=== PATIENT | female | born 1980 | race Caucasian/White ===

== ENCOUNTER 2019-11-06 03:43 | Emergency (ER) | payer MEDICAID, SELFPAY | END 2019-11-06 04:40 | disposition home or self-care (01) | PROVIDERS: Emergency Provider Emergency Medicine; Family Provider Family Medicine; Visit Provider Emergency Medicine | DX: M25.511 Pain in right shoulder (principal); R07.89 Other chest pain; Z91.040 Latex allergy status; Z88.5 Allergy status to narcotic agent; Z88.0 Allergy status to penicillin; F17.210 Nicotine dependence, cigarettes, uncomplicated | CPT/HCPCS: 71046; 93005; 96372; 99284; J1885 ==

== ENCOUNTER → 2019-11-06 | Outpatient (CLI) | payer MEDICAID, SELFPAY | PROVIDERS: Family Provider Family Medicine; Visit Provider Psychiatry & Neurology Psychiatry | DX: F60.3 Borderline personality disorder (principal); F15.21 Other stimulant dependence, in remission; F11.21 Opioid dependence, in remission; F44.81 Dissociative identity disorder; F25.0 Schizoaffective disorder, bipolar type; G47.419 Narcolepsy without cataplexy; F17.210 Nicotine dependence, cigarettes, uncomplicated ==

== ENCOUNTER → 2019-11-13 08:51 | Outpatient (BNVA) | payer MEDICAID, SELFPAY | PROVIDERS: Family Provider Family Medicine; PCP Family Medicine; Visit Provider Social Worker Clinical | DX: F43.12 Post-traumatic stress disorder, chronic (principal); F25.0 Schizoaffective disorder, bipolar type | CPT/HCPCS: 90834 ==

== ENCOUNTER → 2019-11-14 10:40 | Outpatient (BNVA) | payer MEDICAID, SELFPAY | PROVIDERS: Family Provider Family Medicine; PCP Family Medicine; Visit Provider Anesthesiology | DX: G89.29 Other chronic pain (principal); M54.42 Lumbago with sciatica, left side; M47.816 Spondylosis without myelopathy or radiculopathy, lumbar region; M47.819 Spondylosis without myelopathy or radiculopathy, site unspecified; M54.2 Cervicalgia; M25.511 Pain in right shoulder; F17.210 Nicotine dependence, cigarettes, uncomplicated; Z79.891 Long term (current) use of opiate analgesic | CPT/HCPCS: 99214 ==

== ENCOUNTER → 2019-11-28 08:51 | Outpatient (BNVA) | payer MEDICAID, SELFPAY | PROVIDERS: Family Provider Family Medicine; PCP Family Medicine; Visit Provider Social Worker Clinical | DX: F43.12 Post-traumatic stress disorder, chronic (principal) | CPT/HCPCS: 90834 ==

== ENCOUNTER → 2019-12-05 08:43 | Outpatient (BNVA) | payer MEDICAID, SELFPAY | PROVIDERS: Family Provider Family Medicine; PCP Family Medicine; Visit Provider Social Worker Clinical | DX: F43.12 Post-traumatic stress disorder, chronic (principal); F25.0 Schizoaffective disorder, bipolar type | CPT/HCPCS: 90834 ==

== ENCOUNTER → 2019-12-12 07:58 | Outpatient (BNVA) | payer MEDICAID, SELFPAY | PROVIDERS: Family Provider Family Medicine; PCP Family Medicine; Visit Provider Social Worker Clinical | DX: F43.12 Post-traumatic stress disorder, chronic (principal) | CPT/HCPCS: 90834 ==

== ENCOUNTER → 2019-12-26 07:47 | Outpatient (BNVA) | payer MEDICAID, SELFPAY | PROVIDERS: Family Provider Family Medicine; PCP Family Medicine; Visit Provider Social Worker Clinical | DX: F43.12 Post-traumatic stress disorder, chronic (principal); F60.3 Borderline personality disorder; F25.0 Schizoaffective disorder, bipolar type | CPT/HCPCS: 90834 ==

== ENCOUNTER → 2020-01-08 09:18 | Outpatient (BNVA) | payer MEDICAID, SELFPAY | PROVIDERS: Family Provider Family Medicine; PCP Family Medicine; Visit Provider Anesthesiology | DX: G89.29 Other chronic pain (principal); M54.42 Lumbago with sciatica, left side; M54.2 Cervicalgia; F17.210 Nicotine dependence, cigarettes, uncomplicated; Z79.891 Long term (current) use of opiate analgesic; Z71.6 Tobacco abuse counseling | CPT/HCPCS: 99214 ==

== ENCOUNTER → 2020-01-16 08:51 | Outpatient (BNVA) | payer MEDICAID, SELFPAY | PROVIDERS: Family Provider Family Medicine; PCP Family Medicine; Visit Provider Social Worker Clinical | DX: F43.12 Post-traumatic stress disorder, chronic (principal) | CPT/HCPCS: 90834 ==

== ENCOUNTER → 2020-02-01 10:11 | Outpatient (BNVA) | payer MEDICAID, SELFPAY | PROVIDERS: Family Provider Family Medicine; PCP Family Medicine; Visit Provider Social Worker Clinical | DX: F43.12 Post-traumatic stress disorder, chronic (principal) | CPT/HCPCS: 90832 ==

== ENCOUNTER → 2020-02-05 07:12 | Outpatient (BNVA) | payer MEDICAID, SELFPAY | PROVIDERS: Family Provider Family Medicine; PCP Family Medicine; Visit Provider Psychiatry & Neurology Psychiatry | DX: G47.419 Narcolepsy without cataplexy (principal); G47.33 Obstructive sleep apnea (adult) (pediatric); F25.0 Schizoaffective disorder, bipolar type; F60.3 Borderline personality disorder; F17.210 Nicotine dependence, cigarettes, uncomplicated | CPT/HCPCS: 99213 ==

== ENCOUNTER → 2020-02-07 08:40 | Outpatient (BNVA) | payer MEDICAID, SELFPAY | PROVIDERS: Family Provider Family Medicine; PCP Family Medicine; Visit Provider Social Worker Clinical | DX: F60.3 Borderline personality disorder (principal); F25.0 Schizoaffective disorder, bipolar type | CPT/HCPCS: 90834 ==

== ENCOUNTER → 2020-02-14 08:47 | Outpatient (BNVA) | payer MEDICAID, SELFPAY | PROVIDERS: Family Provider Family Medicine; PCP Family Medicine; Visit Provider Social Worker Clinical | DX: F60.3 Borderline personality disorder (principal); F25.0 Schizoaffective disorder, bipolar type | CPT/HCPCS: 90834 ==

== ENCOUNTER → 2020-02-21 08:00 | Outpatient (BNVA) | payer MEDICAID, SELFPAY | PROVIDERS: Family Provider Family Medicine; PCP Family Medicine; Visit Provider Social Worker Clinical | DX: F60.3 Borderline personality disorder (principal); F25.0 Schizoaffective disorder, bipolar type | CPT/HCPCS: 90834 ==

== ENCOUNTER → 2020-02-28 07:52 | Outpatient (BNVA) | payer MEDICAID, SELFPAY | PROVIDERS: Family Provider Family Medicine; PCP Family Medicine; Visit Provider Social Worker Clinical | DX: F60.3 Borderline personality disorder (principal); F25.0 Schizoaffective disorder, bipolar type; F43.12 Post-traumatic stress disorder, chronic | CPT/HCPCS: 90834 ==

== ENCOUNTER → 2020-03-13 08:05 | Outpatient (BNVA) | payer MEDICAID, SELFPAY | PROVIDERS: Family Provider Family Medicine; PCP Family Medicine; Visit Provider Social Worker Clinical | DX: F60.3 Borderline personality disorder (principal); F25.0 Schizoaffective disorder, bipolar type; F43.12 Post-traumatic stress disorder, chronic | CPT/HCPCS: 90834 ==

== ENCOUNTER → 2020-03-20 07:35 | Outpatient (BNVA) | payer MEDICAID, SELFPAY | PROVIDERS: Family Provider Family Medicine; PCP Family Medicine; Visit Provider Social Worker Clinical | DX: F60.3 Borderline personality disorder (principal); F25.0 Schizoaffective disorder, bipolar type; F43.12 Post-traumatic stress disorder, chronic | CPT/HCPCS: 90834 ==

== ENCOUNTER → 2020-03-27 07:48 | Outpatient (BNVA) | payer MEDICAID, SELFPAY | PROVIDERS: Family Provider Family Medicine; PCP Family Medicine; Visit Provider Social Worker Clinical | DX: F43.12 Post-traumatic stress disorder, chronic (principal); F25.0 Schizoaffective disorder, bipolar type | CPT/HCPCS: 90791 ==

== ENCOUNTER → 2020-04-03 07:52 | Outpatient (BNVA) | payer MEDICAID, SELFPAY | PROVIDERS: Family Provider Family Medicine; PCP Family Medicine; Visit Provider Social Worker Clinical | DX: F25.0 Schizoaffective disorder, bipolar type (principal); F60.3 Borderline personality disorder | CPT/HCPCS: 90834 ==

== ENCOUNTER → 2020-04-08 07:35 | Outpatient (BNVA) | payer MEDICAID, SELFPAY | PROVIDERS: Family Provider Family Medicine; PCP Family Medicine; Visit Provider Psychiatry & Neurology Psychiatry | DX: F25.0 Schizoaffective disorder, bipolar type (principal); F60.3 Borderline personality disorder; F17.210 Nicotine dependence, cigarettes, uncomplicated; G47.33 Obstructive sleep apnea (adult) (pediatric); G47.419 Narcolepsy without cataplexy | CPT/HCPCS: 99214 ==

== ENCOUNTER → 2020-04-10 07:57 | Outpatient (BNVA) | payer MEDICAID, SELFPAY | PROVIDERS: Family Provider Family Medicine; PCP Family Medicine; Visit Provider Social Worker Clinical | DX: F60.3 Borderline personality disorder (principal); F25.0 Schizoaffective disorder, bipolar type | CPT/HCPCS: 90834 ==

== ENCOUNTER → 2020-04-17 08:03 | Outpatient (BNVA) | payer MEDICAID, SELFPAY | PROVIDERS: Family Provider Family Medicine; PCP Family Medicine; Visit Provider Social Worker Clinical | DX: F25.0 Schizoaffective disorder, bipolar type (principal); F60.3 Borderline personality disorder | CPT/HCPCS: 90834 ==

== ENCOUNTER 2020-04-21 15:13 | Outpatient (CLI) | payer MEDICAID, SELFPAY ==
--- NOTE | 2020-04-21 15:00 | USCV_ITS ---
Leisa Rizo Age: 39 Gender: F : 1980 Exam Date: 04/21/2020 15:55 Ordering Phys: Leisa Toussaint DO Technologist: Marisa Boone Exam Location: [facility] [place] Indication: SWELLING HISTORY: Lower extremity swelling. PROCEDURES: Venous duplex imaging was performed in only the left lower extremity. The following venous structures were evaluated: common femoral vein, profunda vein, proximal portion of the greater saphenous vein, superficial femoral vein, and the popliteal vein. In addition, the posterior tibial and peroneal trunk were evaluated. Serial compression, augmentation maneuvers, and spectral Doppler flow evaluation were performed. FINDINGS: Normal 2-D Doppler and augmentation and compressibility throughout the lower extremity venous structures. Additional imaging through the proximal calf veins also reveals no thrombus. Limited evaluation of the greater saphenous vein is patent with no thrombus.. CONCLUSIONS No evidence of DVT in the above-mentioned identifiable veins. Dr Lorraine Brewster MD [facility] (Electronically Signed) Final Date: 21 April 2020 20:24 S
== END 2020-04-21 15:14 | disposition home or self-care (01) ==
LOC: RAD 15:15
PROVIDERS: PCP Family Medicine; Visit Provider Family Medicine
DX: M79.89 Other specified soft tissue disorders (principal)
CPT/HCPCS: 93971

== ENCOUNTER → 2020-04-24 07:54 | Outpatient (BNVA) | payer MEDICAID, SELFPAY | PROVIDERS: PCP Family Medicine; Visit Provider Social Worker Clinical | DX: F25.0 Schizoaffective disorder, bipolar type (principal); F60.3 Borderline personality disorder | CPT/HCPCS: 90834 ==

== ENCOUNTER → 2020-05-01 08:04 | Outpatient (BNVA) | payer MEDICAID, SELFPAY | PROVIDERS: PCP Family Medicine; Visit Provider Social Worker Clinical | DX: F60.3 Borderline personality disorder (principal); F25.0 Schizoaffective disorder, bipolar type | CPT/HCPCS: 90834 ==

== ENCOUNTER → 2020-05-08 07:57 | Outpatient (BNVA) | payer MEDICAID, SELFPAY | PROVIDERS: PCP Family Medicine; Visit Provider Social Worker Clinical | DX: F25.0 Schizoaffective disorder, bipolar type (principal); F60.3 Borderline personality disorder | CPT/HCPCS: 90834 ==

== ENCOUNTER → 2020-05-13 08:08 | Outpatient (BNVA) | payer MEDICAID, SELFPAY | PROVIDERS: PCP Family Medicine; Visit Provider Social Worker Clinical | DX: F25.0 Schizoaffective disorder, bipolar type (principal); F60.3 Borderline personality disorder | CPT/HCPCS: 90832 ==

== ENCOUNTER → 2020-05-16 11:30 | Outpatient (BNVA) | payer MEDICAID, SELFPAY | PROVIDERS: Family Provider Family Medicine; PCP Family Medicine; Visit Provider Nurse Practitioner | DX: G89.29 Other chronic pain (principal); M54.42 Lumbago with sciatica, left side; M54.9 Dorsalgia, unspecified; M54.2 Cervicalgia; F17.219 Nicotine dependence, cigarettes, with unspecified nicotine-induced disorders; Z79.891 Long term (current) use of opiate analgesic; Z71.6 Tobacco abuse counseling | CPT/HCPCS: 99213; 99214 ==

== ENCOUNTER → 2020-05-20 08:08 | Outpatient (BNVA) | payer MEDICAID, SELFPAY | PROVIDERS: PCP Family Medicine; Visit Provider Social Worker Clinical | DX: F60.3 Borderline personality disorder (principal); F25.0 Schizoaffective disorder, bipolar type | CPT/HCPCS: 90834 ==

== ENCOUNTER → 2020-05-28 07:43 | Outpatient (BNVA) | payer MEDICAID, SELFPAY | PROVIDERS: PCP Family Medicine; Visit Provider Social Worker Clinical | DX: F25.0 Schizoaffective disorder, bipolar type (principal); F60.3 Borderline personality disorder | CPT/HCPCS: 90834 ==

== ENCOUNTER → 2020-06-04 07:51 | Outpatient (BNVA) | payer MEDICAID, SELFPAY | PROVIDERS: PCP Family Medicine; Visit Provider Social Worker Clinical | DX: F25.0 Schizoaffective disorder, bipolar type (principal); F60.3 Borderline personality disorder | CPT/HCPCS: 90834 ==

== ENCOUNTER → 2020-06-09 08:15 | Outpatient (BNVA) | payer MEDICAID, SELFPAY | PROVIDERS: PCP Family Medicine; Visit Provider Social Worker Clinical | DX: F60.3 Borderline personality disorder (principal); F25.0 Schizoaffective disorder, bipolar type | CPT/HCPCS: 90834 ==

== ENCOUNTER → 2020-06-10 07:31 | Outpatient (BNVA) | payer MEDICAID, SELFPAY | PROVIDERS: PCP Family Medicine; Visit Provider Psychiatry & Neurology Psychiatry | DX: F25.0 Schizoaffective disorder, bipolar type (principal); F60.3 Borderline personality disorder; F17.210 Nicotine dependence, cigarettes, uncomplicated; G47.33 Obstructive sleep apnea (adult) (pediatric); G47.419 Narcolepsy without cataplexy | CPT/HCPCS: 99214 ==

== ENCOUNTER → 2020-06-18 08:18 | Outpatient (BNVA) | payer MEDICAID, SELFPAY | PROVIDERS: PCP Family Medicine; Visit Provider Social Worker Clinical | DX: F60.3 Borderline personality disorder (principal); F25.0 Schizoaffective disorder, bipolar type | CPT/HCPCS: 90834 ==

== ENCOUNTER → 2020-06-25 08:24 | Outpatient (BNVA) | payer MEDICAID, SELFPAY | PROVIDERS: PCP Family Medicine; Visit Provider Social Worker Clinical | DX: F60.3 Borderline personality disorder (principal); F25.0 Schizoaffective disorder, bipolar type | CPT/HCPCS: 90834 ==

== ENCOUNTER → 2020-07-02 08:28 | Outpatient (BNVA) | payer MEDICAID, SELFPAY | PROVIDERS: PCP Family Medicine; Visit Provider Social Worker Clinical | DX: F60.3 Borderline personality disorder (principal); F25.0 Schizoaffective disorder, bipolar type | CPT/HCPCS: 90834 ==

== ENCOUNTER → 2020-07-09 08:31 | Outpatient (BNVA) | payer MEDICAID, SELFPAY | PROVIDERS: PCP Family Medicine; Visit Provider Social Worker Clinical | DX: F25.0 Schizoaffective disorder, bipolar type (principal); F60.3 Borderline personality disorder | CPT/HCPCS: 90834 ==

== ENCOUNTER → 2020-07-16 09:07 | Outpatient (BNVA) | payer MEDICAID, SELFPAY | PROVIDERS: PCP Family Medicine; Visit Provider Social Worker Clinical | DX: F25.0 Schizoaffective disorder, bipolar type (principal); F60.3 Borderline personality disorder | CPT/HCPCS: 90834 ==

== ENCOUNTER → 2020-07-17 10:48 | Outpatient (BNVA) | payer MEDICAID, SELFPAY | PROVIDERS: PCP Family Medicine; Visit Provider Nurse Practitioner | DX: G89.29 Other chronic pain (principal); M54.42 Lumbago with sciatica, left side; M47.816 Spondylosis without myelopathy or radiculopathy, lumbar region; M47.819 Spondylosis without myelopathy or radiculopathy, site unspecified; M54.2 Cervicalgia; M54.9 Dorsalgia, unspecified; F17.210 Nicotine dependence, cigarettes, uncomplicated; Z79.891 Long term (current) use of opiate analgesic | CPT/HCPCS: 99214 ==

== ENCOUNTER → 2020-07-31 07:43 | Outpatient (BNVA) | payer MEDICAID, SELFPAY | PROVIDERS: PCP Family Medicine; Visit Provider Social Worker Clinical | DX: F25.0 Schizoaffective disorder, bipolar type (principal); F60.3 Borderline personality disorder; M54.2 Cervicalgia; M54.9 Dorsalgia, unspecified; F17.210 Nicotine dependence, cigarettes, uncomplicated; Z79.891 Long term (current) use of opiate analgesic | CPT/HCPCS: 90832; 62321; J1040 ==

== ENCOUNTER → 2020-08-07 08:13 | Outpatient (BNVA) | payer MEDICAID, SELFPAY | PROVIDERS: PCP Family Medicine; Visit Provider Social Worker Clinical | DX: F25.0 Schizoaffective disorder, bipolar type (principal); F60.3 Borderline personality disorder; F43.12 Post-traumatic stress disorder, chronic | CPT/HCPCS: 90834 ==

== ENCOUNTER → 2020-08-11 08:24 | Outpatient (BNVA) | payer MEDICAID, SELFPAY | PROVIDERS: PCP Family Medicine; Visit Provider Social Worker Clinical | DX: F25.0 Schizoaffective disorder, bipolar type (principal); F60.3 Borderline personality disorder; F43.12 Post-traumatic stress disorder, chronic | CPT/HCPCS: 90832 ==

== ENCOUNTER → 2020-08-12 07:27 | Outpatient (BNVA) | payer MEDICAID, SELFPAY | PROVIDERS: PCP Family Medicine; Visit Provider Psychiatry & Neurology Psychiatry | DX: F25.0 Schizoaffective disorder, bipolar type (principal); F60.3 Borderline personality disorder; F17.210 Nicotine dependence, cigarettes, uncomplicated; G47.33 Obstructive sleep apnea (adult) (pediatric); G47.419 Narcolepsy without cataplexy | CPT/HCPCS: 90792 ==

== ENCOUNTER → 2020-08-19 07:28 | Outpatient (BNVA) | payer MEDICAID, SELFPAY | PROVIDERS: PCP Family Medicine; Visit Provider Psychiatry & Neurology Psychiatry | DX: F25.0 Schizoaffective disorder, bipolar type (principal); F60.3 Borderline personality disorder; F17.210 Nicotine dependence, cigarettes, uncomplicated; G47.33 Obstructive sleep apnea (adult) (pediatric); G47.419 Narcolepsy without cataplexy | CPT/HCPCS: 99213 ==

== ENCOUNTER → 2020-08-21 07:47 | Outpatient (BNVA) | payer MEDICAID, SELFPAY | PROVIDERS: PCP Family Medicine; Visit Provider Social Worker Clinical | DX: F25.0 Schizoaffective disorder, bipolar type (principal); F43.12 Post-traumatic stress disorder, chronic | CPT/HCPCS: 90832 ==

== ENCOUNTER → 2020-08-28 08:14 | Outpatient (BNVA) | payer MEDICAID, SELFPAY | PROVIDERS: PCP Family Medicine; Visit Provider Social Worker Clinical | DX: F60.3 Borderline personality disorder (principal); F25.0 Schizoaffective disorder, bipolar type | CPT/HCPCS: 90832; 90834 ==

== ENCOUNTER → 2020-09-04 08:39 | Outpatient (BNVA) | payer MEDICAID, SELFPAY | PROVIDERS: PCP Family Medicine; Visit Provider Social Worker Clinical | DX: F25.0 Schizoaffective disorder, bipolar type (principal); F60.3 Borderline personality disorder | CPT/HCPCS: 90834 ==

== ENCOUNTER → 2020-09-09 08:00 | Outpatient (BNVA) | payer MEDICAID, SELFPAY | PROVIDERS: PCP Family Medicine; Visit Provider Social Worker Clinical | DX: F25.0 Schizoaffective disorder, bipolar type (principal); F60.3 Borderline personality disorder; F43.12 Post-traumatic stress disorder, chronic | CPT/HCPCS: 90834 ==

== ENCOUNTER → 2020-09-10 08:27 | Outpatient (BNVA) | payer MEDICAID, SELFPAY | PROVIDERS: PCP Family Medicine; Visit Provider Anesthesiology | DX: G89.29 Other chronic pain (principal); M47.816 Spondylosis without myelopathy or radiculopathy, lumbar region; M54.42 Lumbago with sciatica, left side; M54.41 Lumbago with sciatica, right side; M47.819 Spondylosis without myelopathy or radiculopathy, site unspecified; M54.2 Cervicalgia; M54.9 Dorsalgia, unspecified; F17.210 Nicotine dependence, cigarettes, uncomplicated; Z79.891 Long term (current) use of opiate analgesic | CPT/HCPCS: 99213; 99214 ==

== ENCOUNTER 2020-09-15 10:26 | Outpatient (CLI) | payer MEDICAID, SELFPAY ==
[2020-09-15 11:16] LABS: Blood Urea Nitrogen 9 mg/dL (6-20); Calcium 8.6 mg/dL (8.5-10.5); Carbon Dioxide 25 mmol/L (22-29); Chloride 100 mmol/L (98-107); Glomerular Filtration Rate 92.2 mL/min (90-130); Glucose 115 mg/dL (65-115); Osmolality Calculated 278 mOsm/kg (285-295); Sodium 134 mmol/L (136-145)
== END 2020-09-15 10:27 | disposition home or self-care (01) ==
LOC: LAB 10:30
PROVIDERS: PCP Family Medicine; Visit Provider Anesthesiology
DX: Z51.81 Encounter for therapeutic drug level monitoring (principal); Z79.1 Long term (current) use of non-steroidal anti-inflammatories (NSAID)
CPT/HCPCS: 36415; 80048

== ENCOUNTER → 2020-09-16 07:55 | Outpatient (BNVA) | payer MEDICAID, SELFPAY | PROVIDERS: PCP Family Medicine; Visit Provider Social Worker Clinical | DX: F25.0 Schizoaffective disorder, bipolar type (principal); F60.3 Borderline personality disorder; F43.12 Post-traumatic stress disorder, chronic | CPT/HCPCS: 90834 ==

== ENCOUNTER → 2020-09-18 08:10 | Outpatient (BNVA) | payer MEDICAID, SELFPAY | PROVIDERS: PCP Family Medicine; Visit Provider Psychiatry & Neurology Psychiatry | DX: F25.0 Schizoaffective disorder, bipolar type (principal); F60.3 Borderline personality disorder; F17.210 Nicotine dependence, cigarettes, uncomplicated; G47.33 Obstructive sleep apnea (adult) (pediatric); G47.419 Narcolepsy without cataplexy | CPT/HCPCS: 99214 ==

== ENCOUNTER → 2020-09-22 08:14 | Outpatient (BNVA) | payer MEDICAID, SELFPAY | PROVIDERS: PCP Family Medicine; Visit Provider Social Worker Clinical | DX: F60.3 Borderline personality disorder (principal); F25.0 Schizoaffective disorder, bipolar type | CPT/HCPCS: 90834 ==

== ENCOUNTER → 2020-09-25 08:22 | Outpatient (BNVA) | payer MEDICAID, SELFPAY | PROVIDERS: PCP Family Medicine; Visit Provider Psychiatry & Neurology Psychiatry | DX: F25.0 Schizoaffective disorder, bipolar type (principal); F60.3 Borderline personality disorder; F17.210 Nicotine dependence, cigarettes, uncomplicated; G47.33 Obstructive sleep apnea (adult) (pediatric); Z79.899 Other long term (current) drug therapy; G47.419 Narcolepsy without cataplexy; F41.9 Anxiety disorder, unspecified | CPT/HCPCS: 99215 ==

== ENCOUNTER → 2020-09-26 07:40 | Outpatient (BNVA) | payer MEDICAID, SELFPAY | PROVIDERS: PCP Family Medicine; Visit Provider Psychiatry & Neurology Psychiatry | DX: F25.0 Schizoaffective disorder, bipolar type (principal); Z79.899 Other long term (current) drug therapy | CPT/HCPCS: 84443 ==

== ENCOUNTER → 2020-10-06 08:12 | Outpatient (BNVA) | payer MEDICAID, SELFPAY | PROVIDERS: PCP Family Medicine; Visit Provider Social Worker Clinical | DX: F25.0 Schizoaffective disorder, bipolar type (principal); F60.3 Borderline personality disorder | CPT/HCPCS: 90834 ==

== ENCOUNTER → 2020-10-09 07:35 | Outpatient (BNVA) | payer MEDICAID, SELFPAY | PROVIDERS: PCP Family Medicine; Visit Provider Social Worker Clinical | DX: F25.0 Schizoaffective disorder, bipolar type (principal); F60.3 Borderline personality disorder; F43.12 Post-traumatic stress disorder, chronic | CPT/HCPCS: 90834 ==

== ENCOUNTER → 2020-10-13 09:21 | Outpatient (BNVA) | payer MEDICAID, SELFPAY | PROVIDERS: PCP Family Medicine; Visit Provider Psychiatry & Neurology Psychiatry | DX: F25.0 Schizoaffective disorder, bipolar type (principal); Z79.899 Other long term (current) drug therapy | CPT/HCPCS: 80178 ==

== ENCOUNTER → 2020-10-21 07:44 | Outpatient (BNVA) | payer MEDICAID, SELFPAY | PROVIDERS: PCP Family Medicine; Visit Provider Social Worker Clinical | DX: F60.3 Borderline personality disorder (principal); F25.0 Schizoaffective disorder, bipolar type | CPT/HCPCS: 90834 ==

== ENCOUNTER → 2020-10-27 07:54 | Outpatient (BNVA) | payer MEDICAID, SELFPAY | PROVIDERS: PCP Family Medicine; Visit Provider Social Worker Clinical | DX: F60.3 Borderline personality disorder (principal); F25.0 Schizoaffective disorder, bipolar type | CPT/HCPCS: 90834 ==

== ENCOUNTER → 2020-11-03 07:33 | Outpatient (BNVA) | payer MEDICAID, SELFPAY | PROVIDERS: PCP Family Medicine; Visit Provider Psychiatry & Neurology Psychiatry | DX: F25.0 Schizoaffective disorder, bipolar type (principal); F60.3 Borderline personality disorder; F17.210 Nicotine dependence, cigarettes, uncomplicated; G47.33 Obstructive sleep apnea (adult) (pediatric); G47.419 Narcolepsy without cataplexy | CPT/HCPCS: 99214 ==

== ENCOUNTER → 2020-11-06 08:41 | Outpatient (BNVA) | payer MEDICAID, SELFPAY | PROVIDERS: PCP Family Medicine; Visit Provider Nurse Practitioner | DX: M54.2 Cervicalgia (principal); M54.9 Dorsalgia, unspecified; F17.210 Nicotine dependence, cigarettes, uncomplicated; M47.819 Spondylosis without myelopathy or radiculopathy, site unspecified; M54.42 Lumbago with sciatica, left side; M47.816 Spondylosis without myelopathy or radiculopathy, lumbar region; G89.29 Other chronic pain; Z71.6 Tobacco abuse counseling; Z79.891 Long term (current) use of opiate analgesic | CPT/HCPCS: 99214 ==

== ENCOUNTER → 2020-11-10 08:15 | Outpatient (BNVA) | payer MEDICAID, SELFPAY | PROVIDERS: PCP Family Medicine; Visit Provider Social Worker Clinical | DX: F60.3 Borderline personality disorder (principal); F25.0 Schizoaffective disorder, bipolar type | CPT/HCPCS: 90834 ==

== ENCOUNTER → 2020-11-17 08:06 | Outpatient (BNVA) | payer MEDICAID, SELFPAY | PROVIDERS: PCP Family Medicine; Visit Provider Social Worker Clinical | DX: F25.0 Schizoaffective disorder, bipolar type (principal); F60.3 Borderline personality disorder; F43.12 Post-traumatic stress disorder, chronic | CPT/HCPCS: 90834 ==

== ENCOUNTER → 2020-11-24 08:37 | Outpatient (BNVA) | payer MEDICAID, SELFPAY | PROVIDERS: PCP Family Medicine; Visit Provider Social Worker Clinical | DX: F25.0 Schizoaffective disorder, bipolar type (principal); F60.3 Borderline personality disorder; F43.12 Post-traumatic stress disorder, chronic | CPT/HCPCS: 90834 ==

== ENCOUNTER → 2020-12-01 08:19 | Outpatient (BNVA) | payer MEDICAID, SELFPAY | PROVIDERS: PCP Family Medicine; Visit Provider Social Worker Clinical | DX: F60.3 Borderline personality disorder (principal); F25.0 Schizoaffective disorder, bipolar type | CPT/HCPCS: 90832 ==

== ENCOUNTER → 2020-12-03 09:06 | Outpatient (BNVA) | payer MEDICAID, SELFPAY | PROVIDERS: PCP Family Medicine; Visit Provider Psychiatry & Neurology Psychiatry | DX: F25.0 Schizoaffective disorder, bipolar type (principal); F60.3 Borderline personality disorder; F17.210 Nicotine dependence, cigarettes, uncomplicated; G47.33 Obstructive sleep apnea (adult) (pediatric); G47.419 Narcolepsy without cataplexy | CPT/HCPCS: 99214 ==

== ENCOUNTER → 2020-12-08 08:20 | Outpatient (BNVA) | payer MEDICAID, SELFPAY | PROVIDERS: PCP Family Medicine; Visit Provider Social Worker Clinical | DX: F60.3 Borderline personality disorder (principal); F25.0 Schizoaffective disorder, bipolar type | CPT/HCPCS: 90834 ==

== ENCOUNTER → 2020-12-15 07:32 | Outpatient (BNVA) | payer MEDICAID, SELFPAY | PROVIDERS: PCP Family Medicine; Visit Provider Social Worker Clinical | DX: F25.0 Schizoaffective disorder, bipolar type (principal); F60.3 Borderline personality disorder | CPT/HCPCS: 90834 ==

== ENCOUNTER → 2020-12-25 08:59 | Outpatient (BNVA) | payer MEDICAID, SELFPAY | PROVIDERS: PCP Family Medicine; Visit Provider Anesthesiology | DX: G89.29 Other chronic pain (principal); M53.3 Sacrococcygeal disorders, not elsewhere classified; M54.9 Dorsalgia, unspecified; M54.2 Cervicalgia; F17.210 Nicotine dependence, cigarettes, uncomplicated; Z79.891 Long term (current) use of opiate analgesic | CPT/HCPCS: G0260; J1040; J3490 ==

== ENCOUNTER → 2020-12-29 08:00 | Outpatient (BNVA) | payer MEDICAID, SELFPAY | PROVIDERS: PCP Family Medicine; Visit Provider Social Worker Clinical | DX: F60.3 Borderline personality disorder (principal); F25.0 Schizoaffective disorder, bipolar type | CPT/HCPCS: 90834 ==

== ENCOUNTER 2021-01-02 12:16 | Emergency (ER) | payer MEDICAID, SELFPAY ==
[2021-01-02 12:21] VITALS: BP 162/110; PULSE 93; RESP 14; TEMP 36.7; O2SAT 98; BMI 50.1
[2021-01-02 12:30] VITALS: PULSE 88; RESP 18; O2SAT 99
[2021-01-02 13:12] VITALS: BP 130/86; PULSE 90; RESP 16; O2SAT 97
--- NOTE | 2021-01-02 13:23 | W.ED.ALLEREA ---
HPI - Allergic Reaction General: Chief complaint: Allergic Reaction Stated complaint: allergic reaction Time Seen by Provider: 01/02/21 12:17 History of Present Illness: HPI narrative: 42-year-old female is emergency room complaining of discomfort in her throat. This began about 20 to 30 minutes after receiving her second Covid vaccine she denies any difficulty breathing. She not had any swelling in her face tongue or lips. Onset (ago): minute(s) Exposure: medication Associated symptoms: Reports hoarseness and itching; Deny abdominal pain, difficulty breathing, dysphagia, dizziness, facial swelling, lip swelling, nausea, rash, tongue swelling or vomiting Severity: mild Treatment prior to arrival: benadryl Review of Systems Const: Denies: fever(s), chills, body aches, change in appetite, fatigue or malaise ENMT: Reports: hoarseness Card: Denies: chest pain, edema, dyspnea on exertion or orthopnea Resp: Denies: dyspnea, productive cough or non-productive cough GI: Denies: abdominal pain, nausea, vomiting or dysphagia : Denies: flank pain, difficulty voiding, dysuria, urinary frequency or urinary urgency Skin/Breast: Denies: rash or pruritus Neuro: Denies: dizziness All/Imm: Denies: tongue swelling or facial swelling 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 Benign essential HTN Borderline personality disorder Cannabis dependence in remission Cholecystectomy planned Chronic sacroiliac joint pain Cigarette smoker Narcolepsy Obstructive sleep apnea Opioid contract exists Schizoaffective disorder, bipolar type Spondylosis without myelopathy or radiculopathy, lumbar region Surgical History History of cholecystectomy Tubal ligation status Family History Brother Hypertension CAD (coronary artery disease) Diabetes Father Hypertension Mother Hypertension CAD (coronary artery disease) Social History Smoking and tobacco status: current every day smoker cigarettes Packs smoked per day: 0.01 [ Other cigarette details: 1-2 cig day-using chantix ] Quit status (tobacco): has tried quititng Second hand smoke exposure: Yes Alcohol intake: former History of recent travel: No Current gender identity: Female Female Reproductive History: Date of last menstrual period: 12/26/20 Physical Exam Const: COMMON NORMALS: no acute distress GENERAL APPEARANCE: cooperative and comfortable ORIENTATION/CONSCIOUSNESS: Yes awake, Yes oriented to person, Yes oriented to place and Yes oriented to time HENMT: COMMON NORMALS: normocephalic, atraumatic and hearing grossly normal bilaterally HEAD & SCALP: normocephalic and atraumatic Neck/C-Spine: COMMON NORMALS: no JVD Resp: COMMON NORMALS: normal respiratory effort, No retractions, No use of accessory muscles and clear to auscultation bilaterally AUSCULTATION: clear to auscultation bilaterally Cardio: COMMON NORMALS: no JVD, regular rate, regular rhythm and No murmurs present (Cardio) RATE: regular rate RHYTHM: regular rhythm GI: COMMON NORMALS: Soft to palpation and No hepatosplenomegaly present AUSCULTATION: Yes normoactive bowel sounds PALPATION: Yes Soft to palpation, No Tenderness to palpation present (GI), No Guarding due to palpation present (GI) and Yes No hepatosplenomegaly present Extremity: COMMON NORMALS: normal to inspection, capillary refill normal, no clubbing, cyanosis or edema, no calf tenderness and no pedal edema Neuro: SENSORIUM/ORIENTATION: Yes oriented to person, Yes oriented to place and Yes oriented to time Skin: COMMON NORMALS: no rashes or lesions noted GENERAL SKIN EXAM: no rashes or lesions noted Course Vital Signs: Vital signs: Vital Signs Temperature 98.0 F 01/02/21 12:21 Pulse Rate 85 01/02/21 15:25 Respiratory Rate 16 01/02/21 15:25 Blood Pressure 142/95 01/02/21 15:25 Pulse Oximetry 98 01/02/21 15:25 MDM - Allergic Reaction MDM Narrative: Medical decision making narrative: Patient monitored for 3 hours per protocol is doing well no specific problems actually feels much better is no further symptoms no stridor no wheezing no facial swelling no swelling of the tongue or throat will discharge home follow-up as needed Discharge Plan Discharge Patient Disposition: Home Clinical Impression: Medication side effects Condition: Stable Prescriptions: No Action hydroxyzine HCl 50 mg tablet 75 mg PO BID PRN (Reason: itching) Qty: 90 RF: 11 Emgality Pen 120 mg/mL pen injector See Rx Instructions .ROUTE .COMPLEX RF: 0 cyclobenzaprine 10 mg tablet 10 mg PO TID PRN (Reason: muscle spasm) Qty: 90 RF: 1 oxycodone 15 mg tablet 15 mg PO QID PRN (Reason: pain) 30 Days Qty: 120 RF: 0 topiramate [Topamax] 25 mg tablet 100 mg PO DAILY@1999 RF: 0 pantoprazole [Protonix] 40 mg tablet,delayed release (DR/EC) 40 mg PO BID@ RF: 0 fluticasone propionate 50 mcg/actuation spray,suspension 2 spray INTRANASAL BID RF: 0 rizatriptan 10 mg tablet 10 mg PO DAILY PRN (Reason: Migraine Headache) RF: 0 Ritalin 20 mg tablet 20 mg PO TID@,, RF: 0 meloxicam 7.5 mg tablet 7.5 mg PO BID@ RF: 0 pregabalin 200 mg capsule 200 mg PO TID@, RF: 0 Chantix 1 mg tablet 1 mg PO BID@ RF: 0 Lamictal XR 200 mg tablet extended release 24hr 200 mg PO BEDTIME@1999 RF: 0 Latuda 20 mg tablet 20 mg PO BEDTIME@1999 RF: 0 Discharge Orders: Discharge ED (Routine); Ordered 01/02/21 Ordered By: Gage Bull Referrals: Leisa Toussaint DO [Primary Care Provider] - Discharge Diet: Usual diet Discharge Activity: Resume usual activity and Increase activity as tolerated Patient Instructions: Opioid Safety Activity Restrictions/Additional Instructions: Follow up with your primary care doctor as needed. Coding Level of Care Code ED Strategic Marketing Leader for Claudia Muniz
--- NOTE | 2021-01-02 13:31 | PC.NURSE ---
patient stated felt better, much easier to swallow now. no acute distress noted at this time.
[2021-01-02 15:25] VITALS: BP 142/95; PULSE 85; RESP 16; O2SAT 98
== END 2021-01-02 15:27 | disposition home or self-care (01) ==
PROVIDERS: Emergency Provider Family Medicine; PCP Family Medicine
DX: T88.7XXA Unspecified adverse effect of drug or medicament, initial encounter (principal); T50.905A Adverse effect of unspecified drugs, medicaments and biological substances, initial encounter; I10 Essential (primary) hypertension; F17.210 Nicotine dependence, cigarettes, uncomplicated
CPT/HCPCS: 99281

== ENCOUNTER → 2021-01-05 08:07 | Outpatient (BNVA) | payer MEDICAID, SELFPAY | PROVIDERS: PCP Family Medicine; Visit Provider Social Worker Clinical | DX: F60.3 Borderline personality disorder (principal); F25.0 Schizoaffective disorder, bipolar type; F43.12 Post-traumatic stress disorder, chronic | CPT/HCPCS: 90834 ==

== ENCOUNTER 2021-01-07 09:58 | Outpatient (CLI) | payer MEDICAID, SELFPAY ==
--- NOTE | 2021-01-07 10:15 | USCV_ITS ---
Leisa Rizo Age: 40 Gender: F : 1980 Exam Date: 01/07/2021 10:10 Ordering Phys: Leisa Toussaint DO Technologist: Polly Quintanilla [place] [facility] [place]: HISTORY: Intermitten swelling of Lt. Leg PROCEDURES: Left duplex Venous Insufficiency study of the Deep and Superficial systems was carried out according to normal protocol with the patient in supine positon for deep system and dependent position for the superficial system. FINDINGS: There is no evidence of LEFT deep vein thrombosis. No evidence of superficial thrombosis in the LEFT saphenous system. No evidence of reflux was noted in the LEFT deep venous system. No venous reflux noted in the LEFT greater saphenous vein. No venous reflux noted in the LEFT small saphenous vein. CONCLUSIONS No evidence of DVT in the above-mentioned identifiable veins. No significant venous reflux on the left side Dr Lorraine Brewster MD [facility] (Electronically Signed) Final Date: 08 January 2021 20:13 S
== END 2021-01-07 09:59 | disposition home or self-care (01) ==
LOC: RAD 09:59
PROVIDERS: PCP Family Medicine; Visit Provider Family Medicine
DX: M79.89 Other specified soft tissue disorders (principal)
CPT/HCPCS: 93971

== ENCOUNTER → 2021-01-08 08:02 | Outpatient (BNVA) | payer MEDICAID, SELFPAY | PROVIDERS: PCP Family Medicine; Visit Provider Social Worker Clinical | DX: F60.3 Borderline personality disorder (principal); F25.0 Schizoaffective disorder, bipolar type; F43.12 Post-traumatic stress disorder, chronic | CPT/HCPCS: 90834 ==

== ENCOUNTER → 2021-01-09 09:40 | Outpatient (BNVA) | payer MEDICAID, SELFPAY | PROVIDERS: PCP Family Medicine; Visit Provider Anesthesiology | DX: G89.29 Other chronic pain (principal); M54.2 Cervicalgia; M54.9 Dorsalgia, unspecified; H83.03 Labyrinthitis, bilateral; M25.511 Pain in right shoulder; M47.819 Spondylosis without myelopathy or radiculopathy, site unspecified; M54.42 Lumbago with sciatica, left side; M47.816 Spondylosis without myelopathy or radiculopathy, lumbar region; M53.3 Sacrococcygeal disorders, not elsewhere classified; F17.219 Nicotine dependence, cigarettes, with unspecified nicotine-induced disorders; Z79.891 Long term (current) use of opiate analgesic; Z71.6 Tobacco abuse counseling | CPT/HCPCS: 99213; 99214 ==

== ENCOUNTER → 2021-01-12 07:59 | Outpatient (BNVA) | payer MEDICAID, SELFPAY | PROVIDERS: PCP Family Medicine; Visit Provider Social Worker Clinical | DX: F25.0 Schizoaffective disorder, bipolar type (principal); F60.3 Borderline personality disorder; F43.12 Post-traumatic stress disorder, chronic | CPT/HCPCS: 90834 ==

== ENCOUNTER → 2021-01-19 07:59 | Outpatient (BNVA) | payer MEDICAID, SELFPAY | PROVIDERS: PCP Family Medicine; Visit Provider Social Worker Clinical | DX: F25.0 Schizoaffective disorder, bipolar type (principal); F60.3 Borderline personality disorder | CPT/HCPCS: 90834 ==

== ENCOUNTER → 2021-01-22 08:50 | Outpatient (BNVA) | payer MEDICAID, SELFPAY | PROVIDERS: PCP Family Medicine; Visit Provider Anesthesiology | DX: G89.29 Other chronic pain (principal); M53.3 Sacrococcygeal disorders, not elsewhere classified; F17.210 Nicotine dependence, cigarettes, uncomplicated; Z79.891 Long term (current) use of opiate analgesic | CPT/HCPCS: G0260; J1030; J3490 ==

== ENCOUNTER → 2021-01-26 08:10 | Outpatient (BNVA) | payer MEDICAID, SELFPAY | PROVIDERS: PCP Family Medicine; Visit Provider Social Worker Clinical | DX: F25.0 Schizoaffective disorder, bipolar type (principal); F60.3 Borderline personality disorder; F43.12 Post-traumatic stress disorder, chronic | CPT/HCPCS: 90834 ==

== ENCOUNTER → 2021-02-02 08:03 | Outpatient (BNVA) | payer MEDICAID, SELFPAY | PROVIDERS: PCP Family Medicine; Visit Provider Social Worker Clinical | DX: F60.3 Borderline personality disorder (principal); F25.0 Schizoaffective disorder, bipolar type; F43.12 Post-traumatic stress disorder, chronic | CPT/HCPCS: 90834 ==

== ENCOUNTER → 2021-02-04 07:19 | Outpatient (BNVA) | payer MEDICAID, SELFPAY | PROVIDERS: PCP Family Medicine; Visit Provider Psychiatry & Neurology Psychiatry | DX: F25.0 Schizoaffective disorder, bipolar type (principal); F60.3 Borderline personality disorder; F17.210 Nicotine dependence, cigarettes, uncomplicated; G47.33 Obstructive sleep apnea (adult) (pediatric); G47.419 Narcolepsy without cataplexy | CPT/HCPCS: 99214 ==

== ENCOUNTER → 2021-02-09 07:53 | Outpatient (BNVA) | payer MEDICAID, SELFPAY | PROVIDERS: PCP Family Medicine; Visit Provider Social Worker Clinical | DX: F25.0 Schizoaffective disorder, bipolar type (principal); F60.3 Borderline personality disorder; F43.12 Post-traumatic stress disorder, chronic | CPT/HCPCS: 90834 ==

== ENCOUNTER → 2021-02-17 07:49 | Outpatient (BNVA) | payer MEDICAID, SELFPAY | PROVIDERS: PCP Family Medicine; Visit Provider Social Worker Clinical | DX: F25.0 Schizoaffective disorder, bipolar type (principal); F60.3 Borderline personality disorder | CPT/HCPCS: 90834 ==

== ENCOUNTER → 2021-02-25 08:51 | Outpatient (BNVA) | payer MEDICAID, SELFPAY | PROVIDERS: PCP Family Medicine; Visit Provider Social Worker Clinical | DX: F60.3 Borderline personality disorder (principal); F25.0 Schizoaffective disorder, bipolar type; F43.12 Post-traumatic stress disorder, chronic | CPT/HCPCS: 90834; 80061; 83036 ==

== ENCOUNTER → 2021-03-03 08:19 | Outpatient (BNVA) | payer MEDICAID, SELFPAY | PROVIDERS: PCP Family Medicine; Visit Provider Social Worker Clinical | DX: F25.0 Schizoaffective disorder, bipolar type (principal); F60.3 Borderline personality disorder | CPT/HCPCS: 90834 ==

== ENCOUNTER → 2021-03-06 08:52 | Outpatient (BNVA) | payer MEDICAID, SELFPAY | PROVIDERS: PCP Family Medicine; Visit Provider Nurse Practitioner | DX: G89.29 Other chronic pain (principal); M47.816 Spondylosis without myelopathy or radiculopathy, lumbar region; M54.9 Dorsalgia, unspecified; M54.2 Cervicalgia; M25.511 Pain in right shoulder; G62.9 Polyneuropathy, unspecified; M79.89 Other specified soft tissue disorders; F17.219 Nicotine dependence, cigarettes, with unspecified nicotine-induced disorders; Z79.891 Long term (current) use of opiate analgesic; Z71.6 Tobacco abuse counseling | CPT/HCPCS: 99214 ==

== ENCOUNTER → 2021-03-12 08:54 | Outpatient (BNVA) | payer MEDICAID, SELFPAY | PROVIDERS: PCP Family Medicine; Visit Provider Social Worker Clinical | DX: F25.0 Schizoaffective disorder, bipolar type (principal); F43.12 Post-traumatic stress disorder, chronic | CPT/HCPCS: 90834 ==

== ENCOUNTER → 2021-03-19 08:33 | Outpatient (BNVA) | payer MEDICAID, SELFPAY | PROVIDERS: PCP Family Medicine; Visit Provider Social Worker Clinical | DX: F25.0 Schizoaffective disorder, bipolar type (principal); F60.3 Borderline personality disorder | CPT/HCPCS: 90834 ==

== ENCOUNTER → 2021-03-26 08:33 | Outpatient (BNVA) | payer MEDICAID, SELFPAY | PROVIDERS: PCP Family Medicine; Visit Provider Social Worker Clinical | DX: F60.3 Borderline personality disorder (principal); F25.0 Schizoaffective disorder, bipolar type; F43.12 Post-traumatic stress disorder, chronic; G89.29 Other chronic pain; M53.3 Sacrococcygeal disorders, not elsewhere classified; M54.9 Dorsalgia, unspecified; M47.816 Spondylosis without myelopathy or radiculopathy, lumbar region; M54.42 Lumbago with sciatica, left side; M54.2 Cervicalgia; M25.511 Pain in right shoulder; G62.9 Polyneuropathy, unspecified; F17.219 Nicotine dependence, cigarettes, with unspecified nicotine-induced disorders; Z79.891 Long term (current) use of opiate analgesic; Z71.6 Tobacco abuse counseling | CPT/HCPCS: 90834; 99214 ==

== ENCOUNTER → 2021-03-31 07:55 | Outpatient (BNVA) | payer MEDICAID, SELFPAY | PROVIDERS: PCP Family Medicine; Visit Provider Social Worker Clinical | DX: F60.3 Borderline personality disorder (principal); F25.0 Schizoaffective disorder, bipolar type; F43.12 Post-traumatic stress disorder, chronic | CPT/HCPCS: 90834 ==

== ENCOUNTER → 2021-04-01 07:27 | Outpatient (BNVA) | payer MEDICAID, SELFPAY | PROVIDERS: PCP Family Medicine; Visit Provider Psychiatry & Neurology Psychiatry | DX: F25.0 Schizoaffective disorder, bipolar type (principal); F60.3 Borderline personality disorder; F17.210 Nicotine dependence, cigarettes, uncomplicated; G47.33 Obstructive sleep apnea (adult) (pediatric); G47.419 Narcolepsy without cataplexy | CPT/HCPCS: 99214 ==

== ENCOUNTER → 2021-04-08 07:34 | Outpatient (BNVA) | payer MEDICAID, SELFPAY | PROVIDERS: PCP Family Medicine; Visit Provider Social Worker Clinical | DX: F60.3 Borderline personality disorder (principal); F25.0 Schizoaffective disorder, bipolar type; F43.12 Post-traumatic stress disorder, chronic | CPT/HCPCS: 90791 ==

== ENCOUNTER → 2021-04-13 08:42 | Outpatient (BNVA) | payer MEDICAID, SELFPAY | PROVIDERS: PCP Family Medicine; Visit Provider Family Medicine | DX: I10 Essential (primary) hypertension (principal); Z68.43 Body mass index [BMI] 50.0-59.9, adult; F17.211 Nicotine dependence, cigarettes, in remission | CPT/HCPCS: 80053; 80061; 82043; 85025 ==

== ENCOUNTER → 2021-04-14 16:50 | Outpatient (BNVA) | payer MEDICAID, SELFPAY | PROVIDERS: PCP Family Medicine; Visit Provider Family Medicine | DX: D50.9 Iron deficiency anemia, unspecified (principal); I10 Essential (primary) hypertension | CPT/HCPCS: 82728; 83550 ==

== ENCOUNTER → 2021-04-15 07:48 | Outpatient (BNVA) | payer MEDICAID, SELFPAY | PROVIDERS: PCP Family Medicine; Visit Provider Social Worker Clinical | DX: F60.3 Borderline personality disorder (principal); F25.0 Schizoaffective disorder, bipolar type; F43.12 Post-traumatic stress disorder, chronic | CPT/HCPCS: 90834 ==

== ENCOUNTER → 2021-04-20 08:20 | Outpatient (BNVA) | payer MEDICAID, SELFPAY | PROVIDERS: PCP Family Medicine; Visit Provider Family Medicine | DX: R76.8 Other specified abnormal immunological findings in serum (principal) | CPT/HCPCS: 80074 ==

== ENCOUNTER → 2021-04-22 07:50 | Outpatient (BNVA) | payer MEDICAID, SELFPAY | PROVIDERS: PCP Family Medicine; Visit Provider Social Worker Clinical | DX: F60.3 Borderline personality disorder (principal); F25.0 Schizoaffective disorder, bipolar type; F43.12 Post-traumatic stress disorder, chronic | CPT/HCPCS: 90834 ==

== ENCOUNTER → 2021-05-06 11:43 | Outpatient (BNVA) | payer MEDICAID, SELFPAY | PROVIDERS: PCP Family Medicine; Visit Provider Social Worker Clinical | DX: F60.3 Borderline personality disorder (principal); F25.0 Schizoaffective disorder, bipolar type; F43.12 Post-traumatic stress disorder, chronic | CPT/HCPCS: 90832 ==

== ENCOUNTER → 2021-05-13 08:12 | Outpatient (BNVA) | payer MEDICAID, SELFPAY | PROVIDERS: PCP Family Medicine; Visit Provider Social Worker Clinical | DX: F60.3 Borderline personality disorder (principal); F25.0 Schizoaffective disorder, bipolar type; F43.12 Post-traumatic stress disorder, chronic | CPT/HCPCS: 90834 ==

== ENCOUNTER → 2021-05-20 08:15 | Outpatient (BNVA) | payer MEDICAID, SELFPAY | PROVIDERS: PCP Family Medicine; Visit Provider Social Worker Clinical | DX: F60.3 Borderline personality disorder (principal); F25.0 Schizoaffective disorder, bipolar type; F43.12 Post-traumatic stress disorder, chronic | CPT/HCPCS: 90834 ==

== ENCOUNTER → 2021-05-27 08:15 | Outpatient (BNVA) | payer MEDICAID, SELFPAY | PROVIDERS: PCP Family Medicine; Visit Provider Social Worker Clinical | DX: F60.3 Borderline personality disorder (principal); F25.0 Schizoaffective disorder, bipolar type; F43.12 Post-traumatic stress disorder, chronic | CPT/HCPCS: 90834 ==

== ENCOUNTER → 2021-06-03 07:01 | Outpatient (BNVA) | payer MEDICAID, SELFPAY | PROVIDERS: PCP Family Medicine; Visit Provider Psychiatry & Neurology Psychiatry | DX: F60.3 Borderline personality disorder (principal); F17.210 Nicotine dependence, cigarettes, uncomplicated; G47.419 Narcolepsy without cataplexy; G47.33 Obstructive sleep apnea (adult) (pediatric); R05 Cough | CPT/HCPCS: 99214 ==

== ENCOUNTER → 2021-06-04 08:07 | Outpatient (BNVA) | payer MEDICAID, SELFPAY | PROVIDERS: PCP Family Medicine; Visit Provider Social Worker Clinical | DX: F60.3 Borderline personality disorder (principal); F25.0 Schizoaffective disorder, bipolar type; F43.12 Post-traumatic stress disorder, chronic | CPT/HCPCS: 90834 ==

== ENCOUNTER → 2021-06-10 08:42 | Outpatient (BNVA) | payer MEDICAID, SELFPAY | PROVIDERS: PCP Family Medicine; Visit Provider Nurse Practitioner | DX: G89.29 Other chronic pain (principal); M54.2 Cervicalgia; M25.511 Pain in right shoulder; M53.3 Sacrococcygeal disorders, not elsewhere classified; M47.816 Spondylosis without myelopathy or radiculopathy, lumbar region; H83.03 Labyrinthitis, bilateral; G62.9 Polyneuropathy, unspecified; M72.2 Plantar fascial fibromatosis; F17.210 Nicotine dependence, cigarettes, uncomplicated; Z79.891 Long term (current) use of opiate analgesic; Z71.6 Tobacco abuse counseling | CPT/HCPCS: 99214 ==

== ENCOUNTER → 2021-06-18 08:56 | Outpatient (BNVA) | payer MEDICAID, SELFPAY | PROVIDERS: PCP Family Medicine; Visit Provider Social Worker Clinical | DX: F60.3 Borderline personality disorder (principal); F25.0 Schizoaffective disorder, bipolar type; F43.12 Post-traumatic stress disorder, chronic | CPT/HCPCS: 90834 ==

== ENCOUNTER → 2021-06-24 07:57 | Outpatient (BNVA) | payer MEDICAID, SELFPAY | PROVIDERS: PCP Family Medicine; Visit Provider Social Worker Clinical | DX: F60.3 Borderline personality disorder (principal); F25.0 Schizoaffective disorder, bipolar type; F43.12 Post-traumatic stress disorder, chronic | CPT/HCPCS: 90834 ==

== ENCOUNTER → 2021-07-09 08:06 | Outpatient (BNVA) | payer MEDICAID, SELFPAY | PROVIDERS: PCP Family Medicine; Visit Provider Social Worker Clinical | DX: F60.3 Borderline personality disorder (principal); F25.0 Schizoaffective disorder, bipolar type; F43.12 Post-traumatic stress disorder, chronic | CPT/HCPCS: 90834 ==

== ENCOUNTER → 2021-07-15 08:44 | Outpatient (BNVA) | payer MEDICAID, SELFPAY | PROVIDERS: PCP Family Medicine; Visit Provider Social Worker Clinical | DX: F60.3 Borderline personality disorder (principal); F25.0 Schizoaffective disorder, bipolar type; F43.12 Post-traumatic stress disorder, chronic | CPT/HCPCS: 90834 ==

== ENCOUNTER → 2021-07-24 08:51 | Outpatient (BNVA) | payer MEDICAID, SELFPAY | PROVIDERS: PCP Family Medicine; Visit Provider Social Worker Clinical | DX: F60.3 Borderline personality disorder (principal); F25.0 Schizoaffective disorder, bipolar type; F43.12 Post-traumatic stress disorder, chronic | CPT/HCPCS: 90834 ==

== ENCOUNTER → 2021-07-27 09:18 | Outpatient (BNVA) | payer MEDICAID, SELFPAY | PROVIDERS: PCP Family Medicine; Referring Provider Nurse Practitioner; Visit Provider Podiatrist Foot & Ankle Surgery | DX: M25.572 Pain in left ankle and joints of left foot (principal); M25.571 Pain in right ankle and joints of right foot | CPT/HCPCS: 73630 ==

== ENCOUNTER → 2021-08-05 08:53 | Outpatient (BNVA) | payer MEDICAID, SELFPAY | PROVIDERS: PCP Family Medicine; Visit Provider Social Worker Clinical | DX: F60.3 Borderline personality disorder (principal); F25.0 Schizoaffective disorder, bipolar type; F43.12 Post-traumatic stress disorder, chronic | CPT/HCPCS: 90834 ==

== ENCOUNTER → 2021-08-06 08:40 | Outpatient (BNVA) | payer MEDICAID, SELFPAY | PROVIDERS: PCP Family Medicine; Visit Provider Anesthesiology | DX: G89.29 Other chronic pain (principal); M47.816 Spondylosis without myelopathy or radiculopathy, lumbar region; M47.819 Spondylosis without myelopathy or radiculopathy, site unspecified; M54.2 Cervicalgia; M53.3 Sacrococcygeal disorders, not elsewhere classified; M25.561 Pain in right knee; G62.9 Polyneuropathy, unspecified; F17.210 Nicotine dependence, cigarettes, uncomplicated; Z79.891 Long term (current) use of opiate analgesic | CPT/HCPCS: 99214 ==

== ENCOUNTER 2021-08-06 09:19 | Outpatient (CLI) | payer MEDICAID, SELFPAY ==
--- NOTE | 2021-08-06 09:22 | XR_ITS ---
WS: [id number] KNEE RIGHT TECHNIQUE: 3 views of the right knee CLINICAL INFORMATION: M25.561 - Pain in right knee COMPARISON: None. FINDINGS: Mild joint space narrowing medial joint compartment. Moderate narrowing patellofemoral articulation. Hypertrophic patella. Moderate suprapatellar effusion with soft tissue edema. No acute fractures. XR/XR knee RT 3V* [id number] IMPRESSION: 1. Mild joint space narrowing medial joint compartment. Moderate narrowing pat ellofemoral articulation. 2. Moderate suprapatellar effusion with soft tissue edema. 3. MRI could be obtained to evaluate internal derangement Kellgren-Harry Classification: grade 2 (minimal): definite osteophytes and p ossible joint space narrowing
== END 2021-08-06 09:20 | disposition home or self-care (01) ==
PROVIDERS: PCP Family Medicine; Visit Provider Anesthesiology
DX: M25.561 Pain in right knee (principal); M25.461 Effusion, right knee; R60.0 Localized edema
CPT/HCPCS: 73562

== ENCOUNTER → 2021-08-10 11:49 | Outpatient (BNVA) | payer MEDICAID, SELFPAY | PROVIDERS: PCP Family Medicine; Visit Provider Social Worker Clinical | DX: F60.3 Borderline personality disorder (principal); F25.0 Schizoaffective disorder, bipolar type; F43.12 Post-traumatic stress disorder, chronic | CPT/HCPCS: 90834 ==

== ENCOUNTER → 2021-08-19 09:15 | Outpatient (BNVA) | payer MEDICAID, SELFPAY | PROVIDERS: PCP Family Medicine; Visit Provider Social Worker Clinical | DX: F60.3 Borderline personality disorder (principal); F25.0 Schizoaffective disorder, bipolar type; F43.12 Post-traumatic stress disorder, chronic | CPT/HCPCS: 90834 ==

== ENCOUNTER → 2021-08-20 08:10 | Outpatient (BNVA) | payer MEDICAID, SELFPAY | PROVIDERS: PCP Family Medicine; Visit Provider Psychiatry & Neurology Psychiatry | DX: F25.0 Schizoaffective disorder, bipolar type (principal); F60.3 Borderline personality disorder; F17.210 Nicotine dependence, cigarettes, uncomplicated; G47.33 Obstructive sleep apnea (adult) (pediatric); G47.419 Narcolepsy without cataplexy | CPT/HCPCS: 99214 ==

== ENCOUNTER → 2021-08-27 08:02 | Outpatient (BNVA) | payer MEDICAID, SELFPAY | PROVIDERS: PCP Family Medicine; Visit Provider Anesthesiology | DX: G89.29 Other chronic pain (principal); M53.3 Sacrococcygeal disorders, not elsewhere classified; M54.2 Cervicalgia; F17.200 Nicotine dependence, unspecified, uncomplicated; Z79.891 Long term (current) use of opiate analgesic | CPT/HCPCS: G0260; J1030; J3490 ==

== ENCOUNTER → 2021-09-01 08:00 | Outpatient (BNVA) | payer MEDICAID, SELFPAY | PROVIDERS: PCP Family Medicine; Visit Provider Social Worker Clinical | DX: F60.3 Borderline personality disorder (principal); F25.0 Schizoaffective disorder, bipolar type; F43.12 Post-traumatic stress disorder, chronic | CPT/HCPCS: 90834 ==

== ENCOUNTER → 2021-09-08 08:00 | Outpatient (BNVA) | payer MEDICAID, SELFPAY | PROVIDERS: PCP Family Medicine; Visit Provider Social Worker Clinical | DX: F60.3 Borderline personality disorder (principal); F25.0 Schizoaffective disorder, bipolar type; F43.12 Post-traumatic stress disorder, chronic | CPT/HCPCS: 90834 ==

== ENCOUNTER → 2021-09-16 07:56 | Outpatient (BNVA) | payer MEDICAID, SELFPAY | PROVIDERS: PCP Family Medicine; Visit Provider Social Worker Clinical | DX: F60.3 Borderline personality disorder (principal); F25.0 Schizoaffective disorder, bipolar type; F43.12 Post-traumatic stress disorder, chronic; F41.0 Panic disorder [episodic paroxysmal anxiety] | CPT/HCPCS: 90832 ==

== ENCOUNTER → 2021-09-17 08:14 | Outpatient (BNVA) | payer MEDICAID, SELFPAY | PROVIDERS: PCP Family Medicine; Visit Provider Psychiatry & Neurology Psychiatry | DX: F25.0 Schizoaffective disorder, bipolar type (principal); F60.3 Borderline personality disorder; F17.210 Nicotine dependence, cigarettes, uncomplicated; G47.33 Obstructive sleep apnea (adult) (pediatric); G47.419 Narcolepsy without cataplexy | CPT/HCPCS: 99215 ==

== ENCOUNTER → 2021-09-23 07:59 | Outpatient (BNVA) | payer MEDICAID, SELFPAY | PROVIDERS: PCP Family Medicine; Visit Provider Social Worker Clinical | DX: F60.3 Borderline personality disorder (principal); F25.0 Schizoaffective disorder, bipolar type; F43.12 Post-traumatic stress disorder, chronic | CPT/HCPCS: 90834 ==

== ENCOUNTER → 2021-09-30 09:25 | Outpatient (BNVA) | payer MEDICAID, SELFPAY | PROVIDERS: PCP Family Medicine; Visit Provider Anesthesiology | DX: G89.29 Other chronic pain (principal); M47.816 Spondylosis without myelopathy or radiculopathy, lumbar region; M47.819 Spondylosis without myelopathy or radiculopathy, site unspecified; M25.561 Pain in right knee; M53.3 Sacrococcygeal disorders, not elsewhere classified; M54.2 Cervicalgia; G62.9 Polyneuropathy, unspecified; F17.200 Nicotine dependence, unspecified, uncomplicated; Z71.6 Tobacco abuse counseling; Z79.891 Long term (current) use of opiate analgesic | CPT/HCPCS: 99214 ==

== ENCOUNTER → 2021-10-08 10:49 | Outpatient (BNVA) | payer MEDICAID, SELFPAY | PROVIDERS: PCP Family Medicine; Visit Provider Nurse Practitioner Family | DX: Z20.822 Contact with and (suspected) exposure to COVID-19 (principal) | CPT/HCPCS: 87635 ==

== ENCOUNTER 2021-10-12 15:18 | Emergency (ER) | payer MEDICAID, SELFPAY ==
[2021-10-12 15:37] VITALS: BP 122/79; PULSE 90; RESP 16; TEMP 36.9; O2SAT 95
--- NOTE | 2021-10-12 15:59 | XRR_ITS ---
PROCEDURE INFORMATION: Exam: XR Chest Exam date and time: 10/12/2021 3:59 PM Age: 41 years old Clinical indication: Shortness of breath; Additional info: Sob/covid TECHNIQUE: Imaging protocol: XR of the chest. Views: 1 view. COMPARISON: CR Chest 2 views* [id number] 11/06/2019 4:04 AM FINDINGS: Limitations: The study is made with less than full inspiration. Lungs: There is some mild areas of patchy peripheral pulmonary opacity, right upper lobe, right lung base and left mid lung consistent with the given clinical history of COVID-19 infection. There is no pulmonary venous congestion. Pleural spaces: Unremarkable. No pleural effusion. No pneumothorax. Heart/Mediastinum: Heart is within normal limits of size. Bones/joints: Unremarkable. XR/XR chest 1V portable [id number] IMPRESSION: Mild patchy pulmonary infiltrates consistent with given clinical history of COVID-19 infection.
[2021-10-12 17:33] LABS: Basophils % 0.3 %; Eosinophils # 0.1 10^3/uL (0.0-0.8); Eosinophils % 1.6 %; Hematocrit 39.3 % (37.0-47.0); Hemoglobin 11.9 g/dL (11.5-15.3); Lymphocytes # 1.9 10^3/uL (0.8-4.8); Lymphocytes % 32.9 %; Mean Corpuscular HGB Conc 30.3 g/dL (30.0-36.0); Mean Corpuscular Hemoglobin 21.7 pg (28.0-34.0); Mean Corpuscular Volume 71.7 fl (81-99); Mean Platelet Volume 9.5 fL (7.4-10.4); Monocytes # 0.3 10^3/uL (0.2-0.9); Monocytes % 5.2 %; Neutrophils # 3.43 10^3/uL (1.8-7.7); Neutrophils % 59.7 %; Nucleated Red Blood Cells % 0 %; Platelet Count 154 10^3/cmm (130-400); Red Blood Count 5.48 10^6/uL (4.1-5.3); Red Cell Distribution Width 15.8 % (12.1-15.1); White Blood Count 5.8 10^3/uL (4.0-10.0)
[2021-10-12 17:50] LABS: Alanine Aminotransferase 18 U/L (0-33); Albumin Level 3.1 g/dL (3.5-5.2); Alkaline Phosphatase 144 IU/L (35-105); Aspartate Amino Transferase 29 U/L (0-32); Blood Urea Nitrogen 14 mg/dL (6-20); C Reactive Protein 68.1 mg/L (0.0-4.9); Calcium 7.6 mg/dL (8.5-10.5); Carbon Dioxide 19 mmol/L (22-29); Chloride 103 mmol/L (98-107); Globulin 4.4 g/dL (1.3-4.6); Glomerular Filtration Rate 68.7 mL/min (90-130); Glucose 110 mg/dL (65-115); Osmolality Calculated 281 mOsm/kg (285-295); Sodium 135 mmol/L (136-145); Total Bilirubin 0.2 mg/dL (0.15-1.2); Total Protein 7.5 g/dL (6.6-8.7)
--- NOTE | 2021-10-12 18:01 | ED_ITS ---
HPI - COVID General: Chief Complaint: COVID symptoms Stated Complaint: COVID +/SOB,CP,COUGH,DELLUSIONAL Time Seen by Provider: 10/12/21 16:50 Triage information: No fever, cough or shortness of breath . No known COVID + exposure last 14 days History of Present Illness: HPI Narrative: 41-year-old female presents emergency room complaining of cough shortness of breath. She has had weakness cough fever shortness of breath with some nausea and vomiting beginning on 10/06, 7 days ago. She did test positive for Covid in outpatient setting was referred here for monoclonal antibodies. She is not currently on any oxygen or she normally on any she is morbidly obese with a BMI of 51. Nurses notes state in the setting complaint that she is delusional however she is awake and alert not her normal baseline at the time of exam, I am familiar with the patient have seen her in the past. COVID 19 common symptoms: positive fever(s), chills, non-productive cough, dyspn ea, fatigue, body aches and nausea; negative productive cough, throat pain, nasal congestion, vomiting or diarrhea COVID 19 other sytmptoms: negative chest pain COVID Results: SARS-CoV-2 RNA (RT-PCR) Detected (NOT DETECTED) A 10/08/21 10:49 10/08/21 Review of Systems Const: Reports: fever(s), chills, body aches, change in appetite, fatigue and malaise ENMT: Denies: throat pain, ear or mastoid pain, nasal discharge or nasal congestion Card: Denies: chest pain, edema, dyspnea on exertion or orthopnea Resp: Reports: dyspnea and non-productive cough; Denies: productive cough GI: Reports: nausea; Denies: abdominal pain, vomiting, hematemesis, coffee ground emesis, diarrhea, constipation, bloating, hematochezia or melena : Denies: flank pain, difficulty voiding, dysuria, urinary frequency or urinary urgency Skin/Breast: Denies: rash or pruritus 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 Benign essential HTN Borderline personality disorder Cannabis dependence in remission Cholecystectomy planned Chronic sacroiliac joint pain Cigarette smoker Narcolepsy Obstructive sleep apnea Opioid contract exists Psychiatric care Schizoaffective disorder, bipolar type Smoker unmotivated to quit Spondylosis without myelopathy or radiculopathy, lumbar region Surgical History History of cholecystectomy Tubal ligation status Family History Brother Hypertension CAD (coronary artery disease) Diabetes Father Hypertension Mother Hypertension CAD (coronary artery disease) Social History Quit status (tobacco): has tried quititng Second hand smoke exposure: Yes Alcohol intake: former History of recent travel: No Current gender identity: Female Female Reproductive History: Date of last menstrual period: 12/26/20 Physical Exam Const: COMMON NORMALS: no acute distress GENERAL APPEARANCE: cooperative a nd comfortable ORIENTATION/CONSCIOUSNESS: Yes awake, Yes oriented to person, Yes oriented to place and Yes oriented to time HENMT: COMMON NORMALS: normocephalic, atraumatic, hearing grossly normal bilaterally, external ears normal, EAC's normal, TM's normal bilaterally, Normal nasal mucous membranes and turbinates present, moist oral mucous membranes and oropharynx normal HEAD & SCALP: normocephalic and atraumatic NOSE: Normal nasal mucous membranes and turbinates present EXTERNAL EAR: Yes external ears normal EXTERNAL AUDITORY CANAL: EAC's normal TYMPANIC MEMBRANE: TM's normal bilaterally Eye: COMMON NORMALS: Equal, round and reactive pupils present, EOMs intact bilaterally, conjunctivae normal and no scleral icterus CONJUNCTIVA: Yes conjunctivae normal PUPIL: Yes Equal, round and reactive pupils present Neck/C-Spine: COMMON NORMALS: full ROM, no lymphadenopathy, supple and no JVD Lymph: LYMPHATIC: no lymphadenopathy noted and no lymphedema noted Resp: COMMON NORMALS: normal respiratory effort, No retractions, No use of accessory muscles and clear to auscultation bilaterally AUSCULTATION: clear to auscultation bilaterally Cardio: COMMON NORMALS: no JVD, regular rate, regular rhythm and No murmurs present (Cardio) RATE: regular rate RHYTHM: regular rhythm GI: COMMON NORMALS: Soft to palpation and No hepatosplenomegaly present AUSCULTATION: Yes normoactive bowel sounds PALPATION: Yes Soft to palpation, No Tenderness to palpation present (GI), No Guarding due to palpation present (GI) and Yes No hepatosplenomegaly present Extremity: COMMON NORMALS: normal to inspection, capillary refill normal, no clubbing, cyanosis or edema, no calf tenderness and no pedal edema Neuro: SENSORIUM/ORIENTATION: Yes oriented to person, Yes oriented to place and Yes oriented to time Skin: COMMON NORMALS: no rashes or lesions noted GENERAL SKIN EXAM: no rashes or lesions noted Course Vital Signs: Vital signs: Vital Signs Temperature 98.4 F 10/12/21 15:37 Pulse Rate 88 10/12/21 18:17 Respiratory Rate 20 H 10/12/21 18:17 Blood Pressure 125/66 10/12/21 18:17 Pulse Oximetry 94 10/12/21 18:17 MDM - COVID MDM Narrative: Medical decision making narrative: Due to patient volume is really not able to give monoclonal antibodies in the emergency room we will schedule for an outpatient infusions for central scheduling. Monitor home oxygen saturations. Lab Data: Labs: Lab Results 10/12/21 10/12/21 17:28 17:28 WBC 5.8 10^3/uL 10^3/ uL (4.0-10.0) RBC 5.48 10^6/uL H 10 ^6/uL (4.1-5.3) Hgb 11.9 g/dL g/dL (11.5-15.3) Hct 39.3 % % (37.0-47.0) MCV 71.7 fl L fl (81-99) MCH 21.7 pg L pg (28.0-34.0) MCHC 30.3 g/dL g/dL (30.0-36.0) RDW 15.8 % H % (12.1-15.1) Plt Count 154 10^3/cmm 10^3 /cmm (130-400) MPV 9.5 fL fL (7.4-10.4) Neut % (Auto) 59.7 % % Lymph % (Auto) 32.9 % % [place] % (Auto) 5.2 % % Eos % (Auto) 1.6 % % Baso % (Auto) 0.3 % % Neut # (Auto) 3.43 10^3/uL 10^3 /uL (1.8-7.7) Lymph # (Auto) 1.9 10^3/uL 10^3/ uL (0.8-4.8) [place] # (Auto) 0.3 10^3/uL 10^3/ uL (0.2-0.9) Eos # (Auto) 0.1 10^3/uL 10^3/ uL (0.0-0.8) Baso # (Auto) 0.0 10^3/uL 10^3/ uL (0.0-0.1) Nucleated RBC % (a uto) 0 % % Nucleated RBCs # 0.0 /100WBC /100W BC Sodium 135 mmol/L L mmol /L (136-145) Potassium 4.3 mmol/L mmol/L (3.5-5.1) Chloride 103 mmol/L mmol/L (98-107) Carbon Dioxide 19 mmol/L L mmol/ L (22-29) Anion Gap 17.3 (5-19) BUN 14 mg/dL mg/dL (6-20) Creatinine 0.9 mg/dL mg/dL (0.5-0.9) GFR Calculation 68.7 mL/min L mL/ min (90-130) Glucose 110 mg/dL mg/dL (65-115) Calculated Osmolal ity 281 mOsm/kg L mOs m/kg (285-295) Calcium 7.6 mg/dL L mg/dL (8.5-10.5) Total Bilirubin 0.2 mg/dL mg/dL (0.15-1.2) AST 29 U/L U/L (0-32) ALT 18 U/L U/L (0-33) Alkaline Phosphata se 144 IU/L H IU/L (35-105) C-Reactive Protein 68.1 mg/L H mg/L (0.0-4.9) Total Protein 7.5 g/dL g/dL (6.6-8.7) Albumin 3.1 g/dL L g/dL (3.5-5.2) Globulin 4.4 g/dL g/dL (1.3-4.6) COVID Results: SARS-CoV-2 RNA (RT-PCR) Detected (NOT DETECTED) A 10/08/21 10:49 10/08/21 Monoclonal Antibody - ED Inclusion/Exclusion Criteria obesity (BMI >25 or 85%til for age) not requiring hospitalization, not requiring oxygen (if not chronically on oxygen) and no increase oxygen requirement (if chronically on oxygen) Patient education Emergency Use Authorization/unapproved drug status discussed with patient/family/caregiver, alternatives to this treatment discussed with patient/family/caregiver, risks and benefits of medication reviewed with patient/family/caregiver, patient/family/caregiver given opportunity for questions, which were answered and patient consents to receiving Monoclonal Antibody Treatment Plan for treatment Meets criteria for Monoclonal Antibody infusion Date of symptom(s) onset: 10/06/21 Where are the positive COVID test results, if positive?: Resulted in [facility] Ordering Monoclonal Antibody infusion for another day Discharge Plan Discharge Patient Disposition: Home Clinical Impression: COVID-19 Condition: Stable Prescriptions: No Action Emgality Pen 120 mg/mL pen injector See Rx Instructions .ROUTE .COMPLEX RF: 0 topiramate [Topamax] 25 mg tablet 100 mg PO DAILY@1999 RF: 0 pantoprazole [Protonix] 40 mg tablet,delayed release (DR/EC) 40 mg PO BID@ RF: 0 Lamictal XR 200 mg tablet extended release 24hr 200 mg PO .qhs Qty: 30 RF: 12 fluticasone propionate 50 mcg/actuation spray,suspension 2 spray INTRANASAL BID RF: 0 vitamin E 200 unit capsule 200 unit PO DAILY RF: 0 (DME) Night splint See Rx Instructions .Route .MEDSUPPLY Qty: 1 RF: 0 Latuda 20 mg tablet 20 mg PO DAILY Qty: 30 RF: 12 Chantix 1 mg tablet 1 mg PO BID Qty: 56 RF: 2 hydroxyzine HCl 50 mg tablet 75 mg PO BID Qty: 90 RF: 5 methylphenidate HCl [Ritalin] 20 mg tablet 20 mg PO TID 30 Days Qty: 90 RF: 0 gabapentin 800 mg tablet 800 mg PO DAILY Qty: 60 RF: 1 meclizine 25 mg tablet 25 mg PO BID PRN (Reason: dizziness) 30 Days Qty: 60 RF: 1 meloxicam 7.5 mg tablet 7.5 mg PO BID@ 30 Days Qty: 60 RF: 1 oxycodone 20 mg tablet 20 mg PO Q6H PRN (Reason: pain) 30 Days Qty: 120 RF: 0 oxycodone 20 mg tablet 20 mg PO Q6H PRN (Reason: pain) 30 Days Qty: 120 RF: 0 pregabalin 200 mg capsule 200 mg PO TID@04,12,20 Qty: 90 RF: 1 tizanidine 4 mg capsule 4 mg PO BID PRN (Reason: muscle spasticity) 30 Days Qty: 60 RF: 1 methylphenidate HCl [Ritalin] 20 mg tablet 20 mg PO TID 30 Days Qty: 90 RF: 0 Ritalin 20 mg tablet 20 mg PO TID 30 Days Qty: 90 RF: 0 rizatriptan 10 mg tablet 10 mg PO DAILY PRN (Reason: Migraine Headache) RF: 0 Discharge Orders: Discharge ED (Routine); Ordered 10/12/21 Ordered By: Gage Bull Other Ambulatory Orders: Request for MCA (Routine) Timeframe: 1 Day Facility: [facility] - Location: Outpatient Surgical Services Ordered By: Gage Bull Referrals: Leisa Toussaint DO [Primary Care Provider] - Discharge Diet: Usual diet Discharge Activity: Resume usual activity Patient Instructions: Opioid Safety Activity Restrictions/Additional Instructions: Case management will call to make arrangements for you to have monoclonal antibodies as an outpatient. Monitor home oxygen his sats fall below 90% while at rest return to the emergency room. Coding Level of Care Code ED Director Of Ancillary Services for Claudia Muniz
[2021-10-12 18:06] LABS: Anion Gap 17.3 (5-19); Potassium 4.3 mmol/L (3.5-5.1)
[2021-10-12 18:10] VITALS: BP 125/66; PULSE 88; RESP 20; O2SAT 94
[2021-10-12 18:17] VITALS: BP 125/66; PULSE 88; RESP 20; O2SAT 94
== END 2021-10-12 18:18 | disposition home or self-care (01) ==
PROVIDERS: Physician Assistant; Emergency Provider Family Medicine; PCP Family Medicine
DX: U07.1 COVID-19 (principal); I10 Essential (primary) hypertension; Z77.22 Contact with and (suspected) exposure to environmental tobacco smoke (acute) (chronic)
CPT/HCPCS: 71045; 80053; 85025; 86140; 99283

== ENCOUNTER 2021-10-14 12:05 | Outpatient (CLI) | payer MEDICAID, SELFPAY ==
[2021-10-14 12:12] VITALS: BP 125/86; BP 130/85; PULSE 76; PULSE 79; RESP 22; TEMP 36.5; TEMP 36.8; O2SAT 95; O2SAT 99; BMI 52.2
[2021-10-14 14:10] VITALS: BP 125/86; PULSE 76; RESP 20; TEMP 36.8; O2SAT 99
[2021-10-14 15:21] VITALS: BP 128/84; PULSE 73; RESP 19; TEMP 36.4; O2SAT 99
== END 2021-10-14 12:06 | disposition home or self-care (01) ==
PROVIDERS: PCP Family Medicine; Visit Provider Family Medicine
DX: F60.3 Borderline personality disorder (principal); F25.0 Schizoaffective disorder, bipolar type; F43.12 Post-traumatic stress disorder, chronic
CPT/HCPCS: 90832; 96365

== ENCOUNTER → 2021-10-20 10:52 | Outpatient (BNVA) | payer MEDICAID, SELFPAY | PROVIDERS: PCP Family Medicine; Visit Provider Family Medicine | DX: D50.9 Iron deficiency anemia, unspecified (principal) | CPT/HCPCS: 82728; 83550; 85025 ==

== ENCOUNTER → 2021-10-21 08:03 | Outpatient (BNVA) | payer MEDICAID, SELFPAY | PROVIDERS: PCP Family Medicine; Visit Provider Social Worker Clinical | DX: F60.3 Borderline personality disorder (principal); F25.0 Schizoaffective disorder, bipolar type; F43.12 Post-traumatic stress disorder, chronic | CPT/HCPCS: 90834 ==

== ENCOUNTER → 2021-10-29 14:47 | Outpatient (BNVA) | payer MEDICAID, SELFPAY | PROVIDERS: PCP Family Medicine; Visit Provider Social Worker Clinical | DX: F60.3 Borderline personality disorder (principal); F25.0 Schizoaffective disorder, bipolar type; F41.1 Generalized anxiety disorder | CPT/HCPCS: 90834 ==

== ENCOUNTER → 2021-11-05 09:48 | Outpatient (BNVA) | payer MEDICAID, SELFPAY | PROVIDERS: PCP Family Medicine; Visit Provider Social Worker Clinical | DX: F60.3 Borderline personality disorder (principal); F25.0 Schizoaffective disorder, bipolar type; F43.12 Post-traumatic stress disorder, chronic | CPT/HCPCS: 90834 ==

== ENCOUNTER 2021-11-09 13:52 | Emergency (ER) | payer MEDICAID, SELFPAY ==
[2021-11-09 14:40] VITALS: BP 143/88; PULSE 91; RESP 18; TEMP 36.6; O2SAT 98; BMI 51.8
[2021-11-09 16:57] LABS: Basophils % 0.5 %; Eosinophils # 0.2 10^3/uL (0.0-0.8); Eosinophils % 2.9 %; Hematocrit 40.3 % (37.0-47.0); Hemoglobin 12.4 g/dL (11.5-15.3); Lymphocytes # 2.2 10^3/uL (0.8-4.8); Lymphocytes % 35.2 %; Mean Corpuscular HGB Conc 30.8 g/dL (30.0-36.0); Mean Corpuscular Volume 71.5 fl (81-99); Mean Platelet Volume 9.1 fL (7.4-10.4); Monocytes # 0.5 10^3/uL (0.2-0.9); Monocytes % 8.6 %; Neutrophils # 3.31 10^3/uL (1.8-7.7); Neutrophils % 52.6 %; Nucleated Red Blood Cells % 0 %; Platelet Count 295 10^3/cmm (130-400); Red Blood Count 5.64 10^6/uL (4.1-5.3); Red Cell Distribution Width 16.1 % (12.1-15.1); White Blood Count 6.3 10^3/uL (4.0-10.0)
[2021-11-09 17:00] VITALS: BP 143/86; PULSE 85; RESP 16; TEMP 36.5; O2SAT 98
[2021-11-09 17:16] LABS: Anion Gap 16.3 (5-19); Blood Urea Nitrogen 7 mg/dL (6-20); Calcium 8.5 mg/dL (8.5-10.5); Carbon Dioxide 23 mmol/L (22-29); Chloride 103 mmol/L (98-107); Glomerular Filtration Rate 91.8 mL/min (90-130); Glucose 87 mg/dL (65-115); Osmolality Calculated 283 mOsm/kg (285-295); Potassium 4.3 mmol/L (3.5-5.1); Sodium 138 mmol/L (136-145)
--- NOTE | 2021-11-09 17:26 | ED_ITS ---
Documented by User: Gage Bull DO 11/12/21 15:00 HPI - Neuro Symptoms/Deficit General: Chief Complaint: Neuro Symptoms/Deficit Stated Complaint: DELAYED SPEECH/CONFUSION/R SIDE TREMORS Time Seen by Provider: 11/09/21 17:06 History of Present Illness: HPI Narrative: 41yo female presents to ER with neuro symptoms/deficits. Reports she called her neurologist in [place] who told her to go to the ER. Reports R arm tremor for around 1wk, reports it is getting worse. Reports she leans towards the left when she walks; has had no falls. Reports delayed thinking, slurred speech, difficulty concentrating, and difficulty staying awake. No history of stroke. No recent changes to meds. Onset (ago): day(s) Location: right arm and right leg Associated symptoms: Deny chest pain, malaise, nausea or vomiting Review of Systems Const: Denies: fever(s), chills, body aches, change in appetite, fatigue or malaise ENMT: Denies: throat pain, ear or mastoid pain, nasal discharge or nasal congestion Card: Denies: chest pain, edema, dyspnea on exertion or orthopnea Resp: Denies: dyspnea, productive cough or non-productive cough GI: Denies: abdominal pain, nausea, vomiting, hematemesis, coffee ground emesis, diarrhea, constipation, bloating, hematochezia or melena : Denies: flank pain, difficulty voiding, dysuria, urinary frequency or ur inary urgency Skin/Breast: Denies: rash or pruritus PFS ED PFSH: Medical History Acute bilateral low back pain with left-sided sciatica 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 Benign essential HTN Borderline personality disorder Cannabis dependence in remission Cholecystectomy planned Chronic sacroiliac joint pain Cigarette smoker Narcolepsy Obstructive sleep apnea Opioid contract exists Psychiatric care Schizoaffective disorder, bipolar type Smoker unmotivated to quit Spondylosis without myelopathy or radiculopathy, lumbar region Surgical History History of cholecystectomy Tubal ligation status Family History Brother Hypertension CAD (coronary artery disease) Diabetes Father Hypertension Mother Hypertension CAD (coronary artery disease) Social History Quit status (tobacco): has tried quititng Second hand smoke exposure: Yes Alcohol intake: former History of recent travel: No Current gender identity: Female Female Reproductive History: Date of last menstrual period: 12/26/20 NIH stroke score NIHSS: Level Of Consciousness - 1a: 0 Level Of Consciousness Questions - 1b: Both Correct Level Of Consciousness Commands - 1c: Both Correct Best Gaze - 2: Normal Visual Mcdaniels - 3: No Visual Loss Facial Palsy - 4: Normal Motor Arm Right - 5: No Drift Motor Arm Left - 5: No Drift Motor Leg Right - 6: No Drift Motor Leg Left - 6: No Drift Limb Ataxia - 7: Absent Sensory - 8: Normal Best Language - 9: No Aphasia Dysarthia - 10: Normal Extinction And Inattention - 11: 0 Score: Total Score: 0 Physical Exam Const: ORIENTATION/CONSCIOUSNESS: Yes oriented to person, Yes oriented to place and Yes oriented to time HENMT: COMMON NORMALS: normocephalic, atraumatic and hearing grossly normal bilaterally HEAD & SCALP: normocephalic and atraumatic Neck/C-Spine: COMMON NORMALS: no JVD Resp: COMMON NORMALS: normal respiratory effort, No retractions, No use of accessory muscles and clear to auscultation bilaterally AUSCULTATION: clear to auscultation bilaterally Cardio: COMMON NORMALS: no JVD, regular rate, regular rhythm and No murmurs present (Cardio) RATE: regular rate RHYTHM: regular rhythm GI: COMMON NORMALS: Soft to palpation and No hepatosplenomegaly present AUSCULTATION: Yes normoactive bowel sounds PALPATION: Yes Soft to palpation, No Tenderness to palpation present (GI), No Guarding due to palpation present (GI) and Yes No hepatosplenomegaly present Extremity: COMMON NORMALS: normal to inspection, capillary refill normal, no clubbing, cyanosis or edema, no calf tenderness and no pedal edema Neuro: SENSORIUM/ORIENTATION: Yes oriented to person, Yes oriented to place and Yes oriented to time Skin: COMMON NORMALS: no rashes or lesions noted GENERAL SKIN EXAM: no rashes or lesions noted Course Vital Signs: Vital signs: Vital Signs Temperature 98.4 F 11/09/21 20:28 Pulse Rate 87 11/09/21 20:28 Respiratory Rate 17 11/09/21 20:28 Blood Pressure 139/88 11/09/21 20:28 Pulse Oximetry 100 11/09/21 20:28 MDM - Neuro Symptoms/Deficit MDM Narrative: Medical decision making narrative: Care turned over to Dr. Ly at change of shift see his note for diagnosis and disposition. Lab Data: Labs: Lab Results 11/09/21 11/09/21 16:51 16:51 WBC 6.3 10^3/uL 10^3/ uL (4.0-10.0) RBC 5.64 10^6/uL H 10 ^6/uL (4.1-5.3) Hgb 12.4 g/dL g/dL (11.5-15.3) Hct 40.3 % % (37.0-47.0) MCV 71.5 fl L fl (81-99) MCH 22.0 pg L pg (28.0-34.0) MCHC 30.8 g/dL g/dL (30.0-36.0) RDW 16.1 % H % (12.1-15.1) Plt Count 295 10^3/cmm 10^3 /cmm (130-400) MPV 9.1 fL fL (7.4-10.4) Neut % (Auto) 52.6 % % Lymph % (Auto) 35.2 % % [place] % (Auto) 8.6 % % Eos % (Auto) 2.9 % % Baso % (Auto) 0.5 % % Neut # (Auto) 3.31 10^3/uL 10^3 /uL (1.8-7.7) Lymph # (Auto) 2.2 10^3/uL 10^3/ uL (0.8-4.8) [place] # (Auto) 0.5 10^3/uL 10^3/ uL (0.2-0.9) Eos # (Auto) 0.2 10^3/uL 10^3/ uL (0.0-0.8) Baso # (Auto) 0.0 10^3/uL 10^3/ uL (0.0-0.1) Nucleated RBC % (a uto) 0 % % Nucleated RBCs # 0.0 /100WBC /100W BC Sodium 138 mmol/L mmol/L (136-145) Potassium 4.3 mmol/L mmol/L (3.5-5.1) Chloride 103 mmol/L mmol/L (98-107) Carbon Dioxide 23 mmol/L mmol/L (22-29) Anion Gap 16.3 (5-19) BUN 7 mg/dL mg/dL (6-20) Creatinine 0.7 mg/dL mg/dL (0.5-0.9) GFR Calculation 91.8 mL/min mL/mi n (90-130) Glucose 87 mg/dL mg/dL (65-115) Calculated Osmolal ity 283 mOsm/kg L mOs m/kg (285-295) Calcium 8.5 mg/dL mg/dL (8.5-10.5) Discharge Plan Discharge Patient Disposition: Home Clinical Impression: Headache Condition: Stable Prescriptions: No Action Emgality Pen 120 mg/mL pen injector See Rx Instructions .ROUTE .COMPLEX RF: 0 topiramate [Topamax] 25 mg tablet 100 mg PO DAILY@1999 RF: 0 pantoprazole [Protonix] 40 mg tablet,delayed release (DR/EC) 40 mg PO BID@ RF: 0 Lamictal XR 200 mg tablet extended release 24hr 200 mg PO .qhs Qty: 30 RF: 12 doxycycline hyclate 100 mg tablet 100 mg PO BID Qty: 20 RF: 0 fluticasone propionate 50 mcg/actuation spray,suspension 2 spray INTRANASAL BID RF: 0 vitamin E 200 unit capsule 200 unit PO DAILY RF: 0 (DME) Night splint See Rx Instructions .Route .MEDSUPPLY Qty: 1 RF: 0 Latuda 20 mg tablet 20 mg PO DAILY Qty: 30 RF: 12 Chantix 1 mg tablet 1 mg PO BID Qty: 56 RF: 2 hydroxyzine HCl 50 mg tablet 75 mg PO BID Qty: 90 RF: 5 gabapentin 800 mg tablet 800 mg PO DAILY Qty: 60 RF: 1 meclizine 25 mg tablet 25 mg PO BID PRN (Reason: dizziness) 30 Days Qty: 60 RF: 1 meloxicam 7.5 mg tablet 7.5 mg PO BID@ 30 Days Qty: 60 RF: 1 oxycodone 20 mg tablet 20 mg PO Q6H PRN (Reason: pain) 30 Days Qty: 120 RF: 0 oxycodone 20 mg tablet 20 mg PO Q6H PRN (Reason: pain) 30 Days Qty: 120 RF: 0 pregabalin 200 mg capsule 200 mg PO TID@04,12,20 Qty: 90 RF: 1 tizanidine 4 mg capsule 4 mg PO BID PRN (Reason: muscle spasticity) 30 Days Qty: 60 RF: 1 methylphenidate HCl [Ritalin] 20 mg tablet 20 mg PO TID 30 Days Qty: 90 RF: 0 Ritalin 20 mg tablet 20 mg PO TID 30 Days Qty: 90 RF: 0 methylphenidate HCl [Ritalin] 20 mg tablet 20 mg PO TID 30 Days Qty: 90 RF: 0 rizatriptan 10 mg tablet 10 mg PO DAILY PRN (Reason: Migraine Headache) RF: 0 Discharge Orders: Discharge ED (Routine); Ordered 11/09/21 Ordered By: Lionel Carreno Referrals: Leisa Toussaint, [Primary Care Provider] - Discharge Diet: Usual diet Discharge Activity: Resume usual activity Patient Instructions: Migraine Headache (ED) Activity Restrictions/Additional Instructions: Thank you for visiting the emergency department. You were seen and evaluated for headache associated with other reported neurologic symptoms. The exact cause of the symptoms is unclear however no abnormality was identified on CT scan. You likely have mild dehydration which was treated with fluids in addition to headache which was treated. We are pleased that your symptoms resolved. This improvement leads me to believe that some of the symptoms could be related to complex migraine. Please follow-up with your primary care provider and other specialist. Return to the emergency department for worsening symptoms, speech difficulty, balance problems, weakness or numbness of any 1 part of the body, or anything else that you are concerned about and feel needs emergency department evaluation. Sign Out Sign Out Data: Patient Sign Out occurred on 11/09/21 at 18:10. Patient's care was discussed, and care was transferred from to Lionel Carreno MD. Post-Handoff Eval: Patient care handed off from Dr. Bull to me pending completion of evaluation as well as reassessment. No acute laboratory abnormalities to explain the patient's symptoms. Imaging is negative for acute intracranial process, based on exam as well as duration of symptoms I do not feel that additional advanced imaging is necessary. I treated the patient with a migraine cocktail which improved her symptoms. Headache and neurologic symptoms resolved at time of final reassessment. Patient comfortable for discharge. Discharged in satisfactory condition. 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 Benign essential HTN Borderline personality disorder Cannabis dependence in remission Cholecystectomy planned Chronic sacroiliac joint pain Cigarette smoker Narcolepsy Obstructive sleep apnea Opioid contract exists Psychiatric care Schizoaffective disorder, bipolar type Smoker unmotivated to quit Spondylosis without myelopathy or radiculopathy, lumbar region Surgical History History of cholecystectomy Tubal ligation status Family History Brother Hypertension CAD (coronary artery disease) Diabetes Father Hypertension Mother Hypertension CAD (coronary artery disease) Social History Quit status (tobacco): has tried quititng Second hand smoke exposure: Yes Alcohol intake: former History of recent travel: No Current gender identity: Female Course Vital Signs: Vital signs: Vital Signs Temperature 98.4 F 11/09/21 20:28 Pulse Rate 87 11/09/21 20:28 Respiratory Rate 17 11/09/21 20:28 Blood Pressure 139/88 11/09/21 20:28 Pulse Oximetry 100 11/09/21 20:28 MDM - Neuro Symptoms/Deficit Lab Data: Labs: Lab Results 11/09/21 11/09/21 16:51 16:51 WBC 6.3 10^3/uL 10^3/ uL (4.0-10.0) RBC 5.64 10^6/uL H 10 ^6/uL (4.1-5.3) Hgb 12.4 g/dL g/dL (11.5-15.3) Hct 40.3 % % (37.0-47.0) MCV 71.5 fl L fl (81-99) MCH 22.0 pg L pg (28.0-34.0) MCHC 30.8 g/dL g/dL (30.0-36.0) RDW 16.1 % H % (12.1-15.1) Plt Count 295 10^3/cmm 10^3 /cmm (130-400) MPV 9.1 fL fL (7.4-10.4) Neut % (Auto) 52.6 % % Lymph % (Auto) 35.2 % % [place] % (Auto) 8.6 % % Eos % (Auto) 2.9 % % Baso % (Auto) 0.5 % % Neut # (Auto) 3.31 10^3/uL 10^3 /uL (1.8-7.7) Lymph # (Auto) 2.2 10^3/uL 10^3/ uL (0.8-4.8) [place] # (Auto) 0.5 10^3/uL 10^3/ uL (0.2-0.9) Eos # (Auto) 0.2 10^3/uL 10^3/ uL (0.0-0.8) Baso # (Auto) 0.0 10^3/uL 10^3/ uL (0.0-0.1) Nucleated RBC % (a uto) 0 % % Nucleated RBCs # 0.0 /100WBC /100W BC Sodium 138 mmol/L mmol/L (136-145) Potassium 4.3 mmol/L mmol/L (3.5-5.1) Chloride 103 mmol/L mmol/L (98-107) Carbon Dioxide 23 mmol/L mmol/L (22-29) Anion Gap 16.3 (5-19) BUN 7 mg/dL mg/dL (6-20) Creatinine 0.7 mg/dL mg/dL (0.5-0.9) GFR Calculation 91.8 mL/min mL/mi n (90-130) Glucose 87 mg/dL mg/dL (65-115) Calculated Osmolal ity 283 mOsm/kg L mOs m/kg (285-295) Calcium 8.5 mg/dL mg/dL (8.5-10.5) Discharge Plan Discharge Patient Disposition: Home Clinical Impression: Headache Condition: Stable Prescriptions: No Action Emgality Pen 120 mg/mL pen injector See Rx Instructions .ROUTE .COMPLEX RF: 0 topiramate [Topamax] 25 mg tablet 100 mg PO DAILY@1999 RF: 0 pantoprazole [Protonix] 40 mg tablet,delayed release (DR/EC) 40 mg PO BID@ RF: 0 Lamictal XR 200 mg tablet extended release 24hr 200 mg PO .qhs Qty: 30 RF: 12 doxycycline hyclate 100 mg tablet 100 mg PO BID Qty: 20 RF: 0 fluticasone propionate 50 mcg/actuation spray,suspension 2 spray INTRANASAL BID RF: 0 vitamin E 200 unit capsule 200 unit PO DAILY RF: 0 (DME) Night splint See Rx Instructions .Route .MEDSUPPLY Qty: 1 RF: 0 Latuda 20 mg tablet 20 mg PO DAILY Qty: 30 RF: 12 Chantix 1 mg tablet 1 mg PO BID Qty: 56 RF: 2 hydroxyzine HCl 50 mg tablet 75 mg PO BID Qty: 90 RF: 5 gabapentin 800 mg tablet 800 mg PO DAILY Qty: 60 RF: 1 meclizine 25 mg tablet 25 mg PO BID PRN (Reason: dizziness) 30 Days Qty: 60 RF: 1 meloxicam 7.5 mg tablet 7.5 mg PO BID@ 30 Days Qty: 60 RF: 1 oxycodone 20 mg tablet 20 mg PO Q6H PRN (Reason: pain) 30 Days Qty: 120 RF: 0 oxycodone 20 mg tablet 20 mg PO Q6H PRN (Reason: pain) 30 Days Qty: 120 RF: 0 pregabalin 200 mg capsule 200 mg PO TID@,, Qty: 90 RF: 1 tizanidine 4 mg capsule 4 mg PO BID PRN (Reason: muscle spasticity) 30 Days Qty: 60 RF: 1 methylphenidate HCl [Ritalin] 20 mg tablet 20 mg PO TID 30 Days Qty: 90 RF: 0 Ritalin 20 mg tablet 20 mg PO TID 30 Days Qty: 90 RF: 0 methylphenidate HCl [Ritalin] 20 mg tablet 20 mg PO TID 30 Days Qty: 90 RF: 0 rizatriptan 10 mg tablet 10 mg PO DAILY PRN (Reason: Migraine Headache) RF: 0 Discharge Orders: Discharge ED (Routine); Ordered 11/09/21 Ordered By: Lionel Carreno Referrals: Leisa Toussaint DO [Primary Care Provider] - Discharge Diet: Usual diet Discharge Activity: Resume usual activity Patient Instructions: Migraine Headache (ED) Activity Restrictions/Additional Instructions: Thank you for visiting the emergency department. You were seen and evaluated for headache associated with other reported neurologic symptoms. The exact cause of the symptoms is unclear however no abnormality was identified on CT scan. You likely have mild dehydration which was treated with fluids in addition to headache which was treated. We are pleased that your symptoms resolved. This improvement leads me to believe that some of the symptoms could be related to complex migraine. Please follow-up with your primary care provider and other specialist. Return to the emergency department for worsening symptoms, speech difficulty, balance problems, weakness or numbness of any 1 part of the body, or anything else that you are concerned about and feel needs emergency department evaluation. Sign Out Sign Out Data: Patient Sign Out occurred on 11/09/21 at 18:10. Patient's care was discussed, and care was transferred from to Lionel Carreno MD. Post-Handoff Eval: Patient care handed off from Dr. Bull to me pending completion of evaluation as well as reassessment. No acute laboratory abnormalities to explain the patient's symptoms. Imaging is negative for acute intracranial process, based on exam as well as duration of symptoms I do not feel that additional advanced imaging is necessary. I treated the patient with a migraine cocktail which improved her symptoms. Headache and neurologic symptoms resolved at time of final reassessment. Patient comfortable for discharge. Discharged in satisfactory condition. Coding Level of Care Code ED Trust Administrative Assistant for Miguelg Fwd Exam Comprehensive
--- NOTE | 2021-11-09 17:35 | CTR_ITS ---
PROCEDURE INFORMATION: Exam: CT Head Without Contrast Exam date and time: 11/09/2021 5:35 PM Age: 41 years old Clinical indication: Weakness, extremity; Right; Additional info: R sided weakness TECHNIQUE: Imaging protocol: Computed tomography of the head without contrast. Radiation optimization: All CT scans at this facility use at least one of these dose optimization techniques: automated exposure control; mA and/or kV adjustment per patient size (includes targeted exams where dose is matched to clinical indication); or iterative reconstruction. COMPARISON: CT head wo con* [id number] 02/13/2018 1:41 PM RADIATION DOSE METRICS: Total DLP (mGy-cm): 907.67 FINDINGS: Brain: Normal. No hemorrhage. Unremarkable white matter. No mass effect. Cerebral ventricles: No ventriculomegaly. Paranasal sinuses: Visualized sinuses are unremarkable. No fluid levels. Mastoid air cells: Visualized mastoid air cells are well aerated. Bones/joints: Unremarkable. No acute fracture. Soft tissues: Right atrial trigone benign incidental lipoma again seen. CT/CT head wo con* [id number] IMPRESSION: Negative for intracranial hemorrhage or mass effect
[2021-11-09] MEDS: sodium chloride 0.9% 1,000 ML 999 ML IV (19:17)
[2021-11-09] MEDS: diphenhydrAMINE 50 mg/mL SDV 1mL 25 MG IVP (19:18)
[2021-11-09] MEDS: magnesium sulfate premix 2 GM/50 ML PIGGYBACK IV (19:18)
[2021-11-09] MEDS: metoclopramide 5 mg/mL SDV 2 mL 10 MG IVP (19:18)
[2021-11-09] MEDS: acetaminophen 500 mg Tablet 1000 MG PO (19:19)
[2021-11-09 20:28] VITALS: BP 139/88; PULSE 87; RESP 17; TEMP 36.9; O2SAT 100
== END 2021-11-09 20:29 | disposition home or self-care (01) ==
PROVIDERS: Emergency Medicine; Emergency Provider Emergency Medicine; PCP Family Medicine
DX: R51.9 Headache, unspecified (principal); I10 Essential (primary) hypertension; Z77.22 Contact with and (suspected) exposure to environmental tobacco smoke (acute) (chronic)
CPT/HCPCS: 70450; 80048; 85025; 96365; 96375; 99284; J1200; J2765; J3475; J7030

== ENCOUNTER → 2021-11-12 08:57 | Outpatient (BNVA) | payer MEDICAID, SELFPAY | PROVIDERS: PCP Family Medicine; Visit Provider Social Worker Clinical | DX: F60.3 Borderline personality disorder (principal); F25.0 Schizoaffective disorder, bipolar type; F43.12 Post-traumatic stress disorder, chronic | CPT/HCPCS: 90834 ==

== ENCOUNTER → 2021-11-19 09:09 | Outpatient (BNVA) | payer MEDICAID, SELFPAY | PROVIDERS: PCP Family Medicine; Visit Provider Social Worker Clinical | DX: F60.3 Borderline personality disorder (principal); F25.0 Schizoaffective disorder, bipolar type; F43.12 Post-traumatic stress disorder, chronic | CPT/HCPCS: 90834 ==

== ENCOUNTER → 2021-11-24 11:54 | Outpatient (BNVA) | payer MEDICAID, SELFPAY | PROVIDERS: PCP Family Medicine; Visit Provider Social Worker Clinical | DX: F60.3 Borderline personality disorder (principal); F25.0 Schizoaffective disorder, bipolar type; F43.12 Post-traumatic stress disorder, chronic | CPT/HCPCS: 90834 ==

== ENCOUNTER → 2021-12-01 08:58 | Outpatient (BNVA) | payer MEDICAID, SELFPAY | PROVIDERS: PCP Family Medicine; Visit Provider Social Worker Clinical | DX: F60.3 Borderline personality disorder (principal); F25.0 Schizoaffective disorder, bipolar type; F43.12 Post-traumatic stress disorder, chronic | CPT/HCPCS: 90834 ==

== ENCOUNTER → 2021-12-04 07:19 | Outpatient (BNVA) | payer MEDICAID, SELFPAY | PROVIDERS: PCP Family Medicine; Visit Provider Psychiatry & Neurology Psychiatry | DX: F25.0 Schizoaffective disorder, bipolar type (principal); F60.3 Borderline personality disorder; F17.210 Nicotine dependence, cigarettes, uncomplicated; G47.33 Obstructive sleep apnea (adult) (pediatric); G47.419 Narcolepsy without cataplexy; Z87.891 Personal history of nicotine dependence | CPT/HCPCS: 99214 ==

== ENCOUNTER → 2021-12-08 08:06 | Outpatient (BNVA) | payer MEDICAID, SELFPAY | PROVIDERS: PCP Family Medicine; Visit Provider Anesthesiology | DX: G89.29 Other chronic pain (principal); M53.3 Sacrococcygeal disorders, not elsewhere classified; M47.816 Spondylosis without myelopathy or radiculopathy, lumbar region; M47.819 Spondylosis without myelopathy or radiculopathy, site unspecified; M54.2 Cervicalgia; M25.511 Pain in right shoulder; G62.9 Polyneuropathy, unspecified; Z79.891 Long term (current) use of opiate analgesic; Z87.891 Personal history of nicotine dependence | CPT/HCPCS: 99214 ==

== ENCOUNTER → 2021-12-16 08:11 | Outpatient (BNVA) | payer MEDICAID, SELFPAY | PROVIDERS: PCP Family Medicine; Visit Provider Social Worker Clinical | DX: F60.3 Borderline personality disorder (principal); F25.0 Schizoaffective disorder, bipolar type; F43.12 Post-traumatic stress disorder, chronic | CPT/HCPCS: 90834 ==

== ENCOUNTER → 2021-12-23 08:21 | Outpatient (BNVA) | payer MEDICAID, SELFPAY | PROVIDERS: PCP Family Medicine; Visit Provider Social Worker Clinical | DX: F60.3 Borderline personality disorder (principal); F25.0 Schizoaffective disorder, bipolar type; F43.12 Post-traumatic stress disorder, chronic | CPT/HCPCS: 90834 ==

== ENCOUNTER → 2022-01-01 07:15 | Outpatient (BNVA) | payer MEDICAID, SELFPAY | PROVIDERS: PCP Family Medicine; Visit Provider Psychiatry & Neurology Psychiatry | DX: F25.0 Schizoaffective disorder, bipolar type (principal); F60.3 Borderline personality disorder; G47.33 Obstructive sleep apnea (adult) (pediatric); G47.419 Narcolepsy without cataplexy | CPT/HCPCS: 99215 ==

== ENCOUNTER → 2022-01-11 07:54 | Outpatient (BNVA) | payer MEDICAID, SELFPAY | PROVIDERS: PCP Family Medicine; Visit Provider Social Worker Clinical | DX: F60.3 Borderline personality disorder (principal); F25.0 Schizoaffective disorder, bipolar type; F43.12 Post-traumatic stress disorder, chronic | CPT/HCPCS: 90834 ==

== ENCOUNTER → 2022-01-21 08:52 | Outpatient (BNVA) | payer MEDICAID, SELFPAY | PROVIDERS: PCP Family Medicine; Visit Provider Social Worker Clinical | DX: F60.3 Borderline personality disorder (principal); F25.0 Schizoaffective disorder, bipolar type; F43.12 Post-traumatic stress disorder, chronic | CPT/HCPCS: 90834 ==

== ENCOUNTER → 2022-01-28 07:46 | Outpatient (BNVA) | payer MEDICAID, SELFPAY | PROVIDERS: PCP Family Medicine; Visit Provider Social Worker Clinical | DX: F60.3 Borderline personality disorder (principal); F25.0 Schizoaffective disorder, bipolar type; F43.12 Post-traumatic stress disorder, chronic | CPT/HCPCS: 90834 ==

== ENCOUNTER 2022-01-28 08:45 | Outpatient (CLI) | payer MEDICAID, SELFPAY ==
[2022-01-28 09:40] LABS: Estmated Average Glucose 103; Hemoglobin A1C 5.2 % (4.0-6.0)
== END 2022-01-28 08:46 | disposition home or self-care (01) ==
LOC: LAB 08:49
PROVIDERS: PCP Family Medicine; Visit Provider Family Medicine
DX: Z01.89 Encounter for other specified special examinations (principal)
CPT/HCPCS: 83036

== ENCOUNTER → 2022-01-29 07:31 | Outpatient (BNVA) | payer MEDICAID, SELFPAY | PROVIDERS: PCP Family Medicine; Visit Provider Psychiatry & Neurology Psychiatry | DX: F25.0 Schizoaffective disorder, bipolar type (principal); F60.3 Borderline personality disorder; G47.33 Obstructive sleep apnea (adult) (pediatric); G47.419 Narcolepsy without cataplexy; Z87.891 Personal history of nicotine dependence | CPT/HCPCS: 99214 ==

== ENCOUNTER → 2022-02-11 09:57 | Outpatient (BNVA) | payer MEDICAID, SELFPAY | PROVIDERS: PCP Family Medicine; Visit Provider Social Worker Clinical | DX: F60.3 Borderline personality disorder (principal); F25.0 Schizoaffective disorder, bipolar type; F43.12 Post-traumatic stress disorder, chronic | CPT/HCPCS: 90834 ==

== ENCOUNTER 2022-02-15 15:24 | Outpatient (CLI) | payer MEDICAID, SELFPAY ==
--- NOTE | 2022-02-15 16:00 | US_ITS ---
WS: [id number] ULTRASOUND SOFT TISSUES bilateral feet. HISTORY: To rule out Pacheco's neuroma bilaterally COMPARISON: None available. TECHNIQUE: 2-D and color Doppler imaging is submitted. Ultrasound is directed between the metatarsal heads within each feet to evaluate for possible neuroma . Ultrasound is performed between the first and second, second and third and fourth and fifth metatar blake heads. No soft tissue masses or abnormal echogenicity is noted within the intertarsal region of e ither foot. US/US soft tissue/extremity [id number] IMPRESSION: Cannot confirm Pacheco's neuroma within either foot.
== END 2022-02-15 15:25 | disposition home or self-care (01) ==
LOC: RAD 15:25
PROVIDERS: PCP Family Medicine; Visit Provider Podiatrist Foot & Ankle Surgery
DX: M77.40 Metatarsalgia, unspecified foot (principal)
CPT/HCPCS: 76882

== ENCOUNTER → 2022-02-18 10:02 | Outpatient (BNVA) | payer MEDICAID, SELFPAY | PROVIDERS: PCP Family Medicine; Visit Provider Social Worker Clinical | DX: F60.3 Borderline personality disorder (principal); F25.0 Schizoaffective disorder, bipolar type; F43.12 Post-traumatic stress disorder, chronic | CPT/HCPCS: 90834 ==

== ENCOUNTER → 2022-02-25 08:54 | Outpatient (BNVA) | payer MEDICAID, SELFPAY | PROVIDERS: PCP Family Medicine; Visit Provider Social Worker Clinical | DX: F60.3 Borderline personality disorder (principal); F25.0 Schizoaffective disorder, bipolar type; F43.12 Post-traumatic stress disorder, chronic | CPT/HCPCS: 90834 ==

== ENCOUNTER → 2022-03-04 10:34 | Outpatient (BNVA) | payer MEDICAID, SELFPAY | PROVIDERS: PCP Family Medicine; Visit Provider Social Worker Clinical | DX: F60.3 Borderline personality disorder (principal); F25.0 Schizoaffective disorder, bipolar type; F43.12 Post-traumatic stress disorder, chronic | CPT/HCPCS: 90834 ==

== ENCOUNTER → 2022-03-08 08:03 | Outpatient (BNVA) | payer MEDICAID, SELFPAY | PROVIDERS: PCP Family Medicine; Visit Provider Podiatrist Foot & Ankle Surgery | DX: M77.41 Metatarsalgia, right foot (principal); M77.42 Metatarsalgia, left foot; Z87.891 Personal history of nicotine dependence | CPT/HCPCS: 99214 ==

== ENCOUNTER → 2022-03-11 11:07 | Outpatient (BNVA) | payer MEDICAID, SELFPAY | PROVIDERS: PCP Family Medicine; Visit Provider Social Worker Clinical | DX: F60.3 Borderline personality disorder (principal); F25.0 Schizoaffective disorder, bipolar type; F43.12 Post-traumatic stress disorder, chronic | CPT/HCPCS: 90834 ==

== ENCOUNTER → 2022-03-25 09:53 | Outpatient (BNVA) | payer MEDICAID, SELFPAY | PROVIDERS: PCP Family Medicine; Visit Provider Social Worker Clinical | DX: F60.3 Borderline personality disorder (principal); F25.0 Schizoaffective disorder, bipolar type; F43.12 Post-traumatic stress disorder, chronic | CPT/HCPCS: 90834 ==

== ENCOUNTER → 2022-04-01 09:25 | Outpatient (BNVA) | payer MEDICAID, SELFPAY | PROVIDERS: PCP Family Medicine; Visit Provider Social Worker Clinical | DX: F60.3 Borderline personality disorder (principal); F25.0 Schizoaffective disorder, bipolar type; F43.12 Post-traumatic stress disorder, chronic | CPT/HCPCS: 90832 ==

== ENCOUNTER → 2022-04-08 10:52 | Outpatient (BNVA) | payer MEDICAID, SELFPAY | PROVIDERS: PCP Family Medicine; Visit Provider Social Worker Clinical | DX: F60.3 Borderline personality disorder (principal); F25.0 Schizoaffective disorder, bipolar type; F43.10 Post-traumatic stress disorder, unspecified | CPT/HCPCS: 90834 ==

== ENCOUNTER → 2022-04-13 08:02 | Outpatient (BNVA) | payer MEDICAID, SELFPAY | PROVIDERS: PCP Family Medicine; Visit Provider Social Worker Clinical | DX: F60.3 Borderline personality disorder (principal); F25.0 Schizoaffective disorder, bipolar type; F43.12 Post-traumatic stress disorder, chronic | CPT/HCPCS: 90791 ==

== ENCOUNTER → 2022-04-23 06:27 | Outpatient (BNVA) | payer MEDICAID, SELFPAY | PROVIDERS: PCP Family Medicine; Visit Provider Social Worker Clinical | DX: F60.3 Borderline personality disorder (principal); F25.0 Schizoaffective disorder, bipolar type; F43.12 Post-traumatic stress disorder, chronic | CPT/HCPCS: 90832 ==

== ENCOUNTER 2022-04-23 07:42 | Outpatient (CLI) | payer MEDICAID, SELFPAY ==
[2022-04-23 08:20] LABS: Alanine Aminotransferase 26 U/L (0-33); Albumin Level 3.9 g/dL (3.5-5.2); Alkaline Phosphatase 177 IU/L (35-105); Anion Gap 16.4 (5-19); Aspartate Amino Transferase 28 U/L (0-32); Blood Urea Nitrogen 11 mg/dL (6-20); Calcium 9.4 mg/dL (8.5-10.5); Carbon Dioxide 25 mmol/L (22-29); Chloride 101 mmol/L (98-107); Chol HDL Ratio 5.27 mg/dL (0.0-4.40); Cholesterol 137 mg/dL (0-200); Globulin 4.8 g/dL (1.3-4.6); Glomerular Filtration Rate 68.7 mL/min (90-130); Glucose 99 mg/dL (65-115); HDL Cholesterol 26 mg/dL (60-100); LDL Cholesterol Calculated 42 mg/dL (50-129); LDL HDL Ratio 1.62 RATIO (0.00-3.22); Osmolality Calculated 285 mOsm/kg (285-295); Potassium 4.4 mmol/L (3.5-5.1); Sodium 138 mmol/L (136-145); Total Bilirubin 0.3 mg/dL (0.15-1.2); Total Protein 8.7 g/dL (6.6-8.7); Triglycerides 344 mg/dL (0-150)
== END 2022-04-23 07:43 | disposition home or self-care (01) ==
LOC: LAB 07:44
PROVIDERS: PCP Family Medicine; Visit Provider Family Medicine
DX: Z13.6 Encounter for screening for cardiovascular disorders (principal); I10 Essential (primary) hypertension
CPT/HCPCS: 36415; 80053; 80061

== ENCOUNTER → 2022-04-29 10:52 | Outpatient (BNVA) | payer MEDICAID, SELFPAY | PROVIDERS: PCP Family Medicine; Visit Provider Social Worker Clinical | DX: F25.0 Schizoaffective disorder, bipolar type (principal); F43.12 Post-traumatic stress disorder, chronic; F60.3 Borderline personality disorder | CPT/HCPCS: 90834 ==

== ENCOUNTER → 2022-05-05 08:54 | Outpatient (BNVA) | payer MEDICAID, SELFPAY | PROVIDERS: PCP Family Medicine; Visit Provider Social Worker Clinical | DX: F60.3 Borderline personality disorder (principal); F25.0 Schizoaffective disorder, bipolar type; F43.12 Post-traumatic stress disorder, chronic | CPT/HCPCS: 90834 ==

== ENCOUNTER → 2022-05-06 08:38 | Outpatient (BNVA) | payer MEDICAID, SELFPAY | PROVIDERS: PCP Family Medicine; Visit Provider Psychiatry & Neurology Psychiatry | DX: F25.0 Schizoaffective disorder, bipolar type (principal); F60.3 Borderline personality disorder; G47.33 Obstructive sleep apnea (adult) (pediatric); G47.419 Narcolepsy without cataplexy; M79.673 Pain in unspecified foot; F17.200 Nicotine dependence, unspecified, uncomplicated | CPT/HCPCS: 99215 ==

== ENCOUNTER → 2022-05-12 07:59 | Outpatient (BNVA) | payer MEDICAID, SELFPAY | PROVIDERS: PCP Family Medicine; Visit Provider Podiatrist Foot & Ankle Surgery | DX: G62.9 Polyneuropathy, unspecified (principal); M77.40 Metatarsalgia, unspecified foot; M79.671 Pain in right foot; M79.672 Pain in left foot | CPT/HCPCS: 99213 ==

== ENCOUNTER → 2022-05-24 15:39 | Outpatient (BNVA) | payer MEDICAID, SELFPAY | PROVIDERS: PCP Family Medicine; Visit Provider Podiatrist Foot & Ankle Surgery | DX: M79.671 Pain in right foot (principal); M77.40 Metatarsalgia, unspecified foot; G62.9 Polyneuropathy, unspecified | CPT/HCPCS: 11104 ==

== ENCOUNTER → 2022-06-22 14:13 | Outpatient (BNVA) | payer MEDICAID, SELFPAY | PROVIDERS: PCP Family Medicine; Visit Provider Podiatrist Foot & Ankle Surgery | DX: M77.40 Metatarsalgia, unspecified foot (principal); G62.9 Polyneuropathy, unspecified | CPT/HCPCS: 99214 ==

== ENCOUNTER → 2022-09-27 08:36 | Day surgery (SDC) | payer MEDICAID, SELFPAY ==
[2022-09-27 09:17] VITALS: BP 138/88; PULSE 72; RESP 18; TEMP 36.1; O2SAT 97
== END ==
PROVIDERS: PCP Family Medicine; Visit Provider Psychiatry & Neurology Neurology
DX: G43.719 Chronic migraine without aura, intractable, without status migrainosus (principal)
CPT/HCPCS: 96365; J3032

== ENCOUNTER 2022-10-15 08:19 | Outpatient (CLI) | payer MEDICAID, SELFPAY ==
--- NOTE | 2022-10-15 08:00 | USCV_ITS ---
SallieLeisa Age: 42 Gender: F : 1980 Exam Date: 10/15/2022 08:41 Ordering Phys: Leisa Toussaint DO Technologist: CHERI Exam Location: [facility] [place] Indication: ORTHOPNEA, SHOTNESS OF BREATH BP: 130 / 82 HR: 81 Rhythm: Sinus Technical Quality: Poor because of body habitus MEASUREMENTS (Male / Female) Normal Values 2D ECHO LVOT Diameter 2.0 cm LV Ejection Fraction MOD 2C 61.0 % LV Ejection Fraction 2C AL 61.4 % LA Diameter 3.4 cm LA Width 3.7 cm LA Height 3.4 cm RA Width 2.7 cm RA Height 3.7 cm Aorta at Sinotubular Diameter 2.6 cm IVC Diameter 1.6 cm M-MODE Aortic Annulus Diameter 2.7 cm LA Ao Ratio MM 1.3 MV E Point Septal Separation 0.6 cm DOPPLER AV Peak Velocity 157.0 cm/s LVOT Peak Velocity 84.7 cm/s AV Area Cont Eq vti 1.8 cm squared AV Area Cont Eq pk 1.7 cm squared MV Peak Velocity 104.0 cm/s MV Area PHT 3.3 cm squared Mitral E to A Ratio 1.4 MV E' Velocity 53.5 cm/s Mitral E to MV E' Ratio 7.2 Mitral E to LV E' Lateral Ratio 6.2 Mitral E to LV E' Septal Ratio 8.6 TR Peak Velocity 160.3 cm/s TR Peak Gradient 10.3 mmHg TR Mean Velocity 179.4 cm/s TR Mean Gradient 13.3 mmHg TR Velocity Time Integral 50.1 cm TV Peak E Velocity 57.0 cm/s Right Atrial Pressure 3.0 mmHg Pulmonary Artery Systolic Pressu 13.3 mmHg PV Peak Velocity 108.0 cm/s RV Acceleration Time 0.1 s RV Ejection Time 0.3 s RV AcT/ET 0.4 FINDINGS Left Ventricle Normal left ventricular size, systolic function and wall thickness, with no regional wall motion abnormalities. Grade II/IV diastolic dysfunction, moderately elevated filling pressures. Left ventricular ejection fraction is estimated at 55 %. Right Ventricle Normal right ventricular size and systolic function. Normal right ventricular systolic pressure. Right Atrium The right atrium is normal in size. Left Atrium The left atrium is normal in size. Mitral Valve Structurally normal mitral valve without significant stenosis or prolapse. There is no mitral regurgitation. Aortic Valve Structurally normal aortic valve without significant sclerosis or stenosis. There is no aortic regurgitation. Tricuspid Valve Structurally normal tricuspid valve without significant stenosis or regurgitation. Pulmonary artery systolic pressure is normal. Pulmonic Valve Pulmonic valve not well visualized. Pericardium Normal pericardium without effusion. Aorta Normal ascending aorta dimension. IVC The inferior vena cava appears normal. CONCLUSIONS Normal left ventricular size, systolic function and wall thickness, with no regional wall motion abnormalities. Grade II/IV diastolic dysfunction, moderately elevated filling pressures. Left ventricular ejection fraction is estimated at 55 %. There are no prior echocardiogram studies to compare. Dr. Kemal Montgomery MD (Electronically Signed) Final Date: 15 October 2022 13:32 S
== END 2022-10-15 08:20 | disposition home or self-care (01) ==
LOC: RAD 08:20
PROVIDERS: PCP Family Medicine; Visit Provider Family Medicine
DX: R06.01 Orthopnea (principal)
CPT/HCPCS: 93306

== ENCOUNTER 2022-11-07 21:25 | Emergency (ER) | payer MEDICAID, SELFPAY ==
[2022-11-07 21:29] VITALS: BP 116/74; PULSE 86; RESP 18; TEMP 36.7; O2SAT 98; BMI 50.1
[2022-11-07 22:21] VITALS: BP 150/96; PULSE 80; RESP 18; O2SAT 96
[2022-11-07 22:24] LABS: Basophils # 0.1 10^3/uL (0.0-0.1); Basophils % 0.8 %; Eosinophils # 0.2 10^3/uL (0.0-0.8); Eosinophils % 2.1 %; Hematocrit 37.5 % (37.0-47.0); Hemoglobin 11.3 g/dL (11.5-15.3); Lymphocytes % 33.6 %; Mean Corpuscular HGB Conc 30.1 g/dL (30.0-36.0); Mean Corpuscular Hemoglobin 21.3 pg (28.0-34.0); Mean Corpuscular Volume 70.8 fl (81-99); Mean Platelet Volume 9.7 fL (7.4-10.4); Monocytes # 0.7 10^3/uL (0.2-0.9); Monocytes % 7.2 %; Neutrophils # 5.08 10^3/uL (1.8-7.7); Neutrophils % 56.2 %; Nucleated Red Blood Cells % 0 %; Platelet Count 349 10^3/cmm (130-400); Red Cell Distribution Width 17.8 % (12.1-15.1)
--- NOTE | 2022-11-07 22:31 | CTR_ITS ---
PROCEDURE INFORMATION: Exam: CT Head Without Contrast Exam date and time: 11/07/2022 10:45 PM Age: 42 years old Clinical indication: Other: Seizure TECHNIQUE: Imaging protocol: Computed tomography of the head without contrast. Radiation optimization: All CT scans at this facility use at least one of these dose optimization techniques: automated exposure control; mA and/or kV adjustment per patient size (includes targeted exams where dose is matched to clinical indication); or iterative reconstruction. COMPARISON: CT head wo con* [id number] 11/09/2021 5:57 PM RADIATION DOSE METRICS: Total DLP (mGy-cm): 1158.14 FINDINGS: Brain: No focal hemorrhage or midline shift is identified. Mild age-related changes are again noted. Cerebral ventricles: No ventriculomegaly or evidence of acute hydrocephalus. Small right LV lipoma unchanged. Paranasal sinuses: The partially assessed sinuses are grossly clear. Mastoid air cells: Visualized mastoid air cells are well aerated. Bones/joints: No displaced skull fracture is noted. Soft tissues: Unremarkable. CT/CT head wo con* [id number] IMPRESSION: No acute intracranial abnormality.
[2022-11-07 22:49] LABS: Alanine Aminotransferase 26 U/L (0-33); Albumin Level 3.4 g/dL (3.5-5.2); Alkaline Phosphatase 160 U/L (35-105); Anion Gap 11.9 (5-19); Aspartate Amino Transferase 21 U/L (0-32); Blood Urea Nitrogen 12 mg/dL (6-20); Calcium 8.8 mg/dL (8.5-10.5); Carbon Dioxide 23 mmol/L (22-29); Chloride 101 mmol/L (98-107); Globulin 4.1 g/dL (1.3-4.6); Glomerular Filtration Rate 78.3 mL/min (90-130); Glucose 89 mg/dL (65-115); Osmolality Calculated 273 mOsm/kg (285-295); Potassium 3.9 mmol/L (3.5-5.1); Sodium 132 mmol/L (136-145); Total Bilirubin 0.2 mg/dL (0.15-1.2); Total Protein 7.5 g/dL (6.6-8.7)
[2022-11-07 23:02] VITALS: BP 112/68; PULSE 77; RESP 17; O2SAT 96
--- NOTE | 2022-11-07 23:05 | W.ED.SEIZURE ---
HPI - Seizure General: Chief Complaint: Seizure Stated Complaint: seizures Time Seen by Provider: 11/07/22 21:33 Source: patient Mode of arrival: ambulatory Limitations: no limitations History of Present Illness: HPI Narrative: 42-year-old female has a long history of seizures she is on Lamictal 1 Topamax she states that today she has been having multiple seizures she denies any worsening proving factors present no postictal periods she denies any headache denies any vomiting or diarrhea. She denies any worsening improving factors. Seizure History: Yes Place: Home Associated symptoms: Deny chest pain, chills or fever(s) Review of Systems Const: Denies: fever(s), chills, body aches or change in appetite Eyes: Denies: blurry vision or eye discomfort ENMT: Denies: throat pain or dental pain Card: Denies: chest pain Resp: Denies: dyspnea GI: Denies: abdominal pain, nausea, vomiting or diarrhea : Denies: dysuria Musc: Denies: neck pain or back pain Skin/Breast: Denies: rash Neuro: Reports: seizure-like activity Psych: Denies: depression Cesario/Lymph: Denies: easy bruising All/Imm: Denies: urticaria 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 Benign essential HTN Borderline personality disorder Cannabis dependence in remission Cholecystectomy planned Chronic sacroiliac joint pain Narcolepsy Obstructive sleep apnea Opioid contract exists Psychiatric care Schizoaffective disorder, bipolar type Smoker unmotivated to quit Spondylosis without myelopathy or radiculopathy, lumbar region Surgical History History of cholecystectomy Tubal ligation status Family History Brother Hypertension CAD (coronary artery disease) Diabetes Father Hypertension Mother Hypertension CAD (coronary artery disease) Social History Smoking and tobacco status: current every day smoker cigarettes Packs smoked per day: 0.5 Years cigarettes smoked: 20 Quit status (tobacco): has tried quititng Number of times tried to quit tobacco: 10 Second hand smoke exposure: Yes Smoking risk assessment/counseling performed?: No Alcohol intake: former Year of sobriety/quit date alcohol: 2009 Desire information about alcohol rehabilitation?: No Counseling given: No Desire information about substance/drug rehabilitation?: No Counseling given: No History of recent travel: No Current gender identity: Female Female Reproductive History: Date of last menstrual period: 10/15/22 Physical Exam Const: COMMON NORMALS: no acute distress, patient oriented x3 and healthy appearing HENMT: COMMON NORMALS: normocephalic and atraumatic HEAD & SCALP: normocephalic and atraumatic Eye: COMMON NORMALS: Equal, round and reactive pupils present and EOMs intact bilaterally PUPIL: Yes Equal, round and reactive pupils present Neck/C-Spine: COMMON NORMALS: full ROM and supple Chest: COMMONS NORMALS: normal inspection of the chest and normal palpation of entire chest wall Resp: COMMON NORMALS: normal respiratory effort, No retractions, No use of accessory muscles and clear to auscultation bilaterally AUSCULTATION: clear to auscultation bilaterally Cardio: COMMON NORMALS: regular rate, regular rhythm and No murmurs present (Cardio) RATE: regular rate RHYTHM: regular rhythm GI: COMMON NORMALS: Normal to inspection, nondistended, normoactive bowel sounds present, Soft to palpation, non-tender and no masses PALPATION: Yes Soft to palpation Extremity: COMMON NORMALS: normal to inspection and full ROM Neuro: COMMON NORMALS: patient oriented x3, moves all extremities and no focal motor deficits Psych: COMMON NORMALS: mental status grossly normal, Normal thought process present and cooperative THOUGHT PROCESS: Normal thought process present Skin: COMMON NORMALS: no rashes or lesions noted and no wounds GENERAL SKIN EXAM: no rashes or lesions noted Course Vital Signs: Vital signs: Vital Signs Temperature 98.1 F 11/07/22 21:29 Pulse Rate 77 11/07/22 23:02 Respiratory Rate 17 11/07/22 23:02 Blood Pressure 112/68 11/07/22 23:02 Pulse Oximetry 96 11/07/22 23:02 Oxygen Delivery Me thod 11/07/22 22:21 MDM - Seizure MDM Narrative Medical decision making narrative: Patient presents here with seizures she does have a long seizure history head CT blood work are normal she stable for discharge she is to follow-up with her PCP and return if worsening Lab Data 11/07/22 22:15 11/07/22 22:15 Labs: Radiology Impressions Head CT 11/07/22 22:31 IMPRESSION: No acute intracranial abnormality. Laboratory Results WBC 9.0 10^3/uL (4.0-10.0) 11/07/22 22:15 RBC 5.30 10^6/uL (4.1-5.3) 11/07/22 22:15 Hgb 11.3 g/dL (11.5-15.3) L 11/07/22 22:15 Hct 37.5 % (37.0-47.0) 11/07/22 22:15 MCV 70.8 fl (81-99) L 11/07/22 22:15 MCH 21.3 pg (28.0-34.0) L 11/07/22 22:15 MCHC 30.1 g/dL (30.0-36.0) 11/07/22 22:15 RDW 17.8 % (12.1-15.1) H 11/07/22 22:15 Plt Count 349 10^3/cmm (130-400) 11/07/22 22:15 MPV 9.7 fL (7.4-10.4) 11/07/22 22:15 Neut % (Auto) 56.2 % 11/07/22 22:15 Lymph % (Auto) 33.6 % 11/07/22 22:15 [place] % (Auto) 7.2 % 11/07/22 22:15 Eos % (Auto) 2.1 % 11/07/22 22:15 Baso % (Auto) 0.8 % 11/07/22 22:15 Neut # (Auto) 5.08 10^3/uL (1.8-7.7) 11/07/22 22:15 Lymph # (Auto) 3.0 10^3/uL (0.8-4.8) 11/07/22 22:15 [place] # (Auto) 0.7 10^3/uL (0.2-0.9) 11/07/22 22:15 Eos # (Auto) 0.2 10^3/uL (0.0-0.8) 11/07/22 22:15 Baso # (Auto) 0.1 10^3/uL (0.0-0.1) 11/07/22 22:15 Nucleated RBC % (auto) 0 % 11/07/22 22:15 Nucleated RBCs # 0.0 /100WBC 11/07/22 22:15 Sodium 132 mmol/L (136-145) L 11/07/22 22:15 Potassium 3.9 mmol/L (3.5-5.1) 11/07/22 22:15 Chloride 101 mmol/L (98-107) 11/07/22 22:15 Carbon Dioxide 23 mmol/L (22-29) 11/07/22 22:15 Anion Gap 11.9 (5-19) 11/07/22 22:15 BUN 12 mg/dL (6-20) 11/07/22 22:15 Creatinine 0.8 mg/dL (0.5-0.9) 11/07/22 22:15 GFR Calculation 78.3 mL/min (90-130) L 11/07/22 22:15 Glucose 89 mg/dL (65-115) 11/07/22 22:15 Calculated Osmolality 273 mOsm/kg (285-295) L 11/07/22 22:15 Calcium 8.8 mg/dL (8.5-10.5) 11/07/22 22:15 Total Bilirubin 0.2 mg/dL (0.15-1.2) 11/07/22 22:15 AST 21 U/L (0-32) 11/07/22 22:15 ALT 26 U/L (0-33) 11/07/22 22:15 Alkaline Phosphatase 160 U/L (35-105) H 11/07/22 22:15 Total Protein 7.5 g/dL (6.6-8.7) 11/07/22 22:15 Albumin 3.4 g/dL (3.5-5.2) L 11/07/22 22:15 Globulin 4.1 g/dL (1.3-4.6) 11/07/22 22:15 Discharge Plan Discharge Patient Disposition: Home Clinical Impression: Generalized seizure Condition: Stable Prescriptions: No Action topiramate [Topamax] 25 mg tablet 100 mg PO DAILY@1999 Label Comments: Titrate 25mg for 1 week, 50mg for one week, 75mg for one week, then 100mg daily. pantoprazole [Protonix] 40 mg tablet,delayed release (DR/EC) 40 mg PO BID@, gabapentin 800 mg tablet 800 mg PO DAILY Qty: 60 1RF meloxicam 7.5 mg tablet 7.5 mg PO BID@ 30 Days Qty: 60 1RF pregabalin 200 mg capsule 200 mg PO TID 90 Days Qty: 270 1RF fluticasone propionate 50 mcg/actuation spray,suspension 2 spray INTRANASAL BID vitamin E 200 unit capsule 200 unit PO DAILY (DME) Night splint See Rx Instructions .Route .MEDSUPPLY Qty: 1 0RF Rx Instructions: As directed diclofenac sodium 1 % gel See Rx Instructions .ROUTE .COMPLEX Dose Instruction: apply ONE gram bilaterally TO FEET AT BEDTIME Rx Instructions: apply ONE gram bilaterally TO FEET AT BEDTIME PRN lamotrigine [Lamictal XR] 200 mg tablet extended release 24hr 200 mg PO .qhs Qty: 30 11RF alpha lipoic acid 600 mg tablet 600 mg PO DAILY 30 Days Qty: 30 3RF benfotiamine 150 mg capsule 300 mg PO BID 30 Days Qty: 120 3RF metoprolol tartrate 25 mg tablet 12.5 mg PO BID Qty: 30 5RF ondansetron HCl 4 mg tablet 4 mg PO Q8H PRN (Reason: Diarrhea) dicyclomine 10 mg capsule 10 mg PO QID PRN (Reason: Diarrhea) cholestyramine (with sugar) 4 gram powder in packet 4 ea PO DAILY Latuda 20 mg tablet 20 mg PO .qhs Qty: 30 11RF Rx Instructions: must administer with food (at least 350 calories) varenicline [Chantix] 1 mg tablet 1 mg PO BID Qty: 56 2RF methylphenidate HCl [Ritalin] 20 mg tablet 20 mg PO TID 30 Days Qty: 90 0RF methylphenidate HCl [Ritalin] 20 mg tablet 20 mg PO TID 30 Days Qty: 90 0RF methylphenidate HCl [Ritalin] 20 mg tablet 20 mg PO TID 30 Days Qty: 90 0RF mupirocin 2 % ointment 1 applic topical BID 7 Days Qty: 22 0RF doxycycline hyclate 100 mg tablet 100 mg PO BID 7 Days Qty: 14 0RF Vyepti 100 mg/mL solution IV furosemide [Lasix] 20 mg tablet 20 mg PO .every other day Qty: 15 0RF capsaicin [Arthritis Pain Relief(capsaic)] 0.1 % cream 1 applic topical BID Qty: 60 0RF Rx Instructions: do not wash area for at least 30 min after application semaglutide 1 mg/dose (4 mg/3 mL) pen injector 1 mg SUBCUT .weekly Qty: 3 0RF Rx Instructions: Please dispense needle tips as well 340 B - not covered by patient's insurance rizatriptan 10 mg tablet 10 mg PO DAILY PRN (Reason: Migraine Headache) Discharge Orders: Discharge ED (Routine); Ordered 11/07/22 Ordered By: Saul Ly Referrals: Leisa Toussaint DO [Primary Care Provider] - 1-3 days Discharge Diet: Advance as tolerated Discharge Activity: Resume usual activity Patient Instructions: Seizures Coding Level of Care Code 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
[2022-11-13 10:16] LABS: Lamotrigine (Lamictal) Level 1.7 mcg/mL (4.0-18.0)
== END 2022-11-07 23:54 | disposition home or self-care (01) ==
PROVIDERS: Emergency Provider Emergency Medicine; PCP Family Medicine
DX: G40.409 Other generalized epilepsy and epileptic syndromes, not intractable, without status epilepticus (principal); I10 Essential (primary) hypertension; F17.210 Nicotine dependence, cigarettes, uncomplicated
CPT/HCPCS: 70450; 80053; 80175; 85025; 99284

== ENCOUNTER 2022-12-13 11:58 | Emergency (ER) | payer MEDICAID, SELFPAY ==
[2022-12-13 12:26] VITALS: BP 107/71; PULSE 83; RESP 16; TEMP 36.6; O2SAT 98
--- NOTE | 2022-12-13 12:57 | W.ED.UPPEXIN ---
HPI - Extremity Injury (Upper) General: Chief Complaint: Fall Stated Complaint: arm/shoulder/leg pain Time Seen by Provider: 12/13/22 12:48 Source: patient Mode of arrival: ambulatory Limitations: no limitations History of Present Illness: Patient is a 42-year-old female presents to ED today for evaluation of a right shoulder injury that she sustained just prior to arrival after slipping and falling on ice. She has no other injuries or complaints at this time. She is reporting decreased range of motion of the shoulder joint secondary to discomfort. MD complaint: injury to: right and shoulder Onset (ago): hour(s) Other Extremity Injury: Right: shoulder Other injuries: none Place: home Severity: moderate Relieving factors: immobilization Exacerbating factors: movement of extremity Context: fall Associated symptoms: Reports no associated symptoms; Denies neck pain or weakness in extremities Review of Systems Card: Denies: chest pain Resp: Denies: dyspnea Musc: Reports: joint pain (R shoulder); Denies: neck pain, back pain, extremity pain, extremity swelling or joint swelling Neuro: Denies: headache(s), numbness in extremities, weakness in extremities or sensory changes 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 Benign essential HTN Borderline personality disorder Cannabis dependence in remission Cholecystectomy planned Chronic sacroiliac joint pain Narcolepsy Obstructive sleep apnea Opioid contract exists Psychiatric care Schizoaffective disorder, bipolar type Smoker unmotivated to quit Spondylosis without myelopathy or radiculopathy, lumbar region Surgical History History of cholecystectomy Tubal ligation status Family History Brother Hypertension CAD (coronary artery disease) Diabetes Father Hypertension Mother Hypertension CAD (coronary artery disease) Social History Smoking and tobacco status: current every day smoker cigarettes Packs smoked per day: 0.5 Years cigarettes smoked: 20 Quit status (tobacco): has tried quititng Number of times tried to quit tobacco: 10 Second hand smoke exposure: Yes Smoking risk assessment/counseling performed?: No Alcohol intake: former Year of sobriety/quit date alcohol: 2009 Desire information about alcohol rehabilitation?: No Counseling given: No Desire information about substance/drug rehabilitation?: No Counseling given: No History of recent travel: No Current gender identity: Female Female Reproductive History: Date of last menstrual period: 10/15/22 Physical Exam Const: COMMON NORMALS: no acute distress, patient oriented x3, no limitations and alert GENERAL APPEARANCE: cooperative NUTRITIONAL APPEARANCE: obese morbidly obese ORIENTATION/CONSCIOUSNESS: Yes awake, Yes oriented to person, Yes oriented to place and Yes oriented to time HENMT: COMMON NORMALS: normocephalic and atraumatic HEAD & SCALP: normal to inspection, normocephalic and atraumatic Neck/C-Spine: COMMON NORMALS: full ROM GENERAL: Yes normal visual inspection CERVICAL SPINE: No pain with cervical ROM, No Cervical spine tenderness and No step off deformity Chest: COMMONS NORMALS: normal inspection of the chest and normal palpation of entire chest wall Back/Pelvis: COMMON NORMALS: thoracic and lumbar spine normal to inspection, no thoracic nor lumbar tenderness and thoraco-lumbar ROM normal Extremity: COMMON NORMALS: normal to inspection and capillary refill normal GENERAL: Yes normal exam except as noted RIGHT UPPER EXTREMITY: Yes shoulder joint (anatomy hard to palpate secondary to body habitus) Right shoulder: Yes Right shoulder joint ROM exam (limited secondary to pain), Yes Right shoulder joint neurovascular exam (normal) and Yes Right shoulder joint other findings (grossly normal inspection/palpation given limitations) Neuro: ZONIA COMA SCALE: document GCS findings Zonia coma scale eye opening: Spontaneous [place] coma scale verbal response: Orientated [place] coma scale motor response: Obey commands [place] coma scale total score: 15 COMMON NORMALS: patient oriented x3, moves all extremities, no focal motor deficits, no sensory deficits noted and gait normal SENSORIUM/ORIENTATION: Yes alert, Yes oriented to person, Yes oriented to place and Yes oriented to time Skin: TRAUMA: no lacerations or abrasions Course Vital Signs: Vital signs: Vital Signs Temperature 97.9 F 12/13/22 12:26 Pulse Rate 83 12/13/22 12:26 Respiratory Rate 16 12/13/22 12:26 Blood Pressure 107/71 12/13/22 12:26 Pulse Oximetry 98 12/13/22 12:26 Oxygen Delivery Me thod 12/13/22 12:26 MDM - Extremity Injury (Upper) Medical Decision Making XR negative. Will sling for comfort and have patient follow-up with PCP. Recommend ice and anti-inflammatories in the meantime. Lab Data Radiology Impressions Shoulder X-Ray 12/13/22 13:15 IMPRESSION: Negative right shoulder Discharge Plan Discharge Patient Disposition: Home Clinical Impression: Fall from slipping on ice Qualifiers: Encounter type: initial encounter Qualified Code(s): W00.9XXA - Unspecified fall due to ice and snow, initial encounter Injury of right shoulder Qualifiers: Encounter type: initial encounter Qualified Code(s): S49.91XA - Unspecified injury of right shoulder and upper arm, initial encounter Condition: Stable Prescriptions: No Action topiramate [Topamax] 25 mg tablet 100 mg PO DAILY@1999 Label Comments: Titrate 25mg for 1 week, 50mg for one week, 75mg for one week, then 100mg daily. pantoprazole [Protonix] 40 mg tablet,delayed release (DR/EC) 40 mg PO BID@ meloxicam 7.5 mg tablet 7.5 mg PO BID@ 30 Days Qty: 60 1RF pregabalin 200 mg capsule 200 mg PO TID 90 Days Qty: 270 1RF fluticasone propionate 50 mcg/actuation spray,suspension 2 spray INTRANASAL BID (DME) Night splint See Rx Instructions .Route .MEDSUPPLY Qty: 1 0RF Rx Instructions: As directed lamotrigine [Lamictal XR] 200 mg tablet extended release 24hr 200 mg PO .qhs Qty: 30 11RF metoprolol tartrate 25 mg tablet 12.5 mg PO BID Qty: 30 5RF ondansetron HCl 4 mg tablet 4 mg PO Q8H PRN (Reason: Diarrhea) dicyclomine 10 mg capsule 10 mg PO QID PRN (Reason: Diarrhea) Latuda 20 mg tablet 20 mg PO .qhs Qty: 30 11RF Rx Instructions: must administer with food (at least 350 calories) varenicline [Chantix] 1 mg tablet 1 mg PO BID Qty: 56 2RF Vyepti 100 mg/mL solution IV methylphenidate HCl [Ritalin] 20 mg tablet 20 mg PO TID 30 Days Qty: 90 0RF methylphenidate HCl [Ritalin] 20 mg tablet 20 mg PO TID 30 Days Qty: 90 0RF methylphenidate HCl [Ritalin] 20 mg tablet 20 mg PO TID 30 Days Qty: 90 0RF furosemide [Lasix] 20 mg tablet 20 mg PO .every other day Qty: 15 0RF colestipol 1 gram tablet 2 g PO BID semaglutide 0.25 mg or 0.5 mg(2 mg/1.5 mL) pen injector 1 mg SUBCUT .weekly Qty: 3 1RF Rx Instructions: Please dispense needle tips as well Medication not covered by patient's insurance rizatriptan 10 mg tablet 10 mg PO DAILY PRN (Reason: Migraine Headache) Discharge Orders: Discharge ED (Routine); Ordered 12/13/22 Ordered By: Lina Hernandez Referrals: Leisa Toussaint DO [Primary Care Provider] - Coding Level of Care Code ED Rel[employer] Tester for Claudia Muniz
--- NOTE | 2022-12-13 13:15 | XRR_ITS ---
PROCEDURE INFORMATION: Exam: XR Right Shoulder Exam date and time: 12/13/2022 1:04 PM Age: 42 years old Clinical indication: Injury or trauma; Fall; Blunt trauma (contusions or hematomas); Shoulder; Right; Additional info: Trauma/fall TECHNIQUE: Imaging protocol: Radiologic exam of the Right shoulder. Views: 2 or more views. COMPARISON: CR XR chest 1V portable [id number] 10/12/2021 4:15 PM FINDINGS: Bones/joints: Osseous structures are intact. No fracture or malalignment. Joint surfaces are preserved. Soft tissues: Normal. XR/XR shoulder RT min 2V* [id number] IMPRESSION: Negative right shoulder
== END 2022-12-13 14:00 | disposition home or self-care (01) ==
PROVIDERS: Emergency Provider Physician Assistant; PCP Family Medicine
DX: S49.91XA Unspecified injury of right shoulder and upper arm, initial encounter (principal); W00.0XXA Fall on same level due to ice and snow, initial encounter; F17.210 Nicotine dependence, cigarettes, uncomplicated; I10 Essential (primary) hypertension
CPT/HCPCS: 73030; 99283

== ENCOUNTER 2022-12-17 08:45 | Outpatient (CLI) | payer MEDICAID, SELFPAY ==
--- NOTE | 2022-12-17 09:30 | MR_ITS ---
WS: [id number] MRI RIGHT SHOULDER HISTORY: acute pain of right shoulder COMPARISON: 02/23/2013. Shoulder radiograph 12/13/2022 TECHNIQUE: Multiplanar sequences of the shoulder joint are submitted. Small amount of fluid along the AC ligament consistent with mild sprain. No displacement of the clavi lali. Very minimal osteophyte from the distal clavicle. No subacromial impingement. No os acromion. No rmal biceps tendon. Nondisplaced fracture involving the greater tuberosity of the humeral head. There is edema surroundin g the fracture. There is also soft tissue edema surrounding the humeral head and just deep to the del toid muscle. No rotator cuff tears. There is a small amount of fluid in the rotator cuff interval whi ch is probably posttraumatic. No labral tear. MR/MR shoulder RT wo con* [id number] IMPRESSION: 1. Nondisplaced fracture greater tuberosity RIGHT humeral head. 2. Adjacent soft tissue edema surrounding the shoulder and just deep to the de ltoid muscle. 3. Minimal AC sprain. 4. No rotator cuff tear.
== END 2022-12-17 08:46 | disposition home or self-care (01) ==
PROVIDERS: PCP Family Medicine; Referring Provider Anesthesiology; Visit Provider Family Medicine
DX: S42.254A Nondisplaced fracture of greater tuberosity of right humerus, initial encounter for closed fracture (principal); R60.0 Localized edema; S43.51XA Sprain of right acromioclavicular joint, initial encounter; X58.XXXA Exposure to other specified factors, initial encounter
CPT/HCPCS: 73221

== ENCOUNTER 2022-12-20 18:30 | Emergency (ER) | payer MEDICAID, SELFPAY ==
[2022-12-20 18:34] VITALS: BP 149/103; PULSE 108; RESP 20; TEMP 36.6; O2SAT 97
--- NOTE | 2022-12-20 18:40 | ED_ITS ---
HPI - Extremity Problem General: Chief complaint: Extremity Injury, Upper Stated complaint: Fracture of femor\Pain Time Seen by Provider: 12/20/22 18:40 History of Present Illness: 42-year-old female comes in today with pain and discomfort to the right neck and right shoulder area. Patient fell last week and broke her proximal humerus. Patient is in a sling. Patient reports today she was adjusting her sling when she felt a pop in her neck and since then has had increased pain and discomfort to the neck and shoulder. Patient is very guarded with movement. Patient appears in moderate pain. Patient appears nontoxic. 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 Benign essential HTN Borderline personality disorder Cannabis dependence in remission Cholecystectomy planned Chronic sacroiliac joint pain Narcolepsy Obstructive sleep apnea Opioid contract exists Psychiatric care Schizoaffective disorder, bipolar type Smoker unmotivated to quit Spondylosis without myelopathy or radiculopathy, lumbar region Surgical History History of cholecystectomy Tubal ligation status Family History Brother Hypertension CAD (coronary artery disease) Diabetes Father Hypertension Mother Hypertension CAD (coronary artery disease) Social History Smoking and tobacco status: current every day smoker cigarettes Packs smoked per day: 0.5 Years cigarettes smoked: 20 Quit status (tobacco): has tried quititng Number of times tried to quit tobacco: 10 Second hand smoke exposure: Yes Smoking risk assessment/counseling performed?: No Alcohol intake: former Year of sobriety/quit date alcohol: 2009 Desire information about alcohol rehabilitation?: No Counseling given: No Desire information about substance/drug rehabilitation?: No Counseling given: No History of recent travel: No Current gender identity: Female Female Reproductive History: Date of last menstrual period: 10/15/22 Physical Exam Const: COMMON NORMALS: alert HENMT: COMMON NORMALS: normocephalic HEAD & SCALP: normocephalic MOUTH: Normal oral and palatal mucosa present Neck/C-Spine: CERVICAL SPINE: No Cervical spine tenderness and Yes Paracervical muscle tenderness right Resp: COMMON NORMALS: normal respiratory effort and clear to auscultation bilaterally AUSCULTATION: clear to auscultation bilaterally Cardio: COMMON NORMALS: regular rate and regular rhythm RATE: regular rate RHYTHM: regular rhythm GI: COMMON NORMALS: non-tender Back/Pelvis: COMMON NORMALS: thoracic and lumbar spine normal to inspection Extremity: RIGHT UPPER EXTREMITY: Yes upper arm (Tenderness right upper arm) Right upper arm: Yes inspection and Yes palpation Neuro: SENSORIUM/ORIENTATION: Yes alert Skin: COMMON NORMALS: turgor normal GENERAL SKIN EXAM: turgor normal Course Vital Signs: Vital signs: Vital Signs Temperature 97.9 F 12/20/22 18:34 Pulse Rate 108 H 12/20/22 18:34 Respiratory Rate 20 H 12/20/22 18:34 Blood Pressure 149/103 12/20/22 18:34 Pulse Oximetry 97 12/20/22 18:34 MDM - Extremity (Nontraumatic) Medical Decision Making Patient comes in for worsening pain to the right shoulder. Patient was found to have a nondisplaced fracture of the greater tuberosity of the right shoulder. Patient appears nontoxic. Patient has pain on the lateral part of the shoulder. Patient reports some numbness going down her arm. Respirations are even lungs are clear to auscultation patient appears in moderate to severe pain. Differential diagnosis includes not limited to displacement of the fracture, muscle spasm, nerve impingement. No cervical spine tenderness is noted. Patient has muscle tenderness in the trapezius on the right side. Mild tenderness is also noted on the right upper arm. X-ray noted no significant abnormality except for the fracture that was described in the MRI. Patient was given 30 mg of ketorolac IM and 1 hydrocodone 10 mg/325 acetaminophen tablet. Patient had significant improvement in pain and discomfort. The patient probably has had a muscle spasm secondary to poor pain control. We will go ahead and continue her on some hydrocodone recommended rest from the sling to prevent impingement of muscle and nerve. No signs of serious illness or injury. Patient has appointment to see orthopedist on Tuesday. Patient reported understanding of care plan and need for follow-up or return to the ER. Discharge Plan Discharge Patient Disposition: Home Clinical Impression: Fracture, humerus closed Qualifiers: Encounter type: subsequent encounter Humerus Location: greater tuberosity Fracture alignment: nondisplaced Laterality: right Fracture healing: with routine healing Qualified Code(s): S42.254D - Nondisplaced fracture of greater tuberosity of right humerus, subsequent encounter for fracture with routine healing Condition: Stable Prescriptions: New hydrocodone-acetaminophen 5-325 mg tablet 1 tab PO Q6H PRN (Reason: pain (scale score 7-10)) Qty: 12 0RF No Action topiramate [Topamax] 25 mg tablet 100 mg PO DAILY@1999 Label Comments: Titrate 25mg for 1 week, 50mg for one week, 75mg for one week, then 100mg daily. pantoprazole [Protonix] 40 mg tablet,delayed release (DR/EC) 40 mg PO BID@ meloxicam 7.5 mg tablet 7.5 mg PO BID@ 30 Days Qty: 60 1RF pregabalin 200 mg capsule 200 mg PO TID 90 Days Qty: 270 1RF fluticasone propionate 50 mcg/actuation spray,suspension 2 spray INTRANASAL BID (DME) Night splint See Rx Instructions .Route .MEDSUPPLY Qty: 1 0RF Rx Instructions: As directed lamotrigine [Lamictal XR] 200 mg tablet extended release 24hr 200 mg PO .qhs Qty: 30 11RF ondansetron HCl 4 mg tablet 4 mg PO Q8H PRN (Reason: Diarrhea) dicyclomine 10 mg capsule 10 mg PO QID PRN (Reason: Diarrhea) Latuda 20 mg tablet 20 mg PO .qhs Qty: 30 11RF Rx Instructions: must administer with food (at least 350 calories) Vyepti 100 mg/mL solution IV methylphenidate HCl [Ritalin] 20 mg tablet 20 mg PO TID 30 Days Qty: 90 0RF methylphenidate HCl [Ritalin] 20 mg tablet 20 mg PO TID 30 Days Qty: 90 0RF methylphenidate HCl [Ritalin] 20 mg tablet 20 mg PO TID 30 Days Qty: 90 0RF furosemide [Lasix] 20 mg tablet 20 mg PO .every other day Qty: 15 0RF colestipol 1 gram tablet 2 g PO BID semaglutide 0.25 mg or 0.5 mg(2 mg/1.5 mL) pen injector 1 mg SUBCUT .weekly Qty: 3 1RF Rx Instructions: Please dispense needle tips as well Medication not covered by patient's insurance varenicline [Chantix] 1 mg tablet 1 mg PO BID Qty: 56 2RF metoprolol tartrate 25 mg tablet See Rx Instructions .ROUTE .COMPLEX Qty: 30 5RF Dose Instruction: take one-half TABLET BY MOUTH TWICE DAILY Rx Instructions: take one-half TABLET BY MOUTH TWICE DAILY rizatriptan 10 mg tablet 10 mg PO DAILY PRN (Reason: Migraine Headache) Discharge Orders: Discharge ED (Routine); Ordered 12/20/22 Ordered By: Micheal Newman Referrals: Leisa Toussaint DO [Primary Care Provider] - Discharge Diet: Usual diet Discharge Activity: Increase activity as tolerated Activity Restrictions/Additional Instructions: Wear sling for comfort. Use ice and heat for further pain relief. Take acetaminophen and/or ibuprofen for pain. Do not use ibuprofen with other NSAIDs such as meloxicam or naproxen. Use hydrocodone for severe pain. Follow-up with primary care for further instructions. Keep appointment with orthopedist on Tuesday. Coding Level of Care Code ED Information Systems Director for Claudia Muniz
--- NOTE | 2022-12-20 18:41 | XRR_ITS ---
PROCEDURE INFORMATION: Exam: XR Right Humerus Exam date and time: 12/20/2022 6:56 PM Age: 42 years old Clinical indication: Injury or trauma; Fall; Blunt trauma (contusions or hematomas); Arm, upper; Right; Injury date: 12/13/2022; Injury details: Patient states she fell last week and that her mri showed a slight brake in the humeral head. Has appt wed with ortho TECHNIQUE: Imaging protocol: Radiologic exam of the Right humerus. Views: 2 or more views. COMPARISON: CR XR shoulder RT min 2V* [id number] 12/13/2022 1:04 PM FINDINGS: Bones/joints: No significant interval osseous healing/callus formation around the nondisplaced greater tuberosity fracture. Soft tissues: Normal. XR/[place] [id number] IMPRESSION: No significant interval osseous healing/callus formation around the nondisplaced greater tuberosity fracture.
[2022-12-20] MEDS: HYDROcodone-acetaminophen 10-325 mg Tablet 1 TAB PO (19:08)
[2022-12-20] MEDS: ketorolac 30 mg/mL INJ IM (19:10)
== END 2022-12-20 19:54 | disposition home or self-care (01) ==
PROVIDERS: Emergency Provider Nurse Practitioner Family; PCP Family Medicine
DX: S42.254A Nondisplaced fracture of greater tuberosity of right humerus, initial encounter for closed fracture (principal); I10 Essential (primary) hypertension; F17.210 Nicotine dependence, cigarettes, uncomplicated; W19.XXXA Unspecified fall, initial encounter
CPT/HCPCS: 73060; 96372; 99284; J1885

== ENCOUNTER 2022-12-22 11:36 | Outpatient (CLI) | payer MEDICAID, SELFPAY | END 2022-12-22 11:37 | disposition home or self-care (01) | LOC: SPT 11:37 | PROVIDERS: PCP Family Medicine; Visit Provider Specialist | DX: Z46.89 Encounter for fitting and adjustment of other specified devices (principal); S42.301D Unspecified fracture of shaft of humerus, right arm, subsequent encounter for fracture with routine healing; X58.XXXD Exposure to other specified factors, subsequent encounter; S42.254A Nondisplaced fracture of greater tuberosity of right humerus, initial encounter for closed fracture; W01.0XXA Fall on same level from slipping, tripping and stumbling without subsequent striking against object, initial encounter; E66.01 Morbid (severe) obesity due to excess calories; Z68.43 Body mass index [BMI] 50.0-59.9, adult | CPT/HCPCS: 24530; 97760; 99204; L3670 ==

== ENCOUNTER 2022-12-25 09:09 | Emergency (ER) | payer MEDICAID, SELFPAY ==
[2022-12-25 09:10] VITALS: BP 152/83; PULSE 77; RESP 14; TEMP 37.1; O2SAT 94; BMI 49.6
--- NOTE | 2022-12-25 09:19 | ECG_ITS ---
[facility] Test Date: 2022-12-25 Pat Name: Leisa Rizo Department: Room: Gender: Female Management Associate: : 1980 Requested By: Jorge L Guillen Order Number: [id number] Conley MD: Lorraine Brewster M.D. Measurements Intervals [place] Rate: 74 P: 48 IA: 183 QRS: 45 QRSD: 92 T: 38 QT: 380 QTc: 423 Interpretive Statements SINUS RHYTHM Compared to ECG 11/06/2019 04:03:07 No significant changes Electronically Signed On 12-25-2022 19:31:15 ORDER PROCESSING MANAGER by Lorraine Brewster M.D. [email or web address].[facility].[employer]/store/[id number]
--- NOTE | 2022-12-25 09:19 | XRR_ITS ---
PROCEDURE INFORMATION: Exam: XR Chest Exam date and time: 12/25/2022 9:32 AM Age: 42 years old Clinical indication: Pain; Other: Upper left chest and axilla on left; Additional info: Cp TECHNIQUE: Imaging protocol: Radiologic exam of the chest. Views: 1 view. COMPARISON: CR XR chest 1V portable [id number] 10/12/2021 4:15 PM FINDINGS: Lungs: Unremarkable. No consolidation. Pleural spaces: Unremarkable. No pleural effusion. No pneumothorax. Heart/Mediastinum: Unremarkable. No cardiomegaly. Bones/joints: Unremarkable. XR/XR chest 1V portable [id number] IMPRESSION: No acute findings.
--- NOTE | 2022-12-25 09:22 | W.ED.CHESTPA ---
HPI - Chest Pain General: Chief Complaint: Chest Pain Stated Complaint: CHEST PAIN Time Seen by Provider: 12/25/22 09:10 History of Present Illness: 42-year-old female with past medical history of anxiety, paroxysmal SVT narcolepsy, schizoaffective sorter, presents to the emergency department with elevated heart rate this morning. Describes elevated heart rate as maximum heart rate of 106 bpm measured on her biometric ring device. She states that she was hovering from 76-106 which was concerning to her as this normally does not persist for such a long period time. It began at 6 AM and was not accompanying with chest pain although there was a slight chest discomfort that has since resolved. She states that she was most concerned about potentially going into SVT again. Denies current chest pain, nausea, vomiting, numbness or tingling, radiation of the chest discomfort. No cardiac history, no previous stents. Previous smoker, now abstinent. Associated symptoms: Reports palpitations; Deny abdominal pain, dyspnea, fever(s) or nausea Review of Systems General: Reports: 10 or more systems reviewed and unremarkable except in HPI and below Const: Denies: fever(s) or chills Eyes: Denies: change in vision, blurry vision or blind spots ENMT: Denies: throat pain or uvular edema Card: Reports: palpitations; Denies: chest pain, pre-syncope, dyspnea on exertion, orthopnea or leg pain with exertion Resp: Denies: dyspnea or productive cough GI: Denies: abdominal pain or nausea : Denies: flank pain or difficulty voiding Musc: Denies: neck pain or back pain Skin/Breast: Denies: rash, pruritus or erythema Neuro: Denies: headache(s) or numbness in extremities Psych: Reports: anxiety Endo: Denies: polyuria or polydipsia All/Imm: Denies: throat swelling 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 Benign essential HTN Borderline personality disorder Cannabis dependence in remission Cholecystectomy planned Chronic sacroiliac joint pain Narcolepsy Obstructive sleep apnea Opioid contract exists Psychiatric care Schizoaffective disorder, bipolar type Smoker unmotivated to quit Spondylosis without myelopathy or radiculopathy, lumbar region Surgical History History of cholecystectomy Tubal ligation status Family History Brother Hypertension CAD (coronary artery disease) Diabetes Father Hypertension Mother Hypertension CAD (coronary artery disease) Social History Smoking and tobacco status: current every day smoker cigarettes Packs smoked per day: 0.5 Years cigarettes smoked: 20 Quit status (tobacco): has tried quititng Number of times tried to quit tobacco: 10 Second hand smoke exposure: Yes Smoking risk assessment/counseling performed?: No Alcohol intake: former Year of sobriety/quit date alcohol: 2009 Desire information about alcohol rehabilitation?: No Counseling given: No Desire information about substance/drug rehabilitation?: No Counseling given: No Current gender identity: Female Physical Exam Const: COMMON NORMALS: no acute distress, patient oriented x3 and alert EXAM LIMITATIONS: no altered mental status and no language barrier ORIENTATION/CONSCIOUSNESS: Yes oriented to person, Yes oriented to place and Yes oriented to time HENMT: COMMON NORMALS: normocephalic and atraumatic HEAD & SCALP: normocephalic and atraumatic THROAT: no uvular edema Eye: COMMON NORMALS: Equal, round and reactive pupils present, EOMs intact bilaterally, conjunctivae normal and no scleral icterus CONJUNCTIVA: Yes conjunctivae normal PUPIL: Yes Equal, round and reactive pupils present Neck/C-Spine: COMMON NORMALS: full ROM; negative for no JVD Chest: COMMONS NORMALS: normal inspection of the chest and normal palpation of entire chest wall CHEST: No abnormal inspection of the chest Breast/axilla inspection: Yes no chest deformity, asymmetry, normal contours, no nodules, masses, tenderness Resp: COMMON NORMALS: normal respiratory effort, No retractions, No use of accessory muscles and clear to auscultation bilaterally EFFORT & INSPECTION: Yes able to speak in complete sentences AUSCULTATION: clear to auscultation bilaterally Cardio: COMMON NORMALS: negative for no JVD and negative for regular rate RATE: abnormal rate GI: COMMON NORMALS: Normal to inspection, nondistended, normoactive bowel sounds present, Soft to palpation and non-tender PALPATION: Yes Soft to palpation Extremity: COMMON NORMALS: normal to inspection and full ROM Neuro: COMMON NORMALS: patient oriented x3, CN's II-XII intact bilaterally, moves all extremities, no focal motor deficits and no sensory deficits noted SENSORIUM/ORIENTATION: Yes alert, Yes oriented to person, Yes oriented to place and Yes oriented to time CRANIAL NERVES: Yes CN normal except as noted SPEECH: speech normal Psych: COMMON NORMALS: mental status grossly normal, Normal thought process present, cooperative, normal affect and speech normal SPEECH: Yes normal speech THOUGHT PROCESS: Normal thought process present Course Vital Signs: Vital signs: Vital Signs Temperature 98.8 F 12/25/22 09:10 Pulse Rate 69 12/25/22 11:34 Respiratory Rate 18 12/25/22 11:34 Blood Pressure 124/80 12/25/22 09:34 Pulse Oximetry 97 12/25/22 11:34 Oxygen Delivery Me thod 12/25/22 11:34 MDM - Chest Pain Medical Decision Making 42-year-old female with resolved tachycardia at home. No tachycardia in the emergency department or noted by EMS services. EKG with nonactionable rhythm, rate of 74, no ectopy, sinus, intervals within normal limits, no ischemia or ischemia equivalents, normal morphology. Given patient complaint of chest pain with normal EKG and smoking history at the age of 42 will obtain 2-hour cardiac rule out with delta troponin. No acute distress and no immediate intervention is necessary in the emergency department. Feel not consistent with other concern pathology including pulmonary pathology, electrolyte derangements, referred abdominal or back pain, urinary tract affection symptoms, others. Delta troponin is negative and patient discharged from the emergency department with precautions and advised follow-up with regular physician. Lab Data 12/25/22 09:49 12/25/22 09:49 Radiology Impressions Chest X-Ray 12/25/22 09:19 IMPRESSION: No acute findings. Laboratory Results WBC 8.6 10^3/uL (4.0-10.0) 12/25/22 09:49 RBC 5.24 10^6/uL (4.1-5.3) 12/25/22 09:49 Hgb 11.3 g/dL (11.5-15.3) L 12/25/22 09:49 Hct 37.1 % (37.0-47.0) 12/25/22 09:49 MCV 70.8 fl (81-99) L 12/25/22 09:49 MCH 21.6 pg (28.0-34.0) L 12/25/22 09:49 MCHC 30.5 g/dL (30.0-36.0) 12/25/22 09:49 RDW 17.2 % (12.1-15.1) H 12/25/22 09:49 Plt Count 350 10^3/cmm (130-400) 12/25/22 09:49 MPV 9.4 fL (7.4-10.4) 12/25/22 09:49 Neut % (Auto) 70.9 % 12/25/22 09:49 Lymph % (Auto) 20.7 % 12/25/22 09:49 [place] % (Auto) 5.4 % 12/25/22 09:49 Eos % (Auto) 2.1 % 12/25/22 09:49 Baso % (Auto) 0.5 % 12/25/22 09:49 Neut # (Auto) 6.09 10^3/uL (1.8-7.7) 12/25/22 09:49 Lymph # (Auto) 1.8 10^3/uL (0.8-4.8) 12/25/22 09:49 [place] # (Auto) 0.5 10^3/uL (0.2-0.9) 12/25/22 09:49 Eos # (Auto) 0.2 10^3/uL (0.0-0.8) 12/25/22 09:49 Baso # (Auto) 0.0 10^3/uL (0.0-0.1) 12/25/22 09:49 Nucleated RBC % (auto) 0 % 12/25/22 09:49 Nucleated RBCs # 0.0 /100WBC 12/25/22 09:49 Sodium 132 mmol/L (136-145) L 12/25/22 09:49 Potassium 3.8 mmol/L (3.5-5.1) 12/25/22 09:49 Chloride 100 mmol/L (98-107) 12/25/22 09:49 Carbon Dioxide 22 mmol/L (22-29) 12/25/22 09:49 Anion Gap 13.8 (5-19) 12/25/22 09:49 BUN 9 mg/dL (6-20) 12/25/22 09:49 Creatinine 0.8 mg/dL (0.5-0.9) 12/25/22 09:49 GFR Calculation 78.3 mL/min (90-130) L 12/25/22 09:49 Glucose 105 mg/dL (65-115) 12/25/22 09:49 Calculated Osmolality 273 mOsm/kg (285-295) L 12/25/22 09:49 Calcium 8.7 mg/dL (8.5-10.5) 12/25/22 09:49 Troponin T Baseline 6 ng/L (0-10) 12/25/22 09:49 Troponin T 120 Minute 6.00 ng/L (0-10) 12/25/22 11:52 Delta Troponin T 0 ABS# (0-10) 12/25/22 11:52 Discharge Plan Discharge Patient Disposition: Home, Self-Care w Plan Readm Clinical Impression: Heart palpitations Condition: Stable Prescriptions: No Action topiramate [Topamax] 25 mg tablet 100 mg PO DAILY@1999 Label Comments: Titrate 25mg for 1 week, 50mg for one week, 75mg for one week, then 100mg daily. pantoprazole [Protonix] 40 mg tablet,delayed release (DR/EC) 40 mg PO BID@04, pregabalin 200 mg capsule 200 mg PO TID 90 Days Qty: 270 1RF fluticasone propionate 50 mcg/actuation spray,suspension 2 spray INTRANASAL BID (DME) Night splint See Rx Instructions .Route .MEDSUPPLY Qty: 1 0RF Rx Instructions: As directed ondansetron HCl 4 mg tablet 4 mg PO Q8H PRN (Reason: Diarrhea) dicyclomine 10 mg capsule 10 mg PO QID PRN (Reason: Diarrhea) Vyepti 100 mg/mL solution 100 mg IV Q90D methylphenidate HCl [Ritalin] 20 mg tablet 20 mg PO TID 30 Days Qty: 90 0RF colestipol 1 gram tablet 2 g PO BID (DME) Shoulder immobilizer See Rx Instructions .Route .MEDSUPPLY Qty: 1 0RF Rx Instructions: As directed varenicline [Chantix] 1 mg tablet 1 mg PO BID Qty: 56 2RF tizanidine 2 mg tablet 2 mg PO TID PRN (Reason: muscle spasticity) Qty: 90 1RF meloxicam 7.5 mg tablet 7.5 mg PO BID 30 Days Qty: 60 1RF rizatriptan 10 mg tablet 10 mg PO DAILY PRN (Reason: Migraine Headache) hydroxyzine HCl 50 mg Tablet 75 mg PO BEDTIME metoprolol tartrate 25 mg tablet 12.5 mg PO BID Lamictal XR 200 mg tablet extended release 24hr 200 mg PO BEDTIME Latuda 20 mg tablet 20 mg PO BEDTIME Rx Instructions: must administer with food (at least 350 calories) semaglutide 0.25 mg or 0.5 mg(2 mg/1.5 mL) pen injector 1 mg SUBCUT Q7D Rx Instructions: On Tuesday Discharge Orders: Discharge ED (Routine); Ordered 12/25/22 Ordered By: Jorge L Guillen Referrals: Leisa Toussaint DO [Primary Care Provider] - (Return the emergency department for any worsening of your symptoms. Your evaluated in the emergency department today for chest palpitations. Your EKG was normal. Your heart enzymes are normal..) Coding Level of Care Code ED Hospital Tray Service Worker for Claudia Muniz
[2022-12-25 09:34] VITALS: BP 124/80; PULSE 77; RESP 12; O2SAT 93
[2022-12-25 10:03] LABS: Basophils % 0.5 %; Eosinophils # 0.2 10^3/uL (0.0-0.8); Eosinophils % 2.1 %; Hematocrit 37.1 % (37.0-47.0); Hemoglobin 11.3 g/dL (11.5-15.3); Lymphocytes # 1.8 10^3/uL (0.8-4.8); Lymphocytes % 20.7 %; Mean Corpuscular HGB Conc 30.5 g/dL (30.0-36.0); Mean Corpuscular Hemoglobin 21.6 pg (28.0-34.0); Mean Corpuscular Volume 70.8 fl (81-99); Mean Platelet Volume 9.4 fL (7.4-10.4); Monocytes # 0.5 10^3/uL (0.2-0.9); Monocytes % 5.4 %; Neutrophils # 6.09 10^3/uL (1.8-7.7); Neutrophils % 70.9 %; Nucleated Red Blood Cells % 0 %; Platelet Count 350 10^3/cmm (130-400); Red Blood Count 5.24 10^6/uL (4.1-5.3); Red Cell Distribution Width 17.2 % (12.1-15.1); White Blood Count 8.6 10^3/uL (4.0-10.0)
[2022-12-25 10:19] LABS: Anion Gap 13.8 (5-19); Blood Urea Nitrogen 9 mg/dL (6-20); Calcium 8.7 mg/dL (8.5-10.5); Carbon Dioxide 22 mmol/L (22-29); Chloride 100 mmol/L (98-107); Glomerular Filtration Rate 78.3 mL/min (90-130); Glucose 105 mg/dL (65-115); Osmolality Calculated 273 mOsm/kg (285-295); Potassium 3.8 mmol/L (3.5-5.1); Sodium 132 mmol/L (136-145); Troponin(5th) Baseline 6 ng/L (0-10)
[2022-12-25 10:34] VITALS: PULSE 75; RESP 16; O2SAT 95
--- NOTE | 2022-12-25 11:19 | ECG_ITS ---
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 Measurements Intervals [place] Rate: 67 P: 60 IN: 183 QRS: 57 QRSD: 96 T: 54 QT: 395 QTc: 418 Interpretive Statements SINUS RHYTHM Compared to ECG 12/25/2022 09:23:57 No significant changes Electronically Signed On 12-25-2022 19:38:53 FLAME PLANER by Lorraine Brewster M.D. [email or web address].[facility]leg[facility] Pharmaceuticalsouth [facility] regional medical centerHealthStreamuniversity hospitals [facility].[employer]/store/[id number]
[2022-12-25 11:34] VITALS: PULSE 69; RESP 18; O2SAT 97
[2022-12-25 12:37] LABS: Troponin 5 2HR Delta 0 ABS# (0-10)
[2022-12-25 13:05] VITALS: PULSE 69; RESP 18; O2SAT 97
== END 2022-12-25 13:07 | disposition home or self-care, planned readmission (81) ==
PROVIDERS: Emergency Provider General Practice; PCP Family Medicine
DX: R00.2 Palpitations (principal); F17.210 Nicotine dependence, cigarettes, uncomplicated; I10 Essential (primary) hypertension
CPT/HCPCS: 71045; 80048; 84484; 85025; 93005; 99285

== ENCOUNTER 2022-12-30 14:44 | Inpatient (IN) | payer MEDICAID, SELFPAY ==
--- NOTE | 2022-12-30 14:48 | ECG_ITS ---
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 Measurements Intervals [place] Rate: 142 P: 90 NE: 132 QRS: 69 QRSD: 93 T: 80 QT: 328 QTc: 504 Interpretive Statements SINUS TACHYCARDIA, POSSIBLE ATRIAL FLUTTER POSSIBLE ANTERIOR MYOCARDIAL INFARCTION , PROBABLY OLD [30 ms Q WAVE IN V3/V4, OR R < 0.2 mV IN V4] ABNORMAL RHYTHM ECG Compared to ECG 12/25/2022 11:55:05 Myocardial infarct finding now present Sinus rhythm no longer present Heavy baseline artifact. Need to repeat Electronically Signed On 12-30-2022 22:23:27 MANAGER RN by Lorraine Brewster M.D. [email or web address] VisionPR[facility].[email or web address]/store/[id number]
[2022-12-30 14:50] VITALS: BP 137/95; PULSE 100; RESP 16; O2SAT 99; BMI 49.0
[2022-12-30 15:28] LABS: Basophils # 0.1 10^3/uL (0.0-0.1); Basophils % 0.5 %; Eosinophils # 0.1 10^3/uL (0.0-0.8); Eosinophils % 1.2 %; Hematocrit 40.7 % (37.0-47.0); Hemoglobin 12.4 g/dL (11.5-15.3); Lymphocytes # 2.1 10^3/uL (0.8-4.8); Lymphocytes % 19.3 %; Mean Corpuscular HGB Conc 30.5 g/dL (30.0-36.0); Mean Corpuscular Hemoglobin 21.5 pg (28.0-34.0); Mean Corpuscular Volume 70.4 fl (81-99); Mean Platelet Volume 9.4 fL (7.4-10.4); Monocytes # 0.6 10^3/uL (0.2-0.9); Monocytes % 5.8 %; Neutrophils # 7.99 10^3/uL (1.8-7.7); Neutrophils % 72.8 %; Nucleated Red Blood Cells % 0 %; Platelet Count 393 10^3/cmm (130-400); Red Blood Count 5.78 10^6/uL (4.1-5.3); Red Cell Distribution Width 17.3 % (12.1-15.1)
--- NOTE | 2022-12-30 15:38 | W.ED.PSYCHS ---
HPI - Psych General: Chief Complaint: Psychiatric Symptoms Stated Complaint: SI/ ATTEMPTED OVERDOSE Time Seen by Provider: 12/30/22 14:48 Source: patient Mode of arrival: EMS History of Present Illness: 42-year-old female who presents to the emergency room with complaints of medication overdose. Patient is quick to point out she did not try to harm herself. She took several extra of her prescription medicine because she had been fighting with a family member and wanted to get them to leave her alone as she felt that by taking extra medications it would divert away from the argument. They called EMS. On arrival here she is quick to point out she is not homicidal or suicidal does not want to be admitted to the psychiatric unit. Patient states she wants to leave when advised that she be on a 96-hour hold she became quite upset and tearful stated that the we would be responsible for losing her job in her car in her apartment. complaint: suicidal ideation Relieving factors: none Exacerbating factors: none If self harm: has plan, has acted on plan and intentional overdose Review of Systems Const: Denies: fever(s), chills, body aches, change in appetite, fatigue or malaise ENMT: Denies: throat pain, ear or mastoid pain, nasal discharge or nasal congestion Card: Denies: chest pain, edema, dyspnea on exertion or orthopnea Resp: Denies: dyspnea, productive cough or non-productive cough GI: Denies: abdominal pain, nausea, vomiting, hematemesis, coffee ground emesis, diarrhea, constipation, bloating, hematochezia or melena : Denies: flank pain, difficulty voiding, dysuria, urinary frequency or urinary urgency Skin/Breast: Denies: rash or pruritus 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 Benign essential HTN Borderline personality disorder Cannabis dependence in remission Cholecystectomy planned Chronic sacroiliac joint pain Narcolepsy Obstructive sleep apnea Opioid contract exists Psychiatric care Schizoaffective disorder, bipolar type Smoker unmotivated to quit Spondylosis without myelopathy or radiculopathy, lumbar region Surgical History History of cholecystectomy Tubal ligation status Family History Brother Hypertension CAD (coronary artery disease) Diabetes Father Hypertension Mother Hypertension CAD (coronary artery disease) Social History Smoking and tobacco status: current every day smoker cigarettes Packs smoked per day: 0.5 Years cigarettes smoked: 20 Quit status (tobacco): has tried quititng Number of times tried to quit tobacco: 10 Second hand smoke exposure: Yes Smoking risk assessment/counseling performed?: No Alcohol intake: former Year of sobriety/quit date alcohol: 2009 Desire information about alcohol rehabilitation?: No Counseling given: No Desire information about substance/drug rehabilitation?: No Counseling given: No Current gender identity: Female Physical Exam Const: COMMON NORMALS: no acute distress GENERAL APPEARANCE: cooperative and comfortable ORIENTATION/CONSCIOUSNESS: Yes awake, Yes oriented to person, Yes oriented to place and Yes oriented to time HENMT: COMMON NORMALS: normocephalic, atraumatic and hearing grossly normal bilaterally HEAD & SCALP: normocephalic and atraumatic Resp: COMMON NORMALS: normal respiratory effort, No retractions, No use of accessory muscles and clear to auscultation bilaterally AUSCULTATION: clear to auscultation bilaterally Cardio: COMMON NORMALS: regular rate, regular rhythm and No murmurs present (Cardio) RATE: regular rate RHYTHM: regular rhythm GI: COMMON NORMALS: Soft to palpation and No hepatosplenomegaly present AUSCULTATION: Yes normoactive bowel sounds PALPATION: Yes Soft to palpation, No Tenderness to palpation present (GI), No Guarding due to palpation present (GI) and Yes No hepatosplenomegaly present Extremity: COMMON NORMALS: normal to inspection, capillary refill normal, no clubbing, cyanosis or edema, no calf tenderness and no pedal edema Neuro: SENSORIUM/ORIENTATION: Yes oriented to person, Yes oriented to place and Yes oriented to time Skin: COMMON NORMALS: no rashes or lesions noted GENERAL SKIN EXAM: no rashes or lesions noted Course Vital Signs: Vital signs: Vital Signs Pulse Rate 100 12/30/22 14:50 Respiratory Rate 16 12/30/22 14:50 Blood Pressure 137/95 12/30/22 14:50 Pulse Oximetry 99 12/30/22 14:50 Oxygen Delivery Me thod 12/30/22 14:50 MDM - Psych Medical Decision Making Initially patient admits to taking extra medications out of anger to manipulate the trajectory of the dispute she was having with her significant other. She told us that she had the other medications to give the impression that she was taking too much. When we told her that she would not be able to leave she became very angry somewhat manipulative she told us that it would be our fault that she lost her job in her car and a place to live. She later told me that it was a complete accident that she took the extra medicine that she did not intend to harm self or anything else it she just accidentally took too much without any other intent. Given her long history of psych her reaction to the the events here as well as reaction of her family and calling EMS I think she does need to be evaluated further discussed with Dr. Ray he agrees she will be placed on a 96-hour hold since she had threatened to leave. Lab Data 12/30/22 15:15 12/30/22 15:15 Laboratory Results WBC 11.0 10^3/uL (4.0-10.0) H 12/30/22 15:15 RBC 5.78 10^6/uL (4.1-5.3) H 12/30/22 15:15 Hgb 12.4 g/dL (11.5-15.3) 12/30/22 15:15 Hct 40.7 % (37.0-47.0) 12/30/22 15:15 MCV 70.4 fl (81-99) L 12/30/22 15:15 MCH 21.5 pg (28.0-34.0) L 12/30/22 15:15 MCHC 30.5 g/dL (30.0-36.0) 12/30/22 15:15 RDW 17.3 % (12.1-15.1) H 12/30/22 15:15 Plt Count 393 10^3/cmm (130-400) 12/30/22 15:15 MPV 9.4 fL (7.4-10.4) 12/30/22 15:15 Neut % (Auto) 72.8 % 12/30/22 15:15 Lymph % (Auto) 19.3 % 12/30/22 15:15 [place] % (Auto) 5.8 % 12/30/22 15:15 Eos % (Auto) 1.2 % 12/30/22 15:15 Baso % (Auto) 0.5 % 12/30/22 15:15 Neut # (Auto) 7.99 10^3/uL (1.8-7.7) H 12/30/22 15:15 Lymph # (Auto) 2.1 10^3/uL (0.8-4.8) 12/30/22 15:15 [place] # (Auto) 0.6 10^3/uL (0.2-0.9) 12/30/22 15:15 Eos # (Auto) 0.1 10^3/uL (0.0-0.8) 12/30/22 15:15 Baso # (Auto) 0.1 10^3/uL (0.0-0.1) 12/30/22 15:15 Nucleated RBC % (auto) 0 % 12/30/22 15:15 Nucleated RBCs # 0.0 /100WBC 12/30/22 15:15 Sodium 137 mmol/L (136-145) 12/30/22 15:15 Potassium 4.2 mmol/L (3.5-5.1) 12/30/22 15:15 Chloride 101 mmol/L (98-107) 12/30/22 15:15 Carbon Dioxide 23 mmol/L (22-29) 12/30/22 15:15 Anion Gap 17.2 (5-19) 12/30/22 15:15 BUN 14 mg/dL (6-20) 12/30/22 15:15 Creatinine 1.1 mg/dL (0.5-0.9) H 12/30/22 15:15 GFR Calculation 54.2 mL/min (90-130) L 12/30/22 15:15 Glucose 99 mg/dL (65-115) 12/30/22 15:15 Calculated Osmolality 285 mOsm/kg (285-295) 12/30/22 15:15 Calcium 8.9 mg/dL (8.5-10.5) 12/30/22 15:15 Total Bilirubin 0.2 mg/dL (0.15-1.2) 12/30/22 15:15 AST 14 U/L (0-32) 12/30/22 15:15 ALT 13 U/L (0-33) 12/30/22 15:15 Alkaline Phosphatase 154 U/L (35-105) H 12/30/22 15:15 Total Protein 8.1 g/dL (6.6-8.7) 12/30/22 15:15 Albumin 3.8 g/dL (3.5-5.2) 12/30/22 15:15 Globulin 4.3 g/dL (1.3-4.6) 12/30/22 15:15 Salicylates < 0.3 mg/dL (3-10) L 12/30/22 15:15 Acetaminophen < 5.0 ug/mL (10-30) L 12/30/22 15:15 Ethyl Alcohol < 10 mg/dL (0-10) 12/30/22 15:15 Discharge Plan Discharge Patient Disposition: Admitted As Inpatient Clinical Impression: Suicide attempt, Schizoaffective disorder, bipolar type, Borderline personality disorder Condition: Stable Prescriptions: No Action pantoprazole [Protonix] 40 mg tablet,delayed release (DR/EC) 40 mg PO BID pregabalin 200 mg capsule 200 mg PO TID 90 Days Qty: 270 1RF fluticasone propionate 50 mcg/actuation spray,suspension 2 spray INTRANASAL DAILY (DME) Night splint See Rx Instructions .Route .MEDSUPPLY Qty: 1 0RF Rx Instructions: As directed ondansetron HCl 4 mg tablet 4 mg PO Q8H PRN (Reason: Nausea And Vomiting) dicyclomine 10 mg capsule 10 mg PO QID PRN (Reason: Diarrhea) Vyepti 100 mg/mL solution 100 mg IV Q90D methylphenidate HCl [Ritalin] 20 mg tablet 20 mg PO TID 30 Days Qty: 90 0RF colestipol 1 gram tablet 2 g PO BID (DME) Shoulder immobilizer See Rx Instructions .Route .MEDSUPPLY Qty: 1 0RF Rx Instructions: As directed varenicline [Chantix] 1 mg tablet 1 mg PO BID Qty: 56 2RF tizanidine 2 mg tablet 2 mg PO TID PRN (Reason: muscle spasticity) Qty: 90 1RF meloxicam 7.5 mg tablet 7.5 mg PO BID 30 Days Qty: 60 1RF rizatriptan 10 mg tablet 10 mg PO DAILY PRN (Reason: Migraine Headache) hydroxyzine HCl 50 mg Tablet 75 mg PO BEDTIME metoprolol tartrate 25 mg tablet 12.5 mg PO BID lamotrigine [Lamictal XR] 200 mg tablet extended release 24hr 200 mg PO BEDTIME Latuda 20 mg tablet 20 mg PO BEDTIME Rx Instructions: must administer with food (at least 350 calories) semaglutide 0.25 mg or 0.5 mg(2 mg/1.5 mL) pen injector 1 mg SUBCUT Q7D Rx Instructions: On Tuesday latanoprost 0.005 % drops 1 drp ophthalmic (eye) BEDTIME topiramate 100 mg tablet 100 mg PO BEDTIME Referrals: Leisa Toussaint DO [Primary Care Provider] - Patient Instructions: Opioid Safety, Pain Management Coding Level of Care Code ED Urgent Care Physician for Claudia Muniz
--- NOTE | 2022-12-30 15:40 | PC.NURSE ---
Patient placed on a [address] Bull. Attempted to read 96 hour hold rights to patient. Patient refused to listen to rights. Patient stated that she will not be staying, if she stays here she will lose her job and car. Patient also stated that If she goes to the psych unit that will just make her worse and will set her therapy progress back 7 years. Patient told this nurse that she sees a [facility] counselor Oracio Guy every Tuesday and also follows up with Dr. Cruz. Patient also stated that she takes her meds regularly and only took two extra Ritalin on accident and it was out of anger towards her boyfriend and room mate because they were not listening to how she felt. Copy of 96 hour hold left at the bedside. Dr. Bull aware.
[2022-12-30 15:46] LABS: Alanine Aminotransferase 13 U/L (0-33); Albumin Level 3.8 g/dL (3.5-5.2); Alkaline Phosphatase 154 U/L (35-105); Anion Gap 17.2 (5-19); Aspartate Amino Transferase 14 U/L (0-32); Blood Urea Nitrogen 14 mg/dL (6-20); Calcium 8.9 mg/dL (8.5-10.5); Carbon Dioxide 23 mmol/L (22-29); Chloride 101 mmol/L (98-107); Globulin 4.3 g/dL (1.3-4.6); Glomerular Filtration Rate 54.2 mL/min (90-130); Glucose 99 mg/dL (65-115); Osmolality Calculated 285 mOsm/kg (285-295); Potassium 4.2 mmol/L (3.5-5.1); Sodium 137 mmol/L (136-145); Total Bilirubin 0.2 mg/dL (0.15-1.2); Total Protein 8.1 g/dL (6.6-8.7)
[2022-12-30 15:47] LABS: Acetaminophen < 5.0 ug/mL (10-30); Alcohol Level < 10 mg/dL (0-10); Salicylate < 0.3 mg/dL (3-10)
--- NOTE | 2022-12-30 15:52 | PC.PHAR ---
pt states her boyfriend takes care of her medications-pts boyfriend allyson valencia verified pts meds-states the pt has been taking a migraine cocktail that the er taught her how to make the boyfriend states he is unsure what was in it states she takes prn-
[2022-12-30 16:57] LABS: Add Urine Microscopic? NO; Charge for UA Resulting for Rev
[2022-12-30 17:05] LABS: Bilirubin Urine 1+ (Negative); Blood Urine Neg (Negative); Glucose Urine UA Norm (Normal); Ketones Urine Negative (Negative); Leukocyte Esterase Urine Negative (Negative); Nitrate Urine Negative (Negative); Protein Urine Neg (Negative); Specific Gravity, Urine 1.025 (1.005-1.030); Urine Appearance Clear (CLEAR); Urine Color Amber (Yellow); Urobilinogen Urine Neg (Negative); pH Urine 5 (5-7)
[2022-12-30 17:45] LABS: Amphetamines Screen Urine Negative (Negative); Barbiturates Screen Urine Negative (Negative); Benzodiazepines Screen Urine Negative (Negative); Cocaine Screen Urine Negative (Negative); Opiate Screen Urine Negative (Negative); PCP Screen Urine Negative (Negative); THC Screen Urine Positive (Negative)
[2022-12-30 18:11] VITALS: BP 158/99; PULSE 108; RESP 20; TEMP 36.7; O2SAT 97
--- NOTE | 2022-12-30 18:23 | PC.NURSE ---
42 y/o female brought to ED by EMS for SI/ ATTEMPTED OVERDOSE. Presents to the emergency room with complaints of medication overdose. Patient is quick to point out she did not try to harm herself. She took several extra of her prescription RITALIN 20MG BY MISTAKE; she stated she had been fighting with boyfriend and friend who lives with them.and wanted to get them to leave her alone as she felt that by taking extra medications it would divert away from the argument. They called EMS. On arrival here she is quick to point out she is not homicidal or suicidal does not want to be admitted to the psychiatric unit. Patient states she wants to leave when advised that she be on a 96-hour hold she became quite upset and tearful stated that the we would be responsible for losing her job in her car in her apartment. PATIENT ON A 96 HR HOLD. ORIENTATED TO FACILITY AND UNIT.
[2022-12-30] MEDS: acetaminophen 325 mg Tablet 650 MG PO (20:42)
[2022-12-30 22:00] VITALS: BP 140/104; PULSE 104; RESP 19; TEMP 36.4; O2SAT 95
[2022-12-30] MEDS: topiramate 100 mg Tablet PO (22:28)
[2022-12-30] MEDS: lamoTRIgine 100 mg Tablet PO (22:28)
[2022-12-30] MEDS: metoprolol tartrate 25 mg Tablet 12.5 MG PO (22:28)
[2022-12-30] MEDS: hyDROXYzine 25 mg Capsule 75 MG PO (22:28)
[2022-12-30] MEDS: lurasidone 20 mg Tablet PO (22:28)
[2022-12-30] MEDS: pregabalin 100 mg Capsule 200 MG PO (22:37)
[2022-12-30] MEDS: pantoprazole DR 40 mg Tablet PO (22:39)
[2022-12-30] MEDS: latanoprost 0.005% Op Soln 2.5 mL Btl 1 DROP EYE-RIGHT (22:46)
[2022-12-31] MEDS: acetaminophen 325 mg Tablet 650 MG PO (05:08)
--- NOTE | 2022-12-31 06:51 | PC.NURSE ---
at shift change pt was anxious, irritable, tearful, stating she was leave tonight it was a misunderstanding explained to her she would not be leaving tonight and would talk to the MD tomorrow. PRN given, pt calmed down. Pt has CPAP and family brought to facility last night. on a 1:1 at night per protocol. Pt also has an immobilzer for right shoulder, MD aware, pt education provider to notify staff if needs to remove for any reason. pt states she only removes when showering and changing clothes. She will notify staff when needs to remove. She only removes right wrist to move for a few moment then reattaches to immobilzer. All pt questions answered.
[2022-12-31] MEDS: methylphenidate 10 mg Tablet 20 MG PO ×2 (09:04→14:33)
[2022-12-31] MEDS: pregabalin 100 mg Capsule 200 MG PO ×3 (09:04→21:10)
[2022-12-31] MEDS: metoprolol tartrate 25 mg Tablet 12.5 MG PO ×2 (09:09→21:10)
[2022-12-31] MEDS: dicyclomine 10 mg Capsule PO (09:09)
[2022-12-31] MEDS: meloxicam 7.5 mg tablet PO ×2 (09:10→21:09)
[2022-12-31] MEDS: loperamide 2 mg Capsule PO (09:38)
[2022-12-31] MEDS: fluticasone nasal spray 16gm Btl 2 SPRAY INTRANASAL (09:42)
[2022-12-31] MEDS: lamoTRIgine 100 mg Tablet PO ×2 (10:32→21:10)
[2022-12-31] MEDS: pantoprazole DR 40 mg Tablet PO ×2 (10:33→21:10)
[2022-12-31 14:00] VITALS: BP 149/85; PULSE 80; RESP 18; TEMP 37.3; O2SAT 96
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
[2022-12-31 21:09] VITALS: BP 134/87; PULSE 80; RESP 17; TEMP 36.9; O2SAT 96
[2022-12-31] MEDS: hyDROXYzine 25 mg Capsule 75 MG PO (21:09)
[2022-12-31] MEDS: topiramate 100 mg Tablet PO (21:10)
[2022-12-31] MEDS: lurasidone 20 mg Tablet PO (21:11)
[2022-12-31] MEDS: latanoprost 0.005% Op Soln 2.5 mL Btl 1 DROP EYE-RIGHT (21:17)
[2023-01-01] MEDS: acetaminophen 325 mg Tablet 650 MG PO (02:45)
[2023-01-01] MEDS: tizanidine 4 mg Tablet 2 MG PO ×2 (02:45→08:41)
[2023-01-01 06:00] VITALS: BP 142/97; PULSE 77; RESP 18; TEMP 36.6; O2SAT 98
[2023-01-01] MEDS: methylphenidate 10 mg Tablet 20 MG PO ×2 (08:40→14:36)
[2023-01-01] MEDS: fluticasone nasal spray 16gm Btl 2 SPRAY INTRANASAL (08:40)
[2023-01-01] MEDS: pregabalin 100 mg Capsule 200 MG PO ×2 (08:41→14:36)
[2023-01-01] MEDS: meloxicam 7.5 mg tablet PO (08:41)
[2023-01-01] MEDS: pantoprazole DR 40 mg Tablet PO (08:41)
[2023-01-01] MEDS: metoprolol tartrate 25 mg Tablet 12.5 MG PO (08:42)
[2023-01-01] MEDS: dicyclomine 10 mg Capsule PO (08:42)
[2023-01-01] MEDS: loperamide 2 mg Capsule PO ×2 (08:43→14:36)
[2023-01-01] MEDS: lamoTRIgine 100 mg Tablet PO (10:04)
[2023-01-01 14:00] VITALS: BP 137/93; PULSE 86; RESP 18; TEMP 36.8; O2SAT 100
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
[2023-01-01 16:00] VITALS: BP 137/93; PULSE 86; RESP 18; TEMP 36.8; O2SAT 100
== END 2023-01-01 16:25 | disposition home or self-care (01) | DRG 885 ==
LOC: ER 17:02 → NP 22:32
PROVIDERS: Admitting Provider Psychiatry & Neurology Psychiatry; Emergency Provider Family Medicine; PCP Family Medicine; Visit Provider Psychiatry & Neurology Psychiatry
DX: F25.0 Schizoaffective disorder, bipolar type (principal); Z68.42 Body mass index [BMI] 45.0-49.9, adult; F40.10 Social phobia, unspecified; G47.419 Narcolepsy without cataplexy; F43.10 Post-traumatic stress disorder, unspecified; Z81.8 Family history of other mental and behavioral disorders; I10 Essential (primary) hypertension; F60.3 Borderline personality disorder; G47.33 Obstructive sleep apnea (adult) (pediatric); F17.210 Nicotine dependence, cigarettes, uncomplicated; E66.01 Morbid (severe) obesity due to excess calories; Z63.0 Problems in relationship with spouse or partner
CPT/HCPCS: 36415; 80053; 80306; 80307; 81003; 85025; 93005; 97150; 97165; 99239; 99285

== ENCOUNTER → 2023-01-06 08:47 | Day surgery (SDC) | payer MEDICAID, SELFPAY ==
[2023-01-06 10:15] VITALS: BP 118/85; PULSE 74; RESP 18; TEMP 36.1; O2SAT 74
== END ==
PROVIDERS: PCP Family Medicine; Visit Provider Psychiatry & Neurology Neurology
DX: G43.719 Chronic migraine without aura, intractable, without status migrainosus (principal)
CPT/HCPCS: 96365; J3032

== ENCOUNTER 2023-01-17 19:54 | Emergency (ER) | payer MEDICAID, SELFPAY ==
[2023-01-17 20:12] VITALS: BP 142/101; PULSE 107; RESP 18; TEMP 36.6; O2SAT 95
--- NOTE | 2023-01-17 21:18 | ED_ITS ---
HPI - Seizure General: Chief Complaint: Seizure Stated Complaint: repeat seizure; migraine Time Seen by Provider: 01/17/23 21:01 History of Present Illness: HPI Narrative: Ms. Rizo is a 42-year-old lady with complex past medical history including psychiatric disorder, narcolepsy, reported history of seizures presenting to the emergency department for seizure episode. She reports increased stress and headache which is on the right side of her head and radiates to the left. She just started on medication for narcolepsy and reportedly had 3 seizures this evening. She normally has 1-2 seizures over with a varying morphology. Additionally this is slightly different from her typical headaches as far as location goes. No other specific changes in health, exacerbating, or alleviating factors identified. 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 Benign essential HTN Borderline personality disorder Cannabis dependence in remission Cholecystectomy planned Chronic sacroiliac joint pain Narcolepsy Obstructive sleep apnea Opioid contract exists Psychiatric care Schizoaffective disorder, bipolar type Smoker unmotivated to quit Spondylosis without myelopathy or radiculopathy, lumbar region Surgical History History of cholecystectomy Tubal ligation status Family History Brother Hypertension CAD (coronary artery disease) Diabetes Father Hypertension Mother Hypertension CAD (coronary artery disease) Social History Smoking and tobacco status: current every day smoker cigarettes Packs smoked per day: 0.5 Years cigarettes smoked: 20 Quit status (tobacco): has tried quititng Number of times tried to quit tobacco: 10 Second hand smoke exposure: Yes Smoking risk assessment/counseling performed?: No Alcohol intake: former Year of sobriety/quit date alcohol: 2010 Desire information about alcohol rehabilitation?: No Counseling given: No Desire information about substance/drug rehabilitation?: No Counseling given: No Current gender identity: Female Physical Exam Const: COMMON NORMALS: patient oriented x3 and alert GENERAL APPEARANCE: cooperative and well developed HENMT: COMMON NORMALS: normocephalic and atraumatic HEAD & SCALP: normocephalic and atraumatic Eye: COMMON NORMALS: conjunctivae normal CONJUNCTIVA: Yes conjunctivae normal SCLERA: sclerae normal Neck/C-Spine: COMMON NORMALS: supple and no meningeal signs GENERAL: Yes trachea midline Resp: COMMON NORMALS: clear to auscultation bilaterally EFFORT & INSPECTION: Yes able to speak in complete sentences AUSCULTATION: clear to auscultation bilaterally Cardio: COMMON NORMALS: regular rate and regular rhythm RATE: regular rate RHYTHM: regular rhythm GI: COMMON NORMALS: Soft to palpation PALPATION: Yes Soft to palpation and No Tenderness to palpation present (GI) Extremity: NARRATIVE EXTREMITY EXAM: Right upper extremity in sling mildly limiting neurologic exam. GENERAL: Yes normal exam except as noted and No edema Neuro: COMMON NORMALS: patient oriented x3, CN's II-XII intact bilaterally and moves all extremities SENSORIUM/ORIENTATION: Yes alert and No Orientation impaired MENINGEAL SIGNS: Yes no meningeal signs Psych: COMMON NORMALS: mental status grossly normal and Normal thought process present THOUGHT PROCESS: Normal thought process present Course Vital Signs: Vital signs: Vital Signs Temperature 96.7 F L 01/17/23 21:41 Pulse Rate 73 01/18/23 00:30 Respiratory Rate 16 01/18/23 00:30 Blood Pressure 123/96 01/18/23 00:30 Pulse Oximetry 93 01/18/23 00:30 Oxygen Delivery Me thod 01/18/23 00:30 MDM - Seizure MDM Narrative Medical decision making narrative: 42-year-old lady with complex past medical history presenting to the emergency department for seizure and migraine. She has a history of seizures and follows with neurology in [place]. She also has a history of migraines. Reports these are different than her baseline. She has had increased stress and medication change however reports otherwise been compliant with medication regimen. Nonfocal neurologic exam. Labs with mild leukocytosis and hemoconcentration compared to prior. No sign ificant metabolic derangement. Prolactin level is below normal. Hematuria noted without other evidence of urinary tract infection. CT head demonstrates no acute intracranial pathology. Patient feels significantly improved with migraine cocktail and IV fluids. She desires discharge. Most likely etiology of patient's symptoms is multifactorial though may be related to underlying headache and seizure disorder. Plan to follow-up with outpatient setting. Reinforced seizure precautions. The results of ED evaluation were discussed with the patient including prescriptions and/or symptomatic cares (if applicable) including appropriate and responsible use, followup plan, and return precautions. The patient verbalized understanding and felt safe for discharge. Medical Records Attestation: I reviewed the patient's medical records. Lab Data Attestation: I reviewed the patient's lab results. 01/17/23 21:32 01/17/23 21:32 Labs: Radiology Impressions Head CT 01/17/23 21:54 IMPRESSION: No acute intracranial abnormality. Laboratory Results WBC 12.8 10^3/uL (4.0-10.0) H 01/17/23 21: RBC 6.18 10^6/uL (4.1-5.3) H 01/17/23 21: Hgb 13.1 g/dL (11.5-15.3) 01/17/23 21: Hct 43.0 % (37.0-47.0) 01/17/23 21: MCV 69.6 fl (81-99) L 01/17/23 21: MCH 21.2 pg (28.0-34.0) L 01/17/23 21: MCHC 30.5 g/dL (30.0-36.0) 01/17/23: RDW 17.1 % (12.1-15.1) H 01/17/23 21: Plt Count 404 10^3/cmm (130-400) H 01/17/23 21: MPV 9.3 fL (7.4-10.4) 01/17/23 21: Neut % (Auto) 78.7 % 01/17/23: Lymph % (Auto) 14.7 % 01/17/23 21: [place] % (Auto) 5.1 % 01/17/23 21: Eos % (Auto) 0.8 % 01/17/23: Baso % (Auto) 0.5 % 03/13/23 21:32 Neut # (Auto) 10.03 10^3/uL (1.8-7.7) H 01/17/23 21:32 Lymph # (Auto) 1.9 10^3/uL (0.8-4.8) 01/17/23 21:32 [place] # (Auto) 0.7 10^3/uL (0.2-0.9) 01/17/23 21:32 Eos # (Auto) 0.1 10^3/uL (0.0-0.8) 01/17/23 21:32 Baso # (Auto) 0.1 10^3/uL (0.0-0.1) 01/17/23 21:32 Nucleated RBC % (auto) 0 % 01/17/23 21: Nucleated RBCs # 0.0 /100WBC 01/17/23 21:32 Sodium 139 mmol/L (136-145) 01/17/23 21:32 Potassium 4.0 mmol/L (3.5-5.1) 01/17/23 21:32 Chloride 103 mmol/L (98-107) 01/17/23 21:32 Carbon Dioxide 23 mmol/L (22-29) 01/17/23 21:32 Anion Gap 17.0 (5-19) 01/17/23 21:32 BUN 12 mg/dL (6-20) 01/17/23 21:32 Creatinine 0.9 mg/dL (0.5-0.9) 01/17/23 21:32 GFR Calculation 68.3 mL/min (90-130) L 01/17/23 21:32 Glucose 99 mg/dL (65-115) 01/17/23 21:32 POC Glucose 109 mg/dL (70-110) 01/17/23 21:55 Calculated Osmolality 288 mOsm/kg (285-295) 01/17/23 21:32 Calcium 9.1 mg/dL (8.5-10.5) 01/17/23 21:32 Total Bilirubin 0.4 mg/dL (0.15-1.2) 01/17/23 21:32 AST 16 U/L (0-32) 01/17/23 21:32 ALT 21 U/L (0-33) 01/17/23 21:32 Alkaline Phosphatase 198 U/L (35-105) H 01/17/23 21: Total Protein 8.3 g/dL (6.6-8.7) 01/17/23 21: Albumin 3.9 g/dL (3.5-5.2) 01/17/23 21: Globulin 4.4 g/dL (1.3-4.6) 01/17/23 21: TSH 1.24 uIU/mL (0.27-4.20) 01/17/23: Prolactin 3.27 ng/mL (4.8-23.3) L 01/17/23 21: HCG, Qual Negative (Negative) 01/17/23 21: Urine Color Yellow (Yellow) 01/17/23 21: Urine Appearance Clear (CLEAR) 01/17/23 21: Urine pH 5 (5-7) 01/17/23 21: Ur Specific [place] 1.020 (1.005-1.030) 01/17/23 21: Urine Protein Neg (Negative) 01/17/23: Urine Glucose (UA) Norm (Normal) 01/17/23 21: Urine Ketones Negative (Negative) 01/17/23 21: Urine Blood 3+ (Negative) H 01/17/23 21: Urine Nitrate Negative (Negative) 01/17/23 21: Urine Bilirubin Neg (Negative) 01/17/23 21: Urine Urobilinogen Norm mg/dL (Negative) 01/17/23 21: Ur Leukocyte Esterase Negative (Negative) 01/17/23 21: Urine RBC 0-4 /hpf (0-2) H 01/17/23 21: Urine WBC 0-4 /hpf (0-5) H 01/17/23 21: Ur Squamous Epith Cells 0-4 /hpf (0-5) H 01/17/23 21: Amorphous Sediment Not Reportable 01/17/23 21: Urine Bacteria Trace /hpf (NONE) 01/17/23 21: Urine Mucus Trace /hpf 01/17/23 21: Discharge Plan Discharge Patient Disposition: Home Clinical Impression: Generalized seizure, Migraine Condition: Stable Prescriptions: No Action pantoprazole [Protonix] 40 mg tablet,delayed release (DR/EC) 40 mg PO BID pregabalin 200 mg capsule 200 mg PO TID 90 Days Qty: 270 1RF fluticasone propionate 50 mcg/actuation spray,suspension 2 spray INTRANASAL DAILY (DME) Night splint See Rx Instructions .Route .MEDSUPPLY Qty: 1 0RF Rx Instructions: As directed Victoza 3-Kamaljit 0.6 mg/0.1 mL (18 mg/3 mL) pen injector 1.2 mg SUBCUT DAILY Qty: 9 0RF Rx Instructions: Please dispense needle tips as well tizanidine 2 mg tablet 2 mg PO TID PRN (Reason: muscle spasticity) Qty: 90 1RF ondansetron HCl 4 mg tablet 4 mg PO Q8H PRN (Reason: Nausea And Vomiting) dicyclomine 10 mg capsule 10 mg PO QID PRN (Reason: Diarrhea) Vyepti 100 mg/mL solution 300 mg IV Q90D colestipol 1 gram tablet 2 g PO BID (DME) Shoulder immobilizer See Rx Instructions .Route .MEDSUPPLY Qty: 1 0RF Rx Instructions: As directed hydroxyzine HCl 50 mg tablet 75 mg PO BEDTIME Qty: 45 5RF varenicline [Chantix] 1 mg tablet 1 mg PO BID Qty: 56 2RF meloxicam 7.5 mg tablet 7.5 mg PO BID 30 Days Qty: 60 1RF methylphenidate HCl [Ritalin] 20 mg tablet 20 mg PO TID 30 Days Qty: 90 0RF Ozempic 0.25 mg or 0.5 mg(2 mg/1.5 mL) pen injector See Rx Instructions .ROUTE .COMPLEX Qty: 3 1RF Dose Instruction: inject 1mg (0.8ml) SUBCUTANEOUSLY every week Rx Instructions: inject 1mg (0.8ml) SUBCUTANEOUSLY every week rizatriptan 10 mg tablet 10 mg PO DAILY PRN (Reason: Migraine Headache) metoprolol tartrate 25 mg tablet 12.5 mg PO BID lamotrigine [Lamictal XR] 200 mg tablet extended release 24hr 200 mg PO BEDTIME Latuda 20 mg tablet 20 mg PO BEDTIME Rx Instructions: must administer with food (at least 350 calories) latanoprost 0.005 % drops 1 drp ophthalmic (eye) BEDTIME topiramate 100 mg tablet 100 mg PO BEDTIME Discharge Orders: Discharge ED (Routine); Ordered 01/18/23 Ordered By: Lionel Carreno Referrals: Leisa Toussaint DO [Primary Care Provider] - Discharge Diet: Usual diet Discharge Activity: Limit activity as instructed Patient Instructions: Acute Headache (ED), Recurrent Seizures in Adults (ED) Activity Restrictions/Additional Instructions: Thank you for visiting the emergency department. You were seen and evaluated for migraine and seizure. The exact cause your symptoms is unclear though likely related to underlying headache disorder and seizure disorder. Please contact your neurologist in the morning. Please follow all seizure precautions. Return to the emergency department for anything that you are concerned about and feel needs emergency department evaluation. Coding Level of Care Code ED Supervisor Facepiece Line for Claudia Muniz
[2023-01-17 21:41] VITALS: BP 127/96; PULSE 98; RESP 16; TEMP 35.9; O2SAT 95
[2023-01-17 21:49] LABS: Basophils # 0.1 10^3/uL (0.0-0.1); Basophils % 0.5 %; Eosinophils # 0.1 10^3/uL (0.0-0.8); Eosinophils % 0.8 %; Hemoglobin 13.1 g/dL (11.5-15.3); Lymphocytes # 1.9 10^3/uL (0.8-4.8); Lymphocytes % 14.7 %; Mean Corpuscular HGB Conc 30.5 g/dL (30.0-36.0); Mean Corpuscular Hemoglobin 21.2 pg (28.0-34.0); Mean Corpuscular Volume 69.6 fl (81-99); Mean Platelet Volume 9.3 fL (7.4-10.4); Monocytes # 0.7 10^3/uL (0.2-0.9); Monocytes % 5.1 %; Neutrophils # 10.03 10^3/uL (1.8-7.7); Neutrophils % 78.7 %; Nucleated Red Blood Cells % 0 %; Platelet Count 404 10^3/cmm (130-400); Red Blood Count 6.18 10^6/uL (4.1-5.3); Red Cell Distribution Width 17.1 % (12.1-15.1); White Blood Count 12.8 10^3/uL (4.0-10.0)
[2023-01-17 21:52] LABS: HCG Qualitative Urine. Negative (Negative)
[2023-01-17] MEDS: metoclopramide 5 mg/mL SDV 2 mL 10 MG IVP (21:52)
[2023-01-17] MEDS: sodium chloride 0.9% 1,000 ML 999 ML IV (21:52)
[2023-01-17] MEDS: diphenhydrAMINE 50 mg/mL SDV 1mL 12.5 MG IVP (21:53)
[2023-01-17] MEDS: ketorolac 30 mg/mL INJ 15 MG IVP (21:53)
--- NOTE | 2023-01-17 21:54 | CTR_ITS ---
PROCEDURE INFORMATION: Exam: CT Head Without Contrast Exam date and time: 01/17/2023 10:05 PM Age: 42 years old Clinical indication: Pain; Headache not specified; Additional info: Change in headache, seizures TECHNIQUE: Imaging protocol: Computed tomography of the head without contrast. Radiation optimization: All CT scans at this facility use at least one of these dose optimization techniques: automated exposure control; mA and/or kV adjustment per patient size (includes targeted exams where dose is matched to clinical indication); or iterative reconstruction. REPORTING DATA: Count of CT and Cardiac NM exams in prior 12 months: This patient has received [address] and 0 known cardiac nuclear medicine studies in the 12 months prior to the current study. COMPARISON: CT head wo con* [id number] 11/07/2022 10:45 PM RADIATION DOSE METRICS: Total DLP (mGy-cm): 1050.78 FINDINGS: Brain: Again seen is a tiny lipoma in the posterior right Bon[place] plexus region, measuring about 4-5 mm, unchanged. Normal otherwise. No hemorrhage. Unremarkable white matter. No mass effect. Cerebral ventricles: No ventriculomegaly. Paranasal sinuses: Visualized sinuses are unremarkable. No fluid levels. Mastoid air cells: Visualized mastoid air cells are well aerated. Bones/joints: Unremarkable. No acute fracture. Soft tissues: Unremarkable. CT/CT head wo con* [id number] IMPRESSION: No acute intracranial abnormality.
[2023-01-17 22:06] LABS: Glucose Point of Care 109 mg/dL (70-110)
[2023-01-17 22:28] LABS: Alanine Aminotransferase 21 U/L (0-33); Albumin Level 3.9 g/dL (3.5-5.2); Alkaline Phosphatase 198 U/L (35-105); Aspartate Amino Transferase 16 U/L (0-32); Blood Urea Nitrogen 12 mg/dL (6-20); Calcium 9.1 mg/dL (8.5-10.5); Carbon Dioxide 23 mmol/L (22-29); Chloride 103 mmol/L (98-107); Globulin 4.4 g/dL (1.3-4.6); Glomerular Filtration Rate 68.3 mL/min (90-130); Glucose 99 mg/dL (65-115); Osmolality Calculated 288 mOsm/kg (285-295); Sodium 139 mmol/L (136-145); Thyroid Stimulating Hormone 1.24 uIU/mL (0.27-4.20); Total Bilirubin 0.4 mg/dL (0.15-1.2); Total Protein 8.3 g/dL (6.6-8.7)
[2023-01-17 22:30] VITALS: BP 122/83; PULSE 90; RESP 16; O2SAT 94
[2023-01-17 23:12] VITALS: BP 128/84; PULSE 80; RESP 16; O2SAT 97
[2023-01-17 23:13] LABS: Prolactin 3.27 ng/mL (4.8-23.3)
[2023-01-17 23:45] LABS: Urine Appearance Clear (CLEAR); Urine Color Yellow (Yellow)
[2023-01-17 23:46] LABS: Add Urine Microscopic? YES; Bilirubin Urine Neg (Negative); Blood Urine 3+ (Negative); Glucose Urine UA Norm (Normal); Ketones Urine Negative (Negative); Leukocyte Esterase Urine Negative (Negative); Nitrate Urine Negative (Negative); Protein Urine Neg (Negative); Urobilinogen Urine Norm (Negative); pH Urine 5 (5-7)
[2023-01-17 23:51] LABS: Bacteria Urine TRACE /hpf; Mucus Urine TRACE /hpf; RBC Urine 0-4 /hpf (0-2); Squamous Epithelial Cell Urine 0-4 /hpf (0-5); WBC Urine 0-4 /hpf (0-5)
[2023-01-17 23:58] VITALS: BP 124/86; PULSE 73; RESP 16; O2SAT 91
[2023-01-18 00:30] VITALS: BP 123/96; PULSE 73; RESP 16; O2SAT 93
--- NOTE | 2023-01-18 09:31 | DCPLANNER ---
Addendum entered by Cecile Montano 02/15/23 07:52: Patient had an MRI scheduled - patient did attend appointment Addendum entered by Cecile Montano 01/25/23 09:23: Patient has an MRI head scheduled for February at 11:45. Original Note: plant floor automation manager had message to schedule an outpatient MRI head for patient. plant floor automation manager faxed signed order to centralized scheduling, who will call patient with appointment information.
== END 2023-01-18 00:50 | disposition home or self-care (01) ==
PROVIDERS: Emergency Provider Emergency Medicine; PCP Family Medicine
DX: G43.909 Migraine, unspecified, not intractable, without status migrainosus (principal); G40.89 Other seizures; I10 Essential (primary) hypertension; F17.210 Nicotine dependence, cigarettes, uncomplicated
CPT/HCPCS: 36416; 70450; 80053; 81001; 81025; 82962; 84146; 84443; 85025; 96361; 96374; 96375; 99285; J1200; J1885; J2765; J7030

== ENCOUNTER → 2023-01-19 09:48 | Outpatient (BNVA) | payer MEDICAID, SELFPAY | PROVIDERS: PCP Family Medicine; Visit Provider Nurse Practitioner Family | DX: S42.254D Nondisplaced fracture of greater tuberosity of right humerus, subsequent encounter for fracture with routine healing (principal); W18.39XD Other fall on same level, subsequent encounter | CPT/HCPCS: 73060; 99213 ==

== ENCOUNTER 2023-02-10 10:40 | Outpatient (CLI) | payer MEDICAID, SELFPAY ==
--- NOTE | 2023-02-10 10:53 | MR_ITS ---
WS: [id number] MRI HEAD WITHOUT CONTRAST TECHNIQUE: Sagittal T1, axial T2, axial FLAIR axial diffusion weighted images. CLINICAL INFORMATION: HEADACHE/MIGRAINE, SEIZURE COMPARISON: None. FINDINGS: Exam was interrupted due to seizure. Some images degraded by patient motion. Seizure lasted approximately 1 minute before resolving. Vital signs stable post seizure. Patient transferred to the emergency room for further assessment and medi cation evaluation. No evidence of restricted diffusion to suggest acute ischemia. Ventricular system and basal cisterns are patent. Normal matias-white differentiation. Suggestion of minimal periventricular white matter danielle nges can be seen with migraine headaches. Some images degraded by patient motion. Temporal lobes and hippocampal formations appear normal where visualized. Normal posterior fossa. Normal vascular flow voids at the skull base. No extra-axial fluid collection s. Mild mucosal thickening in the ethmoid air cells. No other suspicious findings. MR/MR head wo con* [id number] IMPRESSION: Limited examination due to seizure. Some images degraded by motion. 1. No evidence of restricted diffusion to suggest acute ischemia. 2. Minimal suggestion of periventricular white matter changes can be seen with migraine headaches. Otherwise no suspicious intracranial signal abnormalities considering motion. 3. Temporal lobes and hippocampal formations appear normal. 4. Paranasal sinuses and mastoid air cells are well aerated. 5. No other suspicious findings.
== END 2023-02-10 10:41 | disposition home or self-care (01) ==
LOC: RAD 10:42
PROVIDERS: PCP Family Medicine; Visit Provider Emergency Medicine
DX: R56.9 Unspecified convulsions (principal); G43.909 Migraine, unspecified, not intractable, without status migrainosus
CPT/HCPCS: 70551

== ENCOUNTER 2023-02-10 11:55 | Emergency (ER) | payer MEDICAID, SELFPAY ==
[2023-02-10 12:04] VITALS: BP 121/82; PULSE 75; RESP 16; TEMP 36.3; O2SAT 99
--- NOTE | 2023-02-10 12:10 | ED_ITS ---
HPI - Seizure General: Chief Complaint: Seizure Stated Complaint: seizers brought from mri Time Seen by Provider: 02/10/23 12:10 History of Present Illness: HPI Narrative: Ms. Rizo is a 42-year-old lady with complex past medical history including psychiatric and reported seizure disorder presenting to the emergency department for seizure episode. She was getting a MRI which was ordered for the outpatient setting when she had a seizure. Typically she has an aura however sometimes she does not and did not have one with this event. She had approximately 1 minute of shaking episode, no reported trauma, she currently feels back to baseline. She is actually had improvement in her seizures in the context of decreased stress level. No other specific changes in health, exacerbating, or alleviating factors identified. 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 Benign essential HTN Borderline personality disorder Cannabis dependence in remission Cholecystectomy planned Chronic sacroiliac joint pain Narcolepsy Obstructive sleep apnea Opioid contract exists Psychiatric care Schizoaffective disorder, bipolar type Smoker unmotivated to quit Spondylosis without myelopathy or radiculopathy, lumbar region Surgical History History of cholecystectomy Tubal ligation status Family History Brother Hypertension CAD (coronary artery disease) Diabetes Father Hypertension Mother Hypertension CAD (coronary artery disease) Social History Smoking and tobacco status: current every day smoker cigarettes Packs smoked per day: 0.5 Years cigarettes smoked: 20 Quit status (tobacco): has tried quititng Number of times tried to quit tobacco: 10 Second hand smoke exposure: Yes Smoking risk assessment/counseling performed?: No Alcohol intake: former Year of sobriety/quit date alcohol: 2009 Desire information about alcohol rehabilitation?: No Counseling given: No Desire information about substance/drug rehabilitation?: No Counseling given: No Current gender identity: Female Physical Exam Const: COMMON NORMALS: alert GENERAL APPEARANCE: cooperative and well developed HENMT: COMMON NORMALS: normocephalic and atraumatic HEAD & SCALP: normocephalic and atraumatic Eye: COMMON NORMALS: conjunctivae normal CONJUNCTIVA: Yes conjunctivae normal SCLERA: sclerae normal Neck/C-Spine: COMMON NORMALS: supple GENERAL: Yes trachea midline Resp: COMMON NORMALS: clear to auscultation bilaterally EFFORT & INSPECTION: Yes able to speak in complete sentences AUSCULTATION: clear to auscultation bilaterally Cardio: COMMON NORMALS: regular rate and regular rhythm RATE: regular rate RHYTHM: regular rhythm GI: COMMON NORMALS: Soft to palpation PALPATION: Yes Soft to palpation and No Tenderness to palpation present (GI) Extremity: GENERAL: Yes normal exam except as noted and No edema Neuro: COMMON NORMALS: moves all extremities SENSORIUM/ORIENTATION: Yes alert and No Orientation impaired Psych: COMMON NORMALS: mental status grossly normal and Normal thought process present THOUGHT PROCESS: Normal thought process present Course Vital Signs: Vital signs: Vital Signs Temperature 97.4 F L 02/10/23 12:04 Pulse Rate 71 02/10/23 13:07 Respiratory Rate 16 02/10/23 12:04 Blood Pressure 131/93 02/10/23 13:07 Pulse Oximetry 98 02/10/23 13:07 Oxygen Delivery Me thod Room Air 02/10/23 13:07 MDM - Seizure MDM Narrative Medical decision making narrative: 42-year-old lady with history of seizure presenting due to seizure that occurred during outpatient MRI. Exam as above, patient is returned to baseline and there are no focal neurologic deficits. EKG notable for sinus rhythm with normal axis and intervals, no STEMI. Recent prior laboratory studies reviewed. Patient denies recent baseline changes in health. Glucose is normal. MRI results reviewed. Given MRI sensitivity and specificity I do not believe that repeat CT imaging or other types of neuroimaging is required at this time. Plan to continue outpatient management. Seizure precautions reviewed discussed. The results of ED evaluation were discussed with the patient including prescriptions and/or symptomatic cares (if applicable) including appropriate and responsible use, followup plan, and return precautions. The patient verbalized understanding and felt safe for discharge. Medical Records Attestation: I reviewed the patient's medical records. Lab Data Attestation: I reviewed the patient's lab results. Labs: Laboratory Results POC Glucose 83 mg/dL (70-110) 02/10/23 12:34 Discharge Plan Discharge Patient Disposition: Home Clinical Impression: Generalized seizure Condition: Stable Prescriptions: No Action pantoprazole [Protonix] 40 mg tablet,delayed release (DR/EC) 40 mg PO BID pregabalin 200 mg capsule 200 mg PO TID 90 Days Qty: 270 1RF fluticasone propionate 50 mcg/actuation spray,suspension 2 spray INTRANASAL DAILY (DME) Night splint See Rx Instructions .Route .MEDSUPPLY Qty: 1 0RF Rx Instructions: As directed tizanidine 2 mg tablet 2 mg PO TID PRN (Reason: muscle spasticity) Qty: 90 1RF varenicline [Chantix] 1 mg tablet 1 mg PO BID Qty: 56 2RF methylphenidate HCl [Ritalin] 20 mg tablet 20 mg PO TID ondansetron HCl 4 mg tablet 4 mg PO Q8H PRN (Reason: Nausea And Vomiting) dicyclomine 10 mg capsule 10 mg PO QID PRN (Reason: Diarrhea) Vyepti 100 mg/mL solution 300 mg IV Q90D colestipol 1 gram tablet 2 g PO BID hydroxyzine HCl 50 mg tablet 75 mg PO BEDTIME Qty: 45 5RF Victoza 3-Kamaljit 0.6 mg/0.1 mL (18 mg/3 mL) pen injector 1.8 mg SUBCUT DAILY Qty: 9 0RF Rx Instructions: Please dispense needle tips as well meloxicam 7.5 mg tablet See Rx Instructions .ROUTE .COMPLEX Qty: 60 1RF Dose Instruction: TAKE 1 TABLET BY MOUTH TWICE DAILY Rx Instructions: TAKE 1 TABLET BY MOUTH TWICE DAILY rizatriptan 10 mg tablet 10 mg PO DAILY PRN (Reason: Migraine Headache) metoprolol tartrate 25 mg tablet 12.5 mg PO BID lamotrigine [Lamictal XR] 200 mg tablet extended release 24hr 200 mg PO BEDTIME Latuda 20 mg tablet 20 mg PO BEDTIME Rx Instructions: must administer with food (at least 350 calories) latanoprost 0.005 % drops 1 drp ophthalmic (eye) BEDTIME topiramate 100 mg tablet 100 mg PO BEDTIME Discharge Orders: Discharge ED (Routine); Ordered 02/10/23 Ordered By: Lionel Carreno Referrals: Leisa Toussaint DO [Primary Care Provider] - Discharge Diet: Usual diet Discharge Activity: Limit activity as instructed Patient Instructions: Recurrent Seizures in Adults (ED) Activity Restrictions/Additional Instructions: Thank you for visiting the emergency department. You were seen and evaluated for seizure-like episode. The exact cause of your symptoms is unclear though may be related to underlying seizure disorder or other cause. Please contact your neurologist. Please follow-up with your primary care provider. Please follow all standard seizure precautions previously given. Return to the emergency department for anything that you are concerned about and feel needs emergency department evaluation. Coding Level of Care Code ED Advertising Copywriter for Claudia Muniz
--- NOTE | 2023-02-10 12:23 | ECG_ITS ---
[facility] Test Date: 2023-02-10 Pat Name: Leisa Rizo Department: Room: Gender: Female Forensic Toxicologist: : 1980 Requested By: Lionel Carreno Order Number: [id number] Conley MD: Liam Jin M.D. Measurements Intervals [place] Rate: 75 P: 115 KS: 161 QRS: 114 QRSD: 96 T: 60 QT: 387 QTc: 434 Interpretive Statements SINUS RHYTHM LEFT POSTERIOR FASCICULAR BLOCK [QRS AXIS > 109, INFERIOR Q] NONSPECIFIC T-WAVE ABNORMALITY Compared to ECG 12/30/2022 15:07:19 Left posterior fascicular block now present T-wave abnormality now present Myocardial infarct finding no longer present Electronically Signed On 02-10-2023 16:32:31 CDT by Liam Jin M.D. [id number]
[2023-02-10 12:39] LABS: Glucose Point of Care 83 mg/dL (70-110)
[2023-02-10 13:07] VITALS: BP 131/93; PULSE 71; O2SAT 98
== END 2023-02-10 13:10 | disposition home or self-care (01) ==
PROVIDERS: Emergency Provider Emergency Medicine; PCP Family Medicine
DX: G40.89 Other seizures (principal); I10 Essential (primary) hypertension; F17.210 Nicotine dependence, cigarettes, uncomplicated
CPT/HCPCS: 36416; 82962; 93005; 99284

== ENCOUNTER → 2023-02-22 09:02 | Outpatient (BNVA) | payer MEDICAID, SELFPAY | PROVIDERS: PCP Family Medicine; Visit Provider Nurse Practitioner Family | DX: S42.254D Nondisplaced fracture of greater tuberosity of right humerus, subsequent encounter for fracture with routine healing (principal); W01.0XXD Fall on same level from slipping, tripping and stumbling without subsequent striking against object, subsequent encounter; M25.511 Pain in right shoulder | CPT/HCPCS: 73030; 99214 ==

== ENCOUNTER 2023-03-03 12:18 | Outpatient (CLI) | payer MEDICAID, SELFPAY ==
--- NOTE | 2023-03-03 12:27 | MR_ITS ---
WS: [id number] MRI BRAIN WITHOUT CONTRAST HISTORY: HEADACHE/MIGRAINE/SEIZURE COMPARISON: 02/10/2023 TECHNIQUE: Diffusion imaging, multiplanar T1, T2 and FLAIR imaging obtained. No evidence for acute infarct or hemorrhage. [place]-white matter differentiation is normal. No signific ant white matter disease identified on today's examination. No remote or acute infarcts are volume loss. Ventricles and extra-axial spaces are normal. No inferior displacement of cerebellar tonsils. The sella turcica and pituitary gland are unremarkabl e. Dural venous sinuses and united [place] demonstrate no abnormality on this unenhanced studies. Paranasal sinuses: Clear. Mastoid air cells: Normal. Calvarium and scalp: Intact. MR/MR head wo con* [id number] IMPRESSION: 1. Unremarkable noncontrast MRI brain. 2. No significant white matter lesions are identified.
== END 2023-03-03 12:19 | disposition home or self-care (01) ==
PROVIDERS: PCP Family Medicine; Visit Provider Emergency Medicine
DX: G43.909 Migraine, unspecified, not intractable, without status migrainosus (principal); R56.9 Unspecified convulsions
CPT/HCPCS: 70551

== ENCOUNTER → 2023-03-10 10:18 | Outpatient (BNVA) | payer MEDICAID, SELFPAY | PROVIDERS: PCP Family Medicine; Visit Provider Podiatrist Foot & Ankle Surgery | DX: L60.3 Nail dystrophy (principal) | CPT/HCPCS: 99213 ==

== ENCOUNTER → 2023-03-29 08:49 | Outpatient (BNVA) | payer MEDICAID, SELFPAY | PROVIDERS: PCP Family Medicine; Visit Provider Nurse Practitioner Family | DX: S42.254D Nondisplaced fracture of greater tuberosity of right humerus, subsequent encounter for fracture with routine healing (principal); X58.XXXD Exposure to other specified factors, subsequent encounter; M67.911 Unspecified disorder of synovium and tendon, right shoulder | CPT/HCPCS: 73030; 99213 ==

== ENCOUNTER 2023-04-15 08:52 | Oncology outpatient (recurring) (ONCR) | payer MEDICAID, SELFPAY ==
[2023-04-15] MEDS: sodium chloride 0.9% 250 ML 100 ML IV (09:48)
[2023-04-15] MEDS: eptinezumab-jjmr 300 MG in sodium chloride 0.9% (100 ml) 100 ML 206 MG IV (10:09)
[2023-04-15 13:42] VITALS: BP 99/68; PULSE 74; TEMP 36.1; O2SAT 100
== END 2023-05-06 23:59 | disposition home or self-care (01) ==
PROVIDERS: PCP Family Medicine; Visit Provider Psychiatry & Neurology Neurology
DX: G43.719 Chronic migraine without aura, intractable, without status migrainosus (principal)
CPT/HCPCS: 96365; J3032; J7050

== ENCOUNTER → 2023-05-24 14:50 | Outpatient (BNVA) | payer MEDICAID, SELFPAY | PROVIDERS: PCP Family Medicine; Visit Provider Nurse Practitioner Family | DX: S42.254D Nondisplaced fracture of greater tuberosity of right humerus, subsequent encounter for fracture with routine healing; X58.XXXD Exposure to other specified factors, subsequent encounter; M54.12 Radiculopathy, cervical region | CPT/HCPCS: 73030; 99213 ==

== ENCOUNTER → 2023-06-23 07:53 | Outpatient (BNVA) | payer MEDICAID, SELFPAY | PROVIDERS: PCP Family Medicine; Visit Provider Podiatrist Foot & Ankle Surgery | DX: L60.3 Nail dystrophy (principal) | CPT/HCPCS: 99213 ==

== ENCOUNTER 2023-07-08 07:58 | Oncology outpatient (recurring) (ONCR) | payer MEDICAID, SELFPAY ==
[2023-07-08 09:15] VITALS: BP 131/69; PULSE 73; RESP 18; TEMP 36.1; O2SAT 99
[2023-07-08] MEDS: eptinezumab-jjmr 300 MG in sodium chloride 0.9% (100 ml) 100 ML 206 MG IV (10:07)
[2023-07-08] MEDS: sodium chloride 0.9% 250 ML 75 ML IV (10:08)
[2023-07-08 10:41] VITALS: BP 130/68; PULSE 68; RESP 17; TEMP 36.1; O2SAT 100
== END 2023-08-06 23:59 | disposition home or self-care (01) ==
PROVIDERS: PCP Family Medicine; Visit Provider Psychiatry & Neurology Neurology
DX: S42.251A Displaced fracture of greater tuberosity of right humerus, initial encounter for closed fracture (principal); X58.XXXA Exposure to other specified factors, initial encounter
CPT/HCPCS: 96413; J3032; J7050

== ENCOUNTER → 2023-09-15 17:49 | Outpatient (BNVA) | payer MEDICAID, SELFPAY | PROVIDERS: PCP Family Medicine; Visit Provider Nurse Practitioner Family | DX: R05.9 Cough, unspecified (principal); R21 Rash and other nonspecific skin eruption; J40 Bronchitis, not specified as acute or chronic | CPT/HCPCS: 87426 ==

== ENCOUNTER 2023-09-22 10:44 | Outpatient (CLI) | payer MEDICAID, SELFPAY ==
--- NOTE | 2023-09-22 10:47 | MM_ITS ---
WS: [id number] SCREENING DIGITAL TOMOSYNTHESIS MAMMOGRAM WITH CAD HISTORY: SCREENING COMPARISON: 09/27/2019 Bilateral CC and MLO with tomosynthesis views submitted. Synthetic mammography reviewed. Computer aid ed detection analyzed. Breast composition: The breasts are almost entirely fatty. No suspicious masses, microcalcifications or architectural distortion. IMPRESSION: MM/[place] [id number] BI-RADS: 1-Negative FOLLOW UP: 1 Year Follow-up
== END 2023-09-22 10:45 | disposition home or self-care (01) ==
LOC: RAD 10:44
PROVIDERS: PCP Family Medicine; Visit Provider Family Medicine
DX: Z12.31 Encounter for screening mammogram for malignant neoplasm of breast (principal)
CPT/HCPCS: 77063; 77067

== ENCOUNTER 2023-09-28 12:47 | Oncology outpatient (recurring) (ONCR) | payer MEDICAID, SELFPAY ==
[2023-09-28 13:32] VITALS: BP 114/75; PULSE 74; RESP 18; TEMP 35.6; O2SAT 96
[2023-09-28] MEDS: sodium chloride 0.9% 250 ML 75 ML IV (13:43)
[2023-09-28] MEDS: eptinezumab-jjmr 300 MG in sodium chloride 0.9% (100 ml) 100 ML 206 MG IV (14:05)
[2023-09-28 14:45] VITALS: BP 121/68; PULSE 74; RESP 18; TEMP 36.6; O2SAT 98
== END 2023-10-06 23:59 | disposition home or self-care (01) ==
PROVIDERS: PCP Family Medicine; Visit Provider Psychiatry & Neurology Neurology
DX: S42.251A Displaced fracture of greater tuberosity of right humerus, initial encounter for closed fracture (principal); X58.XXXA Exposure to other specified factors, initial encounter
CPT/HCPCS: 96413; J3032; J7050

== ENCOUNTER → 2023-11-22 09:07 | Outpatient (BNVA) | payer MEDICAID, SELFPAY | PROVIDERS: PCP Family Medicine; Visit Provider Nurse Practitioner Family | DX: L97.812 Non-pressure chronic ulcer of other part of right lower leg with fat layer exposed (principal) | CPT/HCPCS: 11042; 99213; A6219 ==

== ENCOUNTER → 2023-11-29 07:54 | Outpatient (BNVA) | payer MEDICAID, SELFPAY | PROVIDERS: PCP Family Medicine; Visit Provider Nurse Practitioner Family | DX: L97.811 Non-pressure chronic ulcer of other part of right lower leg limited to breakdown of skin (principal) | CPT/HCPCS: 97597 ==

== ENCOUNTER → 2023-12-06 07:57 | Outpatient (BNVA) | payer MEDICAID, SELFPAY | PROVIDERS: PCP Family Medicine; Visit Provider Nurse Practitioner Family | DX: L97.812 Non-pressure chronic ulcer of other part of right lower leg with fat layer exposed (principal) | CPT/HCPCS: 11042; A6219 ==

== ENCOUNTER 2023-12-08 10:23 | Emergency (ER) | payer MEDICAID, SELFPAY ==
--- NOTE | 2023-12-08 10:24 | XR_ITS ---
WS: [id number] Portable AP upright chest, 12/08/2023 Clinical Data: cp Comparison: Portable chest, 12/25/2022 Findings: No nodules, masses or effusions are seen. The heart is normal. The pulmonary vascularity is not increased. No pneumonia or pneumothorax is seen. Impression: Negative chest.
--- NOTE | 2023-12-08 10:27 | ECG_ITS ---
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 Measurements Intervals [place] Rate: 85 P: 49 MD: 156 QRS: 42 QRSD: 97 T: 14 QT: 368 QTc: 440 Interpretive Statements SINUS RHYTHM Compared to ECG 02/10/2023 12:31:44 Left posterior fascicular block no longer present T-wave abnormality no longer present Electronically Signed On 12-08-2023 16:02:47 COIL FINISHER by Liam Jin M.D. [email or web address] [email or web address] Software, an EchoStar Corporationohiohealth berger hospital.[employer]/store/NU/[id number] f
[2023-12-08 10:29] VITALS: BP 150/82; PULSE 89; RESP 18; TEMP 36.7; O2SAT 99; BMI 54.1
--- NOTE | 2023-12-08 10:32 | ECG_ITS ---
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 Measurements Intervals [place] Rate: 85 P: 49 VT: 156 QRS: 42 QRSD: 97 T: 14 QT: 368 QTc: 440 Interpretive Statements SINUS RHYTHM Compared to ECG 02/10/2023 12:31:44 Left posterior fascicular block no longer present T-wave abnormality no longer present Electronically Signed On 12-08-2023 16:02:50 PASTRY FINISHER by Liam Jin M.D. [email or web address] [email or web address] grove centerMediSwipeadams county regional medical center.M-DISC/store/NU/[id number] f
[2023-12-08 11:14] LABS: Basophils # 0.1 10^3/uL (0.0-0.1); Basophils % 0.7 %; Eosinophils # 0.3 10^3/uL (0.0-0.8); Eosinophils % 3.9 %; Hematocrit 35.5 % (36-47); Mean Corpuscular HGB Conc 29.6 g/dL (30-55); Mean Corpuscular Hemoglobin 20.9 pg (27-33); Mean Corpuscular Volume 70.6 fl (85-98); Mean Platelet Volume 10.1 fL (7.4-10.4); Monocytes # 0.6 10^3/uL (0.2-0.9); Monocytes % 8.6 %; Neutrophils # 3.98 10^3/uL (1.8-7.7); Neutrophils % 57.4 %; Nucleated Red Blood Cells % 0 %; Platelet Count 211 10^3/cmm (157-399); Red Blood Count 5.03 10^6/uL (3.85-5.65); Red Cell Distribution Width 17.4 % (12.1-15.1); White Blood Count 6.94 10^3/uL (3.29-11.43)
--- NOTE | 2023-12-08 11:18 | W.ED.CHESTPA ---
HPI - Chest Pain General: Chief Complaint: Chest Pain Stated Complaint: chest pains Time Seen by Provider: 12/08/23 11:07 Source: patient Mode of arrival: ambulatory Limitations: no limitations History of Present Illness: 43-year-old female states that over the last day she been chest pain shortness of breath along with some generalized weakness. States she has diffuse pain has been constant. She denies any vomiting or diarrhea. She does see wound care for some chronic leg wounds she states she has had some slight swelling in her legs. 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 Benign essential HTN Borderline personality disorder Cannabis dependence in remission Cholecystectomy planned Chronic sacroiliac joint pain Narcolepsy Obstructive sleep apnea Opioid contract exists Psychiatric care Schizoaffective disorder, bipolar type Smoker unmotivated to quit Spondylosis without myelopathy or radiculopathy, lumbar region Surgical History History of cholecystectomy Tubal ligation status Family History Brother Hypertension CAD (coronary artery disease) Diabetes Father Hypertension Mother Hypertension CAD (coronary artery disease) Social History Smoking and tobacco/nicotine status: current every day tobacco/nicotine user cigarettes Packs smoked per day: 0.5 Years cigarettes smoked: 20 Quit status (tobacco/nicotine): has tried quititng Number of times tried to quit tobacco: 10 Second hand smoke exposure: Yes Alcohol intake: former Year of sobriety/quit date alcohol: 2009 Substance/Drug Use: former Date of last use: 2015 Current gender identity: Female Physical Exam Const: COMMON NORMALS: no acute distress, patient oriented x3 and healthy appearing HENMT: COMMON NORMALS: normocephalic and atraumatic HEAD & SCALP: normocephalic and atraumatic Neck/C-Spine: COMMON NORMALS: full ROM and supple Chest: COMMONS NORMALS: normal inspection of the chest and normal palpation of entire chest wall Resp: COMMON NORMALS: normal respiratory effort, No retractions, No use of accessory muscles and clear to auscultation bilaterally AUSCULTATION: clear to auscultation bilaterally Cardio: COMMON NORMALS: regular rate, regular rhythm and No murmurs present (Cardio) RATE: regular rate RHYTHM: regular rhythm GI: COMMON NORMALS: Normal to inspection, nondistended, normoactive bowel sounds present, Soft to palpation, non-tender and no masses PALPATION: Yes Soft to palpation Extremity: COMMON NORMALS: full ROM NARRATIVE EXTREMITY EXAM: Swelling noted to bilateral legs Neuro: COMMON NORMALS: patient oriented x3, moves all extremities and no focal motor deficits Psych: COMMON NORMALS: mental status grossly normal, Normal thought process present and cooperative THOUGHT PROCESS: Normal thought process present Skin: COMMON NORMALS: no rashes or lesions noted and no wounds GENERAL SKIN EXAM: no rashes or lesions noted Course Vital Signs: Vital signs: Vital Signs Temperature 98.0 F 12/08/23 10:29 Pulse Rate 84 12/08/23 13:00 Respiratory Rate 16 12/08/23 11:24 Blood Pressure 112/62 12/08/23 13:00 Pulse Oximetry 97 12/08/23 13:00 Oxygen Delivery Me thod Room Air 12/08/23 13:00 MDM - Chest Pain Medical Decision Making Patient presents for chest pain and dyspnea has since resolved she is well-appearing here D-dimer is negative initial repeat troponin is normal as well she has no signs of acute coronary syndrome she feels improved she is stable for discharge she is to follow-up with wound care for her chronic leg wounds she has no signs of acute infection here. Medical Records I reviewed the patient's medical records. Lab Data I reviewed the patient's lab results. 12/08/23 10:56 12/08/23 10:56 Laboratory Results WBC 6.94 10^3/uL (3.29-11.43) 12/08/23 10:56 RBC 5.03 10^6/uL (3.85-5.65) 12/08/23 10:56 Hgb 10.50 g/dL (11.27-16.99) L 12/08/23 10:56 Hct 35.5 % (36-47) L 12/08/23 10:56 MCV 70.6 fl (85-98) L 12/08/23 10:56 MCH 20.9 pg (27-33) L 12/08/23 10:56 MCHC 29.6 g/dL (30-55) L 12/08/23 10:56 RDW 17.4 % (12.1-15.1) H 12/08/23 10:56 Plt Count 211 10^3/cmm (157-399) 12/08/23 10:56 MPV 10.1 fL (7.4-10.4) 12/08/23 10:56 Neut % (Auto) 57.4 % 12/08/23 10:56 Lymph % (Auto) 29.0 % 12/08/23 10:56 [place] % (Auto) 8.6 % 12/08/23 10:56 Eos % (Auto) 3.9 % 12/08/23 10:56 Baso % (Auto) 0.7 % 12/08/23 10:56 Neut # (Auto) 3.98 10^3/uL (1.8-7.7) 12/08/23 10:56 Lymph # (Auto) 2.0 10^3/uL (0.8-4.8) 12/08/23 10:56 [place] # (Auto) 0.6 10^3/uL (0.2-0.9) 12/08/23 10:56 Eos # (Auto) 0.3 10^3/uL (0.0-0.8) 12/08/23 10:56 Baso # (Auto) 0.1 10^3/uL (0.0-0.1) 12/08/23 10:56 Nucleated RBC % (auto) 0 % 12/08/23 10:56 Nucleated RBCs # 0.0 /100WBC 12/08/23 10:56 PT 13.50 SECONDS (12.1-14.9) 12/08/23 10:56 INR 1.00 (0.8-1.2) 12/08/23 10:56 D-Dimer 0.29 ug/mLFEU (0-0.59) 12/08/23 10:56 Sodium 136 mmol/L (136-145) 12/08/23 10:56 Potassium 4.2 mmol/L (3.5-5.1) 12/08/23 10:56 Chloride 103 mmol/L (98-107) 12/08/23 10:56 Carbon Dioxide 24 mmol/L (22-29) 12/08/23 10:56 Anion Gap 13.2 (5-19) 12/08/23 10:56 BUN 10 mg/dL (6-20) 12/08/23 10:56 Creatinine 0.8 mg/dL (0.5-0.9) 12/08/23 10:56 GFR Calculation 77.9 mL/min (90-130) L 12/08/23 10:56 Glucose 102 mg/dL (65-115) 12/08/23 10:56 Calculated Osmolality 281 mOsm/kg (285-295) L 12/08/23 10:56 Calcium 8.9 mg/dL (8.5-10.5) 12/08/23 10:56 Total Bilirubin 0.3 mg/dL (0.15-1.2) 12/08/23 10:56 AST 15 U/L (0-32) 12/08/23 10:56 ALT 16 U/L (0-33) 12/08/23 10:56 Alkaline Phosphatase 147 U/L (35-105) H 12/08/23 10:56 Troponin T Baseline < 6 ng/L (0-10) 12/08/23 10:56 Troponin T 120 Minute 6.00 ng/L (0-10) 12/08/23 13:00 Delta Troponin T 0.44704 ABS# (0-10) 12/08/23 13:00 NT-Pro-B Natriuret Pep 46 pg/mL (0-125) 12/08/23 10:56 Total Protein 6.7 g/dL (6.6-8.7) 12/08/23 10:56 Albumin 3.4 g/dL (3.5-5.2) L 12/08/23 10:56 Globulin 3.3 g/dL (1.3-4.6) 12/08/23 10:56 Lipase 17 U/L (13-60) 12/08/23 10:56 Influenza Type A Ag Negative (Negative) 12/08/23 11:16 Influenza Type B Ag Negative (Negative) 12/08/23 11:16 SARS-CoV-2 Ag (Rapid) negative (Negative) 12/08/23 11:16 All radiology interpretation(s) finalized by discharge EKG Data EKG 1: I personally reviewed and interpreted this EKG as follows: EKG interpretation date: 12/08/23 EKG interpretation time: 10:27 Interpretation: nsr hr [address] or t wave abnormalities qrs 97 qtc 411 EKG 2: I personally reviewed and interpreted this EKG as follows: EKG interpretation date: 12/08/23 EKG interpretation time: 12:46 Interpretation: nsr hr [address] or t wave abnormalities qrs 93 qtc 417 Discharge Plan Discharge Patient Disposition: Home Clinical Impression: Chest pain Condition: Stable Prescriptions: No Action pantoprazole [Protonix] 40 mg tablet,delayed release (DR/EC) 40 mg PO BID pregabalin 200 mg capsule 200 mg PO TID 90 Days Qty: 270 1RF fluticasone propionate 50 mcg/actuation spray,suspension 2 spray INTRANASAL DAILY (DME) Night splint See Rx Instructions .Route .MEDSUPPLY Qty: 1 0RF Rx Instructions: As directed lamotrigine [Lamictal XR] 200 mg tablet extended release 24hr 200 mg PO BEDTIME Qty: 30 11RF hydroxyzine HCl 50 mg tablet 75 mg PO BEDTIME Qty: 45 11RF Latuda 20 mg tablet 20 mg PO BEDTIME Qty: 30 11RF Rx Instructions: must administer with food (at least 350 calories) Trulicity 0.75 mg/0.5 mL pen injector SUBCUT methylphenidate HCl [Ritalin] 20 mg tablet 20 mg PO .1 pm methylphenidate HCl 20 mg tablet extended release 40 mg PO DAILY ondansetron HCl 4 mg tablet 4 mg PO Q8H PRN (Reason: Nausea And Vomiting) dicyclomine 10 mg capsule 10 mg PO QID PRN (Reason: Diarrhea) Vyepti 100 mg/mL solution 300 mg IV Q90D colestipol 1 gram tablet 2 g PO BID metoclopramide HCl [Reglan] 5 mg tablet 5 mg PO DAILY triamcinolone acetonide 0.1 % lotion 1 applic topical BID Qty: 60 3RF albuterol sulfate [Ventolin HFA] 90 mcg/actuation HFA aerosol inhaler 1 inh inhalation Q6H Qty: 8.5 0RF (DME) Pen needles See Rx Instructions .Route .MEDSUPPLY Qty: 1 1RF Rx Instructions: As directed with Victoza naloxone [Narcan] 4 mg/actuation spray,non-aerosol 4 mg intranasal Q2M PRN (Reason: opioid overdose) Qty: 2 0RF Rx Instructions: spray 1 dose into ONE nostril; alternate nostrils w each dose until help arrives tizanidine 2 mg tablet See Rx Instructions .ROUTE .COMPLEX Qty: 90 1RF Dose Instruction: TAKE 1 TABLET BY MOUTH THREE TIMES DAILY NEEDED FOR MUSCLE SPASTICITY Rx Instructions: TAKE 1 TABLET BY MOUTH THREE TIMES DAILY NEEDED FOR MUSCLE SPASTICITY varenicline 1 mg tablet See Rx Instructions .ROUTE .COMPLEX Qty: 56 2RF Dose Instruction: TAKE 1 TABLET BY MOUTH TWICE DAILY Rx Instructions: TAKE 1 TABLET BY MOUTH TWICE DAILY meloxicam 7.5 mg tablet See Rx Instructions .ROUTE .COMPLEX Qty: 60 0RF Dose Instruction: TAKE 1 TABLET BY MOUTH TWICE DAILY Rx Instructions: TAKE 1 TABLET BY MOUTH TWICE DAILY metoprolol tartrate 25 mg tablet See Rx Instructions .ROUTE .COMPLEX Qty: 60 0RF Dose Instruction: TAKE ONE TABLET BY MOUTH TWICE DAILY Rx Instructions: TAKE ONE TABLET BY MOUTH TWICE DAILY rizatriptan 10 mg tablet 10 mg PO DAILY PRN (Reason: Migraine Headache) latanoprost 0.005 % drops 1 drp ophthalmic (eye) BEDTIME topiramate 100 mg tablet 100 mg PO BEDTIME Discharge Orders: Discharge ED (Routine); Ordered 12/08/23 Ordered By: Saul Ly Referrals: Marcelle Wagner DO [Primary Care Provider] - 1-3 days Discharge Diet: Advance as tolerated Discharge Activity: Resume usual activity Patient Instructions: Chest Pain (ED) Coding Level of Care Code ED Intermodal Owner Operator Truck Driver for Claudia Muniz
[2023-12-08 11:24] VITALS: RESP 16
[2023-12-08 11:24] LABS: Troponin(5th) Baseline < 6 ng/L (0-10)
[2023-12-08] MEDS: HYDROmorphone 1 mg/mL INJ 1 mL 0.5 MG IVP (11:24)
[2023-12-08] MEDS: ondansetron 2 mg/ML SDV 2 mL 4 MG IVP (11:25)
[2023-12-08 11:34] VITALS: BP 119/66; PULSE 83; O2SAT 98
[2023-12-08 11:38] LABS: Alanine Aminotransferase 16 U/L (0-33); Albumin Level 3.4 g/dL (3.5-5.2); Alkaline Phosphatase 147 U/L (35-105); Anion Gap 13.2 (5-19); Aspartate Amino Transferase 15 U/L (0-32); Blood Urea Nitrogen 10 mg/dL (6-20); Calcium 8.9 mg/dL (8.5-10.5); Carbon Dioxide 24 mmol/L (22-29); Chloride 103 mmol/L (98-107); Globulin 3.3 g/dL (1.3-4.6); Glomerular Filtration Rate 77.9 mL/min (90-130); Glucose 102 mg/dL (65-115); Lipase 17 U/L (13-60); Osmolality Calculated 281 mOsm/kg (285-295); Potassium 4.2 mmol/L (3.5-5.1); Sodium 136 mmol/L (136-145); Total Bilirubin 0.3 mg/dL (0.15-1.2); Total Protein 6.7 g/dL (6.6-8.7)
[2023-12-08 11:49] LABS: Slide Review Slide Review Perform
[2023-12-08 12:00] VITALS: BP 108/65; PULSE 85; O2SAT 100
[2023-12-08 12:09] LABS: SARS Covid-2 Antigen negative (Negative)
[2023-12-08 12:13] LABS: Influenza A by IFA Negative (Negative); Influenza B by IFA Negative (Negative)
[2023-12-08 12:22] LABS: NT Pro B Type Natriuretic Pept 46 pg/mL (0-125)
--- NOTE | 2023-12-08 12:24 | ECG_ITS ---
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 Measurements Intervals [place] Rate: 85 P: 28 IA: 154 QRS: 36 QRSD: 93 T: 16 QT: 375 QTc: 446 Interpretive Statements SINUS RHYTHM Compared to ECG 12/08/2023 10:27:52 No significant changes Electronically Signed On 12-10-2023 23:30:24 FLEECER by Liam Jin M.D. [id number]
[2023-12-08 13:00] VITALS: BP 112/62; PULSE 84; O2SAT 97
[2023-12-08 13:21] LABS: D Dimer 0.29 ug/mLFEU (0-0.59)
[2023-12-08 13:25] LABS: Troponin 5 2HR Delta 0.00001 ABS# (0-10)
[2023-12-08 13:45] VITALS: BP 123/71; PULSE 82; O2SAT 100
== END 2023-12-08 13:46 | disposition home or self-care (01) ==
PROVIDERS: Emergency Provider Emergency Medicine; PCP Family Medicine
DX: R07.9 Chest pain, unspecified (principal); Z79.85 Long-term (current) use of injectable non-insulin antidiabetic drugs; Z11.52 Encounter for screening for COVID-19; F17.210 Nicotine dependence, cigarettes, uncomplicated; I10 Essential (primary) hypertension
CPT/HCPCS: 36415; 71045; 80053; 83690; 83880; 84484; 85025; 85378; 85610; 87426; 87804; 93005; 96374; 96375; 99285; J1170; J2405

== ENCOUNTER 2023-12-12 14:30 | Outpatient (CLI) | payer MEDICAID, SELFPAY ==
--- NOTE | 2023-12-12 15:45 | USCV_ITS ---
Leisa Rizo Age: 43 Gender: F : 1980 Exam Date: 12/12/2023 14:44 Ordering Phys: Nevin Alston NP Technologist: CT Exam Location: [facility]_ Indication: REDNESS,SWELLING LEFT PROCEDURES: Venous duplex imaging was performed in only the left lower extremity. On the left side, the common femoral, superficial femoral, profunda femoral, popliteal, posterior tibial, greater saphenous veins, and the peroneal trunk were identified and interrogated in the standard fashion. FINDINGS: Normal 2-D Doppler and augmentation and compressibility throughout the lower extremity venous structures. Additional imaging through the proximal calf veins also reveals no thrombus. Limited evaluation of the greater saphenous vein is patent with no thrombus. CONCLUSIONS No DVT left lower extremity. Dr. Yvonne Rodriguez DO (Electronically Signed) Final Date: 13 December 2023 07:29 S
[2023-12-12 16:54] LABS: Alanine Aminotransferase 10 U/L (0-33); Albumin Level 3.5 g/dL (3.5-5.2); Alkaline Phosphatase 131 U/L (35-105); Anion Gap 15.1 (5-19); Aspartate Amino Transferase 14 U/L (0-32); Blood Urea Nitrogen 10 mg/dL (6-20); Calcium 8.9 mg/dL (8.5-10.5); Carbon Dioxide 23 mmol/L (22-29); Chloride 105 mmol/L (98-107); Globulin 3.8 g/dL (1.3-4.6); Glucose 85 mg/dL (65-115); Osmolality Calculated 286 mOsm/kg (285-295); Potassium 4.1 mmol/L (3.5-5.1); Sodium 139 mmol/L (136-145); Total Bilirubin 0.2 mg/dL (0.15-1.2); Total Protein 7.3 g/dL (6.6-8.7)
[2023-12-12 16:57] LABS: Basophils % 0.6 %; Eosinophils # 0.2 10^3/uL (0.0-0.8); Eosinophils % 2.6 %; Hematocrit 35.7 % (36-47); Lymphocytes # 1.6 10^3/uL (0.8-4.8); Lymphocytes % 21.5 %; Mean Corpuscular Hemoglobin 21.4 pg (27-33); Mean Corpuscular Volume 71.5 fl (85-98); Mean Platelet Volume 9.4 fL (7.4-10.4); Monocytes # 0.6 10^3/uL (0.2-0.9); Monocytes % 7.6 %; Neutrophils # 4.87 10^3/uL (1.8-7.7); Neutrophils % 67.1 %; Nucleated Red Blood Cells % 0 %; Platelet Count 293 10^3/cmm (157-399); Red Blood Count 4.99 10^6/uL (3.85-5.65); Red Cell Distribution Width 17.8 % (12.1-15.1); White Blood Count 7.25 10^3/uL (3.29-11.43)
== END 2023-12-12 14:31 | disposition home or self-care (01) ==
LOC: RAD 14:30
PROVIDERS: PCP Family Medicine; Visit Provider Nurse Practitioner Family
DX: L03.116 Cellulitis of left lower limb; M79.605 Pain in left leg; M79.89 Other specified soft tissue disorders; I96 Gangrene, not elsewhere classified; L97.812 Non-pressure chronic ulcer of other part of right lower leg with fat layer exposed; L97.822 Non-pressure chronic ulcer of other part of left lower leg with fat layer exposed
CPT/HCPCS: 11042; 36415; 80053; 85025; 87070; 87077; 87176; 87186; 87205; 93971; 99212

== ENCOUNTER → 2023-12-19 08:27 | Outpatient (BNVA) | payer MEDICAID, SELFPAY | PROVIDERS: PCP Family Medicine; Visit Provider Nurse Practitioner Family | DX: I96 Gangrene, not elsewhere classified (principal); L97.812 Non-pressure chronic ulcer of other part of right lower leg with fat layer exposed; L97.822 Non-pressure chronic ulcer of other part of left lower leg with fat layer exposed | CPT/HCPCS: 11042 ==

== ENCOUNTER 2023-12-22 13:37 | Oncology outpatient (recurring) (ONCR) | payer MEDICAID, SELFPAY ==
[2023-12-22 14:08] VITALS: BP 103/68; PULSE 80; RESP 18; TEMP 36.3; O2SAT 96
[2023-12-22] MEDS: eptinezumab-jjmr 300 MG in sodium chloride 0.9% (100 ml) 100 ML 206 MG IV (14:16)
[2023-12-22 14:56] VITALS: BP 128/77; PULSE 83; RESP 18; TEMP 36.6; O2SAT 98
== END 2024-01-05 23:59 | disposition home or self-care (01) ==
LOC: ONCMED 13:37
PROVIDERS: PCP Family Medicine; Visit Provider Psychiatry & Neurology Neurology
DX: S42.251A Displaced fracture of greater tuberosity of right humerus, initial encounter for closed fracture (principal); X58.XXXA Exposure to other specified factors, initial encounter
CPT/HCPCS: 96413; J3032

== ENCOUNTER → 2023-12-26 08:36 | Outpatient (BNVA) | payer MEDICAID, SELFPAY | PROVIDERS: PCP Family Medicine; Visit Provider Nurse Practitioner Family | DX: L97.812 Non-pressure chronic ulcer of other part of right lower leg with fat layer exposed (principal); L97.822 Non-pressure chronic ulcer of other part of left lower leg with fat layer exposed | CPT/HCPCS: 11042 ==

== ENCOUNTER → 2024-01-02 08:22 | Outpatient (BNVA) | payer MEDICAID, SELFPAY | PROVIDERS: PCP Family Medicine; Visit Provider Nurse Practitioner Family | DX: I96 Gangrene, not elsewhere classified (principal); L97.812 Non-pressure chronic ulcer of other part of right lower leg with fat layer exposed; L97.822 Non-pressure chronic ulcer of other part of left lower leg with fat layer exposed | CPT/HCPCS: 11042 ==

== ENCOUNTER → 2024-01-09 09:13 | Outpatient (BNVA) | payer MEDICAID, SELFPAY | PROVIDERS: PCP Family Medicine; Visit Provider Nurse Practitioner Family | DX: I96 Gangrene, not elsewhere classified (principal); L97.812 Non-pressure chronic ulcer of other part of right lower leg with fat layer exposed; L97.822 Non-pressure chronic ulcer of other part of left lower leg with fat layer exposed | CPT/HCPCS: 11042 ==

== ENCOUNTER → 2024-01-16 09:44 | Outpatient (BNVA) | payer MEDICAID, SELFPAY | PROVIDERS: PCP Family Medicine; Visit Provider Nurse Practitioner Family | DX: I96 Gangrene, not elsewhere classified (principal); L97.811 Non-pressure chronic ulcer of other part of right lower leg limited to breakdown of skin; L97.821 Non-pressure chronic ulcer of other part of left lower leg limited to breakdown of skin | CPT/HCPCS: 97597 ==

== ENCOUNTER → 2024-01-23 08:58 | Outpatient (BNVA) | payer MEDICAID, SELFPAY | PROVIDERS: PCP Family Medicine; Visit Provider Nurse Practitioner Family | DX: I96 Gangrene, not elsewhere classified (principal); L97.821 Non-pressure chronic ulcer of other part of left lower leg limited to breakdown of skin; Z09 Encounter for follow-up examination after completed treatment for conditions other than malignant neoplasm | CPT/HCPCS: 97597 ==

== ENCOUNTER 2024-01-26 08:09 | Outpatient (CLI) | payer MEDICAID, SELFPAY ==
--- NOTE | 2024-01-26 08:16 | XR_ITS ---
WS: [id number] Right hip, AP and frog-leg views, 01/26/2024 Clinical Data: R HIP JOINT PAIN Comparison: None. Findings: No fractures or dislocations are seen. The right hip shows no erosion, sclerosis, narrowing or fragme ntation of the right femoral head. The soft tissues are not remarkable. The adjacent pelvis is normal . Impression: Negative right hip. Tonnis classification: grade 0: normal radiographs
== END 2024-01-26 08:10 | disposition home or self-care (01) ==
LOC: RAD 08:10
PROVIDERS: PCP Family Medicine; Visit Provider Family Medicine
DX: M25.551 Pain in right hip (principal)
CPT/HCPCS: 73502

== ENCOUNTER → 2024-01-30 09:12 | Outpatient (BNVA) | payer MEDICAID, SELFPAY | PROVIDERS: PCP Family Medicine; Visit Provider Nurse Practitioner Family | DX: Z09 Encounter for follow-up examination after completed treatment for conditions other than malignant neoplasm (principal); Z87.2 Personal history of diseases of the skin and subcutaneous tissue | CPT/HCPCS: 99212 ==

== ENCOUNTER 2024-04-05 10:19 | Oncology outpatient (recurring) (ONCR) | payer MEDICAID, SELFPAY ==
[2024-04-05] MEDS: eptinezumab-jjmr 300 MG in sodium chloride 0.9% (100 ml) 100 ML 206 MG IV (11:43)
[2024-04-05 12:18] VITALS: BP 135/74; PULSE 96; RESP 18; TEMP 36.1; O2SAT 96
== END 2024-04-06 23:59 | disposition home or self-care (01) ==
PROVIDERS: PCP Family Medicine; Visit Provider Internal Medicine Medical Oncology
DX: S42.251A Displaced fracture of greater tuberosity of right humerus, initial encounter for closed fracture (principal); X58.XXXA Exposure to other specified factors, initial encounter; G43.719 Chronic migraine without aura, intractable, without status migrainosus; Z79.899 Other long term (current) drug therapy
CPT/HCPCS: 96413; J3032

== ENCOUNTER → 2024-07-05 11:26 | Outpatient (BNVA) | payer MEDICAID, SELFPAY | PROVIDERS: PCP Family Medicine; Referring Provider Family Medicine; Visit Provider Internal Medicine | DX: R68.89 Other general symptoms and signs (principal); E66.01 Morbid (severe) obesity due to excess calories; Z68.44 Body mass index [BMI] 60.0-69.9, adult; Z79.85 Long-term (current) use of injectable non-insulin antidiabetic drugs | CPT/HCPCS: 36415; 84305; 84443; 99204 ==

== ENCOUNTER 2024-07-06 08:30 | Oncology outpatient (recurring) (ONCR) | payer MEDICAID, SELFPAY ==
--- NOTE | 2024-06-28 08:45 | PC.NURSE ---
patient in for infusion, orders are and patient appt canceled. patient to be rescheduled once new orders in from provider. patient verbalized understanding.
[2024-07-06 09:09] VITALS: BP 144/80; PULSE 81; RESP 16; TEMP 36.6; O2SAT 98
[2024-07-06] MEDS: eptinezumab-jjmr 300 MG in sodium chloride 0.9% (100 ml) 100 ML 206 MG IV (09:33)
[2024-07-06 10:19] VITALS: BP 140/80; PULSE 80; RESP 16; TEMP 36.9; O2SAT 99
== END 2024-07-07 23:59 | disposition home or self-care (01) ==
PROVIDERS: PCP Family Medicine; Visit Provider Internal Medicine Medical Oncology
DX: S42.251A Displaced fracture of greater tuberosity of right humerus, initial encounter for closed fracture (principal); X58.XXXA Exposure to other specified factors, initial encounter; Z79.899 Other long term (current) drug therapy
CPT/HCPCS: 96413; A4222; J3032

== ENCOUNTER 2024-07-11 16:30 | Outpatient (CLI) | payer MEDICAID, SELFPAY ==
[2024-07-11 17:35] LABS: Urine Creatinine 71 mg/dL (28-217)
[2024-07-11 17:57] LABS: Creatinine 24 Hour Urine 1789.2 mg/dL (601-1689); Total Volume Urine 2520 ml
== END 2024-07-11 16:31 | disposition home or self-care (01) ==
LOC: LAB 16:31
PROVIDERS: PCP Family Medicine; Visit Provider Internal Medicine
DX: E66.01 Morbid (severe) obesity due to excess calories (principal); R68.89 Other general symptoms and signs; Z68.43 Body mass index [BMI] 50.0-59.9, adult
CPT/HCPCS: 82530; 82570

== ENCOUNTER → 2024-07-19 11:17 | Outpatient (BNVA) | payer MEDICAID, SELFPAY | PROVIDERS: PCP Family Medicine; Visit Provider Internal Medicine | DX: E11.9 Type 2 diabetes mellitus without complications (principal); R68.89 Other general symptoms and signs; E66.9 Obesity, unspecified; Z68.44 Body mass index [BMI] 60.0-69.9, adult; Z79.84 Long term (current) use of oral hypoglycemic drugs | CPT/HCPCS: 99214 ==

== ENCOUNTER 2024-08-18 22:22 | Emergency (ER) | payer MEDICAID, SELFPAY ==
[2024-08-07 15:12] VITALS: BP 112/76; BMI 62.0
[2024-08-18 22:37] VITALS: BP 142/92; PULSE 103; RESP 17; TEMP 36.5; O2SAT 92; BMI 59.5
== END 2024-08-18 22:53 | disposition left against medical advice (07) ==
LOC: ER 22:26
PROVIDERS: Emergency Provider Family Medicine; PCP Family Medicine
DX: Z53.21 Procedure and treatment not carried out due to patient leaving prior to being seen by health care provider (principal)

== ENCOUNTER 2024-09-05 19:19 | Emergency (ER) | payer MEDICAID, SELFPAY ==
[2024-08-07 15:12] VITALS: BP 112/76; BMI 62.0
[2024-09-05 19:20] VITALS: BP 181/108; PULSE 88; RESP 18; TEMP 36.4; O2SAT 95; BMI 60.2
[2024-09-05 19:30] VITALS: BP 154/120; PULSE 90; RESP 16; O2SAT 100
--- NOTE | 2024-09-05 19:47 | ECG_ITS ---
[facility]24[facility]05 Pat Name: Leisa Benjamin Department: Room: Gender: Female Travel Money Advisor: : 1980 Requested By: Debora Isaac Order Number: [id number] Jarvis MD: Kathy Babcock M.D. Measurements Intervals [place] Rate: 90 P: 63 ID: [id number] QRS: 47 QRSD: 90 T: 42 QT: 357 QTc: 439 Interpretive Statements SINUS RHYTHM POSSIBLE LEFT ATRIAL ENLARGEMENT [-0.1mV P-WAVE IN V1/V2] No previous ECG available for comparison Electronically Signed On 09-06-2024 12:11:59 CDT by Kathy Babcock M.D. [id number]
[2024-09-05 20:05] LABS: Bilirubin Urine Negative (Negative); Blood Urine Negative (Negative); Glucose Urine UA 2+ (Normal); Ketones Urine Negative (Negative); Leukocyte Esterase Urine Negative (Negative); Nitrate Urine Negative (Negative); Protein Urine Negative (Negative); Specific Gravity, Urine 1.019 (1.005-1.030); Urine Appearance Clear (CLEAR); Urine Color Yellow (Yellow); pH Urine 7.5 (5-7)
[2024-09-05 20:14] LABS: Basophils % 0.4 %; Eosinophils # 0.6 10^3/uL (0.0-0.8); Eosinophils % 6.4 %; Hematocrit 35.9 % (36-47); Lymphocytes # 2.2 10^3/uL (0.8-4.8); Lymphocytes % 23.4 %; Mean Corpuscular HGB Conc 30.1 g/dL (30-55); Mean Corpuscular Volume 73.3 fl (85-98); Monocytes # 0.8 10^3/uL (0.2-0.9); Neutrophils # 5.77 10^3/uL (1.8-7.7); Neutrophils % 61.2 %; Nucleated Red Blood Cells % 0 %; Platelet Count 308 10^3/cmm (157-399); Red Cell Distribution Width 18.3 % (12.1-15.1); White Blood Count 9.43 10^3/uL (3.29-11.43)
[2024-09-05 20:15] LABS: Squamous Epithelial Cell Urine 0-4 /hpf (0-5)
[2024-09-05 20:30] VITALS: BP 121/81; PULSE 96; O2SAT 98
[2024-09-05 20:32] LABS: Alanine Aminotransferase 23 U/L (0-33); Albumin Level 3.6 g/dL (3.5-5.2); Alkaline Phosphatase 137 U/L (35-105); Aspartate Amino Transferase 20 U/L (0-32); Blood Urea Nitrogen 12 mg/dL (6-20); Calcium 8.2 mg/dL (8.5-10.5); Carbon Dioxide 25 mmol/L (22-29); Chloride 104 mmol/L (98-107); Creatinine Clr Calc Pharmacy 133.1044; Globulin 2.8 g/dL (1.3-4.6); Glomerular Filtration Rate 67.7 mL/min (90-130); Glucose 109 mg/dL (65-115); Osmolality Calculated 290 mOsm/kg (285-295); Sodium 140 mmol/L (136-145); Total Bilirubin 0.2 mg/dL (0.15-1.2); Total Protein 6.4 g/dL (6.6-8.7)
[2024-09-05 20:35] LABS: Troponin(5th) Baseline 10 ng/L (0-10)
--- NOTE | 2024-09-05 20:53 | ED_ITS ---
HPI - Headache 2 General: Chief Complaint: Headache Stated Complaint: HTN, Headache Time Seen by Provider: 09/05/24 19:22 History of Present Illness: 44-year-old female who presents emergenc y room with headache by ambulance. She says she had a headache all day and checked her blood pressure and it was low and her heart rate was kind of fast. She then checked it later and it was high. She said her heart rates been bouncing around and she has a history of SVT. So she called ambulance. No chest pain. No shortness of breath. No altered mental status. No focal motor deficits. No nausea or vomiting. Related Data Home Medications Medication Instructions Recorded Confirmed fluticasone propionate 50 2 spray intranasal DAILY 11/14/19 08/03/24 mcg/actuation nasal spray,suspension rizatriptan 10 mg tablet 10 mg PO DAILY PRN Migraine 01/02/21 08/03/24 Headache dicyclomine 10 mg capsule 10 mg PO QID PRN Diarrhea 06/17/22 08/03/24 ondansetron HCl 4 mg tablet 4 mg PO Q8H PRN Nausea And Vomiting 06/17/22 08/03/24 eptinezumab-jjmr 100 mg/mL 300 mg IV Q90D 09/27/22 08/03/24 intravenous solution (Vyepti) colestipol 1 gram tablet 2 g PO BID 12/10/22 08/03/24 latanoprost 0.005 % eye drops 1 drp ophthalmic (eye) BEDTIME 12/30/22 08/03/24 topiramate 100 mg tablet 100 mg PO BEDTIME 12/30/22 08/03/24 methylphenidate HCl 20 mg tablet 20 mg PO .1 pm 10/28/23 08/03/24 (Ritalin) methylphenidate HCl 20 mg 40 mg PO DAILY 10/28/23 08/03/24 tablet,extended release losartan 25 mg tablet 12.5 mg PO DAILY 01/20/24 08/03/24 dulaglutide 0.75 mg/0.5 mL 1.5 mg SUBCUT 04/27/24 08/03/24 subcutaneous pen injector (Trulicity) metoclopramide HCl 5 mg tablet 5 mg PO QID 04/27/24 08/03/24 (Reglan) pantoprazole 40 mg tablet,delayed 40 mg PO DAILY 04/27/24 08/03/24 release (Protonix) Previous Rx's Medication Instructions Recorded Night splint #1 ea 09/07/21 pregabalin 200 mg capsule 200 mg PO TID 90 days #270 caps 01/25/22 naloxone 4 mg/actuation nasal 4 mg intranasal Q2M PRN opioid 05/20/23 spray (Narcan) overdose #2 ea triamcinolone acetonide 0.1 % 1 applic topical BID #60 mL 06/23/23 lotion tizanidine 2 mg tablet See Rx Instructions .Route 08/30/23 .COMPLEX #90 tabs albuterol sulfate 90 mcg/actuation 1 inh inhalation Q6H #8.5 grams 09/15/23 aerosol inhaler (Ventolin HFA) meloxicam 7.5 mg tablet See Rx Instructions .Route 12/27/23 .COMPLEX #60 tabs metoprolol tartrate 25 mg tablet See Rx Instructions .Route 12/27/23 .COMPLEX #60 tabs prednisone 20 mg tablet 60 mg (3 x 20 mg) PO DAILY 5 days 03/18/24 #15 tabs varenicline 1 mg tablet See Rx Instructions .Route 03/21/24 .COMPLEX #56 tabs hydroxyzine HCl 50 mg tablet See Rx Instructions .Route 04/23/24 .COMPLEX #45 tabs lamotrigine 200 mg tablet,extended See Rx Instructions .Route 04/26/24 release 24 hr .COMPLEX #30 tabs lurasidone 20 mg tablet See Rx Instructions .Route 04/26/24 .COMPLEX #30 tabs empagliflozin 25 mg tablet 25 mg PO DAILY #90 tabs 07/19/24 (Jardiance) Allergies Allergy/AdvReac Type Severity Reaction Status Date / Time fentanyl Allergy Severe ANAPHYLAXIS Verified 08/18/24 22:41 guaifenesin [From Mucinex] Allergy Severe ANAPHYLAXIS Verified 08/18/24 22:41 tramadol Allergy Severe SEIZURE Verified 08/18/24 22:41 adhesive Allergy Intermediate RASH Verified 08/18/24 22:41 amoxicillin Allergy Intermediate RASH Verified 08/18/24 22:41 azithromycin Allergy Intermediate RASH Verified 08/18/24 22:41 cariprazine [From Vraylar] Allergy Intermediate HIVES Verified 08/18/24 22:41 latex Allergy Intermediate HIVES Verified 08/18/24 22:41 methocarbamol Allergy Intermediate HIVES Verified 08/18/24 22:41 metronidazole [From Flagyl] Allergy Intermediate VOMITING Verified 08/18/24 22:41 morphine Allergy Intermediate VOMITING Verified 08/18/24 22:41 solriamfetol [From Sunosi] Allergy Intermediate ADR-Seizure Verified 08/18/24 22:41 sulfamethoxazole Allergy Intermediate ALGY-Hives Verified 08/18/24 22:41 [From Bactrim] sumatriptan Allergy Intermediate RASH Verified 08/18/24 22:41 trimethoprim [From Bactrim] Allergy Intermediate ALGY-Hives Verified 08/18/24 22:41 zolpidem [From Ambien] Allergy Intermediate RASH Verified 08/18/24 22:41 Alpha-Gal Allergy ADR-Gastrointestinal Verified 08/18/24 22:41 (Lqsqdoesd-Mcxrc-4,3-Gala Upset oxycodone Allergy Unknown Verified 08/18/24 22:41 Review of Systems 2 Narrative: Constitutional symptoms: Negative except as documented in HPI. Skin symptoms: Negative except as documented in HPI. Eye symptoms: Negative except as documented in HPI. ENMT symptoms: Negative except as documented in HPI. Respiratory symptoms: Negative except as documented in HPI. Cardiovascular symptoms: Negative except as documented in HPI. Gastrointestinal symptoms: Negative except as documented in HPI. Genitourinary symptoms: Negative except as documented in HPI. Musculoskeletal symptoms: Negative except as documented in HPI. Neurologic symptoms: Negative except as documented in HPI. Psychiatric symptoms: Negative except as documented in HPI. Endocrine symptoms: Negative except as documented in HPI. 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 Acute bilateral low back pain with left-sided sciatica Spondylosis without myelopathy or radiculopathy, lumbar region Cholecystectomy planned Surgical History History of cholecystectomy Tubal ligation status Family History Brother Hypertension CAD (coronary artery disease) Diabetes Father Hypertension Mother Hypertension CAD (coronary artery disease) Social History Smoking and tobacco/nicotine status: never used tobacco/nicotine Quit status (tobacco/nicotine): has tried quititng Number of times tried to quit tobacco: 10 Second hand smoke exposure: Yes Alcohol intake: former Year of sobriety/quit date alcohol: 2009 Substance/Drug Use: former Date of last use: 2015 Current gender identity: Female Physical Exam 2 Narrative: EXAM NARRATIVE: General: Alert, no acute distress. Skin: Warm, dry. Head: Normocephalic, atraumatic. Neck: Supple, trachea midline. Eye: Extraocular movements are intact. Ears, nose, mouth and throat: mucosa moist. Cardiovascular: Regular, Normal peripheral perfusion. Respiratory: Lungs are clear to auscultation, respirations are non-labored, breath sounds are equal, Symmetrical chest wall expansion. Gastrointestinal: Soft, Nontender, Non distended Musculoskeletal: Normal ROM, no deformity. Neurological: Alert and oriented, No focal neurological deficit observed. Psychiatric: Cooperative, appropriate mood & affect. Course 2 Vital Signs: Vital signs: Vital Signs Temperature 97.5 F L 09/05/24 19:20 Pulse Rate 96 09/05/24 20:30 Respiratory Rate 16 09/05/24 19:30 Blood Pressure 121/81 09/05/24 20:30 Pulse Oximetry 98 09/05/24 20:30 Oxygen Delivery Me thod Room Air 09/05/24 20:30 MDM - Headache Medical Decision Making Medical decision making: Differential diagnosis including but not limited to and based on the above HPI, review of systems and physical exam: Patient presents with hypertension: Essential hypertension. Stroke. acute coronary syndrome. kidney failure. congestive heart failure. anxiety Orders placed to evaluate differential diagnosis based on the above differential, HPI and physical exam EKG: Time 194. Rate 90. Normal sinus rhythm, No ST-T changes, no ectopy, normal CO & QRS intervals, This was reviewed and interpreted by myself the ER physician at 1950. Lab Review: Laboratory results were reviewed and interpreted by myself the emergency room physician. Lab work is unremarkable. I reviewed the patient's medical record. Reexamination: Patient remained stable. No increased work of breathing. No altered mental status. No focal motor deficits. Assessment and plan: Hypertension Headache Possible anxiety ?P.o. Ativan in the emergency room - Discharged home - Discussed plan with patient. Answered any questions. - Evaluation and treatment of this problem were appropriate in the emergency setting. Lab Data 09/05/24 19:50 09/05/24 19:50 Laboratory Results WBC 9.43 10^3/uL (3.29-11.43) 09/05/24 19:50 RBC 4.90 10^6/uL (3.85-5.65) 09/05/24 19:50 Hgb 10.80 g/dL (11.27-16.99) L 09/05/24 19:50 Hct 35.9 % (36-47) L 09/05/24 19:50 MCV 73.3 fl (85-98) L 09/05/24 19:50 MCH 22.0 pg (27-33) L 09/05/24 19:50 MCHC 30.1 g/dL (30-55) 09/05/24 19:50 RDW 18.3 % (12.1-15.1) H 09/05/24 19:50 Plt Count 308 10^3/cmm (157-399) 09/05/24 19:50 MPV 9.0 fL (7.4-10.4) 09/05/24 19:50 Neut % (Auto) 61.2 % 09/05/24 19:50 Lymph % (Auto) 23.4 % 09/05/24 19:50 [place] % (Auto) 8.0 % 09/05/24 19:50 Eos % (Auto) 6.4 % 09/05/24 19:50 Baso % (Auto) 0.4 % 09/05/24 19:50 Neut # (Auto) 5.77 10^3/uL (1.8-7.7) 09/05/24 19:50 Lymph # (Auto) 2.2 10^3/uL (0.8-4.8) 09/05/24 19:50 [place] # (Auto) 0.8 10^3/uL (0.2-0.9) 09/05/24 19:50 Eos # (Auto) 0.6 10^3/uL (0.0-0.8) 09/05/24 19:50 Baso # (Auto) 0.0 10^3/uL (0.0-0.1) 09/05/24 19:50 Nucleated RBC % (auto) 0 % 09/05/24 19:50 Nucleated RBCs # 0.0 /100WBC 09/05/24 19:50 Sodium 140 mmol/L (136-145) 09/05/24 19:50 Potassium 4.0 mmol/L (3.5-5.1) 09/05/24 19:50 Chloride 104 mmol/L (98-107) 09/05/24 19:50 Carbon Dioxide 25 mmol/L (22-29) 09/05/24 19:50 Anion Gap 15.0 (5-19) 09/05/24 19:50 BUN 12 mg/dL (6-20) 09/05/24 19:50 Creatinine 0.9 mg/dL (0.5-0.9) 09/05/24 19:50 GFR Calculation 67.7 mL/min (90-130) L 09/05/24 19:50 Glucose 109 mg/dL (65-115) 09/05/24 19:50 Calculated Osmolality 290 mOsm/kg (285-295) 09/05/24 19:50 Calcium 8.2 mg/dL (8.5-10.5) L 09/05/24 19:50 Total Bilirubin 0.2 mg/dL (0.15-1.2) 09/05/24 19:50 AST 20 U/L (0-32) 09/05/24 19:50 ALT 23 U/L (0-33) 09/05/24 19:50 Alkaline Phosphatase 137 U/L (35-105) H 09/05/24 19:50 Troponin T Baseline 10 ng/L (0-10) 09/05/24 19:50 Total Protein 6.4 g/dL (6.6-8.7) L 09/05/24 19:50 Albumin 3.6 g/dL (3.5-5.2) 09/05/24 19:50 Globulin 2.8 g/dL (1.3-4.6) 09/05/24 19:50 Urine Color Yellow (Yellow) 09/05/24 19:45 Urine Appearance Clear (CLEAR) 09/05/24 19:45 Urine pH 7.5 (5-7) 09/05/24 19:45 Ur Specific [place] 1.019 (1.005-1.030) 09/05/24 19:45 Urine Protein Negative (Negative) 09/05/24 19:45 Urine Glucose (UA) 2+ (Normal) H 09/05/24 19:45 Urine Ketones Negative (Negative) 09/05/24 19:45 Urine Blood Negative (Negative) 09/05/24 19:45 Urine Nitrate Negative (Negative) 09/05/24 19:45 Urine Bilirubin Negative (Negative) 09/05/24 19:45 Urine Urobilinogen 1.0 mg/dL (Negative) 09/05/24 19:45 Ur Leukocyte Esterase Negative (Negative) 09/05/24 19:45 Urine RBC None /hpf (0-2) 09/05/24 19:45 Urine WBC None /hpf (0-5) 09/05/24 19:45 Ur Squamous Epith Cells 0-4 /hpf (0-5) H 09/05/24 19:45 Amorphous Sediment Not Reportable 09/05/24 19:45 Urine Bacteria None /hpf (NONE) 09/05/24 19:45 No radiology studies performed this visit Discharge Plan Discharge Patient Disposition: Home Clinical Impression: Headache, Hypertension Condition: Stable Prescriptions: No Action pantoprazole [Protonix] 40 mg tablet,delayed release (DR/EC) 40 mg PO DAILY pregabalin 200 mg capsule 200 mg PO TID 90 Days Qty: 270 1RF fluticasone propionate 50 mcg/actuation spray,suspension 2 spray INTRANASAL DAILY (DME) Night splint See Rx Instructions .Route .MEDSUPPLY Qty: 1 0RF Rx Instructions: As directed methylphenidate HCl [Ritalin] 20 mg tablet 20 mg PO .1 pm methylphenidate HCl 20 mg tablet extended release 40 mg PO DAILY Trulicity 0.75 mg/0.5 mL pen injector 1.5 mg SUBCUT losartan 25 mg tablet 12.5 mg PO DAILY prednisone 20 mg tablet 60 mg PO DAILY 5 Days Qty: 15 0RF ondansetron HCl 4 mg tablet 4 mg PO Q8H PRN (Reason: Nausea And Vomiting) dicyclomine 10 mg capsule 10 mg PO QID PRN (Reason: Diarrhea) Vyepti 100 mg/mL solution 300 mg IV Q90D colestipol 1 gram tablet 2 g PO BID metoclopramide HCl [Reglan] 5 mg tablet 5 mg PO QID triamcinolone acetonide 0.1 % lotion 1 applic topical BID Qty: 60 3RF albuterol sulfate [Ventolin HFA] 90 mcg/actuation HFA aerosol inhaler 1 inh inhalation Q6H Qty: 8.5 0RF Jardiance 25 mg tablet 25 mg PO DAILY Qty: 90 1RF naloxone [Narcan] 4 mg/actuation spray,non-aerosol 4 mg intranasal Q2M PRN (Reason: opioid overdose) Qty: 2 0RF Rx Instructions: spray 1 dose into ONE nostril; alternate nostrils w each dose until help arrives tizanidine 2 mg tablet See Rx Instructions .ROUTE .COMPLEX Qty: 90 1RF Dose Instruction: TAKE 1 TABLET BY MOUTH THREE TIMES DAILY NEEDED FOR MUSCLE SPASTICITY Rx Instructions: TAKE 1 TABLET BY MOUTH THREE TIMES DAILY NEEDED FOR MUSCLE SPASTICITY metoprolol tartrate 25 mg tablet See Rx Instructions .ROUTE .COMPLEX Qty: 60 0RF Dose Instruction: TAKE ONE TABLET BY MOUTH TWICE DAILY Rx Instructions: TAKE ONE TABLET BY MOUTH TWICE DAILY meloxicam 7.5 mg tablet See Rx Instructions .ROUTE .COMPLEX Qty: 60 0RF Dose Instruction: TAKE 1 TABLET BY MOUTH TWICE DAILY Rx Instructions: TAKE 1 TABLET BY MOUTH TWICE DAILY varenicline 1 mg tablet See Rx Instructions .ROUTE .COMPLEX Qty: 56 5RF Dose Instruction: TAKE 1 TABLET BY MOUTH TWICE DAILY Rx Instructions: TAKE 1 TABLET BY MOUTH TWICE DAILY hydroxyzine HCl 50 mg tablet See Rx Instructions .ROUTE .COMPLEX Qty: 45 11RF Dose Instruction: TAKE 1 & 1/2 TABLETS BY MOUTH AT BEDTIME Rx Instructions: TAKE 1 & 1/2 TABLETS BY MOUTH AT BEDTIME lurasidone 20 mg tablet See Rx Instructions .ROUTE .COMPLEX Qty: 30 11RF Dose Instruction: TAKE 1 TABLET BY MOUTH AT BEDTIME. MUST TAKE WITH FOOD AT LEAST 350 CALORIES Rx Instructions: TAKE 1 TABLET BY MOUTH AT BEDTIME. MUST TAKE WITH FOOD AT LEAST 350 CALORIES lamotrigine 200 mg tablet extended release 24hr See Rx Instructions .ROUTE .COMPLEX Qty: 30 11RF Dose Instruction: TAKE 1 TABLET BY MOUTH AT BEDTIME Rx Instructions: TAKE 1 TABLET BY MOUTH AT BEDTIME rizatriptan 10 mg tablet 10 mg PO DAILY PRN (Reason: Migraine Headache) latanoprost 0.005 % drops 1 drp ophthalmic (eye) BEDTIME topiramate 100 mg tablet 100 mg PO BEDTIME Discharge Orders: Discharge ED (Routine); Ordered 09/05/24 Ordered By: Debora Curiel Referrals: Marcelle Wagner DO [Primary Care Provider] - Discharge Diet: Usual diet Discharge Activity: Increase activity as tolerated Patient Instructions: Acute Headache (ED), Opioid Safety, Pain Management Activity Restrictions/Additional Instructions: Thank you for choosing [facility] for your healthcare needs today. Please realize this is an emergency room and that we are providing you with a medical screening exam and this may not be complete and all inclusive of all the testing and or work up that you may need to determine your ailment or severity of your illness. You have been screened and evaluated and felt safe for discharge. Health conditions do change or evolve sometimes and as such it is important that you follow up with your Primary Doctor to be re checked, 3-5 days is a general good time frame for follow up. You are always welcome to return to the ED for re assessment if your symptoms are worsening or you have new concerns Coding Level of Care Code ED Assistant Sales Director for Claudia Muniz
[2024-09-05] MEDS: LORazepam 1 mg Tablet PO (20:55)
[2024-09-05 21:03] VITALS: BP 125/78; PULSE 90; O2SAT 99
== END 2024-09-05 21:05 | disposition home or self-care (01) ==
PROVIDERS: Emergency Provider Emergency Medicine; PCP Family Medicine
DX: R51.9 Headache, unspecified (principal); I10 Essential (primary) hypertension; Z79.85 Long-term (current) use of injectable non-insulin antidiabetic drugs; Z72.0 Tobacco use
CPT/HCPCS: 36415; 80053; 81001; 84484; 85025; 93005; 99284

== ENCOUNTER → 2024-09-20 08:17 | Outpatient (BNVA) | payer MEDICAID, SELFPAY ==
[2024-08-07 15:12] VITALS: BP 112/76; BMI 62.0
== END ==
PROVIDERS: PCP Family Medicine; Visit Provider Internal Medicine Cardiovascular Disease
DX: R00.2 Palpitations (principal); I49.1 Atrial premature depolarization; I49.3 Ventricular premature depolarization
CPT/HCPCS: 93225

== ENCOUNTER 2024-09-28 08:35 | Oncology outpatient (recurring) (ONCR) | payer MEDICAID, SELFPAY ==
[2024-08-07 15:12] VITALS: BP 112/76; BMI 62.0
[2024-09-28 08:45] VITALS: BP 145/85; PULSE 89; RESP 18; TEMP 36.6; O2SAT 97
[2024-09-28] MEDS: eptinezumab-jjmr 300 MG in sodium chloride 0.9% (100 ml) 100 ML 206 MG IV (09:06)
[2024-09-28 09:40] VITALS: BP 129/85; PULSE 84; RESP 17; TEMP 36.6; O2SAT 97
== END 2024-10-06 23:59 | disposition home or self-care (01) ==
PROVIDERS: PCP Family Medicine; Visit Provider Internal Medicine Medical Oncology
DX: S42.251A Displaced fracture of greater tuberosity of right humerus, initial encounter for closed fracture (principal); X58.XXXA Exposure to other specified factors, initial encounter; Z79.899 Other long term (current) drug therapy
CPT/HCPCS: 96413; J3032

== ENCOUNTER 2024-10-24 08:05 | Outpatient (CLI) | payer MEDICAID, SELFPAY ==
[2024-08-07 15:12] VITALS: BP 112/76; BMI 62.0
[2024-10-24 09:24] LABS: Creatinine Urine, Random 109 mg/dL (28-217); Microalbum Creatinine Ratio Ur 9 mg/dL (0-20); Microalbumin Random Urine 1 ug/dL (0-20)
[2024-10-24 09:24] LABS: Free T4 Free Thyroxine 1.11 ng/dL (0.82-1.77)
== END 2024-10-24 08:06 | disposition home or self-care (01) ==
LOC: LAB 08:06
PROVIDERS: PCP Family Medicine; Visit Provider Internal Medicine
DX: E11.9 Type 2 diabetes mellitus without complications (principal); R68.89 Other general symptoms and signs; E66.01 Morbid (severe) obesity due to excess calories; Z68.43 Body mass index [BMI] 50.0-59.9, adult
CPT/HCPCS: 36415; 82044; 84439

== ENCOUNTER 2024-11-06 18:02 | Emergency (ER) | payer MEDICAID, SELFPAY ==
[2024-08-07 15:12] VITALS: BP 112/76; BMI 62.0
[2024-11-06 18:04] VITALS: BP 149/81; PULSE 91; RESP 17; TEMP 36.6; O2SAT 98
[2024-11-06 18:17] VITALS: BP 149/81; PULSE 82; RESP 16; O2SAT 95
--- NOTE | 2024-11-06 18:22 | CTR_ITS ---
PROCEDURE INFORMATION: Exam: CT Head Without Contrast Exam date and time: 11/06/2024 6:33 PM Age: 44 years old Clinical indication: Weakness, facial; Additional info: Facial paralysis unable to speak TECHNIQUE: Imaging protocol: Computed tomography of the head without contrast. Radiation optimization: All CT scans at this facility use at least one of these dose optimization techniques: automated exposure control; mA and/or kV adjustment per patient size (includes targeted exams where dose is matched to clinical indication); or iterative reconstruction. COMPARISON: MR head wo con* [id number] 03/03/2023 12:58 PM RADIATION DOSE METRICS: Total DLP (mGy-cm): 1047.68 FINDINGS: Brain: Normal. No hemorrhage. Unremarkable white matter. No mass effect or acute infarct. Cerebral ventricles: No ventriculomegaly. No midline shift. Paranasal sinuses: Visualized sinuses are unremarkable. No fluid levels. Mastoid air cells: Visualized mastoid air cells are well aerated. Bones: Unremarkable. No acute fracture. Soft tissues: Unremarkable. CT/CT head wo con* [id number] IMPRESSION: No acute intracranial abnormality.
--- NOTE | 2024-11-06 18:23 | ECG_ITS ---
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 Measurements Intervals [place] Rate: 79 P: 56 NM: 152 QRS: 61 QRSD: 93 T: 56 QT: 382 QTc: 440 Interpretive Statements SINUS RHYTHM Compared to ECG 09/05/2024 19:47:40 No significant changes Electronically Signed On 11-08-2024 12:31:51 AGRICULTURAL LENDER by Liam Jin M.D. [id number]
--- NOTE | 2024-11-06 18:31 | ED_ITS ---
HPI - Neuro Symptoms/Deficit 2 General: Chief Complaint: Neuro Symptoms/Deficit Stated Complaint: Facial Paralysis Time Seen by Provider: 11/06/24 18:21 History of Present Illness: Patient presents to the ER with complaints of facial paralysis and oral numbness. Patient will not open her eyes or open her mouth. Patient uses a pen and ink pen to communicate even with her eyes closed. Patient is ambulatory up to the cot in her stretcher. EMS stated this patient's said this has been going on for several days. She does have a history of atypical migraines. Upon physical exam she can open her eyes a little bit does not appear to have any local focal neurologic deficits. Does have an extensive migraine and psychiatric history. Related Data Home Medications Medication Instructions Recorded Confirmed fluticasone propionate 50 2 spray intranasal DAILY 11/14/19 10/26/24 mcg/actuation nasal spray,suspension rizatriptan 10 mg tablet 10 mg PO DAILY PRN Migraine 01/02/21 10/26/24 Headache dicyclomine 10 mg capsule 10 mg PO QID PRN Diarrhea 06/17/22 10/26/24 ondansetron HCl 4 mg tablet 4 mg PO Q8H PRN Nausea And Vomiting 06/17/22 10/26/24 eptinezumab-jjmr 100 mg/mL 300 mg IV Q90D 09/27/22 10/26/24 intravenous solution (Vyepti) colestipol 1 gram tablet 2 g PO BID 12/10/22 10/26/24 latanoprost 0.005 % eye drops 1 drp ophthalmic (eye) BEDTIME 12/30/22 10/26/24 topiramate 100 mg tablet 100 mg PO BEDTIME 12/30/22 10/26/24 methylphenidate HCl 20 mg tablet 20 mg PO .1 pm 10/28/23 10/26/24 (Ritalin) methylphenidate HCl 20 mg 40 mg PO DAILY 10/28/23 10/26/24 tablet,extended release losartan 25 mg tablet 12.5 mg PO DAILY 01/20/24 10/26/24 dulaglutide 0.75 mg/0.5 mL 1.5 mg SUBCUT 04/27/24 10/26/24 subcutaneous pen injector (Trulicity) metoclopramide HCl 5 mg tablet 5 mg PO QID 04/27/24 10/26/24 (Reglan) pantoprazole 40 mg tablet,delayed 40 mg PO DAILY 04/27/24 10/26/24 release (Protonix) Previous Rx's Medication Instructions Recorded Night splint #1 ea 09/07/21 pregabalin 200 mg capsule 200 mg PO TID 90 days #270 caps 01/25/22 naloxone 4 mg/actuation nasal 4 mg intranasal Q2M PRN opioid 05/20/23 spray (Narcan) overdose #2 ea triamcinolone acetonide 0.1 % 1 applic topical BID #60 mL 06/23/23 lotion tizanidine 2 mg tablet See Rx Instructions .Route 08/30/23 .COMPLEX #90 tabs albuterol sulfate 90 mcg/actuation 1 inh inhalation Q6H #8.5 grams 09/15/23 aerosol inhaler (Ventolin HFA) meloxicam 7.5 mg tablet See Rx Instructions .Route 12/27/23 .COMPLEX #60 tabs metoprolol tartrate 25 mg tablet See Rx Instructions .Route 12/27/23 .COMPLEX #60 tabs prednisone 20 mg tablet 60 mg (3 x 20 mg) PO DAILY 5 days 03/18/24 #15 tabs hydroxyzine HCl 50 mg tablet See Rx Instructions .Route 04/23/24 .COMPLEX #45 tabs lamotrigine 200 mg tablet,extended See Rx Instructions .Route 04/26/24 release 24 hr .COMPLEX #30 tabs lurasidone 20 mg tablet See Rx Instructions .Route 04/26/24 .COMPLEX #30 tabs empagliflozin 25 mg tablet 25 mg PO DAILY #90 tabs 07/19/24 (Jardiance) varenicline 1 mg tablet See Rx Instructions .Route 09/20/24 .COMPLEX #56 tabs Allergies Allergy/AdvReac Type Severity Reaction Status Date / Time fentanyl Allergy Severe ANAPHYLAXIS Verified 10/26/24 09:19 guaifenesin [From Mucinex] Allergy Severe ANAPHYLAXIS Verified 10/26/24 09:19 tramadol Allergy Severe SEIZURE Verified 10/26/24 09:19 adhesive Allergy Intermediate RASH Verified 10/26/24 09:19 amoxicillin Allergy Intermediate RASH Verified 10/26/24 09:19 azithromycin Allergy Intermediate RASH Verified 10/26/24 09:19 cariprazine [From Vraylar] Allergy Intermediate HIVES Verified 10/26/24 09:19 latex Allergy Intermediate HIVES Verified 10/26/24 09:19 methocarbamol Allergy Intermediate HIVES Verified 10/26/24 09:19 metronidazole [From Flagyl] Allergy Intermediate VOMITING Verified 10/26/24 09:19 morphine Allergy Intermediate VOMITING Verified 10/26/24 09:19 solriamfetol [From Sunosi] Allergy Intermediate ADR-Seizure Verified 10/26/24 09:19 sulfamethoxazole Allergy Intermediate ALGY-Hives Verified 10/26/24 09:19 [From Bactrim] sumatriptan Allergy Intermediate RASH Verified 10/26/24 09:19 trimethoprim [From Bactrim] Allergy Intermediate ALGY-Hives Verified 10/26/24 09:19 zolpidem [From Ambien] Allergy Intermediate RASH Verified 10/26/24 09:19 Alpha-Gal Allergy ADR-Gastrointestinal Verified 10/26/24 09:19 (Gzljtzvll-Qbdgb-5,3-Gala Upset oxycodone Allergy Unknown Verified 10/26/24 09:19 Review of Systems 2 General: Reports: 10 or more systems reviewed and unremarkable except in HPI and below 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 Acute bilateral low back pain with left-sided sciatica Spondylosis without myelopathy or radiculopathy, lumbar region Cholecystectomy planned Surgical History History of cholecystectomy Tubal ligation status Family History Brother Hypertension CAD (coronary artery disease) Diabetes Father Hypertension Mother Hypertension CAD (coronary artery disease) Social History Smoking and tobacco/nicotine status: never used tobacco/nicotine Quit status (tobacco/nicotine): has tried quititng Number of times tried to quit tobacco: 10 Second hand smoke exposure: Yes Alcohol intake: former Year of sobriety/quit date alcohol: 2009 Substance/Drug Use: former Date of last use: 2015 Current gender identity: Female Physical Exam 2 Const: COMMON NORMALS: no acute distress, average body habitus, patient oriented x3, no limitations, healthy appearing, alert and well nourished HENMT: COMMON NORMALS: normocephalic, atraumatic, hearing grossly normal bilaterally, external ears normal and Normal external nose present HEAD & SCALP: normocephalic and atraumatic NOSE: Normal external nose present E XTERNAL EAR: Yes external ears normal Eye: OTHER: Refuses to open her eyes Neck/C-Spine: COMMON NORMALS: full ROM, no lymphadenopathy, no meningeal signs, no JVD and Thyroid normal THYROID: Thyroid normal Chest: COMMONS NORMALS: normal inspection of the chest and normal palpation of entire chest wall Resp: COMMON NORMALS: normal respiratory effort, No retractions, No use of accessory muscles and clear to auscultation bilaterally AUSCULTATION: clear to auscultation bilaterally Cardio: COMMON NORMALS: no JVD, regular rate, regular rhythm, S1 normal heart sound present, S2 normal heart sound present, No gallops present (Cardio), No clicks present (Cardio), No murmurs present (Cardio) and No rub (Cardio) R ATE: regular rate RHYTHM: regular rhythm HEART SOUNDS: S1 normal heart sound present and S2 normal heart sound present GI: COMMON NORMALS: Normal to inspection, nondistended, normoactive bowel sounds present, Soft to palpation, non-tender, No hepatosplenomegaly present and no masses PALPATION: Yes Soft to palpation and Yes No hepatosplenomegaly present Neuro: COMMON NORMALS: patient oriented x3 SENSORIUM/ORIENTATION: Yes alert MENINGEAL SIGNS: Yes no meningeal signs OTHER: Refuses to open eyes mouth or speak Course 2 Vital Signs: Vital signs: Vital Signs Temperature 97.9 F 11/06/24 18:04 Pulse Rate 82 11/06/24 18:17 Respiratory Rate 18 11/06/24 20:42 Blood Pressure 149/81 11/06/24 18:17 Pulse Oximetry 97 11/06/24 20:42 Oxygen Delivery Me thod Room Air 11/06/24 20:42 MDM - Neuro Symptoms/Deficit Medical Decision Making Awaiting for lab work and CT to come back. Patient was able to start moving her eyebrows and eyes she was able to move her mouth and have simple syllables come out. 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 Leisa Treviño in [place] for this. Patient be discharged home. Medical Records I reviewed the patient's medical records. Lab Data I reviewed the patient's lab results. 11/06/24 19:11 11/06/24 19:[address] 11/06/24 18:22 IMPRESSION: No acute intracranial abnormality. Laboratory Results WBC 10.59 10^3/uL (3.29-11.43) 11/06/24 19:11 RBC 5.36 10^6/uL (3.85-5.65) 11/06/24 19:11 Hgb 12.00 g/dL (11.27-16.99) 11/06/24 19:11 Hct 39.7 % (36-47) 11/06/24 19:11 MCV 74.1 fl (85-98) L 11/06/24 19:11 MCH 22.4 pg (27-33) L 11/06/24 19:11 MCHC 30.2 g/dL (30-55) 11/06/24 19:11 RDW 21.0 % (12.1-15.1) H 11/06/24 19:11 Plt Count 280 10^3/cmm (157-399) 11/06/24 19:11 MPV 8.8 fL (7.4-10.4) 11/06/24 19:11 Neut % (Auto) 70.3 % 11/06/24 19:11 Lymph % (Auto) 19.5 % 11/06/24 19:11 [place] % (Auto) 7.0 % 11/06/24 19:11 Eos % (Auto) 2.4 % 11/06/24 19:11 Baso % (Auto) 0.5 % 11/06/24 19:11 Neut # (Auto) 7.45 10^3/uL (1.8-7.7) 11/06/24 19:11 Lymph # (Auto) 2.1 10^3/uL (0.8-4.8) 11/06/24 19:11 [place] # (Auto) 0.7 10^3/uL (0.2-0.9) 11/06/24 19:11 Eos # (Auto) 0.3 10^3/uL (0.0-0.8) 11/06/24 19:11 Baso # (Auto) 0.1 10^3/uL (0.0-0.1) 11/06/24 19:11 Nucleated RBC % (auto) 0 % 11/06/24 19:11 Nucleated RBCs # 0.0 /100WBC 11/06/24 19:11 PT 12.50 SECONDS (12.1-14.9) 11/06/24 19:11 INR 0.90 (0.8-1.2) 11/06/24 19:11 Sodium 137 mmol/L (136-145) 11/06/24 19:11 Potassium 3.9 mmol/L (3.5-5.1) 11/06/24 19:11 Chloride 102 mmol/L (98-107) 11/06/24 19:11 Carbon Dioxide 24 mmol/L (22-29) 11/06/24 19:11 Anion Gap 14.9 (5-19) 11/06/24 19:11 BUN 17 mg/dL (6-20) 11/06/24 19:11 Creatinine 0.9 mg/dL (0.5-0.9) 11/06/24 19:11 GFR Calculation 67.7 mL/min (90-130) L 11/06/24 19:11 Glucose 88 mg/dL (65-115) 11/06/24 19:11 Calculated Osmolality 285 mOsm/kg (285-295) 11/06/24 19:11 Calcium 8.8 mg/dL (8.5-10.5) 11/06/24 19:11 Magnesium 2.0 mg/dL (1.7-2.3) 11/06/24 19:11 Total Bilirubin 0.3 mg/dL (0.15-1.2) 11/06/24 19:11 AST 17 U/L (0-32) 11/06/24 19:11 ALT 20 U/L (0-33) 11/06/24 19:11 Alkaline Phosphatase 143 U/L (35-105) H 11/06/24 19:11 Troponin T Baseline 10 ng/L (0-10) 11/06/24 19:11 Troponin T 120 Minute 8.85 ng/L (0-10) 11/06/24 21:10 C-Reactive Protein 44.7 mg/L (0.0-4.9) H 11/06/24 19:11 Total Protein 6.7 g/dL (6.6-8.7) 11/06/24 19:11 Albumin 3.6 g/dL (3.5-5.2) 11/06/24 19:11 Globulin 3.1 g/dL (1.3-4.6) 11/06/24 19:11 Urine Color Yellow (Yellow) 11/06/24 20:36 Urine Appearance Clear (CLEAR) 11/06/24 20:36 Urine pH 5.0 (5-7) 11/06/24 20:36 Ur Specific [place] 1.022 (1.005-1.030) 11/06/24 20:36 Urine Protein Negative (Negative) 11/06/24 20:36 Urine Glucose (UA) 3+ (Normal) H 11/06/24 20:36 Urine Ketones Negative (Negative) 11/06/24 20:36 Urine Blood Negative (Negative) 11/06/24 20:36 Urine Nitrate Negative (Negative) 11/06/24 20:36 Urine Bilirubin Negative (Negative) 11/06/24 20:36 Urine Urobilinogen 0.2 mg/dL (Negative) 11/06/24 20:36 Ur Leukocyte Esterase Negative (Negative) 11/06/24 20:36 Urine RBC 0-2 /hpf (0-2) 11/06/24 20:36 Urine WBC 0-5 /hpf (0-5) 11/06/24 20:36 Ur Squamous Epith Cells 0-5 /hpf (0-5) 11/06/24 20:36 Amorphous Sediment Not Reportable 11/06/24 20:36 Urine Bacteria Trace /hpf (NONE) 11/06/24 20:36 Hyaline Casts 2.46 /lpf 11/06/24 20:36 Urine Opiates Screen Negative ng/mL (Negative) 11/06/24 20:36 Ur Barbiturates Screen Negative ng/mL (Negative) 11/06/24 20:36 Ur Phencyclidine Scrn Negative ng/mL (Negative) 11/06/24 20:36 Ur Amphetamines Screen Positive ng/mL (Negative) H 11/06/24 20:36 U Benzodiazepines Scrn Negative ng/mL (Negative) 11/06/24 20:36 Urine Cocaine Screen Negative ng/mL (Negative) 11/06/24 20:36 U Marijuana (THC) Screen Negative ng/mL (Negative) 11/06/24 20:36 Ethyl Alcohol < 10 mg/dL (0-10) 11/06/24 19:11 All radiology interpretation(s) finalized by discharge Discharge Plan Discharge Patient Disposition: Home Clinical Impression: Narcolepsy and cataplexy Condition: Stable Prescriptions: No Action pantoprazole [Protonix] 40 mg tablet,delayed release (DR/EC) 40 mg PO DAILY pregabalin 200 mg capsule 200 mg PO TID 90 Days Qty: 270 1RF fluticasone propionate 50 mcg/actuation spray,suspension 2 spray INTRANASAL DAILY (DME) Night splint See Rx Instructions .Route .MEDSUPPLY Qty: 1 0RF Rx Instructions: As directed methylphenidate HCl [Ritalin] 20 mg tablet 20 mg PO .1 pm methylphenidate HCl 20 mg tablet extended release 40 mg PO DAILY Trulicity 0.75 mg/0.5 mL pen injector 1.5 mg SUBCUT losartan 25 mg tablet 12.5 mg PO DAILY prednisone 20 mg tablet 60 mg PO DAILY 5 Days Qty: 15 0RF ondansetron HCl 4 mg tablet 4 mg PO Q8H PRN (Reason: Nausea And Vomiting) dicyclomine 10 mg capsule 10 mg PO QID PRN (Reason: Diarrhea) Vyepti 100 mg/mL solution 300 mg IV Q90D colestipol 1 gram tablet 2 g PO BID metoclopramide HCl [Reglan] 5 mg tablet 5 mg PO QID triamcinolone acetonide 0.1 % lotion 1 applic topical BID Qty: 60 3RF albuterol sulfate [Ventolin HFA] 90 mcg/actuation HFA aerosol inhaler 1 inh inhalation Q6H Qty: 8.5 0RF Jardiance 25 mg tablet 25 mg PO DAILY Qty: 90 1RF naloxone [Narcan] 4 mg/actuation spray,non-aerosol 4 mg intranasal Q2M PRN (Reason: opioid overdose) Qty: 2 0RF Rx Instructions: spray 1 dose into ONE nostril; alternate nostrils w each dose until help arrives tizanidine 2 mg tablet See Rx Instructions .ROUTE .COMPLEX Qty: 90 1RF Dose Instruction: TAKE 1 TABLET BY MOUTH THREE TIMES DAILY NEEDED FOR MUSCLE SPASTICITY Rx Instructions: TAKE 1 TABLET BY MOUTH THREE TIMES DAILY NEEDED FOR MUSCLE SPASTICITY metoprolol tartrate 25 mg tablet See Rx Instructions .ROUTE .COMPLEX Qty: 60 0RF Dose Instruction: TAKE ONE TABLET BY MOUTH TWICE DAILY Rx Instructions: TAKE ONE TABLET BY MOUTH TWICE DAILY meloxicam 7.5 mg tablet See Rx Instructions .ROUTE .COMPLEX Qty: 60 0RF Dose Instruction: TAKE 1 TABLET BY MOUTH TWICE DAILY Rx Instructions: TAKE 1 TABLET BY MOUTH TWICE DAILY hydroxyzine HCl 50 mg tablet See Rx Instructions .ROUTE .COMPLEX Qty: 45 11RF Dose Instruction: TAKE 1 & 1/2 TABLETS BY MOUTH AT BEDTIME Rx Instructions: TAKE 1 & 1/2 TABLETS BY MOUTH AT BEDTIME lurasidone 20 mg tablet See Rx Instructions .ROUTE .COMPLEX Qty: 30 11RF Dose Instruction: TAKE 1 TABLET BY MOUTH AT BEDTIME. MUST TAKE WITH FOOD AT LEAST 350 CALORIES Rx Instructions: TAKE 1 TABLET BY MOUTH AT BEDTIME. MUST TAKE WITH FOOD AT LEAST 350 CALORIES lamotrigine 200 mg tablet extended release 24hr See Rx Instructions .ROUTE .COMPLEX Qty: 30 11RF Dose Instruction: TAKE 1 TABLET BY MOUTH AT BEDTIME Rx Instructions: TAKE 1 TABLET BY MOUTH AT BEDTIME varenicline 1 mg tablet See Rx Instructions .ROUTE .COMPLEX Qty: 56 5RF Dose Instruction: TAKE 1 TABLET BY MOUTH TWICE DAILY Rx Instructions: TAKE 1 TABLET BY MOUTH TWICE DAILY rizatriptan 10 mg tablet 10 mg PO DAILY PRN (Reason: Migraine Headache) latanoprost 0.005 % drops 1 drp ophthalmic (eye) BEDTIME topiramate 100 mg tablet 100 mg PO BEDTIME Discharge Orders: Discharge ED (Routine); Ordered 11/06/24 Ordered By: Joaquín Hernandez Referrals: Marcelle Wagner DO [Primary Care Provider] - Patient Instructions: Narcolepsy (DC) Activity Restrictions/Additional Instructions: Your In ER did not show any acute cause of your condition. Your condition is improving. We do believe is probably related to your narcolepsy and cataplexy. Please follow-up with Dr. Treviño in [place] for further evaluation and treatment. Coding Level of Care Code ED Breakfast Hostess for Claudia Muniz
[2024-11-06 19:21] LABS: Basophils # 0.1 10^3/uL (0.0-0.1); Basophils % 0.5 %; Eosinophils # 0.3 10^3/uL (0.0-0.8); Eosinophils % 2.4 %; Hematocrit 39.7 % (36-47); Lymphocytes # 2.1 10^3/uL (0.8-4.8); Lymphocytes % 19.5 %; Mean Corpuscular HGB Conc 30.2 g/dL (30-55); Mean Corpuscular Hemoglobin 22.4 pg (27-33); Mean Corpuscular Volume 74.1 fl (85-98); Mean Platelet Volume 8.8 fL (7.4-10.4); Monocytes # 0.7 10^3/uL (0.2-0.9); Neutrophils # 7.45 10^3/uL (1.8-7.7); Neutrophils % 70.3 %; Nucleated Red Blood Cells % 0 %; Platelet Count 280 10^3/cmm (157-399); Red Blood Count 5.36 10^6/uL (3.85-5.65); White Blood Count 10.59 10^3/uL (3.29-11.43)
[2024-11-06 19:38] LABS: Troponin(5th) Baseline 10 ng/L (0-10)
[2024-11-06 19:48] LABS: Alanine Aminotransferase 20 U/L (0-33); Albumin Level 3.6 g/dL (3.5-5.2); Alkaline Phosphatase 143 U/L (35-105); Anion Gap 14.9 (5-19); Aspartate Amino Transferase 17 U/L (0-32); Blood Urea Nitrogen 17 mg/dL (6-20); C Reactive Protein 44.7 mg/L (0.0-4.9); Calcium 8.8 mg/dL (8.5-10.5); Carbon Dioxide 24 mmol/L (22-29); Chloride 102 mmol/L (98-107); Globulin 3.1 g/dL (1.3-4.6); Glomerular Filtration Rate 67.7 mL/min (90-130); Glucose 88 mg/dL (65-115); Osmolality Calculated 285 mOsm/kg (285-295); Potassium 3.9 mmol/L (3.5-5.1); Sodium 137 mmol/L (136-145); Total Bilirubin 0.3 mg/dL (0.15-1.2); Total Protein 6.7 g/dL (6.6-8.7)
[2024-11-06 19:59] LABS: Alcohol Level < 10 mg/dL (0-10)
[2024-11-06 20:42] VITALS: RESP 18; O2SAT 97
[2024-11-06 20:48] LABS: Bilirubin Urine Negative (Negative); Blood Urine Negative (Negative); Glucose Urine UA 3+ (Normal); Ketones Urine Negative (Negative); Leukocyte Esterase Urine Negative (Negative); Nitrate Urine Negative (Negative); Protein Urine Negative (Negative); Specific Gravity, Urine 1.022 (1.005-1.030); Urine Appearance Clear (CLEAR); Urine Color Yellow (Yellow); Urobilinogen Urine 0.2 mg/dL (Negative)
[2024-11-06 20:53] LABS: Add Urine Microscopic? YES; Bacteria Urine Trace /hpf; Hyaline Casts Urine 2.46 /lpf; RBC Urine 0-2 /hpf (0-2); Squamous Epithelial Cell Urine 0-5 /hpf (0-5); WBC Urine 0-5 /hpf (0-5)
[2024-11-06 20:55] LABS: Amphetamines Screen Urine Positive (Negative); Barbiturates Screen Urine Negative (Negative); Benzodiazepines Screen Urine Negative (Negative); Cocaine Screen Urine Negative (Negative); Opiate Screen Urine Negative (Negative); PCP Screen Urine Negative (Negative); THC Screen Urine Negative (Negative)
[2024-11-06 21:35] LABS: Troponin 5 2HR 8.85 ng/L (0-10)
[2024-11-06 21:39] LABS: Troponin 5 2HR Delta -1.15 ABS# (0-10)
[2024-11-06 21:56] VITALS: BP 141/71; PULSE 81; RESP 18; O2SAT 98
== END 2024-11-06 21:57 | disposition home or self-care (01) ==
PROVIDERS: Emergency Provider Emergency Medicine; PCP Family Medicine
DX: G47.411 Narcolepsy with cataplexy (principal); I10 Essential (primary) hypertension
CPT/HCPCS: 36415; 70450; 80053; 80306; 80307; 81001; 83735; 84484; 85025; 85610; 86140; 93005; 99284

== ENCOUNTER 2024-12-21 07:45 | Oncology outpatient (recurring) (ONCR) | payer MEDICAID, SELFPAY ==
[2024-08-07 15:12] VITALS: BP 112/76; BMI 62.0
[2024-12-21] MEDS: eptinezumab-jjmr 300 MG in sodium chloride 0.9% (100 ml) 100 ML 206 MG IV (09:20)
[2024-12-21 10:06] VITALS: BP 136/81; PULSE 82; RESP 16; TEMP 37; O2SAT 99
== END 2025-01-04 23:59 | disposition home or self-care (01) ==
PROVIDERS: PCP Family Medicine; Visit Provider Internal Medicine
DX: S42.251A Displaced fracture of greater tuberosity of right humerus, initial encounter for closed fracture (principal); X58.XXXA Exposure to other specified factors, initial encounter
CPT/HCPCS: 96413; A4222; J3032

== ENCOUNTER → 2025-01-17 07:45 | Outpatient (BNVA) | payer MEDICAID, SELFPAY ==
[2024-08-07 15:12] VITALS: BP 112/76; BMI 62.0
== END ==
PROVIDERS: PCP Family Medicine; Visit Provider Podiatrist Foot & Ankle Surgery
DX: E11.69 Type 2 diabetes mellitus with other specified complication (principal); L60.0 Ingrowing nail
CPT/HCPCS: 99213

== ENCOUNTER → 2025-01-30 09:44 | Outpatient (BNVA) | payer MEDICAID, SELFPAY ==
[2024-08-07 15:12] VITALS: BP 112/76; BMI 62.0
== END ==
PROVIDERS: PCP Family Medicine; Visit Provider Nurse Practitioner Family
DX: L21.8 Other seborrheic dermatitis (principal); L30.8 Other specified dermatitis; K13.0 Diseases of lips; L81.0 Postinflammatory hyperpigmentation; L85.8 Other specified epidermal thickening; D23.61 Other benign neoplasm of skin of right upper limb, including shoulder; D23.62 Other benign neoplasm of skin of left upper limb, including shoulder
CPT/HCPCS: 99204

== ENCOUNTER → 2025-02-17 10:32 | Outpatient (BNVA) | payer MEDICAID, SELFPAY ==
[2024-08-07 15:12] VITALS: BP 112/76; BMI 62.0
== END ==
PROVIDERS: PCP Family Medicine; Visit Provider Registered Nurse Neonatal Intensive Care
DX: S99.912A Unspecified injury of left ankle, initial encounter (principal); X58.XXXA Exposure to other specified factors, initial encounter
CPT/HCPCS: 73610

== ENCOUNTER → 2025-02-20 07:18 | Outpatient (BNVA) | payer MEDICAID, SELFPAY ==
[2024-08-07 15:12] VITALS: BP 112/76; BMI 62.0
== END ==
PROVIDERS: PCP Family Medicine; Visit Provider Podiatrist Foot & Ankle Surgery
DX: E11.69 Type 2 diabetes mellitus with other specified complication (principal); S93.492A Sprain of other ligament of left ankle, initial encounter; X58.XXXA Exposure to other specified factors, initial encounter
CPT/HCPCS: 99214

== ENCOUNTER → 2025-03-13 07:12 | Outpatient (BNVA) | payer MEDICAID, SELFPAY ==
[2024-08-07 15:12] VITALS: BP 112/76; BMI 62.0
== END ==
PROVIDERS: PCP Family Medicine; Visit Provider Podiatrist Foot & Ankle Surgery
DX: E11.69 Type 2 diabetes mellitus with other specified complication (principal); S93.492D Sprain of other ligament of left ankle, subsequent encounter; X58.XXXD Exposure to other specified factors, subsequent encounter
CPT/HCPCS: 99213

== ENCOUNTER 2025-04-19 15:01 | Outpatient (CLI) | payer MEDICAID, SELFPAY ==
[2024-08-07 15:12] VITALS: BP 112/76; BMI 62.0
--- NOTE | 2025-04-19 15:07 | US_ITS ---
WS: [id number] US transvaginal [id number] HISTORY: R SIDE OVARIAN CYST COMPARISON: None available. Uterus: 7.8 cm x 5.6 cm x 3.7 cm. Normal size anteverted uterus. No fibroid or mass. Endometrium: 1.8 cm. Thickened endometrium. No mass identified or increased vascularity. Neither ovary is identified. Large amount of peristalsing GI tract content within the pelvis. No free fluid in the cul-de-sac. US/US transvaginal [id number] IMPRESSION: 1. Slightly thickened, hyperechoic endometrium. May be due to endometrial hype rplasia. 2. Neither ovary identified.
== END 2025-04-19 15:02 | disposition home or self-care (01) ==
PROVIDERS: PCP Family Medicine; Visit Provider Family Medicine
DX: N83.291 Other ovarian cyst, right side (principal); R93.89 Abnormal findings on diagnostic imaging of other specified body structures
CPT/HCPCS: 76830

== ENCOUNTER → 2025-04-23 08:22 | Outpatient (BNVA) | payer MEDICAID, SELFPAY ==
[2024-08-07 15:12] VITALS: BP 112/76; BMI 62.0
== END ==
PROVIDERS: PCP Family Medicine; Visit Provider Internal Medicine
DX: E11.69 Type 2 diabetes mellitus with other specified complication (principal); E66.9 Obesity, unspecified; R68.89 Other general symptoms and signs
CPT/HCPCS: 99214

== ENCOUNTER 2025-04-26 10:28 | Outpatient (CLI) | payer MEDICAID, SELFPAY ==
[2024-08-07 15:12] VITALS: BP 112/76; BMI 62.0
--- NOTE | 2025-04-26 | MM_ITS ---
WS: [id number] BILATERAL 3D TOMOSYNTHESIS DIGITAL SCREENING MAMMOGRAM WITH CAD CLINICAL INFORMATION: ANNUAL SCREENING HISTORY: Screening mammogram. No current complaints. COMPARISON: 2022 TECHNIQUE: Bilateral CC and MLO views. FINDINGS: Fatty-replaced breasts bilaterally. No suspicious focal mass, asymmetry, calcifications, or architectural distortion. No evidence of malignancy. MM/MM scr BI tomosynthesis [id number] IMPRESSION: DENSITY: The breasts are almost entirely fatty. BI-RADS: 1 - Negative. FOLLOW UP: 1 Year Follow-up Recommend return to annual screening mammography.
== END 2025-04-26 10:29 | disposition home or self-care (01) ==
LOC: RAD 10:29
PROVIDERS: PCP Family Medicine; Visit Provider Family Medicine
DX: Z12.31 Encounter for screening mammogram for malignant neoplasm of breast (principal)
CPT/HCPCS: 77063; 77067

== ENCOUNTER → 2025-04-29 09:11 | Outpatient (BNVA) | payer MEDICAID, SELFPAY ==
[2024-08-07 15:12] VITALS: BP 112/76; BMI 62.0
== END ==
PROVIDERS: PCP Family Medicine; Visit Provider Student in an Organized Health Care Education/Training Program
DX: Z12.11 Encounter for screening for malignant neoplasm of colon (principal)
CPT/HCPCS: 99024; 99204

== ENCOUNTER 2025-05-28 07:57 | Day surgery (SDC) | payer MEDICAID, SELFPAY ==
[2024-08-07 15:12] VITALS: BP 112/76; BMI 62.0
[2025-05-28 08:21] VITALS: BP 140/90; PULSE 99; RESP 18; TEMP 36.2; O2SAT 95; BMI 57.9
--- NOTE | 2025-05-28 08:49 | ANES.PREANE2 ---
Pre-Anesthetic Assessment Height/Weight: Height 1.7 m Weight 167.829 kg Temp Pulse Resp BP Pulse Ox O2 Del Method 97.1 F L 99 18 140/90 95 Room Air 05/28/25 08:21 05/28/25 08:21 05/28/25 08:21 05/28/25 08:21 05/28/25 08:21 05/28/25 08:21 Operation Date: 05/28/25 09:15 Proposed Procedures p Colonoscopy 20748 G0121 Z12.11(Not Applicable) - Melchor Boggs MD Familial anesthetic complications: NONE Was Beta Reba taken within 24 hours: N/A Was Clonidine taken within 24 hours: N/A Last intake: Intake Last Liquid Date 05/27/25 Last Liquid Time 20:30 Last Solid Date 05/26/25 Last Solid Time 12:00 Social No alcohol and No tobacco Exam alert, oriented x 3, clear to auscultation bilaterally and regular rate & rhythm Airway Mallampati: Class IV Dentition: other (none) Pulmonary Sleep Apnea CV/HEM Arrythmia (SVT), Congestive Heart Failure (diastolic) and Hypertension Metabolic Diabetes Mellitus and Morbid Obesity Anesthetic Plan ASA status: 4 Anesthesia: MAC Risk of > 500 ml blood loss (7ml/kg in children): No Medications/Allergies Home Medications ?Medication ?Instructions ?Recorded ?Confirmed ?Last Taken ?Type fluticasone propionate 50 2 spray intranasal DAILY 11/14/19 05/28/25 1 Week Ago History mcg/actuation nasal ~05/21/25 spray,suspension rizatriptan 10 mg tablet 10 mg PO DAILY PRN Migraine 01/02/21 05/28/25 2 Months Ago History Headache ~03/28/25 Night splint #1 ea 09/07/21 05/16/25 01/06/23 Rx pregabalin 200 mg capsule 200 mg PO TID 90 days #270 caps 01/25/22 05/22/25 05/27/25 Rx dicyclomine 10 mg capsule 10 mg PO QID PRN Diarrhea 06/17/22 05/22/25 01/06/23 History ondansetron HCl 4 mg tablet 4 mg PO Q8H PRN Nausea And Vomiting 06/17/22 05/28/25 2 Months Ago History ~03/28/25 colestipol 1 gram tablet 2 g PO BID PRN Abdominal Discomfort 12/10/22 05/28/25 01/06/23 History latanoprost 0.005 % eye drops 1 drp ophthalmic (eye) BEDTIME 12/30/22 05/22/25 05/27/25 History topiramate 100 mg tablet 100 mg PO BEDTIME 12/30/22 05/22/25 05/27/25 History naloxone 4 mg/actuation nasal 4 mg intranasal Q2M PRN opioid 05/20/23 05/22/25 Unknown Rx spray (Narcan) overdose #2 ea triamcinolone acetonide 0.1 % 1 applic topical BID #60 mL 06/23/23 05/28/25 2 Months Ago Rx lotion ~03/28/25 tizanidine 2 mg tablet See Rx Instructions .Route 08/30/23 05/22/25 05/27/25 Rx .COMPLEX #90 tabs albuterol sulfate 90 mcg/actuation 1 inh inhalation Q6H #8.5 grams 09/15/23 05/22/25 05/17/25 07:00 Rx aerosol inhaler (Ventolin HFA) methylphenidate HCl 20 mg tablet 20 mg PO .1 pm 10/28/23 05/22/25 05/27/25 History (Ritalin) methylphenidate HCl 20 mg 40 mg PO DAILY 10/28/23 05/22/25 05/27/25 History tablet,extended release meloxicam 7.5 mg tablet See Rx Instructions .Route 12/27/23 05/22/25 05/27/25 Rx .COMPLEX #60 tabs metoprolol tartrate 25 mg tablet See Rx Instructions .Route 12/27/23 05/22/25 05/27/25 Rx .COMPLEX #60 tabs dulaglutide 0.75 mg/0.5 mL 1.5 mg SUBCUT 04/27/24 05/16/25 05/11/25 19:00 History subcutaneous pen injector (Trulicity) metoclopramide HCl 5 mg tablet 5 mg PO QID 04/27/24 05/22/25 05/27/25 History (Reglan) pantoprazole 40 mg tablet,delayed 40 mg PO DAILY 04/27/24 05/22/25 05/27/25 History release (Protonix) mupirocin 2 % topical ointment 1 applic topical TID #15 grams 01/17/25 05/28/25 2 Months Ago Rx ~03/28/25 losartan 25 mg tablet 25 mg PO DAILY 01/18/25 05/22/25 05/27/25 History lurasidone 40 mg tablet (Latuda) 40 mg PO DAILY #30 tabs 02/14/25 05/22/25 05/27/25 Rx ascorbate calcium (vitamin C) 500 500 mg PO DAILY 03/14/25 05/22/25 05/27/25 History mg tablet biotin 5 mg tablet 5 mg PO DAILY 03/14/25 05/22/25 05/27/25 History cholecalciferol (vitamin D3) 10 10 mcg PO DAILY 03/14/25 05/22/25 05/27/25 History mcg (400 unit) capsule hydroxyzine HCl 50 mg tablet See Rx Instructions .Route 03/14/25 05/22/25 05/27/25 Rx .COMPLEX #45 tabs lamotrigine 200 mg tablet,extended See Rx Instructions .Route 03/14/25 05/22/25 05/27/25 Rx release 24 hr .COMPLEX #30 tabs atogepant 60 mg tablet (Qulipta) 60 mg PO DAILY 04/29/25 05/28/25 05/27/25 History doxycycline hyclate 100 mg tablet 100 mg PO BID PRN spasms 05/28/25 05/22/25 Unknown History varenicline tartrate 1 mg tablet See Rx Instructions .Route .COMPLEX 05/28/25 05/22/25 05/27/25 History (Chantix) Allergies Allergy/AdvReac Type Severity Reaction Status Date / Time fentanyl Allergy Severe ANAPHYLAXIS Verified 05/22/25 10:09 guaifenesin (From Mucinex) Allergy Severe ANAPHYLAXIS Verified 05/22/25 10:09 tramadol Allergy Severe SEIZURE Verified 05/22/25 10:09 adhesive Allergy Intermediate RASH Verified 05/22/25 10:09 amoxicillin Allergy Intermediate RASH Verified 05/22/25 10:09 azithromycin Allergy Intermediate RASH Verified 05/22/25 10:09 cariprazine (From Vraylar) Allergy Intermediate HIVES Verified 05/22/25 10:09 latex Allergy Intermediate HIVES Verified 05/22/25 10:09 methocarbamol Allergy Intermediate HIVES Verified 05/22/25 10:09 metronidazole (From Flagyl) Allergy Intermediate VOMITING Verified 05/22/25 10:09 morphine Allergy Intermediate VOMITING Verified 05/22/25 10:09 solriamfetol (From Sunosi) Allergy Intermediate ADR-Seizure Verified 05/22/25 10:09 sulfamethoxazole (From Allergy Intermediate ALGY-Hives Verified 05/22/25 10:09 Bactrim) sumatriptan Allergy Intermediate RASH Verified 05/22/25 10:09 trimethoprim (From Bactrim) Allergy Intermediate ALGY-Hives Verified 05/22/25 10:09 zolpidem (From Ambien) Allergy Intermediate RASH Verified 05/22/25 10:09 Alpha-Gal Allergy ADR-Gastrointestinal Verified 05/22/25 10:09 (Dmzkcgucb-Wifgb-0,3-Gala Upset oxycodone Allergy ALGY-Swell Verified 05/22/25 10:09 Lip/Tongue/Throat Current Medications Generic Name Dose Route Start Last Admin Trade Name Freq PRN Reason Stop Dose Admin Sodium Chloride 1,000 mls @ 15 mls/hr 05/28/25 07:59 05/28/25 08:39 Sodium Chloride 0.9% IV 05/29/25 07:58 15 mls/hr .Q24H PRN Administration COLONOSCOPY FLUIDS PFSH Anesthesia Medical History (Updated 05/16/25 @ 09:00 by Agus Ingram DO) Smoker unmotivated to quit Psychiatric care Chronic sacroiliac joint pain Opioid contract exists Narcolepsy Obstructive sleep apnea Amphetamine addiction Cannabis dependence in remission Borderline personality disorder Schizoaffective disorder, bipolar type Benign essential HTN 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 Acute bilateral low back pain with left-sided sciatica Spondylosis without myelopathy or radiculopathy, lumbar region Cholecystectomy planned Surgical History History of cholecystectomy Tubal ligation status Family History Brother Hypertension CAD (coronary artery disease) Diabetes Father Hypertension Mother Hypertension CAD (coronary artery disease) Cancer liver and lungs Social History Smoking and tobacco/nicotine status: former use of tobacco/nicotine Quit status (tobacco/nicotine): has tried quititng Number of times tried to quit tobacco: 10 Second hand smoke exposure: Yes Alcohol intake: former Year of sobriety/quit date alcohol: 2009 Substance/Drug Use: former Date of last use: 2015 Current gender identity: Female Data Anesthesia Cardiac Studies: Echocardiogram 10/15/22 Holter Monitor 09/20/24
--- NOTE | 2025-05-28 09:34 | W.PM.OPSUD ---
Surgery/Procedure H&P Update DATE OF PROCEDURE: May 28, 2025 DATE H&P PERFORMED: 04/29/25 H&P UPDATE INFORMATION: I have reviewed H&P completed within last 30 days, I have examined patient prior to procedure and No changes to prior documentation PLANNED PROCEDURE: Operation Date: 05/28/25 09:15 Proposed Procedures p Colonoscopy 56841 G0121 Z12.11(Not Applicable) - Melchor Boggs MD
[2025-05-28 09:57] VITALS: BP 113/83; PULSE 95; RESP 16; TEMP 36.2; O2SAT 95
[2025-05-28 10:09] VITALS: BP 140/91; PULSE 94; RESP 16; TEMP 36.2; O2SAT 98
--- NOTE | 2025-05-28 16:03 | ANE.PACU2 ---
Inpatient post-anesthesia follow up: Airway intact: Yes Vital signs: Temperature 97.1 F Pulse Rate 94 Respiratory Rate 16 Blood Pressure 140/91 Pulse Oximetry 98 Oxygen Delivery Me thod Room Air Oxygen Flow Rate Fraction of Inspir ed Oxygen Hydration adequate: Yes Nausea and vomiting: No Pain level: 1 Mental status: Baseline
== END 2025-05-28 10:37 | disposition home or self-care (01) ==
PROVIDERS: PCP Family Medicine; Visit Provider Student in an Organized Health Care Education/Training Program
PROC: 0DJD8ZZ Inspection of Lower Intestinal Tract, Via Natural or Artificial Opening Endoscopic (ICD-10-PCS; CPT 45378; principal; 2025-05-28 09:15)
DX: Z12.11 Encounter for screening for malignant neoplasm of colon (principal); K62.1 Rectal polyp; E11.9 Type 2 diabetes mellitus without complications; I11.0 Hypertensive heart disease with heart failure; I50.32 Chronic diastolic (congestive) heart failure; E66.01 Morbid (severe) obesity due to excess calories; G47.33 Obstructive sleep apnea (adult) (pediatric); Z68.43 Body mass index [BMI] 50.0-59.9, adult; Z79.899 Other long term (current) drug therapy; Z79.85 Long-term (current) use of injectable non-insulin antidiabetic drugs; Z88.8 Allergy status to other drugs, medicaments and biological substances; Z88.5 Allergy status to narcotic agent; Z88.2 Allergy status to sulfonamides; Z87.891 Personal history of nicotine dependence
CPT/HCPCS: 36416; 45380; 82962; 88305; J2250; J7030

== ENCOUNTER → 2025-06-13 09:06 | Outpatient (BNVA) | payer MEDICAID, SELFPAY ==
[2024-08-07 15:12] VITALS: BP 112/76; BMI 62.0
== END ==
PROVIDERS: PCP Family Medicine; Visit Provider Student in an Organized Health Care Education/Training Program
DX: Z09 Encounter for follow-up examination after completed treatment for conditions other than malignant neoplasm (principal)
CPT/HCPCS: 99213

== ENCOUNTER → 2025-06-25 09:31 | Outpatient (BNVA) | payer MEDICAID, SELFPAY ==
[2024-08-07 15:12] VITALS: BP 112/76; BMI 62.0
== END ==
PROVIDERS: PCP Family Medicine; Visit Provider Internal Medicine
DX: E11.69 Type 2 diabetes mellitus with other specified complication (principal); R68.89 Other general symptoms and signs; E66.9 Obesity, unspecified
CPT/HCPCS: 99214

== ENCOUNTER 2025-07-23 10:30 | Day surgery (SDC) | payer MEDICAID, SELFPAY ==
[2024-08-07 15:12] VITALS: BP 112/76; BMI 62.0
[2025-07-23] VITALS (10 sets, daily range): BP systolic 104–154; BP diastolic 68–112; PULSE 71–107; RESP 16–18; TEMP 36.2–36.3; O2SAT 90–100; BMI 53.8
--- NOTE | 2025-07-23 05:18 | W.PM.OPSFHP ---
Same Day Surgery H&P Indication for Procedure/HPI DATE OF PROCEDURE: July 23, 2025 CHIEF COMPLAINT/INDICATIONFOR SURGICAL PROCEDURE: abnormal uterine bleeding PREOP DIAGNOSIS: abnormal uterine bleeding PLANNED PROCEDURE: Operation Date: 07/23/25 13:50 Proposed Procedures p Hysteroscopy w/ Endometrial Sampling [id number] R93.89(Not Applicable) - Rock Esquivel MD s POSSIBLE Endometrial Poylpectomy(Not Applicable) - Rock Esquivel MD Medications/Allergies* Home Medications ?Medication ?Instructions ?Recorded ?Confirmed ?Type fluticasone propionate 50 2 spray intranasal PRN PRN Allergy 11/14/19 07/22/25 History mcg/actuation nasal Symptoms spray,suspension rizatriptan 10 mg tablet 10 mg PO DAILY PRN Migraine 01/02/21 07/22/25 History Headache dicyclomine 10 mg capsule 10 mg PO QID PRN Diarrhea 06/17/22 07/22/25 History ondansetron HCl 4 mg tablet 4 mg PO Q8H PRN Nausea And Vomiting 06/17/22 07/22/25 History colestipol 1 gram tablet 2 g PO BID PRN Abdominal Discomfort 12/10/22 07/22/25 History latanoprost 0.005 % eye drops 1 drp ophthalmic (eye) BEDTIME 12/30/22 07/22/25 History topiramate 100 mg tablet 100 mg PO BEDTIME 12/30/22 07/22/25 History methylphenidate HCl 20 mg tablet 20 mg PO .1 pm 10/28/23 07/22/25 History (Ritalin) methylphenidate HCl 20 mg 40 mg PO DAILY 10/28/23 07/22/25 History tablet,extended release dulaglutide 0.75 mg/0.5 mL 1.5 mg SUBCUT 04/27/24 06/25/25 History subcutaneous pen injector (Trulicity) metoclopramide HCl 5 mg tablet 10 mg PO BID 04/27/24 07/22/25 History (Reglan) pantoprazole 40 mg tablet,delayed 40 mg PO DAILY 04/27/24 07/22/25 History release (Protonix) losartan 25 mg tablet 25 mg PO DAILY 01/18/25 07/22/25 History ascorbate calcium (vitamin C) 500 500 mg PO DAILY 03/14/25 07/22/25 History mg tablet biotin 5 mg tablet 5 mg PO DAILY 03/14/25 07/22/25 History cholecalciferol (vitamin D3) 10 10 mcg PO DAILY 03/14/25 07/22/25 History mcg (400 unit) capsule atogepant 60 mg tablet (Qulipta) 60 mg PO DAILY 04/29/25 07/22/25 History doxycycline hyclate 100 mg tablet 100 mg PO BID PRN spasms 05/28/25 07/22/25 History varenicline tartrate 1 mg tablet 1 mg PO DAILY 05/28/25 07/22/25 History (Chantix) albuterol sulfate 90 mcg/actuation 2 inh inhalation Q6H PRN Allergy 07/22/25 07/22/25 History aerosol inhaler (Ventolin HFA) Symptoms dulaglutide 1.5 mg/0.5 mL 1 SUBCUT 07/22/25 History subcutaneous pen injector (Trulicity) hydroxyzine HCl 50 mg tablet 75 mg PO DAILY 07/22/25 History lamotrigine 200 mg tablet,extended 200 mg PO DAILY 07/22/25 07/22/25 History release 24 hr meloxicam 7.5 mg tablet 7.5 mg PO TID 07/22/25 07/22/25 History metoprolol tartrate 25 mg tablet 25 mg PO BID 07/22/25 07/22/25 History tizanidine 2 mg tablet 2 mg PO TID 07/22/25 07/22/25 History triamcinolone acetonide 0.1 % 1 applic topical BID PRN Dry Skin 07/22/25 07/22/25 History lotion Allergies/Adverse Reactions Allergy/AdvReac Type Severity Reaction Status Date / Time fentanyl Allergy Severe ANAPHYLAXIS Verified 07/22/25 13:19 guaifenesin (From Mucinex) Allergy Severe ANAPHYLAXIS Verified 07/22/25 13:19 tramadol Allergy Severe SEIZURE Verified 07/22/25 13:19 adhesive Allergy Intermediate RASH Verified 07/22/25 13:19 amoxicillin Allergy Intermediate RASH Verified 07/22/25 13:19 azithromycin Allergy Intermediate RASH Verified 07/22/25 13:19 cariprazine (From Vraylar) Allergy Intermediate HIVES Verified 07/22/25 13:19 latex Allergy Intermediate HIVES Verified 07/22/25 13:19 methocarbamol Allergy Intermediate HIVES Verified 07/22/25 13:19 metronidazole (From Flagyl) Allergy Intermediate VOMITING Verified 07/22/25 13:19 morphine Allergy Intermediate VOMITING Verified 07/22/25 13:19 solriamfetol (From Sunosi) Allergy Intermediate ADR-Seizure Verified 07/22/25 13:19 sulfamethoxazole (From Allergy Intermediate ALGY-Hives Verified 07/22/25 13:19 Bactrim) sumatriptan Allergy Intermediate RASH Verified 07/22/25 13:19 trimethoprim (From Bactrim) Allergy Intermediate ALGY-Hives Verified 07/22/25 13:19 zolpidem (From Ambien) Allergy Intermediate RASH Verified 07/22/25 13:19 Alpha-Gal Allergy ADR-Gastrointestinal Verified 07/22/25 13:19 (Mdziljram-Tewns-5,3-Gala Upset oxycodone Allergy ALGY-Swell Verified 07/22/25 13:19 Lip/Tongue/Throat Pertinent History/Comorbid Conditions* Medical History (Updated 07/07/25 @ 02:27 by Rock Esquivel MD) Smoker unmotivated to quit Psychiatric care Chronic sacroiliac joint pain Opioid contract exists Narcolepsy Obstructive sleep apnea Amphetamine addiction Cannabis dependence in remission Borderline personality disorder Schizoaffective disorder, bipolar type Benign essential HTN 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 Acute bilateral low back pain with left-sided sciatica Spondylosis without myelopathy or radiculopathy, lumbar region Cholecystectomy planned Surgical History (Updated 11/15/19 @ 15:11 by Leisa Toussaint DO) History of cholecystectomy Tubal ligation status Family History (Updated 04/29/25 @ 09:19 by Aida Andrade) Diabetes Brother CAD (coronary artery disease) Brother Mother Cancer Mother liver and lungs Hypertension Brother Father Mother Social History Smoking and tobacco/nicotine status: former use of tobacco/nicotine (01/2023) Quit status (tobacco/nicotine): has tried quititng Number of times tried to quit tobacco: 10 Second hand smoke exposure: Yes Alcohol intake: former Year of sobriety/quit date alcohol: 2009 Substance/Drug Use: former Date of last use: 2015 Current gender identity: Female Pertinent Exam Findings alert, oriented x 3, clear to auscultation bilaterally and regular rate & rhythm Recommendations Surgery/Procedure today Coding Level of Care Code Acute Code for Chg Fwd
--- NOTE | 2025-07-23 12:26 | ANES.PREANE2 ---
Pre-Anesthetic Assessment Height/Weight: Height 1.7 m Weight 156.036 kg Temp Pulse Resp BP Pulse Ox O2 Del Method 97.2 F L 71 16 104/68 94 Room Air 07/23/25 11:02 07/23/25 11:02 07/23/25 11:02 07/23/25 11:02 07/23/25 11:02 07/23/25 11:02 Preop Diagnosis: abnormal uterine bleeding Operation Date: 07/23/25 13:50 Proposed Procedures p Hysteroscopy w/ Endometrial Sampling 38488 [id number] R93.89(Not Applicable) - Rock Esquivel MD s POSSIBLE Endometrial Poylpectomy(Not Applicable) - Rock Esquivel MD Familial anesthetic complications: None Was Beta Reba taken within 24 hours: Yes Was Clonidine taken within 24 hours: N/A Last intake: Intake Last Liquid Date 07/22/25 Last Liquid Time 23:30 Last Solid Date 07/22/25 Last Solid Time 23:30 Social Tobacco and No alcohol former smoker Exam alert, oriented x 3, clear to auscultation bilaterally and regular rate & rhythm Airway Mallampati: Class IV Dentition: other (none) Pulmonary Sleep Apnea CV/HEM Arrythmia (SVT on metroprolol), Congestive Heart Failure and Hypertension Metabolic Morbid Obesity Neuropsych Seizure (episodes where she skips time - states her neurologist is aware) Anesthetic Plan ASA status: 3 Anesthesia: General Risk of > 500 ml blood loss (7ml/kg in children): No Medications/Allergies Home Medications ?Medication ?Instructions ?Recorded ?Confirmed ?Last Taken ?Type fluticasone propionate 50 2 spray intranasal PRN PRN Allergy 11/14/19 07/22/25 1 Week Ago History mcg/actuation nasal Symptoms ~05/21/25 spray,suspension rizatriptan 10 mg tablet 10 mg PO DAILY PRN Migraine 01/02/21 07/22/25 2 Months Ago History Headache ~03/28/25 Night splint #1 ea 09/07/21 06/25/25 01/06/23 Rx pregabalin 200 mg capsule 200 mg PO TID 90 days #270 caps 01/25/22 07/22/25 07/23/25 Rx dicyclomine 10 mg capsule 10 mg PO QID PRN Diarrhea 06/17/22 07/22/25 01/06/23 History ondansetron HCl 4 mg tablet 4 mg PO Q8H PRN Nausea And Vomiting 06/17/22 07/22/25 06/24/25 History colestipol 1 gram tablet 2 g PO BID PRN Abdominal Discomfort 12/10/22 07/22/25 01/06/23 History latanoprost 0.005 % eye drops 1 drp ophthalmic (eye) BEDTIME 12/30/22 07/22/25 07/22/25 History topiramate 100 mg tablet 100 mg PO BEDTIME 12/30/22 07/22/25 07/21/25 History naloxone 4 mg/actuation nasal 4 mg intranasal Q2M PRN opioid 05/20/23 07/22/25 Unknown Rx spray (Narcan) overdose #2 ea methylphenidate HCl 20 mg tablet 20 mg PO .1 pm 10/28/23 07/22/25 07/22/25 History (Ritalin) methylphenidate HCl 20 mg 40 mg PO DAILY 10/28/23 07/22/25 07/23/25 History tablet,extended release dulaglutide 0.75 mg/0.5 mL 1.5 mg SUBCUT .WEEKLY 04/27/24 07/23/25 07/15/25 History subcutaneous pen injector (Trulicity) metoclopramide HCl 5 mg tablet 10 mg PO BID 04/27/24 07/22/25 07/23/25 History (Reglan) pantoprazole 40 mg tablet,delayed 40 mg PO DAILY 04/27/24 07/22/25 07/23/25 History release (Protonix) losartan 25 mg tablet 25 mg PO DAILY 01/18/25 07/22/25 07/21/25 History lurasidone 40 mg tablet (Latuda) 40 mg PO DAILY #30 tabs 02/14/25 07/22/25 07/21/25 Rx ascorbate calcium (vitamin C) 500 500 mg PO DAILY 03/14/25 07/22/25 07/21/25 History mg tablet biotin 5 mg tablet 5 mg PO DAILY 03/14/25 07/22/25 07/21/25 History cholecalciferol (vitamin D3) 10 10 mcg PO DAILY 03/14/25 07/22/25 07/21/25 History mcg (400 unit) capsule atogepant 60 mg tablet (Qulipta) 60 mg PO DAILY 04/29/25 07/22/25 07/23/25 History doxycycline hyclate 100 mg tablet 100 mg PO BID PRN spasms 05/28/25 07/22/25 Unknown History varenicline tartrate 1 mg tablet 1 mg PO DAILY 05/28/25 07/22/25 07/22/25 History (Chantix) empagliflozin 25 mg tablet 25 mg PO DAILY #90 tabs 06/25/25 07/22/25 07/16/25 Rx (Jardiance) albuterol sulfate 90 mcg/actuation 2 inh inhalation Q6H PRN Allergy 07/22/25 07/22/25 07/21/25 History aerosol inhaler (Ventolin HFA) Symptoms hydroxyzine HCl 50 mg tablet 75 mg PO DAILY 07/22/25 07/23/25 07/22/25 History lamotrigine 200 mg tablet,extended 200 mg PO DAILY 07/22/25 07/22/25 07/21/25 History release 24 hr meloxicam 7.5 mg tablet 7.5 mg PO TID 07/22/25 07/22/25 07/22/25 History metoprolol tartrate 25 mg tablet 25 mg PO BID 07/22/25 07/22/25 07/23/25 History tizanidine 2 mg tablet 2 mg PO TID 07/22/25 07/22/25 07/22/25 History triamcinolone acetonide 0.1 % 1 applic topical BID PRN Dry Skin 07/22/25 07/22/25 Unknown History lotion Allergies Allergy/AdvReac Type Severity Reaction Status Date / Time fentanyl Allergy Severe ANAPHYLAXIS Verified 07/22/25 13:19 guaifenesin (From Mucinex) Allergy Severe ANAPHYLAXIS Verified 07/22/25 13:19 tramadol Allergy Severe SEIZURE Verified 07/22/25 13:19 adhesive Allergy Intermediate RASH Verified 07/22/25 13:19 amoxicillin Allergy Intermediate RASH Verified 07/22/25 13:19 azithromycin Allergy Intermediate RASH Verified 07/22/25 13:19 cariprazine (From Vraylar) Allergy Intermediate HIVES Verified 07/22/25 13:19 latex Allergy Intermediate HIVES Verified 07/22/25 13:19 methocarbamol Allergy Intermediate HIVES Verified 07/22/25 13:19 metronidazole (From Flagyl) Allergy Intermediate VOMITING Verified 07/22/25 13:19 morphine Allergy Intermediate VOMITING Verified 07/22/25 13:19 solriamfetol (From Sunosi) Allergy Intermediate ADR-Seizure Verified 07/22/25 13:19 sulfamethoxazole (From Allergy Intermediate ALGY-Hives Verified 07/22/25 13:19 Bactrim) sumatriptan Allergy Intermediate RASH Verified 07/22/25 13:19 trimethoprim (From Bactrim) Allergy Intermediate ALGY-Hives Verified 07/22/25 13:19 zolpidem (From Ambien) Allergy Intermediate RASH Verified 07/22/25 13:19 Alpha-Gal Allergy ADR-Gastrointestinal Verified 07/22/25 13:19 (Cixxtloko-Ypcdd-2,3-Gala Upset oxycodone Allergy ALGY-Swell Verified 07/22/25 13:19 Lip/Tongue/Throat Current Medications Generic Name Dose Route Start Last Admin Trade Name Freq PRN Reason Stop Dose Admin Sodium Chloride 1,000 mls @ 30 mls/hr 07/23/25 11:00 07/23/25 11:30 Sodium Chloride 0.9% IV 07/24/25 10:59 30 mls/hr .Q24H KRISTINE Administration PFSH Anesthesia Medical History (Updated 07/07/25 @ 02:27 by Rock Esquivel MD) Smoker unmotivated to quit Psychiatric care Chronic sacroiliac joint pain Opioid contract exists Narcolepsy Obstructive sleep apnea Amphetamine addiction Cannabis dependence in remission Borderline personality disorder Schizoaffective disorder, bipolar type Benign essential HTN 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 Acute bilateral low back pain with left-sided sciatica Spondylosis without myelopathy or radiculopathy, lumbar region Cholecystectomy planned Surgical History History of cholecystectomy Tubal ligation status Family History Brother Hypertension CAD (coronary artery disease) Diabetes Father Hypertension Mother Hypertension CAD (coronary artery disease) Cancer liver and lungs Social History Smoking and tobacco/nicotine status: former use of tobacco/nicotine (01/2023) Quit status (tobacco/nicotine): has tried quititng Number of times tried to quit tobacco: 10 Second hand smoke exposure: Yes Alcohol intake: former Year of sobriety/quit date alcohol: 2009 Substance/Drug Use: former Date of last use: 2015 Current gender identity: Female Female Reproductive History Date of last menstrual period: 01/05/23 Data Anesthesia Cardiac Studies: Echocardiogram 10/15/22 Holter Monitor 09/20/24
--- NOTE | 2025-07-23 12:26 | W.PM.OPSUD ---
Surgery/Procedure H&P Update DATE OF PROCEDURE: July 23, 2025 DATE H&P PERFORMED: 07/23/25 H&P UPDATE INFORMATION: I have reviewed H&P completed within last 30 days, I have examined patient prior to procedure and No changes to prior documentation PREOP DIAGNOSIS: abnormal uterine bleeding PLANNED PROCEDURE: Operation Date: 07/23/25 13:50 Proposed Procedures p Hysteroscopy w/ Endometrial Sampling [id number] R93.89(Not Applicable) - Rock Esquivel MD s POSSIBLE Endometrial Poylpectomy(Not Applicable) - Rock Esquivel MD
[2025-07-23] MEDS: fentaNYL 50 mcg/mL INJ 2mL 100 MCG (14:00)
--- NOTE | 2025-07-23 14:05 | P.OP_ITS ---
Operative Report Date of procedure: July 23, 2025 Pre-op diagnosis: abnormal uterine bleeding Post-op diagnosis: same Post-op findings: cervix very high up in vaginal canal unable to insert hysteroscope beyond the cervix uterus sounded to 8 cm small amount of endometrial tissue Procedure done: attempted hysteroscopy curettage of uterus Implants: none Specimens removed/disposition: endometrial curettings Surgeon: Rock Esquivel MD Anesthesia: General Estimated blood loss (mL): 0 Complications: none Findings: see above Condition: stable Disposition: PACU Brief History: 44 y.o. with abnormal uterine bleeding Procedure: Patient was taken to the operating room. Anesthesia was induced. Patient was placed in dorsolithotomy position, prepped and draped for hysteroscopy. A bivalve speculum was placed in the vagina. The cervix was noted to be high up in the vaginal canal. The anterior lip of the cervix was grasped with a sharp- toothed tenaculum. The cervix was serially dilated with Hegar dilators. A hysteroscope was attempted to be place, however, due to patient's body habitus and high cervical position, the hysteroscope could not be placed into the endometrial cavity. The hysteroscope was removed. Endometrial curettage was done with a sharp curette. Endometrial tissue was sent to pathology. The sh hugo-toothed tenaculum was removed. There was no bleeding from the endometrial cavity or cervix. The patient was then placed supine and awakened and taken to the PACU. Postop condition: stable EBL: none Sponge and instruments counts were normal x 2 Complications: none
--- NOTE | 2025-07-23 15:40 | ANE.PACU2 ---
Inpatient post-anesthesia follow up: Airway intact: Yes Vital signs: Temperature 97.4 F Pulse Rate 79 Respiratory Rate 18 Blood Pressure 135/75 Pulse Oximetry 95 Oxygen Delivery Me thod Room Air Oxygen Flow Rate 8 Fraction of Inspir ed Oxygen Hydration adequate: Yes Nausea and vomiting: No Pain level: 1 Mental status: Baseline
== END 2025-07-23 15:43 | disposition home or self-care (01) ==
PROVIDERS: PCP Family Medicine; Visit Provider Obstetrics & Gynecology
PROC: 0UJD8ZZ Inspection of Uterus and Cervix, Via Natural or Artificial Opening Endoscopic (ICD-10-PCS; CPT 58555; principal; 2025-07-23 13:40)
DX: N93.9 Abnormal uterine and vaginal bleeding, unspecified (principal); G47.419 Narcolepsy without cataplexy; G47.33 Obstructive sleep apnea (adult) (pediatric); F12.90 Cannabis use, unspecified, uncomplicated; F15.90 Other stimulant use, unspecified, uncomplicated; Z91.014 Allergy to mammalian meats; Z87.891 Personal history of nicotine dependence; K21.9 Gastro-esophageal reflux disease without esophagitis; I50.9 Heart failure, unspecified; I11.0 Hypertensive heart disease with heart failure; E66.01 Morbid (severe) obesity due to excess calories; Z68.43 Body mass index [BMI] 50.0-59.9, adult; R56.9 Unspecified convulsions; Z53.8 Procedure and treatment not carried out for other reasons
CPT/HCPCS: 58558; 36416; 82962; 88305; J1100; J1885; J2250; J2405; J3010; J3490; J7030; J9999

== ENCOUNTER 2025-08-08 16:47 | Emergency (ER) | payer MEDICAID, SELFPAY ==
[2024-08-07 15:12] VITALS: BP 112/76; BMI 62.0
--- OUTSIDE RECORDS SUMMARY | 2024-09-01 04:00 | XMS_ITS ---
Author Organization [facility] Address [address] [place] [address] Care Team Providers Care Threading Machine Tender Name Role Phone Krystlejeannette Ras Primary Care Provider Unavailabl e Migration, Provider Unavailable Unavailable REASON FOR VISIT [facility] Encounters Encounter Location Date Provider Diagnosis Migrated_Facility [...] THREE TIMES DAILY 08/29/2023 09/28/2023 *Reorder from [facility] for eRx and Interaction Alerts* tiZANidine HCl 2 MG Tablet TAKE 1 TABLET BY MOUTH THREE TIMES DAILY NEEDED FOR MUSCLE SPASTICITY Oral 09/02/2023 10/02/2023 Latanoprost 0.005 % Solution INSTILL 1 DROP IN BOTH EYES AT BEDTIME Ophthalmic 08/29/2023 09/23/2023 Progress Notes * Isla LINmikeDOB:[birth year] (44 yo F)Acc No.[id number]:09/01/2024 Patient: Leisa VILLAREAL :1980 A ge:44 Y S ex:Female Address:[address], [place], [address] * Refills Stop Latanoprost Solution, 0.005 %, [...]
--- OUTSIDE RECORDS SUMMARY | 2024-09-02 04:00 | XMS_ITS ---
Author Organization [facility] Address [address] [place] [address] Care Team Providers Care Python Engineer Name Role Phone Ras Echevarria Primary Care [...] Medispan for eRX* Active [facility]oprazole [facility]* Active Latuda *Pick strength-f orm from [facility] for eRX* Active benfotiamine 150mg *Reorder from [facility] for eRx and Interaction Alerts* Active Topiramate *Pick strength-f orm from [facility] for eRX* Active lamoTRIgine *Pick strength-f orm from [facility] for eRX* Active Vyepti 300mg Injection *[facility]* Active Lumigan *[facility]* Active hydrOXYzine Pamoate *Pick streng [...] 0 09/02/2024 Provider Migration Plan Of Treatment No Information Progress Notes * Leisa RIZODOB:[birth year] (44 yo F)Acc No.[id number]:09/02/2024 Patient: Leisa VILLAREAL :1980 A ge:44 Y S ex:Female Address:[address] [address] Subjective: * Chief Complaints: * E MR-Mo [...]
--- OUTSIDE RECORDS SUMMARY | 2025-08-04 18:33 | XMS_ITS | Encounter Summary ---
Author Organization [facility] Address [address] [place] [address] Care Team Providers Care Mule Tender Name Role Phone Marcelle Wagner Primary Care Provider [phone] Reason for Visit * Reason Comments Fall Hip Pain Tailbone Pain Foot Pain Encounter Details Date Type Department Care Team (Late st Contact Info) Description 08/04/2025 6:33 PM CDT - 08/04/2025 10:09 PM CDT Emergency [facility] Emergency Medicine [address] [place] [phone] Sumaya Mike MD [address] [place] [phone] Tremayne Lucero MD [address] [place] [address] [place] [address] Contusion of back, unspecified laterality, initial encounter (Primary Dx) Discharge Disposition: Home or Self Care Social History Tobacco Use Types Packs/Day Years Used Date Smoking Tobacco: Former Cigarettes Q uit: 02/24/2022 Passive Smoke Exposure: Current Smokeless Tobacco: Never Comments:Quit smoking: smoke s half a pack to a pack a day. Alcohol Use Standard Drinks/Week Comments No 0 (1 standard drink = 0.6 oz pur e alcohol) Feeling Safe Answer Date Recorded Are you in a relationship wi th someone who hurts you emotionally and/or physically? No 08/04/2025 Comments No Sex and Gender Information Value Date Recorded Sex Assigned at Not on file Legal Sex Female 7:47 AM EMERGENCY ROOM REGISTERED NURSE Gender Identity Female 09/18/2024 7:21 PM EMERGENCY ROOM REGISTERED NURSE Sexual Orientation Not on file documented as of this encounter Last Filed Vital Signs Vital Sign Reading Time Taken Comments Blood Pressure 138/78 08/04/2025 10:00 PM CDT Pulse 82 08/04/2025 10:00 PM CDT Temperature 36.2 C (97.1 F) 08/04/2025 6:40 PM CDT Respiratory Rate 16 08/04/2025 10:00 PM CDT Oxygen Saturation 94% 08/04/2025 10:00 PM CDT Inhaled Oxygen Concentration - - Weight 156 kg (344 lb) 08/04/2025 6:40 PM CDT Height 170.2 cm (5' 7 ) 08/04/2025 6:40 PM CDT Body Mass Index 53.88 08/04/2025 6:40 PM CDT documented in this encounter Discharge Instructions * Attachments The following attachments cannot be sent through Care Everywhere. * Contusion (Togolese) * Hydrocodone Combination Products (Togolese) documented in this encounter Medications at Time of Discharge pantoprazole (PROTONIX) 40 mg Tablet, Delayed Release (E.C.)Indication s:Gastroesophage al reflux disease without esophagitis TAKE ONE TABLET BY MOUTH TWICE DAILY before meals 60 Tablet 5 08/05/2025 HYDROcodone-ibup rofen (VICOPROFEN) 7.5-200 mg TabletIndication s:Contusion of back, unspecified laterality, initial encounter Take 1 Tablet by mouth every 4 hours as needed for Pain. Max Daily Amount: 6 Tablets 15 Tablet 08/04/2025 metoclopramide HCl (REGLAN) 5 mg tablet TAKE 1 TABLET BY MOUTH FOUR TIMES DAILY before meals and AT BEDTIME 120 Tablet 3 06/10/2025 Trulicity 1.5 mg/0.5 mL injection Inject 1.5 mg by subcutaneous injection every 7 days. 02/18/2025 Qulipta 60 mg Tablet Take 1 Tablet by mouth daily. 03/11/2025 clobetasoL (TEMOVATE) 0.05 % Cream Apply to affected area see administration instructions. 01/30/2025 doxycycline hyclate (VIBRAMYCIN) 100 mg tablet Take 1 Tablet by mouth 2 times daily. 02/06/2025 ketoconazole (NIZORAL) 2 % Shampoo Apply to affected area Continuous as needed. 01/30/2025 latanoprost (XALATAN) 0.005 % solution Administer 1 Drop in both eyes daily at bedtime. 02/18/2025 losartan (COZAAR) 25 mg tablet Take 1 Tablet by mouth daily. 02/18/2025 mupirocin (BACTROBAN) 2 % Ointment Apply to affected area 3 times daily as needed. 01/17/2025 prazosin (MINIPRESS) 2 mg capsule Take 2 mg by mouth 1 time daily as needed. 02/18/2025 lamoTRIgine (LaMICtal XR) 200 mg Extended Release 24 hour tablet Take 200 mg by mouth daily at bedtime. 02/18/2025 lurasidone (LATUDA) 40 mg Tablet tablet Take 40 mg by mouth daily with supper. 02/14/2025 methylphenidate HCl (METADATE ER) 20 mg Extended Release tablet Take 40 mg by mouth daily in the morning. 02/18/2025 pregabalin (LYRICA) 200 mg Capsule Take 1 Capsule by mouth 3 times daily. 02/18/2025 rizatriptan (MAXALT) 10 mg Tablet Take 10 mg by mouth every 2 hours as needed. 02/18/2025 ferrous sulfate 325 mg (65 mg iron) tablet Take 1 Tablet (325 mg) by mouth daily. 90 Tablet 3 09/24/2024 Jardiance 25 mg tablet Take 1 Tablet by mouth daily. 08/24/2024 dicyclomine (BENTYL) 10 mg capsule TAKE ONE CAPSULE BY MOUTH FOUR TIMES DAILY NEEDED FOR ABDOMINAL SPASMS 90 Capsule 1 06/14/2023 hydrOXYzine HCL (ATARAX) 50 mg tablet Take 75 mg by mouth daily at bedtime. tiZANidine (ZANAFLEX) 2 mg Tablet Take 2 mg by mouth 3 times daily. bimatoprost 0.03 % eye drops 1 Drop daily at bedtime. metoprolol tartrate (LOPRESSOR) 25 mg tablet take one-half TABLET BY MOUTH TWICE DAILY 11/30/2022 topiramate (TOPAMAX) 100 mg tablet TK 1 T PO D. STARTING WK 4 AND ON 100 MG D 10/06/2020 meloxicam (MOBIC) 7.5 mg tablet Take 7.5 mg by mouth 2 times daily. 09/23/2020 varenicline (CHANTIX) 1 mg Tablet Take 1 mg by mouth 2 times daily. 09/23/2020 fluticasone propionate (FLONASE) 50 mcg/spray [place], Suspension nasal inhaler Administer 2 Sprays in each nostril 2 times daily. 04/05/2019 methylphenidate HCl (RITALIN) 20 mg tablet Take 20 mg by mouth 3 times daily. 10/28/2016 pantoprazole (PROTONIX) 40 mg Tablet, Delayed Release (E.C.)Indication s:Gastroesophage al reflux disease without esophagitis TAKE ONE TABLET BY MOUTH TWICE DAILY before meals 60 Tablet 5 02/11/2025 08/05/20 documented as of this encounter ED Notes * Celena Wells RN - 08/04/2025 7:02 PM CDT Patient presents to the emergency department via private vehicle for fall and tailbone pain, foot pain, back pain. Patient states she fell Tuesday off of two concrete steps. States she has pain to hertailbone, left foot, and back pain that radiates around to her left abdomen. She does note she had a procedure on her endometrium a few days ago. Patient denies hitting her head. States she is not anticoagulated. Vitals signs as documented. * Tremayne Lucero MD - 08/04/2025 6:19 PM CDT 08/04/25 7:00 PM HISTORY OF PRESENT ILLNESS History of Present Illness This is a patient with a history of advanced peripheral neuropathy, type 2 diabetes, seizure disorder, supraventricular tachycardia (SVT), hypertension, and gastroparesis presenting with a fall. The patient experienced a fall on 08/01/2025, landing on her left side after descending 2 concrete steps. She reports increased pain in her tailbone, hip, and back. Initially, she did not seek medical attention as the pain was minimal and felt like soreness. She has been managing the pain with Tylenol and ibuprofen, along with rest. She describes the pain as deep tissue bruising. She also reportspain during urination and bowel movements. She did not hit her head or lose consciousness during the fall. This is her third fall on the same side of her body in the past 1.5 years. She has ordered an immobility cane for support. She sought initial care at a walk-in clinic where she was advised to v isit the ER due to concerns about uterine perforation following her recent surgery. The patient has advanced peripheral neuropathy and lacks sensation on the outside of her feet. The patient has type 2 diabetes, with a current A1c level of 5.8. However, she is experiencing low blood sugar levels. She is currently on Jardiance and Trulicity for diabetes management. The patient has gastroparesis, likely related to her diabetes. The patient has a seizure disorder and is on medication for it. She has been experiencing jerking and twitching movements, which could be related to her neuropathy. Her last seizure was a few months ago. The patient has supraventricular tachycardia (SVT) and is on metoprolol for it. The patient has hypertension and is on losartan for it. The patient underwent endometrial surgery on 07/23/2025 and has been experiencing increased bleeding since then. PAST MEDICAL HISTORY REVIEWED MEDICAL: Patient has a past medical history of Arthritis, Bipolar 1 disorder (CMS/HCC), Bursitis, Cervical cancer (CMS/HCC) (2009), DDD (degenerative disc disease), lumbar, Diabetes mellitus (CMS/HCC), GERD (gastroesophageal reflux disease), Headache, Hepatic fibrosis, hepatitis C, Injury of back, Injury ofneck, Latex sensitivity, Major depression, Melanoma of skin (CMS/HCC), Narcolepsy, Obstructive sleep apnea, Panic disorder, Schizo affective schizophrenia (CMS/HCC), Seizure disorder (CMS/HCC), Social anxiety disorder, and Substance abuse (CMS/[facility]). SURGICAL: Patient has a past surgical history that includes pr gastroesophag reflx test w/cath ph [facility](N/A, 11/18/2020); pr esophagogastroduodenoscopy transoral diagnostic (N/A, 04/07/2018); cholecystectomy (2003); cervix surgery (N/A, 2009); pr esophageal motility study w/interp&rpt (N/A, 11/18/2020); pr esophagogastroduodenoscopy transoral diagnostic (N/A, 11/27/2020); tubal ligation (Bilateral, 2009); and colonoscopy (N/A, 12/13/2022). ALLERGIES Amoxicillin, Azithromycin, Cariprazine, Flagyl (as hcl), Guaifenesin, Metronidazole, Tramadol, Methocarbamol, Nickel, Adhesive, Latex, Morphine, Oxycodone, Sulfamethoxazole-trimethoprim, Sumatriptan,and Zolpidem PHYSICAL EXAM INITIAL VS BP: (!) 141/97 (08/04/251839), Heart Rate: 97 bpm (08/04/251839), Resp: 16 (08/04/251839), Pulse: 83 (08/04/251999), Temp: 97.1 ??F (36.2 ??C) (08/04/251839), Temp src: Temporal (08/04/251839),SpO2: 95 % (08/04/251839), Height: 5' 7 (170.2 cm) (08/04/251839), Weight: (!) 156 kg (344 lb) (08/04/251839), BMI (Calculated): (!) 53.85 (08/04/251839) No LMP recorded. Blood pressure 138/78, pulse 82, temperature 97.1 ??F (36.2 ??C), temperature source Temporal, resp. rate 16, height 5' 7 (1.702 m), weight (!) 156 kg (344 lb), SpO2 94%. Physical Exam Vitals and nursing note reviewed. Constitutional: General: She is in acute distress. Appearance: Normal appearance. She is obese. She is ill-appearing. HENT: Head: Normocephalic. Mouth/Throat: Mouth: Mucous membranes are moist. Eyes: Extraocular Movements: Extraocular movements intact. Pupils: Pupils are equal, round, and reactive to light. Cardiovascular: Rate and Rhythm: Normal rate and regular rhythm. Pulses: Normal pulses. Heart sounds: Normal heart sounds. Pulmonary: Effort: Pulmonary effort is normal. No respiratory distress. Breath sounds: Normal breath sounds. Chest: Chest wall: No tenderness. Abdominal: Palpations: Abdomen is soft. Tenderness: There is abdominal tenderness (suprapubic tenderness.). There is left CVA tenderness. There is no right CVA tenderness, guarding or rebound. Musculoskeletal: General: Tenderness (over the lumbar, sacral and coccigeal areas without any swelling or ecchymosis. no erythema or rash.) present. Cervical back: Normal range of motion and neck supple. No tenderness. Comments: Tenderness over the left foot lateral aspect with mild swelling. Unable to bare weight. Lymphadenopathy: Cervical: No cervical adenopathy. Skin: General: Skin is warm and dry. Capillary Refill: Capillary refill takes less than 2 seconds. Coloration: Skin is not pale. Findings: Bruising present. No erythema or rash. Neurological: General: No focal deficit present. Mental Status: She is alert and oriented to person, place, and time. Mental status is at baseline. Cranial Nerves: No cranial nerve deficit. Sensory: No sensory deficit. Gait: Gait abnormal (due to pain). Psychiatric: Mood and Affect: Mood normal. Behavior: Behavior normal. DIAGNOSTICS LAB: CBC WITH DIFFERENTIAL - Abnormal Result Value WBC 10.8 (*) RBC 5.27 (*) HEMOGLOBIN 13.7 HEMATOCRIT 41.0 MCV 77.8 (*) MCH 26.0 MCHC 33.4 RDW 15.6 (*) RDW-STDEV 42.6 PLATELETS 314 MPV 9.1 (*) NEUTROPHILS 69 LYMPHOCYTES 22 MONOCYTES 5 EOSINOPHILS 2 BASOPHILS 1 IMMATURE GRANULOCYTES 0 NEUTROPHIL ABSOLUTE 7.46 (*) LYMPHOCYTE ABSOLUTE 2.40 MONOCYTE ABSOLUTE 0.57 (*) EOSINOPHIL ABSOLUTE 0.25 BASOPHILS ABSOLUTE 0.05 IMMATURE GRANULOCYTES ABSOLUTE 0.04 COMPREHENSIVE METABOLIC PANEL - Abnormal SODIUM 141 POTASSIUM 4.1 CHLORIDE 103 CO2 25 CALCIUM 9.2 BUN 14 CREATININE 1.17 (*) GLUCOSE 113 (*) TOTAL PROTEIN 7.4 ALBUMIN 3.7 BILIRUBIN TOTAL 0.3 ALKALINE PHOSPHATASE 168 (*) AST 21 ALT 30 GFR 59 (*) ANION GAP 13 C-REACTIVE PROTEIN - Abnormal CRP 52.5 (*) LIPASE - Normal LIPASE 24 BRAIN NATRIURETIC PEPTIDE, BNP OR PROBNP - Normal PROBNP, N TERMINAL <36 RADIOLOGY: CT ABDOMEN PELVIS W CONTRAST Radiologist Impression IMPRESSION: No evidence of an acute intra-abdominal abnormality. Interval mild splenomegaly. Persistent hepatomegaly with mild hepatic steatosis. Moderate constipation. XR FOOT 3+ VW LEFT Radiologist Impression IMPRESSION: Negative for an acute bony abnormality. . EKG: Results Laboratory Studies A1c is 5.8. PROCEDURES Procedures MEDICAL DECISION MAKING AND PLAN OF CARE Medical Decision Making Initial Assessment: Fell on Tuesday, landing on left side. Injured tailbone, hip, and back. Increased pain in these areas, pain during urination and bowel movements. Differential Diagnosis: - Peripheral neuropathy: Contributing to balance issues. Jerking and twitching symptoms. - Fracture: X-ray of foot to be obtained. - Internal injury: CT scan of abdomen and pelvis to ensure health of kidney, back, pelvis, and bladder. - Uterine perforation: Recent surgery on 07/23/2025. Increased bleeding. Pain during urination and bowel movements. ED Course: - X-ray of foot obtained. - CT scan of abdomen and pelvis obtained. Final Assessment: Fell on Tuesday, landing on left side. Injured tailbone, hip, and back. Increased pain in these areas, new onset vaginal bleeding, hematuria reported, left flank pain, and pain during urination and bowel movements. X-ray of foot and CT scan of abdomen and pelvis obtained. Clinical Impression: - Fall-related injury - Peripheral neuropathy - Type II diabetes mellitus - Seizure disorder - Supraventricular tachycardia (SVT) - Hypertension - Gastroparesis Care of the patient has been transferred to the night team at 7pm. I assumed care of this patient at shift change. CT, x-rays and labs were pending. Patient fell and injured her back. She has developed some bruising over her back. She has also noticed some vaginal bleeding and recently had surgery on her uterus. CBC and CMP were normal. Lipase normal. BNP normal. CRP 52.5. X-rays of the left foot were negative. CT scan of the abdomen pelvis with contrast was read by the radiologist as nothing acute. Patient was given injection of Dilaudid for her pain in the emergency department. She was discharged in stable condition with a prescription for Vicoprofen. Recommended she follow-up with her primary care provider in 1 week for recheck. Amount and/or Complexity of Data Reviewed Labs: ordered. Radiology: ordered. Risk Prescription drug management. Clinical Scoring & Consults Medications Administered During the ED Stay from 08/04/2025 1820 to 08/05/20252000 Date/Time Order Dose Route Action 08/04/20252041 CDT iopamidoL (ISOVUE-300) 61% injection (single-use vial) 100 mL 100 mL IV Contrast Given 08/04/20252114 CDT HYDROmorphone (PF) (DILAUDID) injection 0.5 mg 0.5 mg IV Given 08/04/20252114 CDT ondansetron (ZOFRAN) 4 mg/2 mL injection 4 mg 4 mg IV Given Discharge Medication List as of 08/04/2025 9:58 PM START taking these medications Details HYDROcodone-ibuprofen (VICOPROFEN) 7.5-200 mg Tablet Take 1 Tablet by mouth every 4 hours as neededfor Pain. Max Daily Amount: 6 Tablets, Disp-15 Tablet, R-0 CONTINUE these medications which have NOT CHANGED Details Trulicity 1.5 mg/0.5 mL injection Inject 1.5 mg by subcutaneous injection every 7 days., NAKIA Qulipta 60 mg Tablet Take 1 Tablet by mouth daily., NAKIA doxycycline hyclate (VIBRAMYCIN) 100 mg tablet Take 1 Tablet by mouth 2 times daily. ketoconazole (NIZORAL) 2 % Shampoo Apply to affected area Continuous as needed. latanoprost (XALATAN) 0.005 % solution Administer 1 Drop in both eyes daily at bedtime. losartan (COZAAR) 25 mg tablet Take 1 Tablet by mouth daily. lamoTRIgine (LaMICtal XR) 200 mg Extended Release 24 hour tablet Take 200 mg by mouth daily at bedtime. lurasidone (LATUDA) 40 mg Tablet tablet Take 40 mg by mouth daily with supper. methylphenidate HCl (METADATE ER) 20 mg Extended Release tablet Take 40 mg by mouth daily in the morning. pregabalin (LYRICA) 200 mg Capsule Take 1 Capsule by mouth 3 times daily. rizatriptan (MAXALT) 10 mg Tablet Take 10 mg by mouth every 2 hours as needed. pantoprazole (PROTONIX) 40 mg Tablet, Delayed Release (E.C.) TAKE ONE TABLET BY MOUTH TWICE DAILY before mealsThis prescription was filled on 01/17/2025. Any refills authorized will be placed on file.Disp-60 Tablet, R-5 ferrous sulfate 325 mg (65 mg iron) tablet Take 1 Tablet (325 mg) by mouth daily., Disp-90 Tablet, R-3 Jardiance 25 mg tablet Take 1 Tablet by mouth daily., NAKIA dicyclomine (BENTYL) 10 mg capsule TAKE ONE CAPSULE BY MOUTH FOUR TIMES DAILY NEEDED FOR ABDOMINAL SPASMSThis prescription was filled on 05/27/2023. Any refills authorized will be placed on file.Disp-90 Capsule, R-1 hydrOXYzine HCL (ATARAX) 50 mg tablet Take 75 mg by mouth daily at bedtime. tiZANidine (ZANAFLEX) 2 mg Tablet Take 2 mg by mouth 3 times daily. metoprolol tartrate (LOPRESSOR) 25 mg tablet take one-half TABLET BY MOUTH TWICE DAILY topiramate (TOPAMAX) 100 mg tablet TK 1 T PO D. STARTING WK 4 AND ON 100 MG D meloxicam (MOBIC) 7.5 mg tablet Take 7.5 mg by mouth 2 times daily. varenicline (CHANTIX) 1 mg Tablet Take 1 mg by mouth 2 times daily. fluticasone propionate (FLONASE) 50 mcg/spray [place], Suspension nasal inhaler Administer 2 Sprays in each nostril 2 times daily. methylphenidate HCl (RITALIN) 20 mg tablet Take 20 mg by mouth 3 times daily. metoclopramide HCl (REGLAN) 5 mg tablet TAKE 1 TABLET BY MOUTH FOUR TIMES DAILY before meals and ATBEDTIMEThis prescription was filled on 05/15/2025. Any refills authorized will be placed on file.Disp-120 Tablet, R-3 clobetasoL (TEMOVATE) 0.05 % Cream Apply to affected area see administration instructions. mupirocin (BACTROBAN) 2 % Ointment Apply to affected area 3 times daily as needed. prazosin (MINIPRESS) 2 mg capsule Take 2 mg by mouth 1 time daily as needed. bimatoprost 0.03 % eye drops 1 Drop daily at bedtime. STOP taking these medications eptinezumab-jjmr (Vyepti) 100 mg/mL Solution Comments: Reason for Stopping: LAST VS BP: 138/78 (08/04/252199), Heart Rate: 83 bpm (08/04/252199), Resp: 16 (08/04/252199), Pulse: 82(08/04/252199), Temp: 97.1 ??F (36.2 ??C) (08/04/251839), Temp src: Temporal (08/04/251839), SpO2: 94 % (09/28/25 2200) CLINICAL IMPRESSION Diagnosis Diagnosis Comment Added By Time Added Contusion of back, unspecified laterality, initial encounter [S20.229A] Tremayne Lucero MD 08/04/2025 9:50 PM DISPOSITION, EDUCATION AND MEDICATION RECONCILIATION Medications reconciled. See after visit summary for patient education on discharged patients. ED Disposition ED Disposition Discharge Condition Stable User Tremayne Lucero MD Date/Time Sun Aug 04, 2025 9:50 PM Comment -- documented in this encounter Plan of Treatment Upcoming Encounters Date Type Department Care Team (Late st Contact Info) Description 10/07/2025 10:00 AM EMERGENCY ROOM REGISTERED NURSE Office Visit [facility] [place] [address] [place] [address] Faye Dhillon NP [address] [facility] [address] [place] [address] documented as of this encounter Procedures Procedure Name Priority Date/Time Associated Diagnosis Comments CT ABDOMEN PELVIS W CONTRAST Stat 08/04/2025 8:42 PM CDT XR FOOT 3+ VW LEFT Stat 08/04/2025 7: 49 PM CDT CBC WITH DIFFERENTIAL Stat 08/04/2025 7:45 PM CDT C-REACTIVE PROTEIN Stat 08/04/2025 7: 45 PM CDT BRAIN NATRIURETIC PEPTIDE, BNP OR PROBNP Stat 08/04/2025 7:45 PM CDT LIPASE Stat 08/04/2025 7:45 PM CDT COMPREHENSIVE METABOLIC PANEL Stat 08/04/2025 7:45 PM CDT documented in this encounter Results * CT ABDOMEN PELVIS W CONTRAST (08/04/2025 8:42 PM CDT) Anatomical Region Laterality Modality Abdomen Computed Tomogra phy 08/04/2025 8:19 PM CDT Impressions 08/04/2025 9:21 PM CDT IMPRESSION: No evidence of an acute intra-abdominal abnormality. Interval mild splenomegaly. Persistent hepatomegaly with mild hepatic steatosis. Moderate constipation. Narrative 08/04/2025 9:21 PM CDT EXAM: CT ABDOMEN PELVIS W CONTRAST DATE/TIME OF EXAM: 08/04/2025 8:42 PM REASON FOR EXAM: pelvic pain, back pain, recent uterine surgery and now bleeding and having hematuria. DIAGNOSIS: See Reason for Exam COMPARISON: CT of the abdomen and pelvis with contrast 03/28/2025 TECHNIQUE: Multiple contiguous axial CT images were obtained of the abdomen and pelvis after administration of intravenous contrast. Supplemental 2D reformatted images were generated and reviewed as needed. FINDINGS: Lower chest: No acute findings. Liver: Stable hepatomegaly. Diffuse hepatic steatosis. No focal hepatic lesion Gallbladder and Bile ducts: Cholecystectomy. No biliary dilatation Spleen: Mild splenomegaly Pancreas: Diffuse fatty infiltration Adrenals: Normal. Kidneys, ureters, and urinary bladder: Kidneys are normal in size. No acute findings; no hydronephrosis. Urinary bladder is normal. Bowel: No evidence of a small bowel obstruction or acute abnormality. Moderate stool burden throughout the colon. Normal appendix. Peritoneum/retroperitoneum: No ascites. No enlarged retroperitoneal lymph nodes. Vascular: No abdominal aortic aneurysm. Reproductive: No suspicious pelvic masses. Small right adnexa cyst measuring 2.1 x 1.5 cm and 2.2 x 2.2 cm. Bone and soft tissues: No suspicious bony lesions. Procedure Note Marcial Esparza MD - 08/04/2025 EXAM: CT ABDOMEN PELVIS W CONTRAST DATE/TIME OF EXAM: 08/04/2025 8:42 PM REASON FOR EXAM: pelvic pain, back pain, recent uterine surgery and now bleeding and having hematuria. DIAGNOSIS: See Reason for Exam COMPARISON: CT of the abdomen and pelvis with contrast 03/28/2025 TECHNIQUE: Multiple contiguous axial CT images were obtained of the abdomen and pelvis after administration of intravenous contrast. Supplemental 2D reformatted images were generated and reviewed as needed. FINDINGS: Lower chest: No acute findings. Liver: Stable hepatomegaly. Diffuse hepatic steatosis. No focal hepatic lesion Gallbladder and Bile ducts: Cholecystectomy. No biliary dilatation Spleen: Mild splenomegaly Pancreas: Diffuse fatty infiltration Adrenals: Normal. Kidneys, ureters, and urinary bladder: Kidneys are normal in size. No acute findings; no hydronephrosis. Urinary bladder is normal. Bowel: No evidence of a small bowel obstruction or acute abnormality. Moderate stool burden throughout the colon. Normal appendix. Peritoneum/retroperitoneum: No ascites. No enlarged retroperitoneal lymph nodes. Vascular: No abdominal aortic aneurysm. Reproductive: No suspicious pelvic masses. Small right adnexa cyst measuring 2.1 x 1.5 cm and 2.2 x 2.2 cm. Bone and soft tissues: No suspicious bony lesions. IMPRESSION: No evidence of an acute intra-abdominal abnormality. Interval mild splenomegaly. Persistent hepatomegaly with mild hepatic steatosis. Moderate constipation. Sumaya Mike MD CT ORDERABLES Final Result * XR FOOT 3+ VW LEFT (08/04/2025 7:49 PM CDT) Anatomical Region Laterality Modality Ankle / Foot Computed Radiogr aphy 08/04/2025 7:50 PM CDT Impressions 08/04/2025 8:25 PM CDT IMPRESSION: Negative for an acute bony abnormality. . Narrative 08/04/2025 8:25 PM CDT EXAM: XR FOOT 3+ VW LEFT DATE/TIME OF EXAM: 08/04/2025 7:49 PM REASON FOR EXAM: Fall, Pain DIAGNOSIS: See Reason for Exam COMPARISON: None FINDINGS: No radiographic evidence of an acute fracture, dislocation, or suspicious osseous lesion. No significant arthrosis; joint spaces are preserved. Soft tissues are grossly unremarkable. No suspicious radiodense foreign bodies identified. Procedure Note Marcial Esparza MD - 08/04/2025 EXAM: XR FOOT 3+ VW LEFT DATE/TIME OF EXAM: 08/04/2025 7:49 PM REASON FOR EXAM: Fall, Pain DIAGNOSIS: See Reason for Exam COMPARISON: None FINDINGS: No radiographic evidence of an acute fracture, dislocation, or suspicious osseous lesion. No significant arthrosis; joint spaces are preserved. Soft tissues are grossly unremarkable. No suspicious radiodense foreign bodies identified. IMPRESSION: Negative for an acute bony abnormality. . Result Farzana Mike MD DIAGNOSTIC IMAGING ORDERABLES F inal Result * (ABNORMAL) C-REACTIVE PROTEIN (08/04/2025 7:45 PM CDT) CRP 52.5(H) <5.0 mg/L 08/04/2025 8:21 PM CDT [facility] Blood BLOOD SPECIMEN / Unknown Collection / Unknown 08/04/2025 7:45 PM CDT 08/04/2025 7:52 PM CDT Result Farzana Mike MD CHEMISTRY ORDERABLES Final Resu lt Performing Organization Address [facility]/ZIP Co de Phone Number [facility] CLIA # [id number] [address] [place] [phone] * BRAIN NATRIURETIC PEPTIDE, BNP OR PROBNP (08/04/2025 7:45 PM CDT) PROBNP, N TERMINAL <36 0 - 125 pg/mL 08/04/2025 8:21 PM CDT [facility] Comment: INTERPRETIVE COMMENT based on diagnosis: Diagnostic NT pro-BNP cutoffs for Heart Failure in the absence of renal failure is suggested for the following ranges <75 years: <125 pg/mL >=75 years: <450 pg/mL Exclusionary rule out cut-point for Acute Decompensated Heart Failure(ADHF) All ages: <300 pg/mL Diagnostic NT pro-BNP cutoffs for Acute Decompensated Heart Failure(ADHF) in the absence of renal failure is suggested for the following ages <50 years: > 450 pg/mL 50-75 years: > 900 pg/mL >75 years: >1800 pg/mL Blood BLOOD SPECIMEN / Unknown Collection / Unknown 08/04/2025 7:45 PM CDT 08/04/2025 7:52 PM CDT us Sumaya Mike MD CHEMISTRY ORDERABLES Final Resu lt Performing Organization Address City/[facility]/ZIP Co de Phone Number [facility] CLIA # [id number] [address] [place] [phone] * LIPASE (08/04/2025 7:45 PM CDT) Pathologist [facility] LIPASE 24 13 - 60 U/L 08/04/2025 8:21 PM [facility] Blood BLOOD SPECIMEN / Unknown Collection / Unknown 08/04/2025 7:45 PM CDT 08/04/2025 7:52 PM CDT us Sumaya Mike MD CHEMISTRY ORDERABLES Final Resu lt [facility] CLIA # [id number] [address] [place] [phone] * (ABNORMAL) COMPREHENSIVE METABOLIC PANEL (08/04/2025 7:45 PM CDT) [facility] SODIUM 141 136 - 145 mmol/L 08/04/2025 8:21 PM [facility] POTASSIUM 4.1 3.5 - 5.1 mmol/L 08/04/2025 8:21 PM [facility] CHLORIDE 103 98 - 107 mmol/L 08/04/2025 8:21 PM [facility] CO2 25 22 - 29 mmol/L 08/04/2025 8:21 PM [facility] CALCIUM 9.2 8.6 - 10.0 mg/dL 08/04/2025 8:21 PM [facility] BUN 14 6 - 20 mg/dL 08/04/2025 8:21 PM [facility] CREATININE 1.17(H) 0.51 - 0.95 mg/dL 08/04/2025 8:21 PM [facility] GLUCOSE 113(H) 74 - 99 mg/dL 08/04/2025 8:21 PM [facility] TOTAL PROTEIN 7.4 6.6 - 8.7 g/dL 08/04/2025 8:21 PM [facility] ALBUMIN 3.7 3.5 - 5.2 g/dL 08/04/2025 8:21 PM [facility] BILIRUBIN TOTAL 0.3 0.0 - 1.2 mg/dL 08/04/2025 8:21 PM [facility] ALKALINE PHOSPHATASE 168(H) 35 - 104 U/L 08/04/2025 8:21 PM [facility] AST 21 0 - 35 U/L 08/04/2025 8:21 PM [facility] ALT 30 0 - 35 U/L 08/04/2025 8:21 PM [facility] GFR 59(L) >=60 mL/min/1.7 3 sq meter 08/04/2025 8:21 PM [facility] Comment:eGFR calculated with 2020 CKD-EPI equation. Vegetarian diet, extremely high or low muscle mass, and may affect results. Cystatin C with Glomerular Filtration Rate is a suitable alternative for these patients. ANION GAP 13 5 - 20 mmol/L 08/04/2025 8:21 PM [facility] Blood BLOOD SPECIMEN / Unknown Collection / Unknown 08/04/2025 7:45 PM CDT 08/04/2025 7:52 PM CDT us Sumaya Mike MD CHEMISTRY ORDERABLES Final Resu lt [facility] CLIA # [id number] [address] [place] [phone] * (ABNORMAL) CBC WITH DIFFERENTIAL (08/04/2025 7:45 PM CDT) WBC 10.8(H) 4.0 - 10.0 K/uL 08/04/2025 7:55 PM [facility] RBC 5.27(H) 3.93 - 5.22 M/uL 08/04/2025 7:55 PM [facility] HEMOGLOBIN 13.7 11.2 - 15.7 g/dL 08/04/2025 7:55 PM [facility] HEMATOCRIT 41.0 34.1 - 44.9 % 08/04/2025 7:55 PM [facility] MCV 77.8(L) 79.4 - 94.8 fL 08/04/2025 7:55 PM [facility] MCH 26.0 25.6 - 32.2 pg 08/04/2025 7:55 PM [facility] MCHC 33.4 32.2 - 35.5 g/dL 08/04/2025 7:55 PM [facility] RDW 15.6(H) 11.0 - 14.5 % 08/04/2025 7:55 PM [facility] RDW-STDEV 42.6 36.9 - 56.9 fL 08/04/2025 7:55 PM [facility] PLATELETS 314 163 - 337 K/uL 08/04/2025 7:55 PM [facility] MPV 9.1(L) 10.0 - 14.8 fL 08/04/2025 7:55 PM [facility] NEUTROPHILS 69 34 - 71 % 08/04/2025 7:55 PM [facility] LYMPHOCYTES 22 19 - 52 % 08/04/2025 7:55 PM [facility] MONOCYTES 5 5 - 13 % 08/04/2025 7:55 PM [facility] EOSINOPHILS 2 1 - 6 % 08/04/2025 7:55 PM [facility] BASOPHILS 1 0 - 1 % 08/04/2025 7:55 PM [facility] IMMATURE GRANULOCYTES 0 % 08/04/2025 7:55 PM [facility] NEUTROPHIL ABSOLUTE 7.46(H) 1.56 - 6.13 K/uL 08/04/2025 7:55 PM [facility] LYMPHOCYTE ABSOLUTE 2.40 1.20 - 3.40 K/uL 08/04/2025 7:55 PM [facility] MONOCYTE ABSOLUTE 0.57(H) 0.24 - 0.36 K/uL 08/04/2025 7:55 PM [facility] EOSINOPHIL ABSOLUTE 0.25 0.04 - 0.36 K/uL 08/04/2025 7:55 PM CDT [facility] BASOPHILS ABSOLUTE 0.05 0.01 - 0.08 K/uL 08/04/2025 7:55 PM CDT [facility] IMMATURE GRANULOCYTES ABSOLUTE 0.04 K/uL 08/04/2025 7:55 PM CDT [facility] Blood BLOOD SPECIMEN / Unknown Collection / Unknown 08/04/2025 7:45 PM CDT 08/04/2025 7:52 PM CDT us Sumaya Mike MD HEMATOLOGY ORDERABLES Final Res ult [facility] CLIA # [id number] [address] [place] [phone] documented in this encounter Visit Diagnoses Diagnosis Contusion of back, unspecified laterality, initial encounter- Primary documented in this encounter Administered Medications Inactive Administered Medications - up to 3 most recent administrations Medication Order MAR Action Action Date Dose Rate Site HYDROmorphone (PF) (DILAUDID) injection 0.5 mg 0.5 mg, IV, ONE TIME ONLY, 1 dose, On 08/04/25 at 2114, Routine Given 08/04/2025 9:15 PM CDT 0.5 mg iopamidoL (ISOVUE-300) 61% injection (single-use vial) 100 mL 100 mL, IV, INTRA-PROCEDURE ONCE, 1 dose, Starting on Tue08/04/25 at 2040, Until Tue08/04/25 at 2041, Routine Contrast Given 08/04/2025 8:42 PM CDT 100 mL ondansetron (ZOFRAN) 4 mg/2 mL injection 4 mg 4 mg, IV, ONE TIME ONLY, 1 dose, On 08/04/25 at 2114, Stat Given 08/04/2025 9:15 PM CDT 4 mg sodium chloride flush injection 10 mL 10 mL, IV, EVERY 12 HOURS (BlD), First dose on 08/04/25 at 2100, Until Discontinued, Routine sodium chloride flush injection 10 mL 10 mL, IV, SEE ADMIN INSTRUCTIONS, Starting on Tue08/04/25 at 1859, Until 08/05/25 at 0009, Routine documented in this encounter Active and Recently Administered Medications Times are shown in CDT. Scheduled Medication Order 08/02/2025 08/03/2025 08/04/2025 HYDROmorphone (PF) (DILAUDID) injection 0.5 mg (COMPLETED) 0.5 mg, IV, ONE TIME ONLY, 1 dose, On 08/04/25 at 2114, Routine 2114 (Given - Provid er: Berta Salcido RN) iopamidoL (ISOVUE-300) 61% injection (single-use vial) 100 mL (COMPLETED) 100 mL, IV, INTRA-PROCEDURE ONCE, 1 dose, Starting on 08/04/25 at 2040, Until Tue08/04/25 at 2041, Routine 2041 (Contrast Given - Provider: Sagar Rea, RT) ondansetron (ZOFRAN) 4 mg/2 mL injection 4 mg (COMPLETED) 4 mg, IV, ONE TIME ONLY, 1 dose, On 08/04/25 at 2114, Stat 2114 (Given - Provid er: Berta Salcido RN) sodium chloride flush injection 10 mL 10 mL, IV, EVERY 12 HOURS (BlD), First dose on 08/04/25 at 2100, Until Discontinued, Routine 2099 (Due) sodium chloride flush injection 10 mL 10 mL, IV, SEE ADMIN INSTRUCTIONS, Starting on 08/04/25 at 1859, Until 08/05/25 at 0009, Routine documented in this encounter Care Teams Mule Tender Relationship Specialty Start Date End Date Marcelle Wagner DO [address] [place] [phone] PCP - General Family Practice 09/19/23 documented as of this encounter
[2025-08-08 16:50] VITALS: BP 153/84; PULSE 93; RESP 18; TEMP 36.5; O2SAT 94
--- OUTSIDE RECORDS SUMMARY | 2025-08-08 16:58 | XMS_ITS | Encounter Summary ---
Author Organization [facility] Address 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 Gender Identity Female 09/18/2024 7:21 PM SAP ARCHITECT Sexual Orientation Not on file documented as of this encounter Plan of Treatment Upcoming Encounters Date Type Department Care Team (Late st Contact Info) Description 10/07/2025 10:00 AM SAP ARCHITECT Office Visit [facility] Gastroenterology- [place] [address] [place] [address] Faye Dhillon NP [address] [facility] [address] [place] [address] documented as of this encounter Visit Diagnoses Not on filedocumented in this encounter Care Teams Subacute Nurse Relationship Specialty Start Date End Date Marcelle Wagner DO [address] [place] [phone] PCP - General Family Practice 09/19/23 documented as of this encounter
--- OUTSIDE RECORDS SUMMARY | 2025-08-08 16:58 | XMS_ITS | Encounter Summary ---
Author Organization [facility] Address 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 Gastroenterology- [place] [address] [facility] [address] [place] [address] Faye Dhillon NP [address] [facility] [address] [place] [address] documented as of this encounter Visit Diagnoses Not on filedocumented in this encounter Care Teams Desk Attendant Relationship Specialty Start Date End Date Marcelle Wagner DO [address] [place] [phone] PCP - General Family Practice 09/19/23 documented as of this encounter
--- OUTSIDE RECORDS SUMMARY | 2025-08-08 16:58 | XMS_ITS | Encounter Summary ---
Author Organization [facility] Address 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 Gastroenterology- [place] [address] [facility] [address] [place] [address] Faye Dhillon NP [address] [facility] [address] [place] [address] documented as of this encounter Visit Diagnoses Not on filedocumented in this encounter Care Teams Epic Professional Relationship Specialty Start Date End Date Marcelle Wagner DO [address] [place] [phone] PCP - General Family Practice 09/19/23 documented as of this encounter
--- OUTSIDE RECORDS SUMMARY | 2025-08-08 16:58 | XMS_ITS | Encounter Summary ---
Author Organization [facility] Address [address] 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 [facility] [address] [place] [address] Faye Dhillon NP [address] [facility] [address] [place] [address] documented as of this encounter Visit Diagnoses Not on filedocumented in this encounter Care Teams Traffic Circuit Engineer Relationship Specialty Start Date End Date Marcelle Wagner DO [address] [place] [phone] PCP - General Family Practice 09/19/23 documented as of this encounter
--- OUTSIDE RECORDS SUMMARY | 2025-08-08 16:59 | XMS_ITS | Encounter Summary ---
Author Organization [facility] Address [address] [place] [address] Care Team Providers Care Solution Spec Name Role Phone Marcelle Wagner Primary Care Provider +1- [phone] Reason for Visit * Reason Comments Med Refill Encounter Details Date Type Department Care Team (Late st Contact Info) Description 08/03/2025 Refill [facility] 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 [facility] [address] [place] [address] Faye Dhillon NP [address] [facility] [address] [place] [address] documented as of this encounter Visit Diagnoses Diagnosis Gastroesophageal reflux disease without esophagitis Esophageal reflux documented in this encounter Care Teams Solution Spec Relationship Specialty Start Date End Date Marcelle Wagner DO [address] [place] [phone] PCP - General Family Practice 09/19/23 documented as of this encounter
--- OUTSIDE RECORDS SUMMARY | 2025-08-08 16:59 | XMS_ITS | Clinical Summary ---
Author Organization [facility] Address [address] [place]: Epic Prelude ADT [place] [address] Care Team Providers Care Pad Machine Operator Name Role Phone Marcelle Wagner Primary Care Provider [phone] Allergies Active Allergy Reactions Criticality Noted Date Comments Adhesive Rash Low Amoxicillin Anaphylaxis High 10/28/2016 Azithromycin Hives High 10/28/2016 Cariprazine Fever,Delirium High 09/23/2020 VRAYLAR Flagyl (As Hcl) Hives High Guaifenesin Anaphylaxis High Latex Rash Low Methocarbamol Unknown 12/26/2022 Metronidazole Hives,Nausea and Vomiting High 10/28/2016 Morphine Nausea and Vomiting Low 11/07/2014 Nickel Other (See Comments) 09/23/2020 Turns my skin green and irritates it. Oxycodone Swelling Low 12/13/2022 Legs Sulfamethoxazole-Trime thoprim Rash Low 04/04/2018 Sumatriptan Rash Low Tramadol Seizure High 04/04/2018 Zolpidem Hallucination Low Medications fluticasone propionate (FLONASE) 50 mcg/spray [place], Suspension nasal inhaler Administer 2 Sprays in each nostril 2 times daily. Active meloxicam (MOBIC) 7.5 mg tablet Take 7.5 mg by mouth 2 times daily. Active varenicline (CHANTIX) 1 mg Tablet Take 1 mg by mouth 2 times daily. Active topiramate (TOPAMAX) 100 mg tablet TK 1 T PO D. STARTING WK 4 AND ON 100 MG D Active methylphenidat e HCl (RITALIN) 20 mg tablet Take 20 mg by mouth 3 times daily. Active metoprolol tartrate (LOPRESSOR) 25 mg tablet take one-half TABLET BY MOUTH TWICE DAILY Active bimatoprost 0.03 % eye drops 1 Drop daily at bedtime. Active hydrOXYzine HCL (ATARAX) 50 mg tablet Take 75 mg by mouth daily at bedtime. Active tiZANidine (ZANAFLEX) 2 mg Tablet Take 2 mg by mouth 3 times daily. Active dicyclomine (BENTYL) 10 mg capsule TAKE ONE CAPSULE BY MOUTH FOUR TIMES DAILY NEEDED FOR ABDOMINAL SPASMS 90 Capsule 1 Active Jardiance 25 mg tablet Take 1 Tablet by mouth daily. Active ferrous sulfate 325 mg (65 mg iron) tablet Take 1 Tablet (325 mg) by mouth daily. 90 Tablet 3 Active Trulicity 1.5 mg/0.5 mL injection Inject 1.5 mg by subcutaneous injection every 7 days. Active Qulipta 60 mg Tablet Take 1 Tablet by mouth daily. Active clobetasoL (TEMOVATE) 0.05 % Cream Apply to affected area see administration instructions. Active doxycycline hyclate (VIBRAMYCIN) 100 mg tablet Take 1 Tablet by mouth 2 times daily. Active ketoconazole (NIZORAL) 2 % Shampoo Apply to affected area Continuous as needed. Active latanoprost (XALATAN) 0.005 % solution Administer 1 Drop in both eyes daily at bedtime. Active losartan (COZAAR) 25 mg tablet Take 1 Tablet by mouth daily. Active mupirocin (BACTROBAN) 2 % Ointment Apply to affected area 3 times daily as needed. Active prazosin (MINIPRESS) 2 mg capsule Take 2 mg by mouth 1 time daily as needed. Active lamoTRIgine (LaMICtal XR) 200 mg Extended Release 24 hour tablet Take 200 mg by mouth daily at bedtime. Active lurasidone (LATUDA) 40 mg Tablet tablet Take 40 mg by mouth daily with supper. Active methylphenidat e HCl (METADATE ER) 20 mg Extended Release tablet Take 40 mg by mouth daily in the morning. Active pregabalin (LYRICA) 200 mg Capsule Take 1 Capsule by mouth 3 times daily. Active rizatriptan (MAXALT) 10 mg Tablet Take 10 mg by mouth every 2 hours as needed. Active metoclopramide HCl (REGLAN) 5 mg tablet TAKE 1 TABLET BY MOUTH FOUR TIMES DAILY before meals and AT BEDTIME 120 Tablet 3 Active pantoprazole (PROTONIX) 40 mg Tablet, Delayed Release (E.C.)Indicati ons:Gastroesop hageal reflux disease without esophagitis TAKE ONE TABLET BY MOUTH TWICE DAILY before meals 60 Tablet 5 025 Active HYDROcodone-ib uprofen (VICOPROFEN) 7.5-200 mg TabletIndicati ons:Contusion of back, unspecified laterality, initial encounter Take 1 Tablet by mouth every 4 hours as needed for Pain. Max Daily Amount: 6 Tablets 15 Tablet 025 Active pantoprazole (PROTONIX) 40 mg Tablet, Delayed Release (E.C.)Indicati ons:Gastroesop hageal reflux disease without esophagitis TAKE ONE TABLET BY MOUTH TWICE DAILY before meals 60 Tablet 5 025 2024 Discontinued Active Problems Problem Noted Date Diagnosed Date Gastroparesis 02/23/2023 Collagenous colitis 02/23/2023 Gastroesophageal reflux disease without esophagi tis 06/05/2018 Liver fibrosis 11/24/2016 Overview (03/05/2021): 11/23/16 F2-F3 by elastography Tobacco use 10/28/2016 Spells 06/24/2014 Narcolepsy - self report 06/24/2014 PTSD (post-traumatic stress disorder) - self rep ort 06/24/2014 Bursitis of right shoulder - self report 014 Sleep apnea 06/24/2014 Schizoaffective disorder - self report 4 Right arm cellulitis 06/24/2014 Obesity 06/24/2014 Encounters Date Type Department Care Team Description 08/06/2025 External Device Data [facility] Provider, Abstract 08/06/2025 External Device Data [facility] Provider, Abstract 08/06/2025 External Device Data [facility] Provider, Abstract 08/04/2025 6:33 PM CDT - 08/04/2025 10:09 PM CDT Emergency [facility] Emergency Medicine [address] [place] [address] Sumaya Mike MD Sindlinger, Tremayne Carrera MD Contusion of back, unspecified laterality, initial encounter (Primary Dx) Discharge Disposition: Home or Self Care 08/04/2025 Travel 08/03/[address] [address] Ray Leong, DO Gastroesophageal reflux disease without esophagitis 07/09/2025 External Device Data [facility] Provider, Abstract 06/25/2025 External Device Data [facility] Provider, Abstract 06/12/2025 External Device Data [facility] Provider, Abstract 06/09/[address] [address] Faye Dhillon NP 05/22/2025 External Device Data [facility] Provider, Abstract 05/21/2025 External Device Data [facility] Provider, Abstract from Last 3 Months Immunizations Immunization Administration Dates Next Due (M-M-R II/PRIORIX)(12 MO UP) MEASLES, MUMPS AND RUBELLA VIRUS VACCINE, 0.5 ML IM/SUBCUT 02/06/1999,12/02/1980 (TDVAX)(7 YRS UP) TETANUS AN D DIPHTHERIA TOXOIDS, ADSORBED (2 LF OF TETANUS TOXOID AND 2 LF OF DIPHTHERIA TOXOID), 0.5ML (PF), IM 08/09/1991 Dt Dtp Dtap Vaccine 03/03/1981, 0,01/01/1980,1978 IPV/OPV 08/09/1991, 1,01/01/1980,1978 Family History Medical History Relation Name Comments Colon Cancer Neg Hx Social History Tobacco Use Types Packs/Day Years Used Date Smoking Tobacco: Former Cigarettes Q uit: 02/24/2022 Passive Smoke Exposure: Current Smokeless Tobacco: Never Tobacco Cessation:Counseling Given: No Comments:Quit smoking: smokes half a pack to a pack a [...] on file Legal Sex Female 7:47 AM HOME CARE ADMINISTRATOR Gender Identity Female 09/18/2024 7:21 PM HOME CARE ADMINISTRATOR Sexual Orientation Not on file Last Filed Vital Signs Vital Sign Reading [...] Mass Index 53.88 08/04/2025 6:40 PM CDT Plan of Treatment Upcoming Encounters Date Type Department Care Team (Late st Contact Info) Description 10/07/2025 10:00 AM HOME CARE ADMINISTRATOR Office Visit [facility] Gastroenterology- [place] [address] [place] [address] Faye Dhillon NP [address] [place] [address] Health Maintenance Due Date Last Done Comments Pre-Diabetes and Diabetes Screening 1980 DTAP/TDAP/TD VACCINES (6 - Tdap) 08/10/1991 08/09/1991, 03/03/1981, 03/04/1980, Additional history exists HEPATITIS B VACCINES (1 of 3 - 19+ 3-dose series) 1998 HPV/Cotest (21-29) 2000 HPV VACCINES (1 - 3-dose SCD M series) 2006 CERVICAL CANCER SCREENING 2009 HPV/Cotest (30-65) 2009 PAP SMEAR 2009 BREAST CANCER SCREENING 2019 FIT-DNA Q 3 years 2024 FIT/FOBT Q 1 year 2024 Flex Sig/CT Colonography Q 5 years 2024 INFLUENZA VACCINE (#1) 2025 , 09/20/2022, 11/21/2021 COVID-19 Vaccine (3 - 2024-2 6 season) 2025 01/02/2021, 12/05/2020 COLORECTAL SCREENING 12/13/2032 12/13/2022, 12/13/19 23 Colorectal Cancer Screening 12/13/2032 Procedures Procedure Name Priority Date/Time Associated Diagnosis Comments CT ABDOMEN PELVIS W CONTRAST Stat 08/04/2025 8:42 PM CDT XR FOOT 3+ VW LEFT Stat 08/04/2025 7: 49 PM CDT C-REACTIVE PROTEIN Stat 08/04/2025 7: 45 PM CDT BRAIN NATRIURETIC PEPTIDE, BNP OR PROBNP Stat 08/04/2025 7:45 PM CDT LIPASE Stat 08/04/2025 7:45 PM CDT COMPREHENSIVE METABOLIC PANEL Stat 08/04/2025 7:45 PM CDT CBC WITH DIFFERENTIAL Stat 08/04/2025 7:45 PM CDT COLONOSCOPY REPORT 12/13/2022 8: 19 AM HOME CARE ADMINISTRATOR from Last 3 Months or Most Recently Relevant to Health Maintenance Results * CT ABDOMEN PELVIS W CONTRAST [...] Negative for an acute bony abnormality. . us Sumaya Mike MD DIAGNOSTIC IMAGING ORDERABLES F inal Result * (ABNORMAL) CBC WITH DIFFERENTIAL (08/04/2025 7:45 PM CDT) WBC 10.8(H) 4.0 - 10.0 K/uL 08/04/2025 7:55 PM [facility] RBC 5.27(H) 3.93 - 5.22 M/uL 08/04/2025 7:55 PM [facility] HEMOGLOBIN 13.7 11.2 - 15.7 g/dL 08/04/2025 7:55 PM [facility] HEMATOCRIT 41.0 34.1 - 44.9 % 08/04/2025 7:55 PM [facility] MCV 77.8(L) 79.4 - 94.8 fL 08/04/2025 7:55 PM [facility] MCH 26.0 25.6 - 32.2 pg 08/04/2025 7:55 PM [facility] MCHC 33.4 32.2 - 35.5 g/dL 08/04/2025 7:55 PM [facility] RDW 15.6(H) 11.0 - 14.5 % 08/04/2025 7:55 PM [facility] RDW-STDEV 42.6 36.9 - 56.9 fL 08/04/2025 7:55 PM [facility] PLATELETS 314 163 - 337 K/uL 08/04/2025 7:55 PM [facility] MPV 9.1(L) 10.0 - 14.8 fL 08/04/2025 7:55 PM [facility] NEUTROPHILS 69 34 - 71 % 08/04/2025 7:55 PM [facility] LYMPHOCYTES 22 19 - 52 % 08/04/2025 7:55 PM [facility] MONOCYTES 5 5 - 13 % 08/04/2025 7:[address] [facility] EOSINOPHILS 2 1 - 6 % 08/04/2025 7:55 PM CDT [facility] BASOPHILS 1 0 - 1 % 08/04/2025 7:55 PM CDT [facility] IMMATURE GRANULOCYTES 0 % 08/04/2025 7:55 PM CDT [facility] NEUTROPHIL ABSOLUTE 7.46(H) 1.56 - 6.13 K/uL 08/04/2025 7:55 PM T [facility] LYMPHOCYTE ABSOLUTE 2.40 1.20 - 3.40 K/uL 08/04/2025 7:55 PM CDT [facility] MONOCYTE ABSOLUTE 0.57(H) 0.24 - 0.36 K/uL 08/04/2025 7:55 PM T [facility] EOSINOPHIL ABSOLUTE 0.25 0.04 - 0.36 K/uL 08/04/2025 7:55 PM T [facility] BASOPHILS ABSOLUTE 0.05 0.01 - 0.08 K/uL 08/04/2025 7:55 PM CDT [facility] IMMATURE GRANULOCYTES ABSOLUTE 0.04 K/uL 08/04/2025 7:55 PM T [facility] Blood BLOOD SPECIMEN / Unknown Collection / Unknown 08/04/2025 7:45 PM CDT 08/04/2025 7:52 PM CDT us Sumaya Mike MD HEMATOLOGY ORDERABLES Final Res ult [facility] # [id number] [address] [place] [id number] * (ABNORMAL) C-REACTIVE PROTEIN (08/04/2025 7:45 PM CDT) CRP 52.5(H) <5.0 mg/L 08/04/2025 8:21 PM CDT [facility] Blood BLOOD SPECIMEN / Unknown Collection / Unknown 08/04/2025 7:45 PM CDT 08/04/2025 7:52 PM CDT us Sumaya Mike MD CHEMISTRY ORDERABLES Final Resu lt Performing Organization Address City/[facility]/ZIP Co de Phone Number [facility] CLIA # [id number] [address] [place] [id number] * BRAIN NATRIURETIC PEPTIDE, BNP OR PROBNP (08/04/2025 7:45 PM CDT) PROBNP, N TERMINAL <36 0 - 125 pg/mL 08/04/2025 8:21 PM CDT [facility] Comment: INTERPRETIVE COMMENT based on diagnosis: Diagnostic [...] ORDERABLES Final Resu lt Performing Organization Address [facility]/ZIP Co de Phone Number [facility] CLIA # [id number] [address] [place] [phone] * LIPASE (08/04/2025 7:45 PM CDT) LIPASE 24 13 - 60 U/L 08/04/2025 8:21 PM CDT [facility] Blood BLOOD SPECIMEN / Unknown Collection / Unknown 08/04/2025 7:45 PM CDT 08/04/2025 7:52 PM CDT us Sumaya Mike MD CHEMISTRY ORDERABLES Final Resu lt [facility] CLIA # [id number] [address] [place] [id number] * (ABNORMAL) COMPREHENSIVE METABOLIC PANEL (08/04/2025 7:45 PM CDT) SODIUM 141 136 - 145 mmol/L 08/04/2025 8:21 PM [facility] POTASSIUM 4.1 3.5 - 5.1 mmol/L 08/04/2025 8:21 PM [facility] CHLORIDE 103 98 - 107 mmol/L 08/04/2025 8:21 PM [facility] CO2 25 22 - 29 mmol/L 08/04/2025 8:21 PM [facility] CALCIUM 9.2 8.6 - 10.0 mg/dL 08/04/2025 8:21 PM [facility] BUN 14 6 - 20 mg/dL 08/04/2025 8:21 PM [facility] CREATININE 1.17(H) 0.51 - 0.95 mg/dL 08/04/2025 8:21 PM [facility] GLUCOSE 113(H) 74 - 99 mg/dL 08/04/2025 8:21 PM [facility] TOTAL PROTEIN 7.4 6.6 - 8.7 g/dL 08/04/2025 8:21 PM [facility] ALBUMIN 3.7 3.5 - 5.2 g/dL 08/04/2025 8:21 PM [facility] BILIRUBIN TOTAL 0.3 0.0 - 1.2 mg/dL 08/04/2025 8:21 PM [facility] ALKALINE PHOSPHATASE 168(H) 35 - 104 U/L 08/04/2025 8:21 PM [facility] AST 21 0 - 35 U/L 08/04/2025 8:21 PM [facility] ALT 30 0 - 35 U/L 08/04/2025 8:21 PM [facility] GFR 59(L) >=60 mL/min/1.7 3 sq meter 08/04/2025 8:21 PM CDT [facility] Comment:eGFR calculated with 2020 CKD-EPI equation. Vegetarian diet, extremely high or low muscle mass, and may affect results. Cystatin C with Glomerular Filtration Rate is a suitable alternative for these patients. ANION GAP 13 5 - 20 mmol/L 08/04/2025 8:21 PM CDT [facility] Blood BLOOD SPECIMEN / Unknown Collection / Unknown 08/04/2025 7:45 PM CDT 08/04/2025 7:52 PM CDT us Sumaya Mike MD CHEMISTRY ORDERABLES Final Resu lt [facility] CLIA # [id number] [address] [place] [id number] * COLONOSCOPY REPORT (12/13/2022 8:19 AM HOME CARE ADMINISTRATOR) Narrative Procedure Note Ray Leong DO - 12/13/2022 8:18 AM CST [facility] GI Patient Name: Leisa Rizo Procedure Date: 12/13/2022 Date of : 1980 Admit Type: Outpatient Age: 42 Attending MD: Ray Leong MD, Procedure: Colonoscopy Indications: Chronic diarrhea Providers: Ray Leong MD Referring MD: Leisa Toussaint DO Medicines: Propofol per Anesthesia Complications: No immediate complications. Procedure: After I obtained informed consent, the scope was passed under direct vision. Throughout the procedure, the patient's blood pressure, pulse, and oxygen saturations were monitored continuously. The Colonoscope was introduced through the anus and advanced to the cecum, identified by appendiceal orifice and ileocecal valve. The colonoscopy was performed without difficulty. The patient tolerated the procedure well. The quality of the bowel preparation was good. Estimated Blood Loss: Estimated blood loss was minimal. Findings: The terminal ileum appeared normal. The colon (entire examined portion) appeared normal. Biopsies for histology were taken with a cold forceps from the right colon and left colon for evaluation of microscopic colitis. Impression: - The examined portion of the ileum was normal. - The entire examined colon is normal. Biopsied. Recommendation: - Patient has a contact number available for emergencies. The signs and symptoms of potential delayed complications were discussed with the patient. Return to normal activities tomorrow. Written discharge instructions were provided to the patient. - Resume previous diet. - Continue present medications. - Repeat colonoscopy date to be determined after pending pathology results are reviewed for surveillance. Ray Leong MD 12/13/2022 8:18:41 AM Number of Addenda: 0 Note Initiated On: 12/13/2022 7:59 AM Scope Withdrawal Time 0 hours 5 minutes 45 seconds Scope In: 8:05:22 AM Scope Out: 8:15:17 AM [address] [place], [place] Ray Leong DO GI PROCEDURE ORDERABLES Final Result from Last 3 Months or Most Recently Relevant to Health Maintenance Insurance [place]ICA[place] Advance Directives For more information, please contact: [phone] Documents on File Type Date Recorded Patient Photographic Supervisor Expl anation Advance Directive POA 12/28/2022 11:24 AM Advance Directive POA * Full Code (Latest Code Status on File) Date Activated Date Inactivated Comments 12/13/2022 7:53 AM 12/13/2022 10:52 AM Care Teams Pad Machine Operator Relationship Specialty Start Date End Date Marcelle Wagner DO [address] [place] [address] PCP - General Family Practice 09/19/23
--- OUTSIDE RECORDS SUMMARY | 2025-08-08 16:59 | XMS_ITS | Patient Health Record ---
Author Organization [facility] Address [address] [place] [address] Care Team Providers Care Lapel Padder Name Role Phone Ras Echevarria Primary Care Provider Unavailabl e Migration, Provider Unavailable Unavailable Allergies Allergen (clinical drug ingredient) Drug/Non Drug Allergy documented on EMR Reaction Allergy Type Onset Date Status azithromycin Azithromycin Hives Drug Allergy A ctive [...] Active morphine Morphine vomitting Drug Allergy Active Substance with sulfonamide structure and antibacterial mechanism of action (substance) Sulfa Antibiotics Hives Drug Allergy Active tramadol Tramadol seizures Drug Allergy Active zolpidem Zolpidem Hives Drug Allergy Active Reason For Referral No Information Medications Medication SIG (Take, Route, Frequency, Duration) Notes Start Date End Date Status lamoTRIgine *[facility]* Active Ritalin *[facility]* Active Vyepti 300mg Injection *[facility] for [facility] and Interaction Alerts* Active Lumigan *[facility] strength-f [facility]m [facility] for [facility]* Active pantoprazole *[facility] and Interaction Alerts* Active Latuda *Pick strength-f [facility]m from [facility] for [facility]* Active benfotiamine 150mg *[facility] and Interaction Alerts* Active hydrOXYzine Pamoate *Pick streng th-form from [facility] for eRX* Active Chantix *Pick strength-f orm from [facility] for eRX* Active Topiramate *[facility]* Active Social History Social History [...] Diagnosis Migrated_Facility 0 0 09/02/2024 Provider Migration Migrated_Facility 0 0 09/01/2024 Provider Migration Plan Of Treatment No Information Medical (General) History Surgical History Surgery Date(Month/Year) Gallbladder surgery Since 2003 Tubal ligation Since 2009
--- NOTE | 2025-08-08 18:11 | XRR_ITS ---
PROCEDURE INFORMATION: Exam: XR Chest Exam date and time: 08/08/2025 7:14 PM Age: 44 years old Clinical indication: Other: Weakness TECHNIQUE: Imaging protocol: Radiologic exam of the chest. Views: 1 view. COMPARISON: CR XR chest 1V portable [id number] 12/08/2023 10:38 AM FINDINGS: Lungs: No pulmonary consolidation. Pleural spaces: No pleural effusion or pneumothorax. Heart/Mediastinum: Heart size is within normal limits. Bones/joints: No acute osseous abnormalities are seen. XR/XR chest 1V portable [id number] IMPRESSION: No acute cardiopulmonary disease.
[2025-08-08 19:05] LABS: Hematocrit 39.3 % (36-47); Hemoglobin 12.50 g/dL (11.27-16.99); Mean Corpuscular HGB Conc 31.8 g/dL (30-55); Mean Corpuscular Hemoglobin 26.8 pg (27-33); Mean Corpuscular Volume 84.2 fl (85-98); Nucleated Red Blood Cells % 0 %; Platelet Count 270 10^3/cmm (157-399); Red Blood Count 4.67 10^6/uL (3.85-5.65); White Blood Count 9.43 10^3/uL (3.29-11.43)
[2025-08-08 19:31] LABS: Alanine Aminotransferase 16 U/L (0-33); Albumin Level 3.5 g/dL (3.5-5.2); Alkaline Phosphatase 132 U/L (35-105); Anion Gap 13.9 (5-19); Aspartate Amino Transferase 12 U/L (0-32); Blood Urea Nitrogen 13 mg/dL (6-20); Calcium 8.8 mg/dL (8.5-10.5); Carbon Dioxide 28 mmol/L (22-29); Chloride 103 mmol/L (98-107); Globulin 3.5 g/dL (1.3-4.6); Glucose 100 mg/dL (65-115); Osmolality Calculated 292 mOsm/kg (285-295); Potassium 3.9 mmol/L (3.5-5.1); Sodium 141 mmol/L (136-145); Total Protein 7.0 g/dL (6.6-8.7)
[2025-08-08 19:36] LABS: Lactic Sepsis W/Reflex 1.4 mmol/L (0.5-2.2)
[2025-08-08 19:49] VITALS: BP 144/74; PULSE 85; RESP 20; O2SAT 98
--- NOTE | 2025-08-08 19:58 | W.ED.DIZZY ---
HPI - Dizziness General: Chief Complaint: Dizziness Stated Complaint: Dizzy Low BP Shacky Time Seen by Provider: 08/08/25 18:12 History of Present Illness: HPI Narrative: 44-year-old female with a recent diagnosis of endometriosis, recent fall with imaging done at [place] that was negative, obesity, chronic pain syndrome on opiate therapy, borderline personality disorder, schizoaffective disorder, hypertension who presents to the emergency room with weakness and near syncope. She says her blood pressure is low at home. She says has been fluctuating since she had the fall recently. Related Data Home Medications ?Medication ?Instructions ?Recorded ?Confirmed fluticasone propionate 50 2 spray intranasal PRN PRN Allergy 11/14/19 08/07/25 mcg/actuation nasal Symptoms spray,suspension rizatriptan 10 mg tablet 10 mg PO DAILY PRN Migraine 01/02/21 08/07/25 Headache dicyclomine 10 mg capsule 10 mg PO QID PRN Diarrhea 06/17/22 08/07/25 ondansetron HCl 4 mg tablet 4 mg PO Q8H PRN Nausea And Vomiting 06/17/22 08/07/25 colestipol 1 gram tablet 2 g PO BID PRN Abdominal Discomfort 12/10/22 08/07/25 latanoprost 0.005 % eye drops 1 drp ophthalmic (eye) BEDTIME 12/30/22 08/07/25 topiramate 100 mg tablet 100 mg PO BEDTIME 12/30/22 08/07/25 methylphenidate HCl 20 mg tablet 20 mg PO .1 pm 10/28/23 08/07/25 (Ritalin) methylphenidate HCl 20 mg 40 mg PO DAILY 10/28/23 08/07/25 tablet,extended release dulaglutide 0.75 mg/0.5 mL 1.5 mg SUBCUT .WEEKLY 04/27/24 08/07/25 subcutaneous pen injector (Trulicity) metoclopramide HCl 5 mg tablet 10 mg PO BID 04/27/24 08/07/25 (Reglan) pantoprazole 40 mg tablet,delayed 40 mg PO DAILY 04/27/24 08/07/25 release (Protonix) losartan 25 mg tablet 25 mg PO DAILY 01/18/25 08/07/25 ascorbate calcium (vitamin C) 500 500 mg PO DAILY 05/08/25 10/01/25 mg tablet biotin 5 mg tablet 5 mg PO DAILY 03/14/25 08/07/25 cholecalciferol (vitamin D3) 10 10 mcg PO DAILY 03/14/25 08/07/25 mcg (400 unit) capsule atogepant 60 mg tablet (Qulipta) 60 mg PO DAILY 04/29/25 08/07/25 doxycycline hyclate 100 mg tablet 100 mg PO BID PRN spasms 05/28/25 08/07/25 varenicline tartrate 1 mg tablet 1 mg PO DAILY 05/28/25 08/07/25 (Chantix) albuterol sulfate 90 mcg/actuation 2 inh inhalation Q6H PRN Allergy 07/22/25 08/07/25 aerosol inhaler (Ventolin HFA) Symptoms hydroxyzine HCl 50 mg tablet 75 mg PO DAILY 07/22/25 08/07/25 lamotrigine 200 mg tablet,extended 200 mg PO DAILY 07/22/25 08/07/25 release 24 hr meloxicam 7.5 mg tablet 7.5 mg PO TID 07/22/25 08/07/25 metoprolol tartrate 25 mg tablet 25 mg PO BID 07/22/25 08/07/25 tizanidine 2 mg tablet 2 mg PO TID 07/22/25 08/07/25 triamcinolone acetonide 0.1 % 1 applic topical BID PRN Dry Skin 07/22/25 08/07/25 lotion Previous Rx's ?Medication ?Instructions ?Recorded Night splint #1 ea 09/07/21 pregabalin 200 mg capsule 200 mg PO TID 90 days #270 caps 01/25/22 naloxone 4 mg/actuation nasal 4 mg intranasal Q2M PRN opioid 05/20/23 spray (Narcan) overdose #2 ea lurasidone 40 mg tablet (Latuda) 40 mg PO DAILY #30 tabs 02/14/25 empagliflozin 25 mg tablet 25 mg PO DAILY #90 tabs 06/25/25 (Jardiance) Allergies Allergy/AdvReac Type Severity Reaction Status Date / Time guaifenesin (From Mucinex) Allergy Severe ANAPHYLAXIS Verified 08/07/25 10:52 tramadol Allergy Severe SEIZURE Verified 08/07/25 10:52 adhesive Allergy Intermediate RASH Verified 08/07/25 10:52 amoxicillin Allergy Intermediate RASH Verified 08/07/25 10:52 azithromycin Allergy Intermediate RASH Verified 08/07/25 10:52 cariprazine (From Vraylar) Allergy Intermediate HIVES Verified 08/07/25 10:52 latex Allergy Intermediate HIVES Verified 08/07/25 10:52 methocarbamol Allergy Intermediate HIVES Verified 08/07/25 10:52 metronidazole (From Flagyl) Allergy Intermediate VOMITING Verified 08/07/25 10:52 morphine Allergy Intermediate VOMITING Verified 08/07/25 10:52 solriamfetol (From Sunosi) Allergy Intermediate ADR-Seizure Verified 08/07/25 10:52 sulfamethoxazole (From Allergy Intermediate ALGY-Hives Verified 08/07/25 10:52 Bactrim) sumatriptan Allergy Intermediate RASH Verified 08/07/25 10:52 trimethoprim (From Bactrim) Allergy Intermediate ALGY-Hives Verified 08/07/25 10:52 zolpidem (From Ambien) Allergy Intermediate RASH Verified 08/07/25 10:52 Alpha-Gal Allergy ADR-Gastrointestinal Verified 08/07/25 10:52 (Cpqnygygi-Hxcwr-7,3-Gala Upset oxycodone Allergy ALGY-Swell Verified 08/07/25 10:52 Lip/Tongue/Throat Review of Systems Narrative: Constitutional symptoms: Negative except as documented in HPI. Skin symptoms: Negative except as documented in HPI. Eye symptoms: Negative except as documented in HPI. ENMT symptoms: Negative except as documented in HPI. Respiratory symptoms: Negative except as documented in HPI. Cardiovascular symptoms: Negative except as documented in HPI. Gastrointestinal symptoms: Negative except as documented in HPI. Genitourinary symptoms: Negative except as documented in HPI. Musculoskeletal symptoms: Negative except as documented in HPI. Neurologic symptoms: Negative except as documented in HPI. Psychiatric symptoms: Negative except as documented in HPI. Endocrine symptoms: Negative except as documented in HPI. 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 Acute bilateral low back pain with left-sided sciatica Spondylosis without myelopathy or radiculopathy, lumbar region Cholecystectomy planned Surgical History History of cholecystectomy Tubal ligation status Family History Brother Hypertension CAD (coronary artery disease) Diabetes Father Hypertension Mother Hypertension CAD (coronary artery disease) Cancer liver and lungs Social History Smoking and tobacco/nicotine status: former use of tobacco/nicotine (01/2023) Quit status (tobacco/nicotine): has tried quititng Number of times tried to quit tobacco: 10 Second hand smoke exposure: Yes Alcohol intake: former Year of sobriety/quit date alcohol: 2009 Substance/Drug Use: former Date of last use: 2015 Current gender identity: Female Physical Exam Narrative: EXAM NARRATIVE: General: Alert, no acute distress. Skin: Warm, dry. Head: Normocephalic, atraumatic. Neck: Supple, trachea midline. Eye: Extraocular movements are intact. Ears, nose, mouth and throat: mucosa moist. Cardiovascular: Regular, Normal peripheral perfusion. Respiratory: Lungs are clear to auscultation, respirations are non-labored, breath sounds are equal, Symmetrical chest wall expansion. Gastrointestinal: Soft, Nontender, Non distended Musculoskeletal: Normal ROM, no deformity. Neurological: Alert and oriented, No focal neurological deficit observed. Psychiatric: Cooperative, appropriate mood & affect. Course Vital Signs: Vital signs: Vital Signs Temperature 97.7 F 08/08/25 16:50 Pulse Rate 85 08/08/25 19:49 Respiratory Rate 20 H 08/08/25 19:49 Blood Pressure 144/74 08/08/25 19:49 Pulse Oximetry 98 08/08/25 19:49 Oxygen Delivery Me thod Room Air 08/08/25 19:49 MDM - Dizziness Medical Decision Making Medical decision making: Differential diagnosis for patient presenting with generalized weakness including but not limited to and based on the above HPI, review of systems and physical exam: Sepsis. Dehydration. Renal failure. Electrolyte abnormalities. Anemia. Congestive heart failure. Hypotension. Coronary syndrome. Hepatitis. Cirrhosis. Infections such as pneumonia, urinary tract infection, [place]ick bourne illness, Cellulitis, Viral infections including influenza and Covid-19. Workup: labwork and lab/exam driven imaging ordered to evaluate, rule in and rule out above pathologies. Lab Review: Laboratory results were reviewed and interpreted by myself the emergency room physician. No leukocytosis. No anemia. No renal failure. Liver enzymes are normal. No urinary tract infection I reviewed the patient's medical record. 44-year-old female with a recent diagnosis of endometriosis, recent fall with imaging done at [facility] that was negative, obesity, chronic pain syndrome on opiate therapy, borderline personality disorder, schizoaffective disorder, hypertension Reexamination: Blood pressures remain normal while she is been here. No dysrhythmias. Lab work is unremarkable. No increased work of breathing. No oxygen requirements. Assessment and plan: Dehydration ?Normal saline bolus in the emergency room - Discharged home - Discussed plan with patient. Answered any questions. - Evaluation and treatment of this problem were appropriate in the emergency setting. Lab Data 08/08/25 18:28 08/08/25 18:28 Laboratory Results WBC 9.43 10^3/uL (3.29-11.43) 08/08/25 18: RBC 4.67 10^6/uL (3.85-5.65) 08/08/25 18: Hgb 12.50 g/dL (11.27-16.99) 08/08/25 18: Hct 39.3 % (36-47) 08/08/25 18: MCV 84.2 fl (85-98) L 08/08/25 18: MCH 26.8 pg (27-33) L 08/08/25 18: MCHC 31.8 g/dL (30-55) 08/08/25 18: RDW 16.4 % (12.1-15.1) H 08/08/25 18: Plt Count 270 10^3/cmm (157-399) 08/08/25 18: MPV 9.5 fL (7.4-10.4) 08/08/25 18: Neut % (Auto) 70.9 % 08/08/25 18: Lymph % (Auto) 19.9 % 08/08/25 18: [place] % (Auto) 4.9 % 08/08/25 18: Eos % (Auto) 3.1 % 08/08/25 18: Baso % (Auto) 0.5 % 08/08/25 18: Neut # (Auto) 6.68 10^3/uL (1.8-7.7) 08/08/25 18: Lymph # (Auto) 1.9 10^3/uL (0.8-4.8) 08/08/25 18: [place] # (Auto) 0.5 10^3/uL (0.2-0.9) 08/08/25 18: Eos # (Auto) 0.3 10^3/uL (0.0-0.8) 08/08/25 18: Baso # (Auto) 0.1 10^3/uL (0.0-0.1) 08/08/25 18: Nucleated RBC % (auto) 0 % 08/08/25 Nucleated RBCs # 0.0 /100WBC 08/08/25 18: Sodium 141 mmol/L (136-145) 08/08/25 18: Potassium 3.9 mmol/L (3.5-5.1) 08/08/25 18: Chloride 103 mmol/L (98-107) 08/08/25 18: Carbon Dioxide 28 mmol/L (22-29) 08/08/25 18: Anion Gap 13.9 (5-19) 08/08/25 18: BUN 13 mg/dL (6-20) 08/08/25 18: Creatinine 0.9 mg/dL (0.5-0.9) 08/08/25 18: GFR Calculation 67.7 mL/min (90-130) L 08/08/25 18: Glucose 100 mg/dL (65-115) 08/08/25 18: Calculated Osmolality 292 mOsm/kg (285-295) 08/08/25 18: Lactic Acid 1.4 mmol/L (0.5-2.2) 08/08/25 18: Calcium 8.8 mg/dL (8.5-10.5) 08/08/25 18: Total Bilirubin 0.3 mg/dL (0.15-1.2) 08/08/25 18: AST 12 U/L (0-32) 08/08/25 18: ALT 16 U/L (0-33) 08/08/25 18: Alkaline Phosphatase 132 U/L (35-105) H 08/08/25 18:28 C-Reactive Protein 63.6 mg/L (0.0-4.9) H 08/08/25 18:28 Total Protein 7.0 g/dL (6.6-8.7) 08/08/25 18:28 Albumin 3.5 g/dL (3.5-5.2) 08/08/25 18:28 Globulin 3.5 g/dL (1.3-4.6) 08/08/25 18:28 Urine Color Yellow (Yellow) 08/08/25 19:45 Urine Appearance Clear (CLEAR) 08/08/25 19:45 Urine pH 6.0 (5-7) 08/08/25 19:45 Ur Specific [place] 1.025 (1.005-1.030) 08/08/25 19:45 Urine Protein Negative (Negative) 08/08/25 19:45 Urine Glucose (UA) 2+ (Normal) H 08/08/25 19:45 Urine Ketones Trace (Negative) 08/08/25 19:45 Urine Blood 2+ (Negative) A 08/08/25 19:45 Urine Nitrate Negative (Negative) 08/08/25 19:45 Urine Bilirubin Negative (Negative) 08/08/25 19:45 Urine Urobilinogen 1.0 mg/dL (Negative) 08/08/25 19:45 Ur Leukocyte Esterase Negative (Negative) 08/08/25 19:45 Urine RBC 10-15 /hpf (0-2) H 08/08/25 19:45 Urine WBC 0-4 /hpf (0-5) H 08/08/25 19:45 Ur Squamous Epith Cells 0-4 /hpf (0-5) H 08/08/25 19:45 Amorphous Sediment Not Reportable 08/08/25 19:45 Urine Bacteria Trace /hpf (NONE) 08/08/25 19:45 Urine Mucus Trace /hpf 08/08/25 19:45 No radiology studies performed this visit Discharge Plan Discharge Patient Disposition: Home Clinical Impression: Dehydration Condition: Stable Prescriptions: No Action pantoprazole [Protonix] 40 mg tablet,delayed release (DR/EC) 40 mg PO DAILY pregabalin 200 mg capsule 200 mg PO TID 90 Days Qty: 270 1RF fluticasone propionate 50 mcg/actuation spray,suspension 2 spray INTRANASAL PRN PRN (Reason: Allergy Symptoms) (DME) Night splint See Rx Instructions .Route .MEDSUPPLY Qty: 1 0RF Rx Instructions: As directed methylphenidate HCl [Ritalin] 20 mg tablet 20 mg PO .1 pm methylphenidate HCl 20 mg tablet extended release 40 mg PO DAILY Trulicity 0.75 mg/0.5 mL pen injector 1.5 mg SUBCUT .WEEKLY losartan 25 mg tablet 25 mg PO DAILY ondansetron HCl 4 mg tablet 4 mg PO Q8H PRN (Reason: Nausea And Vomiting) dicyclomine 10 mg capsule 10 mg PO QID PRN (Reason: Diarrhea) colestipol 1 gram tablet 2 g PO BID PRN (Reason: Abdominal Discomfort) metoclopramide HCl [Reglan] 5 mg tablet 10 mg PO BID lurasidone [Latuda] 40 mg tablet 40 mg PO DAILY Qty: 30 11RF Rx Instructions: must administer with food (at least 350 calories) ascorbate calcium (vitamin C) 500 mg tablet 500 mg PO DAILY cholecalciferol (vitamin D3) 10 mcg (400 unit) capsule 10 mcg PO DAILY biotin 5 mg tablet 5 mg PO DAILY Qulipta 60 mg tablet 60 mg PO DAILY Jardiance 25 mg tablet 25 mg PO DAILY Qty: 90 1RF naloxone [Narcan] 4 mg/actuation spray,non-aerosol 4 mg intranasal Q2M PRN (Reason: opioid overdose) Qty: 2 0RF Rx Instructions: spray 1 dose into ONE nostril; alternate nostrils w each dose until help arrives rizatriptan 10 mg tablet 10 mg PO DAILY PRN (Reason: Migraine Headache) latanoprost 0.005 % drops 1 drp ophthalmic (eye) BEDTIME topiramate 100 mg tablet 100 mg PO BEDTIME doxycycline hyclate 100 mg tablet 100 mg PO BID PRN (Reason: spasms) varenicline tartrate [Chantix] 1 mg tablet 1 mg PO DAILY tizanidine 2 mg tablet 2 mg PO TID hydroxyzine HCl 50 mg tablet 75 mg PO DAILY meloxicam 7.5 mg tablet 7.5 mg PO TID triamcinolone acetonide 0.1 % lotion 1 applic topical BID PRN (Reason: Dry Skin) albuterol sulfate [Ventolin HFA] 90 mcg/actuation HFA aerosol inhaler 2 inh inhalation Q6H PRN (Reason: Allergy Symptoms) metoprolol tartrate 25 mg tablet 25 mg PO BID lamotrigine 200 mg tablet extended release 24hr 200 mg PO DAILY Discharge Orders: Discharge ED (Routine); Ordered 08/08/25 Ordered By: Debora Curiel Referrals: Marcelle Wagner DO [Primary Care Provider, SHIP PAINTER HELPER] Discharge Diet: Usual diet Discharge Activity: Increase activity as tolerated Patient Instructions: Opioid Safety, Pain Management, Patient Portal & Dhiraj Instructions Activity Restrictions/Additional Instructions: Thank you for choosing [facility] for your healthcare needs today. You have been screened and evaluated and felt safe for discharge. Health conditions do change or evolve sometimes and as such it is important that you follow up with your Primary Doctor to be re checked, 3-5 days is a general good time frame for follow up. You are always welcome to return to the ED for re assessment if your symptoms are worsening or you have new concerns Print Language: Kyrgyz Coding Level of Care Code ED Stacker Operator for Claudia Muniz
[2025-08-08 20:05] LABS: Glucose Urine UA 2+ (Normal); Nitrate Urine Negative (Negative); Specific Gravity, Urine 1.025 (1.005-1.030)
[2025-08-08 20:45] LABS: Respiratory Syncytial Virus Ce NEGATIVE (Negative); SARS-CoV-2 PCR NEGATIVE (Negative)
[2025-08-08 20:59] VITALS: PULSE 83; RESP 16; O2SAT 99
[2025-08-08 21:33] VITALS: BP 144/80; PULSE 80; RESP 18; O2SAT 99
--- NOTE | 2025-08-10 04:40 | PC.NURSE ---
Lab called to report a positive blood culture. Pt. was sent home with no prescriptions and treated for dehydration. Dr. Chavez notified, no new orders due to probable contaminant of blood cultures.
== END 2025-08-08 21:34 | disposition home or self-care (01) ==
PROVIDERS: Emergency Provider Emergency Medicine; PCP Family Medicine
DX: E86.0 Dehydration (principal); Z79.85 Long-term (current) use of injectable non-insulin antidiabetic drugs; Z87.891 Personal history of nicotine dependence; I10 Essential (primary) hypertension
CPT/HCPCS: 36415; 71045; 80053; 81001; 83605; 85025; 86140; 87040; 87637; 96360; 99284; J7030

== ENCOUNTER → 2025-08-12 08:19 | Outpatient (BNVA) | payer MEDICAID, SELFPAY ==
[2024-08-07 15:12] VITALS: BP 112/76; BMI 62.0
== END ==
PROVIDERS: PCP Family Medicine; Visit Provider Podiatrist Foot & Ankle Surgery
DX: M25.572 Pain in left ankle and joints of left foot (principal); M79.672 Pain in left foot
CPT/HCPCS: 73610; 73620; 99214

== ENCOUNTER → 2025-09-10 07:52 | Outpatient (BNVA) | payer MEDICAID, SELFPAY ==
[2024-08-07 15:12] VITALS: BP 112/76; BMI 62.0
== END ==
PROVIDERS: PCP Family Medicine; Visit Provider Podiatrist Foot & Ankle Surgery
DX: M79.672 Pain in left foot (principal); M25.572 Pain in left ankle and joints of left foot; M76.72 Peroneal tendinitis, left leg; E11.42 Type 2 diabetes mellitus with diabetic polyneuropathy; M21.41 Flat foot [pes planus] (acquired), right foot; M21.42 Flat foot [pes planus] (acquired), left foot
CPT/HCPCS: 99213

== ENCOUNTER 2025-10-12 14:50 | Emergency (ER) | payer MEDICAID, SELFPAY ==
[2024-08-07 15:12] VITALS: BP 112/76; BMI 62.0
--- OUTSIDE RECORDS SUMMARY | 2024-09-01 03:00 | XMS_ITS ---
Author Organization [facility] Address [address] [place] [address] Care Team Providers Care Coloring Room Man Name Role Phone Ras Echevarria Primary Care Provider Unavailabl e Migration, Provider Unavailable Unavailable REASON FOR VISIT EMR-Mo Encounters Encounter Location Date Provider Diagnosis Migrated_Facility 0 0 09/01/2024 Provider Migration Plan Of Treatment Medication Medication Name Sig Start Date Stop Date Notes Meloxicam 7.5 MG Tablet TAKE 1 TABLET BY MOUTH TWICE DAILY Oral 08/29/2023 09/28/2023 Metoprolol Tartrate 25 MG Tablet TAKE ONE TABLET BY MOUTH TWICE DAILY Oral 08/29/2023 09/28/2023 Metoclopramide HCl 5 MG Tablet TAKE 1 TABLET BY MOUTH TWICE DAILY Oral 08/29/2023 09/28/2023 pregabalin 200 mg capsule take 1 capsule BY MOUTH THREE TIMES DAILY 08/29/2023 09/28/2023 *Reorder from [facility] for eRx and Interaction Alerts* tiZANidine HCl 2 MG Tablet TAKE 1 TABLET BY MOUTH THREE TIMES DAILY NEEDED FOR MUSCLE SPASTICITY Oral 09/02/2023 10/02/2023 Latanoprost 0.005 % Solution INSTILL 1 DROP IN BOTH EYES AT BEDTIME Ophthalmic 08/29/2023 09/23/2023 Next Appt Details Provider Name:Ras Echevarria, 11/27/2025 09:40:00 AM, [address] [place], [address], Progress Notes * Leisa BENJAMIN LDOB: [birth year] (45 yo F)Acc No.[id number]:09/01/2024 Patient: Marlin Leisa GREGG :1980 A ge:44 Y S ex:Female Address:[address], [address] * Refills Stop Latanoprost Solution, 0.005 %, Ophthalmic, INSTILL 1 DROP IN BOTH EYES AT BEDTIME Stop Meloxicam Tablet, 7.5 MG, Oral, TAKE 1 TABLET BY MOUTH TWICE DAILY Stop Metoclopramide HCl Tablet, 5 MG, Oral, TAKE 1 TABLET BY MOUTH TWICE DAILY Stop Metoprolol Tartrate Tablet, 25 MG, Oral, TAKE ONE TABLET BY MOUTH TWICE DAILY Stop tiZANidine HCl Tablet, 2 MG, Oral, TAKE 1 TABLET BY MOUTH THREE TIMES DAILY NEEDED FOR MUSCLE SPASTICITY Stop pregabalin 200 mg capsule, take 1 capsule BY MOUTH THREE TIMES DAILY Subjective: * Chief Complaints: * E -Mo * * Date:
--- OUTSIDE RECORDS SUMMARY | 2024-09-02 03:00 | XMS_ITS ---
Author Organization [facility] Address [address] [place] [address] Care Team Providers Care Tankroom Tender Name Role Phone Ras Echevarria Primary Care Provider Unavailabl e Migration, Provider Unavailable Unavailable Allergies Allergen (clinical drug ingredient) Drug/Non Drug Allergy documented on EMR Reaction Allergy Type Onset Date Status Sulfamethizole (uncoded) Hives Allergy Active azithromycin Azithromycin Hives Drug Allergy A ctive fentanyl fentaNYL Drug Allergy Active guaiFENesin anaphylaxis Drug Allergy Act reagan methocarbamol Methocarbamol Hives Drug Allergy Active sumatriptan SUMAtriptan Hives Drug Allergy Act reagan trimethoprim Trimethoprim Hives Drug Allergy A ctive cariprazine Vraylar coma Drug Allergy Activ e Adhesive rash/hives Allergy Active cariprazine Cariprazine Hives Drug Allergy Act reagan Latex Latex rash/hives Allergy Active morphine Morphine vomitting Drug Allergy Active tramadol Tramadol seizures Drug Allergy Active zolpidem Zolpidem Hives Drug Allergy Active REASON FOR VISIT EMR-Mo Medications Medication SIG (Take, Route, Frequency, Duration) Notes Start Date End Date Status Ritalin *Pick strength-f orm from [facility] for eRX* Active pantoprazole *Reorder from [facility] for eRx and Interaction Alerts* Active Latuda *Pick strength-f orm from [facility] for eRX* Active benfotiamine 150mg *Reorder from [facility] for eRx and Interaction Alerts* Active Topiramate *Pick strength-f orm from [facility] for eRX* Active lamoTRIgine *Pick strength-f orm from [facility] for eRX* Active Vyepti 300mg Injection *Reorder from [facility] for eRx and Interaction Alerts* Active Lumigan *Pick strength-f orm from [facility] for eRX* Active hydrOXYzine Pamoate *Pick streng th-form from [facility] for eRX* Active Chantix *Pick strength-f orm from [facility] for eRX* Active Social History Social History Additional Details Category Social Info Options Details Migrated Social History Migrated Social History Alcoholic beverages? - No, Currently on disability? - Yes, Drug or substance abuse? - No, Involved in any legal proceedings or lawsuits? - No, Marital Status - , Nonprescription drug use? - No, Participation in detoxification or rehabilitation - No, Smoking - No, Working currently? - No Encounters Encounter Location Date Provider Diagnosis Migrated_Facility 0 0 09/02/2024 Provider Migration Plan Of Treatment Next Appt Details Provider Name:Ras Echevarria, 11/27/2025 09:40:00 AM, [address] [place], [address], Progress Notes * Leisa ALEJANDRA LDOB: [birth year] (45 yo F)Acc No.[id number]:09/02/2024 Patient: Marlin MARYSOLLolaLeisa Marlin :1980 A ge:44 Y S ex:Female Address:[address], [address] Subjective: * Chief Complaints: * E MR-Mo * Surgical History: Gallbladder surgery Since 2003 Tubal ligation Since 2009 * Family History: M igrated Family History: : chronic pain, D iabetes, f ibromyalgia, R heumatoid arthritis. * Social History: M igrated Social History: M igrated Social History: Alcoholic beverages? - No, C urrently on disability? - Yes, D rug or substance abuse? - No, I nvolved in any legal proceedings or lawsuits? - No, M arital Status - , N onprescription drug use? - No, P articipation in detoxification or rehabilitation - No, S moking - No, W orking currently? - No. * Medications: T akingLatuda , Notes to Pharmacist: *Pick strength-form from [facility] for eRX*lamoTRIgine , Notes to Pharmacist: *Pick strength-form from [facility] for eRX*Vyepti 300mg Injection , Notes to Pharmacist: *Reorder from [facility] for eRx and Interaction Alerts*pantoprazole , Notes to Pharmacist: *Reorder from [facility] for eRx and Interaction Alerts*benfotiamine 150mg , Notes to Pharmacist: *Reorder from [facility] for eRx and Interaction Alerts*Chantix , Notes to Pharmacist: *Pick strength-form from [facility] for eRX*Topiramate , Notes to Pharmacist: *Pick strength-form from [facility] for eRX*Ritalin , Notes to Pharmacist: *Pick strength-form from [facility] for eRX*Lumigan , Notes to Pharmacist: *Pick strength-form from [facility] for eRX*hydrOXYzine Pamoate , Notes to Pharmacist: *Pick strength-form from [facility] for eRX*Taking Latuda , Notes to Pharmacist: *Pick strength-form from [facility] for eRX*Taking lamoTRIgine , Notes to Pharmacist: *Pick strength-form from [facility] for eRX*Taking Vyepti 300mg Injection , Notes to Pharmacist: *Reorder from [facility] for eRx and Interaction Alerts*Taking pantoprazole , Notes to Pharmacist: *Reorder from [facility] for eRx and Interaction Alerts*Taking benfotiamine 150mg , Notes to Pharmacist: *Reorder from [facility] for eRx and Interaction Alerts*Taking Chantix , Notes to Pharmacist: *Pick strength-form from [facility] for eRX*Taking Topiramate , Notes to Pharmacist: *Pick strength-form from [facility] for eRX*Taking Ritalin , Notes to Pharmacist: *Pick strength-form from [facility] for eRX*Taking Lumigan , Notes to Pharmacist: *Pick strength-form from [facility] for eRX*Taking hydrOXYzine Pamoate , Notes to Pharmacist: *Pick strength-form from [facility] for eRX* * Allergies: C ariprazine: Hives - AllergySUMAtriptan: Hives - AllergyAzithromycin: Hives - AllergyMethocarbamol: Hives - AllergyguaiFENesin: anaphylaxis - AllergyfentaNYL: - AllergyTrimethoprim: Hives - AllergySulfamethizole: Hives - AllergyTramadol: seizures - AllergyZolpidem: Hives - AllergyLatex: rash/hives - AllergyMorphine: vomitting - AllergyVraylar: coma - AllergyAdhesive: rash/hives - Allergy * * Date:
--- OUTSIDE RECORDS SUMMARY | 2025-10-07 10:00 | XMS_ITS | Encounter Summary ---
Author Organization [facility] Address 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[employer] Gender Identity Female 09/18/2024 7:21 PM PROFESSOR OF [employer] Sexual Orientation Not on file documented as of this encounter Last Filed Vital Signs Vital Sign Reading Time Taken Comments Blood Pressure 120/74 10/07/2025 10:02 AM PROFESSOR OF [employer]UD[employer] Pulse 79 10/07/2025 10:02 AM PROFESSOR [employer] Temperature - - Respiratory Rate - - Oxygen Saturation - - Inhaled Oxygen Concentration - - Weight 155.9 kg (343 lb 12.8 oz) 2024 10:02 AM PROFESSOR OF [employer] Height 167.6 cm (5' 6 ) 10/07/2025 10:0 2 AM PROFESSOR OF [employer] Body Mass Index 55.49 10/07/2025 10:02 AM PROFESSOR OF [employer]UD[employer] documented in this encounter Plan of Treatment Upcoming Encounters Date Type Department Care Team (Late st Contact Info) Description 01/27/2026 11:30 AM CDT Office Visit [facility] Gastroenterology- [place] [address] [facility] [address] [place] [address] Faye Dhillon NP [address] [facility] [address] [place] [address] documented as of this encounter Results * XR ABDOMEN ACUTE SERIES 2+ VWS W CXR (10/07/2025 11:03 AM PROFESSOR OF LAT[employer]UDIES) Anatomical Region Laterality Modality Abdomen Computed Radiogr aphy 10/07/2025 11:0 3 AM PROFESSOR OF [employer]UD[employer] Impressions 10/07/2025 11:39 AM PROFESSOR OF [employer] IMPRESSION: Please see below. Exam: XR ABDOMEN ACUTE SERIES 2+ VWS W CXR Date/Time of Exam: 10/07/2025 11:03 AM Reason For Exam: See Diagnosis. Diagnosis: Nausea; Abdominal bloating with cramps; Abdominal bloating with cramps. Comparison: None. Findings: A normal cardiomediastinal silhouette without acute airspace disease, pleural effusion, or pneumothorax is identified. Supine and upright views of the abdomen demonstrate no free air, gross organomegaly, or pathologic calcification. Phlebolith-like densities of the pelvis present. A nonspecific bowel gas pattern is noted. Impression: 1. Negative for acute cardiopulmonary process. 2. Nonspecific bowel gas pattern. Narrative Procedure Note Eddie Farris MD - 10/07/2025 IMPRESSION: Please see below. Exam: XR ABDOMEN ACUTE SERIES 2+ VWS W CXR Date/Time of Exam: 10/07/2025 11:03 AM Reason For Exam: See Diagnosis. Diagnosis: Nausea; Abdominal bloating with cramps; Abdominal bloating with cramps. Comparison: None. Findings: A normal cardiomediastinal silhouette without acute airspace disease, pleural effusion, or pneumothorax is identified. Supine and upright views of the abdomen demonstrate no free air, gross organomegaly, or pathologic calcification. Phlebolith-like densities of the pelvis present. A nonspecific bowel gas pattern is noted. Impression: 1. Negative for acute cardiopulmonary process. 2. Nonspecific bowel gas pattern. Faye Dhillon NP DIAGNOSTIC IMAGING ORDERABLES Fi nal Result documented in this encounter Visit Diagnoses Diagnosis Nausea- Primary Nausea alone Abdominal bloating with cramps Nausea Nausea alone Abdominal bloating with cramps documented in this encounter Care Teams Binding End Stitcher Relationship Specialty Start Date End Date Marcelle Wagner DO [address] [place] [place] [id number] PCP - General Family Practice 09/19/23 documented as of this encounter
--- OUTSIDE RECORDS SUMMARY | 2025-10-07 10:45 | XMS_ITS | Encounter Summary ---
Author Organization [facility] Address [address] [place] [address] Care Team Providers Care Social Services Coordinator Name Role Phone Marcelle Wagner DO Primary Care Provider [phone]- [phone] Encounter Details Date Type Department Care Team (Latest Contact Info) Description 10/07/2025 10:45 AM DECISION UNIT RN Ancillary Procedure [facility] Imaging Services [place] [address] [place] [address] Faye Dhillon, SHAILA [address] [place] [address] Nausea; Abdominal bloating with cramps Social History Tobacco [...] on file Legal Sex Female 7:47 AM DECISION UNIT RN Gender Identity Female 09/18/2024 7:21 PM DECISION UNIT RN Sexual Orientation Not on file documented as of this encounter Plan of Treatment Upcoming Encounters Date Type Department Care Team (Late st Contact Info) Description 01/27/2026 11:30 AM CDT Office Visit [facility] Gastroenterology- [place] [address] [place] [address] Faye Dhillon NP [address] [place] [address] documented as of this encounter Procedures Procedure Name Priority Date/Time Associated Diagnosis Comments XR ABDOMEN ACUTE SERIES W CXR Routine 10/07/2025 11:03 AM DECISION UNIT RN Nausea Abdominal bloating with cramps documented in this encounter Results * XR ABDOMEN ACUTE SERIES 2+ VWS W CXR (10/07/2025 11:03 AM DECISION UNIT RN) Anatomical Region Laterality Modality Abdomen Computed Radiogr aphy 10/07/2025 11:0 3 AM DECISION UNIT RN Impressions 10/07/2025 11:39 AM DECISION UNIT RN IMPRESSION: Please see below. Exam: XR ABDOMEN [...] cardiopulmonary process. 2. Nonspecific bowel gas pattern. us Faye Dhillon NET DEVELOPER DIAGNOSTIC IMAGING ORDERABLES Fi nal Result documented in this encounter Visit Diagnoses Diagnosis Nausea Nausea alone Abdominal bloating with cramps documented in this encounter Care Teams Social Services Coordinator Relationship Specialty Start Date End Date Marcelle Wagner DO [address] [place] [id number] PCP - General Family Practice 09/19/23 documented as of this encounter
--- OUTSIDE RECORDS SUMMARY | 2025-10-12 14:56 | XMS_ITS | Encounter Summary ---
Author Organization [facility] Address 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 [phone] PCP - General Family Practice 09/19/23 documented as of this encounter
--- OUTSIDE RECORDS SUMMARY | 2025-10-12 14:56 | XMS_ITS | Patient Health Record ---
Author Organization [facility] Address [address] [place] [address] Care Team Providers Care Operations Research Analyst Name Role Phone Ras Echevarria Primary Care Provider Unavailabl e Allergies Allergen (clinical drug ingredient) Drug/Non Drug [...] Date Status lamoTRIgine *[facility]* Active Ritalin *Pick strength-f orm from [facility] for e[facility]* Active Vyepti 300mg Injection *Reorder from [facility] for eRx and Interaction Alerts* Active Lumigan *Pick strength-f orm from [facility] for eRX* Active pantoprazole *Reorder from [facility] for eRx and Interaction Alerts* Active Latuda *Pick strength-f orm from [facility] for eRX* Active benfotiamine 150mg *Reorder from [facility] for eRx and Interaction Alerts* Active hydrOXYzine Pamoate *Pick streng th-form from [facility] for e[facility]* Active Chantix *Pick strength-f orm from [facility] for eRX* Active Topiramate *Pick strength-f orm from [facility] [...] Smoking - No, Working currently? - No Plan Of Treatment Next Appt Details Provider Name:Ras Echevarria, 11/27/2025 09:40:00 AM, [address] [place], [address], Insurance Providers Payer Name Payer Address Payer Phone Subscriber Number Group Number Insured Name Patient Relationship to Insured Coverage Start Date Coverage End Date [place] Medicaid [address] [place] [address] [id number] Leisa Benjamin Self - patient is the insured 2 Medical (General) History Surgical History Surgery Date(Month/Year) Gallbladder surgery Since 2003 Tubal ligation Since 2009
--- OUTSIDE RECORDS SUMMARY | 2025-10-12 14:56 | XMS_ITS | Clinical Summary ---
[facility] Organization [facility] Address [address] [place]: Epic Prelude ADT [place] [address] Care Team Providers Care Welding Equipment Repairer Name Role Phone Marcelle Wagner Primary Care Provider [phone]- [phone] Allergies Active Allergy Reactions Criticality Noted Date [...] Low Medications fluticasone propionate (FLONASE) 50 mcg/spray [place], Suspension nasal inhaler Administer 2 Sprays in [...] Take 1 Tablet by mouth daily. Active Trulicity 1.5 mg/0.5 mL injection Inject 1.5 mg by subcutaneous injection every 7 days. Active Qulipta 60 mg Tablet Take 1 Tablet by mouth daily. Active clobetasoL (TEMOVATE) 0.05 % Cream Apply to affected area see administration instructions. Active doxycycline hyclate (VIBRAMYCIN) 100 mg tablet Take 1 Tablet by mouth 2 times daily. Active latanoprost (XALATAN) 0.005 % solution Administer 1 Drop in both eyes daily at bedtime. Active mupirocin (BACTROBAN) 2 % Ointment Apply [...] mg by mouth daily in the morning. 04/14/2 025 Active pregabalin (LYRICA) 200 mg Capsule Take 1 Capsule by mouth 3 times daily. Active rizatriptan (MAXALT) 10 mg Tablet Take 10 mg by mouth every 2 hours as needed. Active pantoprazole (PROTONIX) 40 mg Tablet, Delayed Release (E.C.)Indicati ons:Gastroesop hageal reflux disease without esophagitis TAKE ONE TABLET BY MOUTH TWICE DAILY before meals 60 Tablet 5 Active FeroSuL 325 mg (65 mg iron) tablet TAKE 1 TABLET BY MOUTH DAILY 90 Tablet 3 025 Active metoclopramide HCl (REGLAN) 5 mg tablet TAKE 1 TABLET BY MOUTH FOUR TIMES DAILY before meals and AT BEDTIME 120 Tablet 3 Active ondansetron (ZOFRAN ODT) 4 mg Tablet, Rapid Dissolve Take 1 Tablet (4 mg) by mouth every 6 hours as needed for Nausea/Emesis. Dissolve tablet on top of tongue, then swallow with saliva. 120 Tablet 2 025 Active metoclopramide HCl (REGLAN) 5 mg tablet TAKE 1 TABLET BY MOUTH FOUR TIMES DAILY before meals and AT BEDTIME 120 Tablet 3 025 2024 Discontinued Active Problems Problem Noted [...] Encounters Date Type Department Care Team Description 10/08/2025 Abstract [facility] Gastroenterology- [address] [place] [address] Lay Muller RN 10/07/2025 10:45 AM CORRECTIONAL CORPORAL Ancillary Procedure [facility] Imaging Services [address] [place] [id number] Faye Dhillon, SHAILA Nausea; Abdominal bloating with cramps 10/07/2025 10:00 AM CORRECTIONAL CORPORAL Office Visit [address] [place] [address] Faye Dhillon, SHAILA Nausea (Primary Dx); Abdominal bloating with cramps 10/06/[address] [place] [address] Faye Dhillon NP 10/01/2025 External Device Data [facility] ABSTRACTION Provider, Abstract 10/01/2025 External Device Data [facility] ABSTRACTION Provider, Abstract 10/01/2025 External Device Data [facility] ABSTRACTION Provider, Abstract 09/10/2025 External Device Data [facility] ABSTRACTION Provider, Abstract 09/03/2025 External Device Data [place] ABSTRACTION Provider, Abstract 09/03/2025 External Device Data [place] ABSTRACTION Provider, Abstract 09/03/[address] [place] [phone] Faye Dhillon, HEAD OF RESEARCH & INSIGHTS 08/13/2025 External Device Data STL ABSTRACTION Provider, Abstract 08/13/2025 External Device Data STL ABSTRACTION Provider, Abstract 08/06/2025 External Device Data STL ABSTRACTION Provider, Abstract 08/06/2025 External Device Data STL ABSTRACTION Provider, Abstract 08/06/2025 External Device Data STL ABSTRACTION Provider, Abstract 08/04/2025 6:33 PM CDT - 08/04/2025 10:09 PM CDT Emergency [facility] Emergency Medicine [address] [place] [address] Sumaya Mike MD Sindlinger, Timothy S, MD Contusion of back, unspecified laterality, initial encounter (Primary Dx) Discharge Disposition: Home or Self Care 08/04/2025 Travel 08/03/2025 [facility] Gastroenterology[address] [place] [address] Ray Leong, DO Gastroesophageal reflux disease without esophagitis from Last 3 Months Immunizations Immunization Administration [...] on file Legal Sex Female 7:47 AM CORRECTIONAL CORPORAL Gender Identity Female 09/18/2024 7:21 PM CORRECTIONAL CORPORAL Sexual Orientation Not on file Last Filed Vital Signs Vital Sign Reading Time Taken Comments Blood Pressure 120/74 10/07/2025 10:02 AM CORRECTIONAL CORPORAL Pulse 79 10/07/2025 10:02 AM CORRECTIONAL CORPORAL Temperature 36.2 C (97.1 F) 08/04/2025 6:40 PM CDT Respiratory Rate 16 08/04/2025 10:0 0 PM CDT Oxygen Saturation 94% 08/04/2025 10: 00 PM CDT Inhaled Oxygen Concentration - - Weight 155.9 kg (343 lb 12.8 oz) 2024 10:02 AM CORRECTIONAL CORPORAL Height 167.6 cm (5' 6 ) 10/07/2025 10:0 2 AM CORRECTIONAL CORPORAL Body Mass Index 55.49 10/07/2025 10:02 AM CORRECTIONAL CORPORAL Plan of Treatment Upcoming Encounters Date Type Department Care Team (Late st Contact Info) Description 01/27/2026 11:30 AM CDT Office Visit [facility] Gastroenterology- [place] [address] [place] [address] Faye Dhillon NP [address] [place] [address] Health Maintenance Due Date Last Done Comments DTAP/TDAP/TD VACCINES (6 - Tdap) 08/10/1991 08/09/1991, 03/03/1981, 03/04/1980, Additional history exists DIABETES ANNUAL FOOT EXAM 1997 DIABETES ANNUAL RETINAL EXAM 1997 DIABETES MICROALBUMIN ANNUAL SCREEN 1997 LDL CHOLESTEROL ANNUAL 1997 HEPATITIS B VACCINES (1 of 3 - 19+ 3-dose series) 1998 Preventative Visit-Managed Medicaid 1998 DIABETES HBA1C Q 6 MONTHS 12/25/2014 06/24/2014 BREAST CANCER SCREENING 2019 FIT-DNA Q 3 years 2024 FIT/FOBT Q 1 year 2024 Flex Sig/CT Colonography Q 5 years 2024 COVID-19 Vaccine (3 - 2024-2 6 season) 2025 01/02/2021, 12/05/2020 COLORECTAL SCREENING 12/13/2032 12/13/2022, 12/13/19 Colorectal Cancer Screening 12/13/2032 INFLUENZA VACCINE Completed 2025, , 09/20/2022, Additional history exists HPV VACCINES (No Doses Required) Completed Procedures Procedure Name Priority Date/Time Associated Diagnosis Comments XR ABDOMEN ACUTE SERIES W CXR Routine 10/07/2025 11:03 AM CORRECTIONAL CORPORAL Nausea Abdominal bloating with cramps CT ABDOMEN PELVIS W CONTRAST Stat 08/04/2025 [...] CDT COLONOSCOPY REPORT 12/13/2022 8: 19 AM CORRECTIONAL CORPORAL from Last 3 Months or Most Recently Relevant to Health Maintenance Results * XR ABDOMEN ACUTE SERIES 2+ VWS W CXR (10/07/2025 11:03 AM CORRECTIONAL CORPORAL) Anatomical Region Laterality Modality Abdomen Computed Radiogr aphy 10/07/2025 11:0 3 AM CORRECTIONAL CORPORAL Impressions 10/07/2025 11:39 AM CORRECTIONAL CORPORAL IMPRESSION: Please see below. Exam: XR ABDOMEN [...] Nonspecific bowel gas pattern. us Faye Dhillon NP DIAGNOSTIC IMAGING ORDERABLES Fi nal Result * CT ABDOMEN PELVIS W CONTRAST (08/04/2025 [...] Ankle / Foot Computed Radiogr aphy 08/04/2025 7:5 0 PM CDT Impressions 08/04/2025 8:25 PM CDT [...] Negative for an acute bony abnormality. . Sumaya Mike MD DIAGNOSTIC IMAGING ORDERABLES F inal Result * (ABNORMAL) CBC WITH DIFFERENTIAL (08/04/2025 7:45 PM CDT) WBC 10.8(H) 4.0 - 10.0 K/uL 08/04/2025 7:55 PM [facility] RBC 5.27(H) 3.93 - 5.22 M/uL 08/04/2025 7:55 PM [facility] HEMOGLOBIN 13.7 11.2 - 15.7 g/dL 08/04/2025 7:55 PM [facility] HEMATOCRIT 41.0 34.1 - 44.9 % 08/04/2025 7:55 PM [facility] MCV 77.8(L) 79.4 - 94.8 fL 08/04/2025 7:55 PM [facility] MCH 26.0 25.6 - 32.2 pg 08/04/2025 7:55 PM [facility] MCHC 33.4 32.2 - 35.5 g/dL 08/04/2025 7:55 PM [facility] RDW 15.6(H) 11.0 - 14.5 % 08/04/2025 7:55 PM [facility] RDW-STDEV 42.6 36.9 - 56.9 fL 08/04/2025 7:55 PM [facility] PLATELETS 314 163 - 337 K/uL 08/04/2025 7:55 PM [facility] MPV 9.1(L) 10.0 - 14.8 fL 08/04/2025 7:55 PM [facility] NEUTROPHILS 69 34 - 71 % 08/04/2025 7:55 PM [facility] LYMPHOCYTES 22 19 - 52 % 08/04/2025 7:55 PM [facility] MONOCYTES 5 5 - 13 % 08/04/2025 7:55 PM [facility] EOSINOPHILS 2 1 - 6 % 08/04/2025 7:55 PM [facility] BASOPHILS 1 0 - 1 % 08/04/2025 7:55 PM [facility] IMMATURE GRANULOCYTES 0 % 08/04/2025 7:55 PM [facility] NEUTROPHIL ABSOLUTE 7.46(H) 1.56 - 6.13 K/uL 08/04/2025 7:55 PM [facility] LYMPHOCYTE ABSOLUTE 2.40 1.20 - 3.40 K/uL 08/04/2025 7:55 PM [facility] MONOCYTE ABSOLUTE 0.57(H) 0.24 - 0.36 K/uL 08/04/2025 7:55 PM [facility] EOSINOPHIL ABSOLUTE 0.25 0.04 - 0.36 K/uL 08/04/2025 7:55 PM [facility] BASOPHILS ABSOLUTE 0.05 0.01 - 0.08 K/uL 08/04/2025 7:55 PM [facility] IMMATURE GRANULOCYTES ABSOLUTE 0.04 K/uL 08/04/2025 7:55 PM [facility] Blood BLOOD SPECIMEN / Unknown Collection / Unknown 08/04/2025 7:45 PM CDT 08/04/2025 7:52 PM CDT us Sumaya Mike MD HEMATOLOGY ORDERABLES Final Res ult Performing Organization Address City/State/[facility] Co de Phone Number [facility] CLIA # [id number] [address] [place] [id number] * (ABNORMAL) C-REACTIVE PROTEIN (08/04/2025 7:45 PM CDT) CRP 52.5(H) <5.0 mg/L 08/04/2025 8:21 PM CDT [facility] Blood BLOOD SPECIMEN / Unknown Collection / Unknown 08/04/2025 7:45 PM CDT 08/04/2025 7:52 PM CDT us Sumaya Mike MD CHEMISTRY ORDERABLES Final Resu lt Performing Organization Address [facility] Phone Number [facility] # [id number] [address] [place] [phone] * BRAIN NATRIURETIC PEPTIDE, BNP OR PROBNP (08/04/2025 7:45 PM CDT) PROBNP, N TERMINAL <36 0 - 125 pg/mL 08/04/2025 8:21 PM CDT [facility] Comment: INTERPRETIVE COMMENT based on diagnosis: Diagnostic [...] ORDERABLES Final Resu lt Performing Organization Address [facility]/ZIP Co de Phone Number [facility] CLIA # [id number] [address] [place] [phone] * LIPASE (08/04/2025 7:45 PM CDT) Pathologist [facility] LIPASE 24 13 - 60 U/L 08/04/2025 8:21 PM T [facility] Blood BLOOD SPECIMEN / Unknown Collection / Unknown 08/04/2025 7:45 PM CDT 08/04/2025 7:52 PM CDT Sumaya Mike MD CHEMISTRY ORDERABLES Final Resu lt [facility] CLIA # [id number] [address] [place] [phone] * (ABNORMAL) COMPREHENSIVE METABOLIC PANEL (08/04/2025 7:45 PM CDT) [facility] SODIUM 141 136 - 145 mmol/L 08/04/2025 8:21 PM [facility] POTASSIUM 4.1 3.5 - 5.1 mmol/L 08/04/2025 8:21 PM [facility] CHLORIDE 103 98 - 107 mmol/L 08/04/2025 8:21 PM [facility] CO2 25 22 - 29 mmol/L 08/04/2025 8:21 PM [facility] CALCIUM 9.2 8.6 - 10.0 mg/dL 08/04/2025 8:21 PM [facility] BUN 14 6 - 20 mg/dL 08/04/2025 8:21 PM [facility] CREATININE 1.17(H) 0.51 - 0.95 mg/dL 08/04/2025 8:21 PM [facility] GLUCOSE 113(H) 74 - 99 mg/dL 08/04/2025 8:21 PM [facility] TOTAL PROTEIN 7.4 6.6 - 8.7 g/dL 08/04/2025 8:21 PM [facility] ALBUMIN 3.7 3.5 - 5.2 g/dL 08/04/2025 8:21 PM [facility] BILIRUBIN TOTAL 0.3 0.0 - 1.2 mg/dL 08/04/2025 8:21 PM [facility] ALKALINE PHOSPHATASE 168(H) 35 - 104 U/L 08/04/2025 8:21 PM [facility] AST 21 0 - 35 U/L 08/04/2025 8:21 PM [facility] ALT 30 0 - 35 U/L 08/04/2025 8:21 PM [facility] GFR 59(L) >=60 mL/min/1.7 3 sq meter 08/04/2025 8:21 PM [facility] Comment:eGFR calculated with 2020 CKD-EPI equation. Vegetarian diet, extremely high or low muscle mass, and may affect results. Cystatin C with Glomerular Filtration Rate is a suitable alternative for these patients. ANION GAP 13 5 - 20 mmol/L 08/04/2025 8:21 PM [facility] Blood BLOOD SPECIMEN / Unknown Collection / Unknown 08/04/2025 7:45 PM CDT 08/04/2025 7:52 PM CDT us Sumaya Mike MD CHEMISTRY ORDERABLES Final Resu lt [facility] # [id number] [address] [place] [address] * COLONOSCOPY REPORT (12/13/2022 8:19 AM CORRECTIONAL CORPORAL) Narrative Procedure Note Ray Leong DO - 12/13/2022 8:18 AM CST [facility] GI Patient Name: Leisa Rizo Procedure Date: [...] 8:05:22 AM Scope Out: 8:15:17 AM [address] [place] [place] Ray Leong DO GI PROCEDURE ORDERABLES Final Result from Last 3 Months or Most Recently Relevant to Health Maintenance Insurance MEDICAID [place] Advance Directives For more information, please contact: [phone] Documents on File Type Date Recorded Patient Reconciling Clerk Expl anation Advance Directive POA 12/28/2022 11:24 AM Advance Directive POA * Full Code (Latest Code Status on File) Date Activated Date Inactivated Comments 12/13/2022 7:53 AM 12/13/2022 10:52 AM Care Teams Welding Equipment Repairer Relationship Specialty Start Date End Date Marcelle Wagner DO [address] [place] [id number] PCP - General Family Practice 09/19/23
--- OUTSIDE RECORDS SUMMARY | 2025-10-12 14:56 | XMS_ITS | Encounter Summary ---
Author Organization [facility] Address [address] [place] [address] Care Team Providers Care Wild Oyster Harvester Name Role Phone Marcelle Wagner DO Primary Care Provider +1- [phone] Reason for Visit * Reason Comments Med Refill Encounter Details Date Type Department Care Team (Late Contact Info) Description 10/06/2025 Refill [facility] Gastroenterology- [place] [address] [facility] [address] [place] [address] Faye Dhillon NP [address] 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 [facility] [address] [place] [address] Faye Dhillon NP [address] [place] [address] documented as of this encounter Visit Diagnoses Not on filedocumented in this encounter Care Teams Wild Oyster Harvester Relationship Specialty Start Date End Date Marcelle Wagner DO [address] [place] [phone] PCP - General Family Practice 09/19/23 documented as of this encounter
[2025-10-12 15:05] VITALS: BP 142/82; PULSE 86; RESP 20; TEMP 36.4; O2SAT 96; BMI 53.8
--- NOTE | 2025-10-12 15:09 | XRR_ITS ---
PROCEDURE INFORMATION: Exam: XR Left Knee Exam date and time: 10/12/2025 3:24 PM Age: 45 years old Clinical indication: Injury or trauma; Fall; Blunt trauma; Knee; Left TECHNIQUE: Imaging protocol: Radiologic exam of the left knee. Views: 3 views. COMPARISON: CR XR ankle LT min 3V* [id number] 08/12/2025 8:23 AM FINDINGS: Bones/joints: No acute fracture or dislocation. Moderate arthrosis left knee characterized by moderate medial compartment joint space narrowing and tricompartmental marginal joint spurring. Soft tissues: Normal. XR/XR knee LT 3V* [id number] IMPRESSION: No acute fracture or dislocation.
--- NOTE | 2025-10-12 15:09 | XRR_ITS ---
PROCEDURE INFORMATION: Exam: XR Left Tibia and Fibula Exam date and time: 10/12/2025 3:24 PM Age: 45 years old Clinical indication: Injury or trauma; Fall; Blunt trauma; Lower leg; Left TECHNIQUE: Imaging protocol: Radiologic exam of the left tibia and fibula. Views: 2 views. COMPARISON: CR XR ankle LT min 3V* [id number] 08/12/2025 8:23 AM FINDINGS: Bones/joints: Normal. Soft tissues: Normal. XR/XR tibia fibula LT 2V [id number] IMPRESSION: No acute findings.
--- NOTE | 2025-10-12 15:10 | W.ED.FALL ---
HPI - Fall General: Chief Complaint: Extremity Injury, Lower Stated Complaint: fall-left leg pain Time Seen by Provider: 10/12/25 14:58 Source: patient Mode of arrival: ambulatory Limitations: no limitations History of Present Illness: 45-year-old female states that she had fell down 2-3 stairs roughly 1 hour ago. She states she had hit her left knee having severe pain to her left knee and left lower leg. She denies hitting her head denies any other injuries elsewhere. She rates her pain a 9 out of 10 states she is not able to bear any weight on that left leg. Related Data Home Medications ?Medication ?Instructions ?Recorded ?Confirmed fluticasone propionate 50 2 spray intranasal PRN PRN Allergy 11/14/19 10/10/25 mcg/actuation nasal Symptoms spray,suspension rizatriptan 10 mg tablet 10 mg PO DAILY PRN Migraine 01/02/21 10/10/25 Headache dicyclomine 10 mg capsule 10 mg PO QID PRN Diarrhea 06/17/22 10/10/25 ondansetron HCl 4 mg tablet 4 mg PO Q8H PRN Nausea And Vomiting 06/17/22 10/10/25 colestipol 1 gram tablet 2 g PO BID PRN Abdominal Discomfort 12/10/22 10/10/25 latanoprost 0.005 % eye drops 1 drp ophthalmic (eye) BEDTIME 12/30/22 10/10/25 topiramate 100 mg tablet 100 mg PO BEDTIME 12/30/22 10/10/25 methylphenidate HCl 20 mg tablet 20 mg PO .1 pm 10/28/23 10/10/25 (Ritalin) methylphenidate HCl 20 mg 40 mg PO DAILY 10/28/23 10/10/25 tablet,extended release dulaglutide 0.75 mg/0.5 mL 1.5 mg SUBCUT .WEEKLY 04/27/24 10/10/25 subcutaneous pen injector (Trulicity) metoclopramide HCl 5 mg tablet 10 mg PO BID 04/27/24 10/10/25 (Reglan) pantoprazole 40 mg tablet,delayed 40 mg PO DAILY 04/27/24 10/10/25 release (Protonix) losartan 25 mg tablet 25 mg PO DAILY 01/18/25 10/10/25 Held on 08/15/25. Instructions: Doctor's Order ascorbate calcium (vitamin C) 500 500 mg PO DAILY 03/14/25 10/10/25 mg tablet biotin 5 mg tablet 5 mg PO DAILY 03/14/25 10/10/25 cholecalciferol (vitamin D3) 10 10 mcg PO DAILY 03/14/25 10/10/25 mcg (400 unit) capsule atogepant 60 mg tablet (Qulipta) 60 mg PO DAILY 04/29/25 10/10/25 doxycycline hyclate 100 mg tablet 100 mg PO BID PRN spasms 05/28/25 10/10/25 albuterol sulfate 90 mcg/actuation 2 inh inhalation Q6H PRN Allergy 07/22/25 10/10/25 aerosol inhaler (Ventolin HFA) Symptoms hydroxyzine HCl 50 mg tablet 75 mg PO DAILY 07/22/25 10/10/25 lamotrigine 200 mg tablet,extended 200 mg PO DAILY 07/22/25 10/10/25 release 24 hr meloxicam 7.5 mg tablet 7.5 mg PO TID 07/22/25 10/10/25 metoprolol tartrate 25 mg tablet 25 mg PO BID 07/22/25 10/10/25 tizanidine 2 mg tablet 2 mg PO TID 07/22/25 10/10/25 triamcinolone acetonide 0.1 % 1 applic topical BID PRN Dry Skin 07/22/25 10/10/25 lotion prazosin 2 mg capsule 4 mg PO BEDTIME 09/10/25 10/10/25 Previous Rx's ?Medication ?Instructions ?Recorded Night splint #1 ea 09/07/21 pregabalin 200 mg capsule 200 mg PO TID 90 days #270 caps 01/25/22 naloxone 4 mg/actuation nasal 4 mg intranasal Q2M PRN opioid 05/20/23 spray (Narcan) overdose #2 ea lurasidone 40 mg tablet (Latuda) 40 mg PO DAILY #30 tabs 02/14/25 empagliflozin 25 mg tablet 25 mg PO DAILY #90 tabs 06/25/25 (Jardiance) ASO-left #1 ea 08/12/25 Diabetic shoes with 3 sets of #1 ea 08/12/25 insoles varenicline tartrate 1 mg tablet 1 mg PO BID #56 tabs 09/12/25 (Chantix) hydrocodone 5 mg-acetaminophen 325 1 tab PO Q6H PRN pain #14 tabs 10/12/25 mg tablet Allergies Allergy/AdvReac Type Severity Reaction Status Date / Time guaifenesin (From Mucinex) Allergy Severe ANAPHYLAXIS Verified 10/12/25 15:17 tramadol Allergy Severe SEIZURE Verified 10/12/25 15:17 adhesive Allergy Intermediate RASH Verified 10/12/25 15:17 amoxicillin Allergy Intermediate RASH Verified 10/12/25 15:17 azithromycin Allergy Intermediate RASH Verified 10/12/25 15:17 cariprazine (From Vraylar) Allergy Intermediate HIVES Verified 10/12/25 15:17 latex Allergy Intermediate HIVES Verified 10/12/25 15:17 methocarbamol Allergy Intermediate HIVES Verified 10/12/25 15:17 metronidazole (From Flagyl) Allergy Intermediate VOMITING Verified 10/12/25 15:17 morphine Allergy Intermediate VOMITING Verified 10/12/25 15:17 solriamfetol (From Sunosi) Allergy Intermediate ADR-Seizure Verified 10/12/25 15:17 sulfamethoxazole (From Allergy Intermediate ALGY-Hives Verified 10/12/25 15:17 Bactrim) sumatriptan Allergy Intermediate RASH Verified 10/12/25 15:17 trimethoprim (From Bactrim) Allergy Intermediate ALGY-Hives Verified 10/12/25 15:17 zolpidem (From Ambien) Allergy Intermediate RASH Verified 10/12/25 15:17 Alpha-Gal Allergy ADR-Gastrointestinal Verified 10/12/25 15:17 ([id number]-Edzdu-2,3-Gala Upset oxycodone Allergy ALGY-Swell Verified 10/12/25 15:17 Lip/Tongue/Throat Review of Systems Musc: Reports: extremity pain PFSH ED PFSH: Medical History Smoker unmotivated to quit Psychiatric care Chronic sacroiliac joint pain Opioid contract exists Narcolepsy Obstructive sleep apnea Amphetamine addiction Cannabis dependence in remission Borderline personality disorder Schizoaffective disorder, bipolar type Benign essential HTN 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 Acute bilateral low back pain with left-sided sciatica Spondylosis without myelopathy or radiculopathy, lumbar region Cholecystectomy planned Surgical History History of cholecystectomy Tubal ligation status Family History Brother Hypertension CAD (coronary artery disease) Diabetes Father Hypertension Mother Hypertension CAD (coronary artery disease) Cancer liver and lungs Social History Smoking and tobacco/nicotine status: unknown if used tobacco/nicotine Quit status (tobacco/nicotine): has tried quititng Number of times tried to quit tobacco: 10 Second hand smoke exposure: Yes Alcohol intake: former Year of sobriety/quit date alcohol: 2009 Substance/Drug Use: former Date of last use: 2015 Current gender identity: Female Physical Exam Const: COMMON NORMALS: no acute distress, patient oriented x3 and healthy appearing HENMT: COMMON NORMALS: normocephalic and atraumatic HEAD & SCALP: normocephalic and atraumatic Neck/C-Spine: COMMON NORMALS: full ROM and supple Chest: COMMONS NORMALS: normal inspection of the chest Resp: COMMON NORMALS: normal respiratory effort Cardio: COMMON NORMALS: regular rate RATE: regular rate Extremity: NARRATIVE EXTREMITY EXAM: Tenderness noted to the left knee left tib-fib with slight abrasions distal pulse sensation intact Neuro: COMMON NORMALS: patient oriented x3, moves all extremities and no focal motor deficits Psych: COMMON NORMALS: mental status grossly normal, Normal thought process present and cooperative THOUGHT PROCESS: Normal thought process present Skin: COMMON NORMALS: no rashes or lesions noted and no wounds GENERAL SKIN EXAM: no rashes or lesions noted Course Vital Signs: Vital signs: Vital Signs Temperature 97.6 F 10/12/25 15:05 Pulse Rate 81 10/12/25 15:18 Respiratory Rate 20 H 10/12/25 15:05 Blood Pressure 124/87 10/12/25 15:18 Pulse Oximetry 91 10/12/25 15:18 Oxygen Delivery Me thod Room Air 10/12/25 15:05 MDM - Fall Medical Decision Making Patient presents here with left knee pain after a fall. X-ray interpreted by me showed no acute abnormality she has no signs of dislocation or fracture. Patient likely has a knee sprain or contusion. Will place her in a knee immobilizer she is to weight-bear as tolerated we will get her crutches we will prescribe her pain meds for home. Will get her follow-up with orthopedics. She is to return if worsening I did go over all this with her she understands agrees to plan. Medical Records I reviewed the patient's medical records. Lab Data Radiology Impressions Knee X-Ray 10/12/25 15:09 IMPRESSION: No acute fracture or dislocation. Tibia/Fibula X-Ray 10/12/25 15:09 IMPRESSION: No acute findings. All radiology interpretation(s) finalized by discharge Discharge Plan Discharge Patient Disposition: Home Clinical Impression: Injury of knee, left Condition: Stable Prescriptions: New hydrocodone-acetaminophen 5-325 mg tablet 1 tab PO Q6H PRN (Reason: pain) Qty: 14 0RF No Action pantoprazole [Protonix] 40 mg tablet,delayed release (DR/EC) 40 mg PO DAILY pregabalin 200 mg capsule 200 mg PO TID 90 Days Qty: 270 1RF fluticasone propionate 50 mcg/actuation spray,suspension 2 spray INTRANASAL PRN PRN (Reason: Allergy Symptoms) (DME) Night splint See Rx Instructions .Route .MEDSUPPLY Qty: 1 0RF Rx Instructions: As directed methylphenidate HCl [Ritalin] 20 mg tablet 20 mg PO .1 pm methylphenidate HCl 20 mg tablet extended release 40 mg PO DAILY Trulicity 0.75 mg/0.5 mL pen injector 1.5 mg SUBCUT .WEEKLY losartan 25 mg tablet 25 mg PO DAILY (DME) ASO-left See Rx Instructions .Route .MEDSUPPLY Qty: 1 0RF Rx Instructions: As directed by HOME Length of need [id number] days (DME) Diabetic shoes with 3 sets of insoles See Rx Instructions .Route .MEDSUPPLY Qty: 1 0RF Rx Instructions: As directed prazosin 2 mg capsule 4 mg PO BEDTIME ondansetron HCl 4 mg tablet 4 mg PO Q8H PRN (Reason: Nausea And Vomiting) dicyclomine 10 mg capsule 10 mg PO QID PRN (Reason: Diarrhea) colestipol 1 gram tablet 2 g PO BID PRN (Reason: Abdominal Discomfort) metoclopramide HCl [Reglan] 5 mg tablet 10 mg PO BID lurasidone [Latuda] 40 mg tablet 40 mg PO DAILY Qty: 30 11RF Rx Instructions: must administer with food (at least 350 calories) ascorbate calcium (vitamin C) 500 mg tablet 500 mg PO DAILY cholecalciferol (vitamin D3) 10 mcg (400 unit) capsule 10 mcg PO DAILY biotin 5 mg tablet 5 mg PO DAILY Qulipta 60 mg tablet 60 mg PO DAILY Jardiance 25 mg tablet 25 mg PO DAILY Qty: 90 1RF naloxone [Narcan] 4 mg/actuation spray,non-aerosol 4 mg intranasal Q2M PRN (Reason: opioid overdose) Qty: 2 0RF Rx Instructions: spray 1 dose into ONE nostril; alternate nostrils w each dose until help arrives varenicline tartrate [Chantix] 1 mg tablet 1 mg PO BID Qty: 56 5RF rizatriptan 10 mg tablet 10 mg PO DAILY PRN (Reason: Migraine Headache) latanoprost 0.005 % drops 1 drp ophthalmic (eye) BEDTIME topiramate 100 mg tablet 100 mg PO BEDTIME doxycycline hyclate 100 mg tablet 100 mg PO BID PRN (Reason: spasms) tizanidine 2 mg tablet 2 mg PO TID hydroxyzine HCl 50 mg tablet 75 mg PO DAILY meloxicam 7.5 mg tablet 7.5 mg PO TID triamcinolone acetonide 0.1 % lotion 1 applic topical BID PRN (Reason: Dry Skin) albuterol sulfate [Ventolin HFA] 90 mcg/actuation HFA aerosol inhaler 2 inh inhalation Q6H PRN (Reason: Allergy Symptoms) metoprolol tartrate 25 mg tablet 25 mg PO BID lamotrigine 200 mg tablet extended release 24hr 200 mg PO DAILY Discharge Orders: Discharge ED (Routine); Ordered 10/12/25 Ordered By: Saul Ly Referrals: Marcelle Wagner DO [Primary Care Provider, MULTIPLE RESAW OPERATOR] Vanessa Gracia MD [Physician, Orthopedics] - 4-7 days Discharge Diet: Advance as tolerated Discharge Activity: Increase activity as tolerated Patient Instructions: Knee Sprain (ED) Print Language: Yi Coding Level of Care Code ED Flight Purser for Claudia Muniz
[2025-10-12 15:18] VITALS: BP 124/87; PULSE 81; O2SAT 91
[2025-10-12] MEDS: HYDROcodone-acetaminophen 10-325 mg Tablet 1 TAB PO (15:44)
[2025-10-12 16:31] VITALS: BP 115/76; PULSE 84; O2SAT 95
--- NOTE | 2025-10-14 11:05 | DCPLANNER ---
messaged ortho for er f/u
== END 2025-10-12 16:33 | disposition home or self-care (01) ==
PROVIDERS: Emergency Provider Emergency Medicine; PCP Family Medicine
DX: S89.92XA Unspecified injury of left lower leg, initial encounter (principal); I10 Essential (primary) hypertension; Z79.85 Long-term (current) use of injectable non-insulin antidiabetic drugs; W10.9XXA Fall (on) (from) unspecified stairs and steps, initial encounter
CPT/HCPCS: 73562; 73590; 99283; J9999

== ENCOUNTER → 2025-10-15 09:07 | Outpatient (BNVA) | payer MEDICAID, SELFPAY ==
[2024-08-07 15:12] VITALS: BP 112/76; BMI 62.0
== END ==
PROVIDERS: PCP Family Medicine; Visit Provider Podiatrist Foot & Ankle Surgery
DX: M79.672 Pain in left foot (principal); S99.912A Unspecified injury of left ankle, initial encounter; X58.XXXA Exposure to other specified factors, initial encounter
CPT/HCPCS: 73610; 73630; 99213

== ENCOUNTER → 2025-10-21 12:59 | Outpatient (BNVA) | payer MEDICAID, SELFPAY ==
[2024-08-07 15:12] VITALS: BP 112/76; BMI 62.0
== END ==
PROVIDERS: PCP Family Medicine; Visit Provider Specialist
DX: S89.92XA Unspecified injury of left lower leg, initial encounter (principal); W19.XXXA Unspecified fall, initial encounter; M17.12 Unilateral primary osteoarthritis, left knee; E66.01 Morbid (severe) obesity due to excess calories; Z68.43 Body mass index [BMI] 50.0-59.9, adult
CPT/HCPCS: 73560; 73565; 99214